=== PATIENT | male | born 1955 | race Caucasian/White ===

== ENCOUNTER 2017-02-18 02:14 | Inpatient (IN) | payer OTHER ==
[2017-02-18] VITALS (52 sets, daily range): BP systolic 61–209; BP diastolic 40–133; PULSE 94–127; RESP 18–26; TEMP 94.4–100.8; O2SAT 92–100
[~2017-02-18 02:14] MED LIST: CYCL-36 PO; LIDO2%S2 PO; PERC5TAB12 PO; TRIA0.1P3 MT
[2017-02-18] MEDS ORDERED: DEXTROSE 50% IN WATER 50 ML VIAL(D50) ONE (02:24)
[2017-02-18] MEDS ORDERED: SODIUM CHLOR 0.9% 1000 ML INJ 1,000 ML IV ONE ×4 (02:41→08:30)
[2017-02-18] MEDS ORDERED: HEPARIN SODIUM - IV 10,000 UNITS/10 ML VIAL IV STA (02:41)
[2017-02-18] MEDS ORDERED: HEPARIN-D5W INJ 250 ML ONE (02:41)
[2017-02-18] MEDS ORDERED: ASPIRIN 300 MG SUPP RECTAL ONE (02:45)
[2017-02-18] MEDS ORDERED: SODIUM CHLORIDE 0.9% FLUSH 10 ML FLUSH IVF PRN (02:45)
--- NOTE | 2017-02-18 02:57 | RADRPT ---
EXAM DATE/TIME: 02/18/2017 02:45 [facility] COMPARISON: No previous studies available for comparison. INDICATIONS : Code Stemi. Unresponsive. ET tube placement. MEDICAL HISTORY : None. SURGICAL HISTORY : None. ENCOUNTER: Initial ACUITY: 1 day PAIN SCORE: Non-responsive. LOCATION: Bilateral chest FINDINGS: A single view of the chest demonstrates the lungs to be symmetrically aerated without evidence of mas s, infiltrate or effusion. There is hyperaeration of the lungs. There is an ET tube in good position. No evidence of pneumothorax. There is an NG tube in place. The NG tube tip is in the distal esophagu s. The cardiomediastinal contours are unremarkable. Osseous structures are intact. CONCLUSION: 1. No focal or acute intrathoracic disease. 2. NG tube tip in distal esophagus. Recommend advancing another 10 cm. Toby Constantino MD on February 18, 2017 at 2:54 Board Certified Radiologist. This report was verified electronically.
[2017-02-18] MEDS ORDERED: INSULIN HUMAN REGULAR 1,000 UNITS/10 ML VIAL IV PUSH ONE (03:00)
[2017-02-18] MEDS ORDERED: CALCIUM CHLORIDE 10% SOLN 1 GRAM/10 ML SYR IV PUSH ONE (03:00)
[2017-02-18] MEDS ORDERED: DEXTROSE 50% IN WATER 50 ML VIAL(D50) IV PUSH ONE (03:00)
[2017-02-18 03:01] LABS: I-STAT POTASSIUM 6.9 MMOL/L (3.5-4.9)
[2017-02-18 03:02] LABS: BLOOD GAS BASE EXCESS -19.7 mmol/L (-2-2); BLOOD GAS CARBOXYHEMOGLOBIN 0.4 % (0-4); BLOOD GAS HCO3 11 mmol/L (22-26); BLOOD GAS METHEMOGLOBIN 0.7 % (0-2); BLOOD GAS O2 HGB SATURATION 78 % (90-100); BLOOD GAS OXYGEN CONTENT 13.5 Vol % (12.0-20.0); BLOOD GAS PCO2 59 mmHg (38-42); BLOOD GAS PO2 76 mmHG (61-120); BLOOD GAS TOTAL HGB 12.3 G/DL (12.0-16.0); CRITICAL VALUE YES; DRAW SITE LT RADIAL; FIO2 100 %; NUMBER OF ARTERIAL PUNCTURES 1; OXYGEN DEVICE VENTILATOR; STAT YES; TEMP CORR TO 98.6; ULNAR PULSE PRESENT; VENT SETTINGS AC18/550/+5
[2017-02-18 03:04] LABS: INTERNATIONAL NORMALIZED RATIO 1.4 RATIO; PROTHROMBIN TIME - PATIENT 15.2 SEC (9.8-11.6)
[2017-02-18] MEDS ORDERED: DEXTROSE 50% IN WATER 50 ML SYRINGE ONE (03:07)
[2017-02-18 03:10] LABS: AUTOMATED NEUTROPHIL # 8.9 TH/MM3 (1.8-7.7); BASOPHIL # 0.1 TH/MM3 (0-0.2); BASOPHIL % 0.6 % (0.0-2.0); EOSINOPHIL # 0.1 TH/MM3 (0-0.4); EOSINOPHIL % 0.4 % (0.0-4.0); HEMATOCRIT 38.5 % (39.0-51.0); LYMPH % 20.6 % (9.0-44.0); LYMPHOCYTE # 2.6 TH/MM3 (1.0-4.8); MEAN CELL VOLUME 119.3 FL (80.0-100.0); MEAN CORPUSCULAR HEMOGLOBIN 36.8 PG (27.0-34.0); MEAN CORPUSCULAR HGB CONC 30.8 % (32.0-36.0); MONO % 7.9 % (0.0-8.0); NEUT % 70.5 % (16.0-70.0); PLATELET COUNT 116 TH/MM3 (150-450); RED BLOOD COUNT 3.23 MIL/MM3 (4.50-5.90); RED CELL DISTRIBUTION WIDTH 15.1 % (11.6-17.2); WHITE BLOOD COUNT 12.6 TH/MM3 (4.0-11.0)
[2017-02-18 03:23] LABS: HEMO FLAGS AUTO DIFF
[2017-02-18] MEDS ORDERED: VANCOMYCIN INJ 1,250 MG in SODIUM CHLOR 0.9% 250 ML INJ 250 ML IV ONE (03:30)
[2017-02-18] MEDS ORDERED: CEFEPIME INJ 2,000 MG in SODIUM CHLORIDE 0.9% INJ 100 ML IV ONE (03:30)
[2017-02-18 03:56] LABS: MAGNESIUM 4.2 MG/DL (1.5-2.5)
[2017-02-18 03:57] LABS: ALKALINE PHOSPHATASE 126 U/L (45-117); ALT (GPT) 713 U/L (12-78); ANION GAP 25 MEQ/L (5-15); AST (GOT) 2740 U/L (15-37); BICARBONATE 9.7 MEQ/L (21.0-32.0); BLOOD UREA NITROGEN 27 MG/DL (7-18); CHLORIDE 106 MEQ/L (98-107); GLOMERULAR FILTRATION RATE 15 ML/MIN (>89); SODIUM (NA) 141 MEQ/L (136-145); TOTAL BILIRUBIN ADULT 1.7 MG/DL (0.2-1.0)
[2017-02-18 03:59] LABS: POTASSIUM 6.7 MEQ/L (3.5-5.1)
--- NOTE | 2017-02-18 04:11 | PD ---
HPI Chief Complaint: Code Blue Time Seen by Provider: 02:41 Travel History International Travel<30 days: No (unable to assess) Contact w/Intl Traveler<30days: No History of Present Illness HPI The patient's 61 years old records EMS. The majority of the history is obtained by EMS band manager. The patient has history of epilepsy. Evidently he is normally compliant with his antiepileptic agents. On scene EMS could not identify the antiepileptic agents the patient takes. Reportedly the patient had been conversing with roommates through a doorway about 3 hours prior to EMS arrival (people were speaking with him however no one saw him). He had become unresponsive and EMS was activated. They found the patient on the floor. His mental status is altered apparently postictal nonverbal. The patient was prepared for transport to the ER and on the way to the ambulance he became asystolic. ACLS protocol was initiated. The patient was intubated and chest compressions were started. About 12 minutes of chest compressions were performed. Evidently he received 1 dose of epinephrine. On arrival to the ER chest compressions were continued and shortly thereafter he was found to have a pulse. Levophed drip started. Bicarbonate drip started. Bedside glucose 50 and an amp of D50 was given. In the ER the patient received multiple rounds of epinephrine and bicarbonate as he lost pulses twice more initially, each episode lasting about 2-3 minutes. EKG obtained shortly after the patient's arrival revealed ST elevations in precordial leads V1 through V5 as well as II, III and aVF. STEMI alert was activated. Toy Assembly Supervisor Dr. Keane evaluated the patient at the bedside. A repeat EKG was performed revealing no ST elevation [place]. Bedside transthoracic/transabdominal ultrasound revealed normal cardiac activity. Ischemic injury pattern not consistent with a typical occlusive coronary process. No evidence of [place] cardiomyopathy on bedside us. Please refer to his note. Of note the patient was found to have some swelling and induration of the left lower extremity at the calf. A [place] needle was employed to check compartment pressures of the anterior compartment in the superficial posterior compartment with measurements of 47 and 45 respectively. Finally the patient was found to be somewhat hypothermic and blood cultures were drawn and antibiotics initiated, cefepime and vancomycin. The patient also has hyperkalemia at 6.9 and insulin dextrose, calcium and bicarbonate were given. The creatinine is also about 3.5. The patient will be admitted to the asic engineer service. The case was discussed with Dr. Auguste. Case was also discussed with Dr. Frederick of orthopedic surgery. [facility] Social History Tobacco Use: No Allergies-Medications (Allergen,Severity, Reaction): Coded Allergies: UNOBTAINABLE (Unverified , 02/18/17) Review of Systems ROS Limitations: Clinical Condition Physical Exam Narrative GENERAL: 61-year-old male GCS 3T well-nourished well-developed SKIN: Focused skin assessment warm/dry. HEAD: Atraumatic. Normocephalic. EYES: On arrival pupils fixed and dilated at about 3 mm. ENT: No nasal bleeding or discharge. Mucous membranes pink and moist. Intubated. NECK: Trachea midline. No JVD. CARDIOVASCULAR: Pulseless upon arrival. Monitor revealed a sinus tachycardia. RESPIRATORY: Intubated. Breath sounds present bilaterally. GASTROINTESTINAL: Abdomen soft, non-tender, nondistended. Hepatic and splenic margins not palpable. MUSCULOSKELETAL: The left lower extremity/calf is quite indurated and edematous. There is ecchymosis and a approximate 20 cm x 5 mm area of blisters in a linear pattern of distribution. There is a posterior tibialis pulse on the left side. NEUROLOGICAL: GCS 3T. PSYCHIATRIC: Unable to assess. Data Data Last Documented VS Vital Signs Date Time Temp Pulse Resp B/P Pulse Ox O2 Delivery O2 Flow Rate FiO2 02/18/17 03:05 92 100 Orders Dextrose 50% In Syeda (Vial) Inj (D50w (Vi (02/18/17 02:24) Heparin-D5w Inj (Heparin-D5w Inj) (02/18/17 02:41) Troponin I (02/18/17 02:41) Ckmb (Isoenzyme) Profile (02/18/17 02:41) Complete Blood Count With Diff (02/18/17 02:41) I-Stat Profile (02/18/17 02:41) I-Stat Creatinine (02/18/17 02:41) Calcium (02/18/17 02:41) Magnesium (Mg) (02/18/17 02:41) Prothrombin Time / Inr (Pt) (02/18/17 02:41) Act Partial Throm Time (Ptt) (02/18/17 02:41) B-Type Natriuretic Peptide (02/18/17 02:41) Chest, Single Ap (02/18/17 02:41) Electrocardiogram (02/18/17 02:41) Oxygen Administration (02/18/17 02:41) Iv Access Insert/Monitor (02/18/17 02:41) Oximetry (02/18/17 02:41) Sodium Chlor 0.9% 1000 Ml Inj (Ns 1000 M (02/18/17 02:41) Sodium Chloride 0.9% Flush (Ns Flush) (02/18/17 02:45) Heparin Inj (Heparin Inj) (02/18/17 02:41) Ct Brain W/O Iv Contrast(Rout) (02/18/17 02:41) Aspirin Supp (Aspirin Supp) (02/18/17 02:45) Comprehensive Metabolic Panel (02/18/17 02:56) Dextrose 50% In Syeda (Vial) Inj (D50w (Vi (02/18/17 03:00) Calcium Chloride Inj (Calcium Chloride I (02/18/17 03:00) Insulin Human Regular Inj (Novolin R Inj (02/18/17 03:00) Arterial Blood Gas (Abg) (02/18/17 02:48) Resp Ventilation- Volume (02/18/17 ) Urinary Catheter Management SHERRY.Q8H (02/18/17 03:03) Sodium Chlor 0.9% 1000 Ml Inj (Ns 1000 M (02/18/17 03:15) Sodium Chlor 0.9% 1000 Ml Inj (Ns 1000 M (02/18/17 03:15) Dextrose 50% In Yseda (Syr) Inj (D50w (Syr (02/18/17 03:07) Blood Culture (02/18/17 03:20) Cefepime Inj (Maxipime Inj) (02/18/17 03:30) Vancomycin Inj (Vancomycin Inj) (02/18/17 03:30) Admit Order (Ed Use Only) (02/18/17 03:27) Labs Laboratory Tests Test 02/18/17 02/18/17 02/18/17 02/18/17 02:40 02:48 03:00 03:01 Bedside Hemoglobin 16.0 G/DL Bedside Hematocrit 47.0 % Prothrombin Time 15.2 SEC Prothromb Time International 1.4 RATIO Ratio Activated Partial 42.0 SEC Thromboplast Time Bedside Sodium 137 MMOL/L Bedside Potassium 6.9 MMOL/L Bedside Chloride 108 MMOL/L Bedside Blood Urea Nitrogen 38 MG/DL Bedside Creatinine 3.7 MG/DL Bedside Glucose 45 MG/DL Calcium Level 8.5 MG/DL 7.5 MG/DL Magnesium Level 4.2 MG/DL Total Creatine Kinase U/L Troponin I 0.14 NG/ML B-Type Natriuretic Peptide 66 PG/ML Blood Gas Puncture Site LT RADIAL Blood Gas Patient Temperature 98.6 Blood Gas HCO3 11 mmol/L Blood Gas Base Excess -19.7 mmol/L Blood Gas Oxygen Saturation 78 % Arterial Blood pH 6.89 Arterial Blood Partial 59 mmHg Pressure CO2 Arterial Blood Partial 76 mmHG Pressure O2 Arterial Blood Oxygen Content 13.5 Vol % Arterial Blood 0.4 % Carboxyhemoglobin Arterial Blood Methemoglobin 0.7 % Blood Gas Hemoglobin 12.3 G/DL Oxygen Delivery Device VENTILATOR Blood Gas Ventilator Setting AC18/550/+5 Blood Gas Inspired Oxygen 100 % Sodium Level 141 MEQ/L Potassium Level 6.7 MEQ/L Chloride Level 106 MEQ/L Carbon Dioxide Level 9.7 MEQ/L Anion Gap 25 MEQ/L Blood Urea Nitrogen 27 MG/DL Creatinine 3.46 MG/DL Estimat Glomerular Filtration 15 ML/MIN Rate Random Glucose 158 MG/DL Total Bilirubin 1.7 MG/DL Aspartate Amino Transf 2740 U/L (AST/SGOT) Alanine Aminotransferase 713 U/L (ALT/SGPT) Alkaline Phosphatase 126 U/L Total Protein 5.1 GM/DL Albumin 1.9 GM/DL White Blood Count 12.6 TH/MM3 Red Blood Count 3.23 MIL/MM3 Hemoglobin 11.9 GM/DL Hematocrit 38.5 % Mean Corpuscular Volume 119.3 FL Mean Corpuscular Hemoglobin 36.8 PG Mean Corpuscular Hemoglobin 30.8 % Concent Red Cell Distribution Width 15.1 % Platelet Count 116 TH/MM3 Mean Platelet Volume 9.2 FL Neutrophils (%) (Auto) 70.5 % Lymphocytes (%) (Auto) 20.6 % Monocytes (%) (Auto) 7.9 % Eosinophils (%) (Auto) 0.4 % Basophils (%) (Auto) 0.6 % Neutrophils # (Auto) 8.9 TH/MM3 Lymphocytes # (Auto) 2.6 TH/MM3 Monocytes # (Auto) 1.0 TH/MM3 Eosinophils # (Auto) 0.1 TH/MM3 Basophils # (Auto) 0.1 TH/MM3 CBC Comment AUTO DIFF Differential Total Cells 100 Counted Neutrophils % (Manual) 76 % Band Neutrophils % 5 % Lymphocytes % 15 % Monocytes % 2 % Neutrophils # (Manual) 10.5 TH/MM3 Metamyelocytes 2 % Nucleated Red Blood Cells 2 /100 WBC Differential Comment FINAL DIFF MANUAL Platelet Estimate LOW Platelet Morphology Comment NORMAL MDM Medical Decision Making Medical Screen Exam Complete: Yes Emergency Medical Condition: Yes Differential Diagnosis Cardiopulmonary arrest, compartment syndrome, rhabdomyolysis, sepsis, anoxic brain injury Narrative Course CBC & BMP Diagram 02/18/17 03:00 02/18/17 03:01 AST 2740 ALT 713 Alkaline phosphatase 126 Troponin 0.14 BNP 66 Mg 4.2 6.89/59/10.8 pO2 76 on 100% FiO2 EKG reveals ST elevations in V1 through V5 and ST elevations in II, III, and F aVF Last 24 hours Impressions Chest X-Ray 02/18/17 0241 Signed Impressions: Service Date/Time: Saturday, February 18, 2017 02:45 - CONCLUSION: 1. No focal or acute intrathoracic disease. 2. NG tube tip in distal esophagus. Recommend advancing another 10 cm. Toby Constantino MD Please refer to the history of present illness. Patient will be admitted to the [facility]. Critical Care Narrative Aggregate critical care time was 90 minutes. Time to perform other separately billable procedures was not included in the critical care time. My time did not include minutes spent treating any other patients simultaneously or on activities that did not directly contribute to the patient's treatment. The services I provided to this patient were to treat and/or prevent clinically significant deterioration that could result in: Cardiopulmonary arrest, multiorgan failure I provided critical care services requiring my management, as noted below: Chart data review, documentation time, medication orders and management, vital sign assessments/reviewing monitor data, ordering and reviewing lab tests, ordering and interpreting/reviewing x-rays and diagnostic studies, care of the patient and discussion of the patient with the admitting physicians. Procedures Procedure Narrative After the risks and benefits were discussed the following procedure was performed: INTUBATION: The patient was put in optimal position for the procedure. No RSI med was required. The patient was intubated with a 7-5 cuffed endotracheal tube. Tube placement was confirmed by visualization of the tube and balloon passing through the cords, capnometry and subsequent chest x-ray. Breath sounds were equal and well aerated bilaterally postintubation. No breath sounds over stomach. Patient tolerated procedure well. Sepsis Criteria SIRS Criteria (2 or more): Temp > 100.9 or < 96.8, Heart rate over 90, WBC > 42732, < 4000 or > 10% bands Sepsis Criteria (SIRS+source): Infect source susp/known Severe Sepsis (+one): Hypotension, Hypoperfusion Septic Shock Criteria: Unresponsive to 30ml/kg fluid bolus Multiple Organ Dysfunction Syn: Evidence -2 organs failing Diagnosis Primary Impression: Cardiopulmonary arrest with successful resuscitation Additional Impressions: Renal failure Hyperkalemia Hypothermia Qualified Code: T68.XXXA - Hypothermia, initial encounter Compartment syndrome Qualified Code: T79.A22A - Traumatic compartment syndrome of left lower extremity, initial encounter Sepsis with multi-organ dysfunction Admitting Information Admitting Physician Requests: Chicho Chamorro MD Feb 18, 2017 04:11
[2017-02-18] MEDS: SODIUM CHLOR 0.9% 1000 ML INJ 1,000 ML IV SCH ×4 (04:20→21:34)
[2017-02-18 04:21] LABS: BANDS 5 % (0-6); CORRECTED NUCLEATED RBC 2 /100 WBC (0-0); METAMYELOCYTES 2 % (0-1); NEUTROPHIL # MANUAL DIFF 10.5 TH/MM3 (1.8-7.7); POLYS (SEG NEUTROPHILS) 76 % (16-70); WBC DIFF SAMPLE 100
[2017-02-18 04:22] LABS: PLATELET ESTIMATE SMEAR LOW (NORMAL); PLATELET MORPHOLOGY NORMAL (NORMAL); SCAN/DIFF FINAL DIFF MANUAL
[2017-02-18] MEDS ORDERED: RESP: ALBUTEROL 2.5 MG/IPRATROPIUM 0.5 MG NEB (PRN) INH (04:30)
[2017-02-18] MEDS ORDERED: SODIUM CHLORIDE 0.9% FLUSH 10 ML FLUSH PRN (04:30)
[2017-02-18] MEDS ORDERED: MISCELLANEOUS NURSING INFORMATION XX SCH ×2 (04:30→07:15)
[2017-02-18] MEDS ORDERED: LORazepam 2 MG/ML VIAL IV PUSH ONE (04:30)
[2017-02-18] MEDS ORDERED: MORPHINE SULFATE 4 MG/ML INJ IV PRN (04:30)
[2017-02-18] MEDS ORDERED: ONDANSETRON HCL 4 MG/2 ML VIAL IV PRN (04:30)
[2017-02-18] MEDS ORDERED: PROPOFOL 1000 MG/100 ML INJ 100 ML IV SCH (04:30)
[2017-02-18] MEDS ORDERED: ACETAMINOPHEN 325 MG TAB PO PRN (04:30)
[2017-02-18] MEDS ORDERED: CHLORHEXIDINE GLUCONATE 2 % 1 PACK (2 CLOTHS) TOP PRN ×2 (04:30→07:15)
[2017-02-18] MEDS ORDERED: METOCLOPRAMIDE HCL 10 MG/2 ML VIAL IV PRN (04:30)
--- NOTE | 2017-02-18 04:49 | RADRPT ---
EXAM DATE/TIME: 02/18/2017 04:27 [facility] COMPARISON: No previous studies available for comparison. INDICATIONS : Altered mental status. RADIATION DOSE: 56.35 CTDIvol (mGy) MEDICAL HISTORY : Non-responsive. SURGICAL HISTORY : Non-responsive. ENCOUNTER: Initial ACUITY: 1 day PAIN SCALE: Non-responsive LOCATION: cranial TECHNIQUE: Multiple contiguous axial images were obtained of the head. Using automated exposure control and adj ustment of the mA and/or kV according to patient size, radiation dose was kept as low as reasonably a chievable to obtain optimal diagnostic quality images. FINDINGS: CEREBRUM: The ventricles are normal for age. No evidence of midline shift, mass lesion, hemorrhage or acute in farction. No extra-axial fluid collections are seen. POSTERIOR FOSSA: The cerebellum and brainstem are intact. The 4th ventricle is midline. The cerebellopontine angle i s unremarkable. EXTRACRANIAL: The visualized portion of the orbits is intact. SKULL: The calvaria is intact. No evidence of skull fracture. CONCLUSION: Unremarkable CT scan of the brain.. Toby Constantino MD on February 18, 2017 at 4:46 Board Certified Radiologist. This report was verified electronically.
--- NOTE | 2017-02-18 04:50 | HHI.HP ---
HPI Service Critical Care Medicine Primary Care Physician Unknown Admission Diagnosis Cardiopulmonary Arrest; Renal Failure; Hyperkalemia Diagnosis: Travel History International Travel<30 Days: No Contact w/Intl Traveler <30 Da: No Traveled to Known Affected Are: No History of Present Illness 61 years old male brought as a status post cardiac arrest. The history is obtained from medical chart. The patient has history of epilepsy. He is normally compliant with his antiepileptic agents. The patient had been conversing with roommates through a doorway about 3 hours prior to EMS arrival. He had become unresponsive and EMS was activated. They found the patient on the floor. His mental status was altered apparently postictal nonverbal. The patient was prepared for transport to the ER and on the way to the ambulance he became asystolic. ACLS protocol was initiated. The patient was intubated and chest compressions were started. About 12 minutes of chest compressions were performed. He received 1 dose of epinephrine. On arrival to the ER chest compressions were continued and shortly thereafter he was found to have a pulse. Levophed drip started. In the ER the patient received multiple rounds of epinephrine and bicarbonate as he lost pulses twice more initially each episode lasting about 2-3 minutes. EKG obtained shortly after the patient' s arrival revealed ST elevations in precordial leads V1 through V5 as well as II , III and aVF. STEMI alert was activated. Television Installer Helper Dr. Keane evaluated the patient at the bedside. A repeat EKG was performed revealing no ST elevation [place]. The patient was found to have some swelling and induration of the left lower extremity at the calf. A [place] needle was employed to check compartment pressures of the anterior compartment in the superficial posterior compartment with measurements of 47 and 45 respectively. Finally the patient was found to be somewhat hypothermic and blood cultures were drawn and antibiotics initiated , cefepime and vancomycin. The patient also has hyperkalemia at 6.9 and insulin dextrose, calcium and bicarbonate were given. The creatinine is also about 3.5. Review of Systems ROS To obtain patient is sedated and intubated Past Family Social History Allergies: Coded Allergies: UNOBTAINABLE (Unverified , 02/18/17) Past Medical History Epilepsy Past Surgical History Unable to obtain Reported Medications Unable to obtain Active Ordered Medications Current Medications Medications (Trade) Dose Ordered Sig/Abdoulaye Route PRN Reason Start Time Stop Time Status Last Admin Dose Admin Sodium Chloride 2 ml 2 ml UNSCH PRN IVF FLUSH AFTER USING IV ACCESS 02/18/17 02:45 Vancomycin HCl/ Sodium Chloride (Vancomycin Inj/ NS 250 ml Inj) 262.5 ml @ 262.5 mls/ hr ONCE ONCE IV 02/18/17 03:30 02/18/17 04:29 02/18/17 03:53 Family History Unable to obtain Social History Unable to obtain Physical Exam Vital Signs Vital Signs Date Time Temp Pulse Resp B/P Pulse Ox O2 Delivery O2 Flow Rate FiO2 02/18/17 03:05 92 100 Physical Exam GENERAL: Well-nourished, well-developed patient. SKIN: Warm and dry. HEAD: Normocephalic. EYES: No scleral icterus. No injection or drainage. Pupils 3 mm bilaterally sluggish NECK: Supple, trachea midline. No JVD or lymphadenopathy. CARDIOVASCULAR: Regular rate and rhythm without murmurs, gallops, or rubs. RESPIRATORY: Breath sounds equal bilaterally. No accessory muscle use. GASTROINTESTINAL: Abdomen soft, non-tender, nondistended. MUSCULOSKELETAL: No cyanosis, or edema. BACK: Nontender without obvious deformity. No CVA tenderness. EXTREMITIES: No clubbing or cyanosis. Up to the knee edema of the right cuff Laboratory Laboratory Tests Test 02/18/17 02/18/17 02/18/17 02/18/17 02:40 02:48 03:00 03:01 Bedside Hemoglobin 16.0 Bedside Hematocrit 47.0 Prothrombin Time 15.2 Prothromb Time International 1.4 Ratio Activated Partial 42.0 Thromboplast Time Bedside Sodium 137 Bedside Potassium 6.9 Bedside Chloride 108 Bedside Blood Urea Nitrogen 38 Bedside Creatinine 3.7 Bedside Glucose 45 Calcium Level 8.5 7.5 Magnesium Level 4.2 Total Creatine Kinase Troponin I 0.14 B-Type Natriuretic Peptide 66 Blood Gas Puncture Site LT RADIAL Blood Gas Patient Temperature 98.6 Blood Gas HCO3 11 Blood Gas Base Excess -19.7 Blood Gas Oxygen Saturation 78 Arterial Blood pH 6.89 Arterial Blood Partial 59 Pressure CO2 Arterial Blood Partial 76 Pressure O2 Arterial Blood Oxygen Content 13.5 Arterial Blood 0.4 Carboxyhemoglobin Arterial Blood Methemoglobin 0.7 Blood Gas Hemoglobin 12.3 Oxygen Delivery Device VENTILATOR Blood Gas Ventilator Setting AC18/550/+5 Blood Gas Inspired Oxygen 100 Sodium Level 141 Potassium Level 6.7 Chloride Level 106 Carbon Dioxide Level 9.7 Anion Gap 25 Blood Urea Nitrogen 27 Creatinine 3.46 Estimat Glomerular Filtration 15 Rate Random Glucose 158 Total Bilirubin 1.7 Aspartate Amino Transf 2740 (AST/SGOT) Alanine Aminotransferase 713 (ALT/SGPT) Alkaline Phosphatase 126 Total Protein 5.1 Albumin 1.9 White Blood Count 12.6 Red Blood Count 3.23 Hemoglobin 11.9 Hematocrit 38.5 Mean Corpuscular Volume 119.3 Mean Corpuscular Hemoglobin 36.8 Mean Corpuscular Hemoglobin 30.8 Concent Red Cell Distribution Width 15.1 Platelet Count 116 Mean Platelet Volume 9.2 Neutrophils (%) (Auto) 70.5 Lymphocytes (%) (Auto) 20.6 Monocytes (%) (Auto) 7.9 Eosinophils (%) (Auto) 0.4 Basophils (%) (Auto) 0.6 Neutrophils # (Auto) 8.9 Lymphocytes # (Auto) 2.6 Monocytes # (Auto) 1.0 Eosinophils # (Auto) 0.1 Basophils # (Auto) 0.1 CBC Comment AUTO DIFF Differential Total Cells 100 Counted Neutrophils % (Manual) 76 Band Neutrophils % 5 Lymphocytes % 15 Monocytes % 2 Neutrophils # (Manual) 10.5 Metamyelocytes 2 Nucleated Red Blood Cells 2 Differential Comment FINAL DIFF MANUAL Platelet Estimate LOW Platelet Morphology Comment NORMAL Date/Time Procedure Status Source Growth 02/18/17 03:25 Aerobic Blood Culture Received Blood Peripheral Pending 02/18/17 03:25 Anaerobic Blood Culture Received Blood Peripheral Pending Result Diagram: 02/18/17 0301 02/18/17 0300 Imaging Last 24 hours Impressions Chest X-Ray 02/18/17 0241 Signed Impressions: Service Date/Time: Saturday, February 18, 2017 02:45 - CONCLUSION: 1. No focal or acute intrathoracic disease. 2. NG tube tip in distal esophagus. Recommend advancing another 10 cm. Toby Constantino MD Assessment and Plan Assessment and Plan Cardiac arrest - no indication for cardiac cathetrization per cardiology - supportive care - follow up ECGs and troponin trend - 2D Echo Respiratory failure - due to above - intubated also for an airway protection - no weaning until neuirologicaly improved CLAUDIA - severe metabolic acidosis - hyerkalemia - sodium bicarb gtt - nephrology consult Seizure disorder - Keppra/Dilantin Rhabdo - sodium bicarb gtt - ortho evaluation for possible compartment syndrom of lower extremity DVT/GI prophylaxis - Heparin/Pepcid Critical Care: The total critical care time was 35 minutes. Time to perform other separately billable procedures was not included in the critical care time. Valdez Auguste MD Feb 18, 2017 04:50
[2017-02-18] MEDS ORDERED: NOREPINEPHRINE-DEXTROSE DRIP 250 ML IV ONE (04:58)
[2017-02-18] MEDS ORDERED: SODIUM BICARBONATE 8.4% INJ 50 MEQ/50 ML SYR IV ONE (05:00)
[2017-02-18] MEDS ORDERED: SODIUM BICARBONATE 8.4% INJ 50 MEQ in DEXTROSE 5% IN WATE 1000ML INJ 1,000 ML IV SCH ×2 (05:00)
[2017-02-18] MEDS ORDERED: DEXTROSE 50% IN WATER 50 ML SYRINGE IV ONE (05:00)
[2017-02-18] MEDS ORDERED: EPINEPHrine HCL (1:10,000) 1 MG/10 ML SYRINGE IV ONE (05:00)
[2017-02-18] MEDS ORDERED: CALCIUM CHLORIDE 10% SOLN 1 GRAM/10 ML SYR IV ONE (05:00)
[2017-02-18] MEDS ORDERED: NOREPINEPHRINE 4 MG/4 ML AMP IV ONE (05:00)
[2017-02-18 05:28] LABS: CKMB 806.9 NG/ML (0.5-3.6)
--- NOTE | 2017-02-18 05:54 | MB ---
cc: VERN OSUNA DO DATE OF CONSULTATION February 18, 2017 REASON FOR CONSULTATION Possible STEMI. HISTORY OF PRESENT ILLNESS Hima Lopez89 is a [age]-old male who was brought by [facility] to [facility] on February 18, 2017, after being found down. He lives with two roommates and per the roommates he spoke to them 3-4 hours before the event through the door but no one saw that he was well at that time. Because he was mostly unresponsive, they ended up calling [facility]AC later in the night. On arrival [facility] found to him laying on the ground in his own feces appeared to have a seizure before this. The patient does have a history of seizures. He had pulse at that time that they were unable to register a blood pressure. After moving him, he was found not to have pulses and CPR and ensued for 12 minutes with return of spontaneous circulation. On arrival to the emergency room, he once again lost pulses and CPR ensued for 3 minutes. After return of spontaneous circulation, an EKG was done which shows extensive ST elevations inferior, anterior and laterally. He once again lost pulses and CPR was reinitiated for another 3-5 minutes. On my arrival, the patient's blood pressure was 60/30 and so Levophed was started and titrated up to a maximum dose. PAST MEDICAL HISTORY Unknown, other than a history of seizure disorder. PAST SURGICAL HISTORY Unknown. ALLERGIES Unknown. MEDICATIONS Unknown. FAMILY HISTORY Unknown. SOCIAL HISTORY Unknown, other than he lives with two roommates. REVIEW OF SYSTEMS Unable to obtain secondary to the patient's status. PHYSICAL EXAMINATION VITAL SIGNS: Temperature 95.8, heart rate 110, blood pressure is 90/50 on a max dose of Levophed, respirations of 20. Pulse ox 100% on FIO2 of 100%. GENERAL: The patient is currently intubated. HEENT: Pupils are equal and round. Mucous membranes moist. ET tube in place. NECK: Supple. No JVD at 45 degrees. No carotid bruits heard bilaterally. Carotid upstrokes brisk in nature. HEART: Tachycardiac. Regular rhythm. He murmurs noted. LUNGS: Decreased breath sounds bilaterally but no overt wheezes, rales or rhonchi. ABDOMEN: Soft, nontender, nondistended. No organomegaly noted. EXTREMITIES: The left lower extremity has an erythematous and edematous area with somewhat of a puncture wound. NEUROLOGIC: Unable to assess. SKIN: Warm, dry and intact other than the left lower extremity. LABORATORY WORK Hemoglobin 11.9, hematocrit 38.5, platelets 116. Potassium 6.9, creatinine 3.7. Blood gas - pH 6.89, pCO2 59, O2 78, HCO3 11. ELECTROCARDIOGRAM (February 18, 2017 at 02:22) Probable sinus tachycardia with extensive ST elevations in the inferior, anterior and lateral leads and no real reciprocal changes. ELECTROCARDIOGRAM (February 18, 2017 at 03:03) Sinus tachycardia, low voltage in extremity leads, no acute ST-T wave changes. IMPRESSION 1. Possible STEMI, although repeat EKG shows no ST elevations. 2. Cardiac arrest multiple times. 3. Unknown down time on the initial cardiac arrest. 4. Shock. 5. Vent-dependent respiratory failure. 6. Metabolic lactic acidosis. 7. Hyperkalemia. 8. Presentable acute kidney injury. 9. Left lower extremity concern for compartment syndrome. RECOMMENDATIONS 1. Hima Bingham initially arrived after a cardiac arrest and EKG showed ST elevations extensively throughout the inferior, anterior and lateral without reciprocal ST changes. 2. Bedside echo showed relatively normal function, which would be unusual with this extensive of an ST-elevation PA if true. Repeat EKG was done showing no ST elevations. 3. At this time there is no emergent reason for cardiac catheterization. 4. We will plan to admit to the critical care team. 5. Continue with supportive care. 6. We will obtain a full echocardiogram in the morning. 7. Further recommendations will be made based on the hospital course. Thank you for allowing me to see Hima Gomes. If there are any questions please do not hesitate to call. Vern Osuna DO VGP/SSB /3:20 AM /5:40 AM
[2017-02-18] MEDS ORDERED: HEPARIN SODIUM - SQ 10,000 UNITS/ML VIAL SQ SCH (06:00)
[2017-02-18] MEDS ORDERED: VASOPRESSIN INJ 20 UNITS/ML VIAL ONE (06:29)
--- NOTE | 2017-02-18 06:34 | PD.PROCEDR ---
Central Line Procedure REASON FOR PROCEDURE Central venous access PROCEDURE PERFORMED Central line placement: Right IJ CONSENT Informed consent for procedure was not obtained, deemed emergent . Vaspressors Levophed maximum dosage, Hemodynamic instability ANESTHESIA Local injection of 1% Lidocaine DESCRIPTION OF THE PROCEDURE The patient was placed in supine, mild Trendelenburg position. The area was exposed and cleansed with ChloraPrep, times two. Large sterile drape was used to cover the patient, with the site exposed, under sterile conditions including cap, face mask, sterile gown, and sterile gloves. On single attempt, the introducer needle was inserted with negative pressure in syringe and venous flash was obtained. The guide wire was then advanced without any restriction and the needle was removed. The dilator was used without any complications. Using Seldinger technique the [ ] catheter was advanced over the guide wire to a depth of [ ] centimeters. The guide wire was removed. All ports were aspirated with dark venous blood return and flushed easily with sterile saline. All ports were capped. Antibiotic disc was placed around central line at puncture site. The central line was secured to the skin with two interrupted 2.0 silk sutures. The area was bandaged with sterile see-through central line bandage. RADIOLOGICAL DATA Ultrasound guidance was used to locate RIJ. Doppler/color flow was used to confirm venous flow. COMPLICATIONS: No apparent complications ESTIMATED BLOOD LOSS: Less than 1 cc. Aileen Garcia MD Feb 18, 2017 06:34
[2017-02-18] MEDS ORDERED: PHENYTOIN INJ 1,000 MG in SODIUM CHLORIDE 0.9% INJ 100 ML IV ONE (06:45)
--- NOTE | 2017-02-18 06:58 | RADRPT ---
EXAM DATE/TIME: 02/18/2017 06:37 [place] COMPARISON: CHEST SINGLE AP, February 18, 2017, 2:45. INDICATIONS : Central line placement. MEDICAL HISTORY : Unobtainable. SURGICAL HISTORY : Unobtainable. ENCOUNTER: Subsequent ACUITY: 2 days PAIN SCORE: Non-responsive. LOCATION: Bilateral chest FINDINGS: A single view of the chest demonstrates the lungs to be symmetrically aerated without evidence of mas s, infiltrate or effusion. There is no evidence of pneumothorax. A right-sided central line has been placed. The right-sided central line appears to be in good position. The endotracheal tube and NG tub e are in place. The cardiomediastinal contours are unremarkable. Osseous structures are intact. CONCLUSION: 1. Right central line in good position. No evidence of pneumothorax. 2. The lungs are grossly clear. Toby Constantino MD on February 18, 2017 at 6:55 Board Certified Radiologist. This report was verified electronically.
[2017-02-18] MEDS: LORazepam 2 MG/ML VIAL IV PRN ×3 (07:03→14:14)
[2017-02-18] MEDS: VASOPRESSIN 40 U/100 ML D5W Titrate, Post Cardiac Surgery IV SCH ×4 (07:03→21:32)
--- NOTE | 2017-02-18 07:12 | MB ---
cc: RY SANDOVAL JAN MD DATE OF CONSULTATION: 02/18/2017 REASON FOR CONSULTATION Possible left leg compartment syndrome. CONSULTING PHYSICIAN Dr. Auguste HISTORY OF PRESENT ILLNESS This patient known as Hima Mendez is a male of unknown age who was found down on the ground. He apparently lives with two roommates. He had not been seen for several hours. He was found on the ground. [facility] was called. He was brought to the emergency room in an unresponsive state. He does have a history of seizures. He underwent CPR. He has reportedly coded several times. He is currently intubated and sedated in the intensive care unit. He has been unresponsive without any sedation. He has been actively undergoing seizures. In the emergency room he was found to have swelling of his left leg. Compartment pressures were measured and found to be above 40. No other history is available at this time. PAST MEDICAL HISTORY Unobtainable. SOCIAL HISTORY Unobtainable. REVIEW OF SYSTEMS Unobtainable. FAMILY HISTORY Unobtainable. PHYSICAL EXAMINATION GENERAL: The patient is an approximately 47[age]23[age]-old male who is intubated. He is unresponsive. He appears well-developed, well-nourished. VITAL SIGNS: Please see EMR for complete list of vital signs. This was reviewed. Currently he is satting 92% on FIO2 100%. HEAD: The patient is normocephalic. NECK: Soft, nontender. Trachea is midline. ABDOMEN: Soft, nontender, nondistended. EXTREMITIES: Examination of bilateral upper extremities reveals no obvious pain or deformity with shoulder, elbow or wrist motion. Skin is intact to both hands. He has good capillary refill in his fingers. I am unable to palpate the radial pulses. Examination of right leg reveals no obvious pain or deformity with hip, knee or ankle motion. Skin is intact. He has good capillary refill in his foot. His foot appears to be warm and well-perfused. Motor and sensory exams are not possible. Examination of left leg reveals no obvious pain or deformity with hip, knee or ankle motion. He has moderate to severe swelling of the left calf. The calf currently feels relatively soft. There is bruising. Skin is intact. IMPRESSION 1. Seizure disorder. 2. Rhabdomyolysis. 3. Possible left leg compartment syndrome. PLAN I discussed his case his with Dr. Garcia of intensive care. At this point the patient is extremely unstable and is not safe to go to surgery. At this point the patient has been found down for an unknown amount of time. He does likely have a compartment syndrome of his left leg. At this point he may likely already have necrotic muscle of the calf. A fasciotomy may likely not be of significant benefit given that most of the muscle may already be ischemic for an excessive amount of time to be viable. Opening his leg at this point may likely increase his risk of infection and amputation. Given the fact that the patient is too unstable for surgery I feel that nonoperative treatment is reasonable at this time. We will continue to follow the patient's progress. A mid-level provider in my office, nurse practitioner or PA, may see this patient on a follow-up basis and continue to implement the objective of this plan including: Starting or adjusting medications, injections of muscle, tendon, bursa or joints, cast application, orthotic or brace application, physical therapy, further radiographic studies including x-ray, MRI, CT, ultrasounds or bone scan, vascular studies, neurologic studies, or other specialist consultations, and proceeding with surgical management as appropriate. MD ANITHA Collins/ROSIO /6:54 AM /7:02 AM
[2017-02-18] MEDS ORDERED: Vancomycin Consult Pharmacy 1 EA OTHER SCH (07:15)
--- NOTE | 2017-02-18 07:48 | HHI.CCPN ---
Subjective Remarks/Hospital Course 61 years old male brought as a status post cardiac arrest. The history is obtained from medical chart. The patient has history of epilepsy. He is normally compliant with his antiepileptic agents. The patient had been conversing with roommates through a doorway about 3 hours prior to EMS arrival. He had become unresponsive and EMS was activated. They found the patient on the floor. His mental status was altered apparently postictal nonverbal. The patient was prepared for transport to the ER and on the way to the ambulance he became asystolic. ACLS protocol was initiated. The patient was intubated and chest compressions were started. About 12 minutes of chest compressions were performed. He received 1 dose of epinephrine. On arrival to the ER chest compressions were continued and shortly thereafter he was found to have a pulse. Levophed drip started. In the ER the patient received multiple rounds of epinephrine and bicarbonate as he lost pulses twice more initially each episode lasting about 2-3 minutes. EKG obtained shortly after the patient' s arrival revealed ST elevations in precordial leads V1 through V5 as well as II , III and aVF. STEMI alert was activated. Inventory Control Associate Dr. Keane evaluated the patient at the bedside. A repeat EKG was performed revealing no ST elevation [place]. The patient was found to have some swelling and induration of the left lower extremity at the calf. A [place] needle was employed to check compartment pressures of the anterior compartment in the superficial posterior compartment with measurements of 47 and 45 respectively. Finally the patient was found to be somewhat hypothermic and blood cultures were drawn and antibiotics initiated , cefepime and vancomycin. The patient also has hyperkalemia at 6.9 and insulin dextrose, calcium and bicarbonate were given. The creatinine is also about 3.5. Subjective 02/18/17 Upon entering patient's room at 0600 hrs., The patient was noted to have tonic-clonic jerking, completely unresponsive has not been on sedation since admission to the hospital. The patient has a known history of a seizure disorder. Keppra and Dilantin levels were obtained and pending. The patient was loaded with 1 g Dilantin IV, and placed on Dilantin 100 mg every 8 hours. The patient was noted to be on maximum doses of Levophed,20 mcgs, a central line was placed and the patient was placed on a second vasopressor, vasopressin@ 0.04. Neurology was consulted , a stat EEG was ordered. The patient's sodium bicarbonate infusion was increased to 150 cc/hr. the patient was noted to be oliguric in the setting of rhabdomyolysis the patient was bolused an additional liter of normal saline, and NS infusionat 150cc/hr.BMP pending Objective Vital Signs Date Time Temp Pulse Resp B/P Pulse Ox O2 Delivery O2 Flow Rate FiO2 02/18/17 05:26 100 02/18/17 04:50 100 Result Diagram: 02/18/17 0301 02/18/17 0300 Other Results Laboratory Tests Test 02/18/17 02:48 Blood Gas Puncture Site LT RADIAL Blood Gas Patient Temperature 98.6 Blood Gas HCO3 11 mmol/L (22-26) Blood Gas Base Excess -19.7 mmol/L (-2-2) Blood Gas Oxygen Saturation 78 % (90-100) Arterial Blood pH 6.89 (7.380-7.420) Arterial Blood Partial 59 mmHg (38-42) Pressure CO2 Arterial Blood Partial 76 mmHG Pressure O2 (61-120) Arterial Blood Oxygen Content 13.5 Vol % (12.0-20.0) Arterial Blood 0.4 % (0-4) Carboxyhemoglobin Arterial Blood Methemoglobin 0.7 % (0-2) Blood Gas Hemoglobin 12.3 G/DL (12.0-16.0) Oxygen Delivery Device VENTILATOR Blood Gas Ventilator Setting AC18/550/+5 Blood Gas Inspired Oxygen 100 % Imaging Last 24 hours Impressions Chest X-Ray 02/18/17 0241 Signed Impressions: Service Date/Time: Saturday, February 18, 2017 02:45 - CONCLUSION: 1. No focal or acute intrathoracic disease. 2. NG tube tip in distal esophagus. Recommend advancing another 10 cm. Toby Constantino MD Objective Remarks GENERAL: Well-nourished, well-developed patient with tonic-clonic seizure activity. SKIN: Warm and dry. HEAD: Normocephalic. EYES: No scleral icterus. No injection or drainage. Pupils 3 mm bilaterally sluggish reactive NECK: Supple, trachea midline. No JVD or lymphadenopathy. CARDIOVASCULAR: Regular rate and rhythm without murmurs, gallops, or rubs. RESPIRATORY: Breath sounds equal bilaterally. No accessory muscle use. GASTROINTESTINAL: Abdomen soft, non-tender, nondistended. OGT to low suction MUSCULOSKELETAL: No cyanosis, left lower extremity traumatic compartment syndrome noted with discoloration, sluggish capillary refill BACK: Nontender without obvious deformity. No CVA tenderness. EXTREMITIES: No clubbing or cyanosis. Procedures Central line placement right IJ Urinary Catheter: Yes Mccarthy insert reason: Measure Accurate Output Date of Insertion: Feb 18, 2017 Vascular Central Line Catheter: Yes Assessment to: Continue Line: Central Venous Catheter Side: Right Location: Internal, Jugular Reason for Continuation Vasoactive medication and CVP monitoring A/P Assessment and Plan Plan by systems: Neurologic: Seizure disorder Metabolic encephalopathy Possible hypoxic encephalopathy Neurochecks per ICU protocol Load Dilantin 1 g IV now, and tinea Dilantin 100 mg every 8 hours Neurology consulted appreciate recommendations Stat EEG 02/18CT brain unremarkable Respiratory: Respiratory arrest secondary to cardiac arrest Possible aspiration Maintain O2 sat greater than 92%, wean FiO2 as tolerated Mechanical vent settings before meals PC 18/550/+5/50 Ventilator bundle Maintain head of bed greater than 30 Bronchodilators every 6 hours schedule every 2 hours when necessary Empiric antibiotics initiated Cardiovascular: Asystolic cardiac arrest 2 Hypotension Initial 12-lead EKG 02/18 ST elevations V1V5 and II, III aVF, with resolution Status post CPR with ROSC x 3 rounds of CPR Follow-up troponin levels Cardiology on board, Dr. Bragg follow up recommendations Currently vasopressor support the Levophed and vasopressin, wean as tolerated maintain MAP greater than 60 mmHg Renal: Severe metabolic acidosis Acute kidney injury secondary to rhabdomyolysis Oliguria Sodium bicarbonate 9.7 Bolus normal saline 1 L Continue sodium bicarbonate infusion at 150 cc an hour Obtain serial BMP -- Strict I/Os FEN/GI: Melena Maintain NPO status Replete electrolytes and replete as indicated Initiate Protonix infusion Gastroenterology consulted Heme/ID: Sepsis Leukocytosis Thrombocytopenia Rule out DIC Initiate empiric antibiotics Zosyn and vancomycin Monitor serial CBC Obtain fibrinogen level Type and cross Serial lactate levels Follow-up blood cultures Endocrine: Hypoglycemia-resolved Glucose monitoring per ICU protocol, low-dose regimen -- SSI Prophylaxis: GI Prophylaxis Pepcid BID DVT Prophylaxis -- SCD right leg, no pharmacological DVT prophylaxis Lines: PIV's x 2 .RI J Central line 02/18 Dispo: This patient remains critically ill with one or more organ systems which are or may become a threat to life. I have spent in excess of 60 minutes discontinuously in the care and management of this patient. This time is exclusive of procedures, and includes, but is not limited to, evaluation of the patient, review of the medical record, discussions with family, consultants, nursing staff, or respiratory therapy, and documentation in the medical record. Physician Aileen Beasley MD Feb 18, 2017 07:48
[2017-02-18 08:31] LABS: BLOOD GAS BASE EXCESS -8.8 mmol/L (-2-2); BLOOD GAS CARBOXYHEMOGLOBIN 0.9 % (0-4); BLOOD GAS HCO3 16 mmol/L (22-26); BLOOD GAS METHEMOGLOBIN 0.6 % (0-2); BLOOD GAS O2 HGB SATURATION 99 % (90-100); BLOOD GAS OXYGEN CONTENT 19.8 Vol % (12.0-20.0); BLOOD GAS PCO2 32 mmHg (38-42); BLOOD GAS PO2 494 mmHG (61-120); BLOOD GAS TOTAL HGB 13.4 G/DL (12.0-16.0); TEMP CORR TO 98.6
[2017-02-18 08:33] LABS: CRITICAL VALUE YES; DRAW SITE RT RADIAL; FIO2 90 %; NUMBER OF ARTERIAL PUNCTURES 1; OXYGEN DEVICE VENTILATOR
[2017-02-18 08:34] LABS: STAT NO; ULNAR PULSE PRESENT
[2017-02-18] MEDS: DOCUSATE SODIUM 100 MG/10 ML UDC G-TUBE SCH ×2 (09:00→20:31)
[2017-02-18] MEDS: ARTIFICIAL TEARS OPTH SOLN 15 ML BTL EACH EYE SCH ×3 (09:00→16:21)
[2017-02-18] MEDS: SODIUM BICARBONATE 8.4% INJ 150 MEQ in SODIUM CHLOR 0.45% 1000 ML INJ 850 ML IV SCH ×3 (09:00→21:32)
[2017-02-18] MEDS: BENEPROTEIN POWDER 1 PACK G-TUBE SCH ×3 (09:00→15:22)
[2017-02-18 09:34] LABS: HEMATOCRIT 39.7 % (39.0-51.0); MEAN CELL VOLUME 112.8 FL (80.0-100.0); MEAN CORPUSCULAR HEMOGLOBIN 37.9 PG (27.0-34.0); MEAN CORPUSCULAR HGB CONC 33.6 % (32.0-36.0); PLATELET COUNT 81 TH/MM3 (150-450); RED BLOOD COUNT 3.52 MIL/MM3 (4.50-5.90); RED CELL DISTRIBUTION WIDTH 14.8 % (11.6-17.2); WHITE BLOOD COUNT 5.9 TH/MM3 (4.0-11.0)
[2017-02-18 09:40] LABS: REVIEW FLAG FINAL
[2017-02-18 09:44] LABS: APTT (PATIENT) 35.9 SEC (24.3-30.1); INTERNATIONAL NORMALIZED RATIO 1.7 RATIO; PROTHROMBIN TIME - PATIENT 19.5 SEC (9.8-11.6)
[2017-02-18] MEDS: SODIUM CHLORIDE 0.9% FLUSH 10 ML FLUSH SCH ×2 (10:10→21:00)
[2017-02-18] MEDS: FAMOTIDINE 20 MG/2 ML VIAL IV PUSH SCH ×2 (10:17→20:32)
[2017-02-18] MEDS ORDERED: PHYTONADIONE 10 MG/ML VIAL SQ ONE (10:30)
[2017-02-18 10:35] LABS: BICARBONATE 19.4 MEQ/L (21.0-32.0); POTASSIUM 5.8 MEQ/L (3.5-5.1)
[2017-02-18 10:39] LABS: LACTIC ACID GHOST NOT REPORTABLE
--- NOTE | 2017-02-18 10:54 | MB ---
cc: PERRYEamonDEANA DATE OF CONSULTATION 12/21/2016 REASON FOR CONSULTATION Seizures, status post cardiac arrest. HISTORY OF PRESENT ILLNESS A 61-year-old male was brought to the emergency room at [facility] as status post cardiac arrest and history is obtained from medical chart. The patient has history of epilepsy. During the encounter the patient is not responding, hence old information is obtained from the medical records. He is normally compliant with his antiepileptic medication. The patient has been conversing with roommates through a doorway about three hours prior to EMS arrival. He had become unresponsive. EMS was activated; they found the patient on the floor and the patient's mental status was altered and postictal and nonverbal. The patient was prepared for transport to the ER on and the way to the ambulance she became asystolic. ACLS protocol was initiated. The patient was intubated. Chest compressions were started, 12 minutes of chest compressions performed. He received one dose of epinephrine. On arrival to the ER, chest compressions were continued and shortly thereafter he was found to have a pulse. Levophed drip was started. In the ER the patient received multiple rounds of epinephrine and bicarbonate and he lost pulse twice more initially, each episode lasting 2-3 minutes. EKG obtained shortly after the patient's arrival revealed ST elevation in the precordial leads V1-V5 as well as to II, III and AVF. STEMI Alert was activated. Cardiology evaluated the patient at the bedside, a repeat EKG performed revealing non-ST elevation [place]. The patient was found to have some swelling and induration of the left lower extremity at the calf. [place] needle was employed to check compartment. Pressure of the anterior compartment tissue/ posterior compartment with measurement of 47 and 45 respectively. Finally, the patient was found to be hypothermic. Blood culture was withdrawn, antibiotics initiated, cefepime and vancomycin. It was noted that the patient has had hyperkalemia of 6.9, creatinine was 3.5. REVIEW OF SYSTEMS Unable to obtain because of the patient's condition. PAST MEDICAL HISTORY Epilepsy. PAST SURGICAL HISTORY Unable to obtain. ALLERGIES Unable to obtain. MEDICATIONS Unable to obtain. FAMILY HISTORY Unable to obtain. SOCIAL HISTORY Unable to obtain. PHYSICAL EXAMINATION GENERAL: The patient looks very pale intubated, not sedated with noticeable myoclonic movements. HEENT: Pale, earthy complexion. Atraumatic, normocephalic. NECK: Supple.Trachea in the midline. No JVD. CARDIOVASCULAR: Regular rate and rhythm. RESPIRATORY: Equal breath sounds. GASTROINTESTINAL: Soft abdomen, not distended. Positive for GI bleeding. MUSCULOSKELETAL: Left lower extremity compartment syndrome with discoloration and sluggish capillary refill. Swollen calf. NEUROLOGIC: Ventilated. Not responding to verbal stimuli or painful stimuli. Nonverbal. Pupils 2-mm, sluggishly reacting. No gaze deviation. Reflexes 1+ bilateral, symmetrical. Plantars mute bilateral. LABORATORY DATA - White blood cell count 5.9, hemoglobin is 13.3, platelets 81. PT 15.2, INR 1.48, APTT 42.Sodium 141, potassium 6.7, anion gap 25, BUN 27, creatinine 3.46, calcium 7.5,total bilirubin 1.7, AST 2740, ALT 713, alkaline phosphatase 126, protein 5.1.Troponin of 0.71. Ammonia 89. IMAGING STUDIES - Head CT scan without contrast unremarkable. DIAGNOSTIC IMPRESSION 1. Breakthrough seizures status post cardiac arrest/asystole. 2. Encephalopathy, likely anoxic encephalopathy. 3. Given the myoclonic movements and nonverbal comatose, s/p cardiac arrest. 4. Respiratory arrest secondary to cardiac arrest. 5. Acute kidney injury/rhabdomyolysis. 6. Severe metabolic acidosis. 7. Melena. 8. Thrombocytopenia. 9. Elevated liver enzymes. PLAN 1. Neuro checks hourly. 2. STAT EEG. 3. The patient was already started on Dilantin. I switched the dose from liquid to IV Dilantin 100 mg three times daily. 4. For the myoclonic jerks, I recommend Depakote but given his elevated liver enzymes, I will start him on Keppra 750 mg twice daily IV. 5. Obtain Dilantin level. 6. Seizure precautions. 7. Management of electrolyte derangements and complicated medical problems by the attending team. 8. DVT prophylaxis, SCDs. Thank you for the opportunity to participate in the care of your patient. Deana Suggs MD RGO/SSB /9:51 AM /10:36 AM [facility]
[2017-02-18] MEDS ORDERED: levETIRAcetam INJ 750 MG in SODIUM CHLORIDE 0.9% INJ 100 ML IV SCH (11:00)
[2017-02-18 11:14] LABS: CALCIUM-PROTEIN CORRECTED 7.3 MG/DL (8.5-10.1)
[2017-02-18] MEDS: PANTOPRAZOLE INJ 80 MG in SODIUM CHLORIDE 0.9% INJ 100 ML IV SCH ×2 (11:49→20:32)
[2017-02-18] MEDS: CEFEPIME INJ 2,000 MG in SODIUM CHLORIDE 0.9% INJ 100 ML IV SCH ×2 (11:49→20:32)
--- NOTE | 2017-02-18 12:02 | MG ---
cc: MAKSIM ALDRIDGE M.D. Lab No: [id number] Date: 02/18/2017 Age: Sex: M Race: TEST NUMBER [id number] TECHNIQUE This is a 17-channel EEG. DESCRIPTION The background rhythm shows a severely extenuated tracing with an amplitude of about 2-3 microvolts, very slow in the delta frequency at about 2 Hz. There is a burst suppression pattern with spontaneous bursts of high-amplitude sharp activity occurring in a generalized fashion bilaterally. Each burst occurs about every 20 seconds so it is very infrequent. Of note, there is some body shaking activity during these. There are no lateralizing features. INTERPRETATION Abnormal study on the basis of severely attenuated electrographic activity with a burst suppression pattern consistent with a severe encephalopathic state. MD JUDD Hastings/INGRID /11:33 AM /11:58 AM
[2017-02-18 12:51] LABS: CKMB 930.8 NG/ML (0.5-3.6)
[2017-02-18] MEDS: PHENYTOIN INJ 100 MG/2 ML VIAL IV SCH ×2 (13:07→21:15)
[2017-02-18 13:48] LABS: BLOOD GAS BASE EXCESS -6.2 mmol/L (-2-2); BLOOD GAS CARBOXYHEMOGLOBIN 1.1 % (0-4); BLOOD GAS HCO3 18 mmol/L (22-26); BLOOD GAS METHEMOGLOBIN 0.9 % (0-2); BLOOD GAS O2 HGB SATURATION 98 % (90-100); BLOOD GAS OXYGEN CONTENT 17.6 Vol % (12.0-20.0); BLOOD GAS PCO2 33 mmHg (38-42); BLOOD GAS PO2 259 mmHg (61-120); BLOOD GAS TOTAL HGB 12.4 G/DL (12.0-16.0); TEMP CORR TO 98.6
[2017-02-18 13:49] LABS: CRITICAL VALUE NO; DRAW SITE LT RADIAL; FIO2 50 %; OXYGEN DEVICE VENTILATOR
[2017-02-18 13:50] LABS: NUMBER OF ARTERIAL PUNCTURES 2; STAT NO; ULNAR PULSE PRESENT
[2017-02-18] MEDS ORDERED: PHENYTOIN SUSP 100 MG/4 ML CUP PO SCH (14:00)
[2017-02-18] MEDS: PROPOFOL 1000 MG/100 ML IV SCH ×2 (14:29→19:09)
[2017-02-18] MEDS: NOREPINEPHRINE 4 MG/D5W 250 ML IV SCH ×2 (15:20→21:15)
--- NOTE | 2017-02-18 15:28 | PD.CONS ---
HPI History of Present Illness This is a male patient who was brought to the ER after being found unconscious by his roommates. He is currently sedated on the ventilator and therefore the history has been obtained from the EMR and staff. According to the EMR, he has a hx of epilepsy and is compliant with his medications. He was found unresponsive by his roommates, who last spoke with him about [address] to the ER, he went into asystole and he was intubated adn ACLS protocol was initiated. He received CPR for 12 minutes and then found to have a pulse and was started on a Levophed drip. While in the ER, he lost his pulse two more times, each episode about 2-3 minutes per the EMR. He was found to have ST elevation and a STEMI alert was activated. He was also noted to have severe swelling of his left lower extremity and he was found to have compartment measurements of 47 and 45. This morning, he was found to have tonic-clonic jerking by the ICU physician this am. He was given Dilantin, Keppra, Ativan, but continues to have tonic-clonic jerking. The nurse reports that she is about to start Diprivan. GI has been consulted for massive amounts of melena. The nurse reports that he had a very large melanotic stool earlier. He has an NGT to [facility]- bringing up small amount of black gastric secretions. A rectal tube was placed and he has not since had but a scant amount of melanotic stool. His H/H was 11.9/38.5, he received one unit of PRBC and this went up to 13.3/ 39.7. He was started on a protonix gtt. He is being followed by neurology, CCM , ortho, and cardiology. (Elsy Velazquez) PFSH Past Medical History Unable to obtain Epilepsy Past Surgical History Unable to obtain (Elsy Velazquez) Coded Allergies: *MDRO Multi-Drug Resistant Organism (Verified Adverse Reaction, Unknown, MRSA, 02/18/17) MRSA PCR (nares) POSITIVE - 02/18/17 Medications Allergies Coded Allergies Type Severity Reaction Last Updated Verified *MDRO Multi-Drug Resistant Organism Adverse Reaction Unknown MRSA 02/18/17 Yes Active Scripts Medications Dose Route/Sig Days Date Category Active Prescriptions or Reported Medications Unobtainable Rx Family History Unable to obtain Social History Unable to obtain (Elsy Velazquez) Review of Systems ROS unable to obtain (Elsy Velazquez) GI Exam Vitals I&O Vital Signs Date Time Temp Pulse Resp B/P Pulse Ox O2 Delivery O2 Flow Rate FiO2 02/18/17 14:00 110 02/18/17 12:48 100 50 02/18/17 12:00 94 02/18/17 12:00 97.2 94 18 126/90 100 02/18/17 10:00 97 02/18/17 09:14 100 50 02/18/17 08:00 107 02/18/17 08:00 90 02/18/17 08:00 97.0 101 22 92/46 97 02/18/17 08:00 Mechanical Ventilator 90 02/18/17 06:30 90 02/18/17 06:00 97.2 112 26 95/54 100 02/18/17 06:00 112 02/18/17 05:30 100 02/18/17 05:26 100 02/18/17 05:00 104 02/18/17 05:00 96.6 104 21 75/45 100 02/18/17 04:50 100 100 02/18/17 04:50 98 100 02/18/17 04:42 96.3 112 18 83/48 02/18/17 04:24 96.1 118 18 86/51 02/18/17 04:23 96.3 116 18 81/52 02/18/17 04:21 96.1 117 18 86/48 02/18/17 04:18 96.1 117 18 89/54 02/18/17 04:15 96.1 115 18 77/50 02/18/17 04:12 96.1 115 18 78/44 02/18/17 04:09 95.9 116 18 83/48 02/18/17 04:06 95.9 116 18 78/47 02/18/17 04:03 95.9 117 18 83/52 02/18/17 04:00 95.9 117 18 86/47 02/18/17 03:57 95.9 117 18 87/49 02/18/17 03:51 95.9 117 18 82/49 02/18/17 03:48 95.9 117 18 90/50 02/18/17 03:45 95.9 117 18 87/51 02/18/17 03:42 95.9 118 18 90/52 02/18/17 03:39 96.1 118 18 92/53 02/18/17 03:33 96.3 118 18 95/53 92 02/18/17 03:30 96.4 118 18 98/55 100 02/18/17 03:27 95.6 119 18 103/50 100 02/18/17 03:24 96.4 119 18 93/52 100 02/18/17 03:20 94.4 119 18 103/51 100 02/18/17 03:18 120 18 104/52 100 02/18/17 03:15 120 18 105/54 100 02/18/17 03:12 108/57 02/18/17 03:11 113 85/49 02/18/17 03:07 114 90/54 02/18/17 03:05 92 100 02/18/17 03:02 115 73/44 02/18/17 02:58 113 72/46 02/18/17 02:56 115 68/44 02/18/17 02:48 118 66/41 02/18/17 02:47 117 18 61/40 02/18/17 02:38 209/133 02/18/17 02:30 98 18 168/86 98 02/18/17 02:22 109 18 I/O 02/17/17 02/17/17 02/17/17 02/18/17 02/18/17 02/18/17 07:00 15:00 23:00 07:00 15:00 23:00 Intake Total 708 ml 3614 ml Output Total 385 ml 400 ml Balance 323 ml 3214 ml Intake IV Total 708 ml 3395 ml Cryoprecipitate 219 ml Output Urine Total 385 ml 275 ml Stool Total 0 ml Gastric Drainage Total 0 ml 125 ml # Bowel Movements 1 Imaging Last Impressions Head CT 02/18/17240 Signed Impressions: Service Date/Time: Saturday, February 18, 2017 04:27 - CONCLUSION: Unremarkable CT scan of the brain.. Toby Constantino MD Chest X-Ray 02/18/17240 Signed Impressions: Service Date/Time: Saturday, February 18, 2017 02:45 - CONCLUSION: 1. No focal or acute intrathoracic disease. 2. NG tube tip in distal esophagus. Recommend advancing another 10 cm. Toby Constantino MD Laboratory Test 02/18/17 02/18/17 02/18/17 02/18/17 02:40 02:48 03:00 03:01 Bedside Hemoglobin 16.0 G/DL Bedside Hematocrit 47.0 % Prothrombin Time 15.2 SEC Prothromb Time International 1.4 RATIO Ratio Activated Partial 42.0 SEC Thromboplast Time Bedside Sodium 137 MMOL/L Bedside Potassium 6.9 MMOL/L Bedside Chloride 108 MMOL/L Bedside Blood Urea Nitrogen 38 MG/DL Bedside Creatinine 3.7 MG/DL Bedside Glucose 45 MG/DL Calcium Level 8.5 MG/DL 7.5 MG/DL Magnesium Level 4.2 MG/DL Total Creatine Kinase 61503 U/L Creatine Kinase MB 806.9 NG/ML Creatine Kinase MB % 1.1 % Troponin I 0.14 NG/ML B-Type Natriuretic Peptide 66 PG/ML Blood Gas Puncture Site LT RADIAL Blood Gas Patient Temperature 98.6 Blood Gas HCO3 11 mmol/L Blood Gas Base Excess -19.7 mmol/L Blood Gas Oxygen Saturation 78 % Arterial Blood pH 6.89 Arterial Blood Partial 59 mmHg Pressure CO2 Arterial Blood Partial 76 mmHG Pressure O2 Arterial Blood Oxygen Content 13.5 Vol % Arterial Blood 0.4 % Carboxyhemoglobin Arterial Blood Methemoglobin 0.7 % Blood Gas Hemoglobin 12.3 G/DL Oxygen Delivery Device VENTILATOR Blood Gas Ventilator Setting AC18/550/+5 Blood Gas Inspired Oxygen 100 % Sodium Level 141 MEQ/L Potassium Level 6.7 MEQ/L Chloride Level 106 MEQ/L Carbon Dioxide Level 9.7 MEQ/L Anion Gap 25 MEQ/L Blood Urea Nitrogen 27 MG/DL Creatinine 3.46 MG/DL Estimat Glomerular Filtration 15 ML/MIN Rate Random Glucose 158 MG/DL Total Bilirubin 1.7 MG/DL Aspartate Amino Transf 2740 U/L (AST/SGOT) Alanine Aminotransferase 713 U/L (ALT/SGPT) Alkaline Phosphatase 126 U/L Total Protein 5.1 GM/DL Albumin 1.9 GM/DL White Blood Count 12.6 TH/MM3 Red Blood Count 3.23 MIL/MM3 Hemoglobin 11.9 GM/DL Hematocrit 38.5 % Mean Corpuscular Volume 119.3 FL Mean Corpuscular Hemoglobin 36.8 PG Mean Corpuscular Hemoglobin 30.8 % Concent Red Cell Distribution Width 15.1 % Platelet Count 116 TH/MM3 Mean Platelet Volume 9.2 FL Neutrophils (%) (Auto) 70.5 % Lymphocytes (%) (Auto) 20.6 % Monocytes (%) (Auto) 7.9 % Eosinophils (%) (Auto) 0.4 % Basophils (%) (Auto) 0.6 % Neutrophils # (Auto) 8.9 TH/MM3 Lymphocytes # (Auto) 2.6 TH/MM3 Monocytes # (Auto) 1.0 TH/MM3 Eosinophils # (Auto) 0.1 TH/MM3 Basophils # (Auto) 0.1 TH/MM3 CBC Comment AUTO DIFF Differential Total Cells 100 Counted Neutrophils % (Manual) 76 % Band Neutrophils % 5 % Lymphocytes % 15 % Monocytes % 2 % Neutrophils # (Manual) 10.5 TH/MM3 Metamyelocytes 2 % Nucleated Red Blood Cells 2 /100 WBC Differential Comment FINAL DIFF MANUAL Platelet Estimate LOW Platelet Morphology Comment NORMAL Test 02/18/17 02/18/17 02/18/17 02/18/17 05:25 05:30 06:50 08:15 Ammonia 89 MCMOL/L Troponin I 0.71 NG/ML Nasal Screen MRSA (PCR) MRSA DETECTED Phenytoin (Dilantin) Level LESS THAN 0.4 MCG/ML Blood Gas Puncture Site RT RADIAL Blood Gas Patient Temperature 98.6 Blood Gas HCO3 16 mmol/L Blood Gas Base Excess -8.8 mmol/L Blood Gas Oxygen Saturation 99 % Arterial Blood pH 7.32 Arterial Blood Partial 32 mmHg Pressure CO2 Arterial Blood Partial 494 mmHG Pressure O2 Arterial Blood Oxygen Content 19.8 Vol % Arterial Blood 0.9 % Carboxyhemoglobin Arterial Blood Methemoglobin 0.6 % Blood Gas Hemoglobin 13.4 G/DL Oxygen Delivery Device VENTILATOR Blood Gas Ventilator Setting AC18/550/5Peep Blood Gas Inspired Oxygen 90 % Test 02/18/17 02/18/17 02/18/17 02/18/17 08:30 10:30 13:15 13:37 White Blood Count 5.9 TH/MM3 Red Blood Count 3.52 MIL/MM3 Hemoglobin 13.3 GM/DL Hematocrit 39.7 % Mean Corpuscular Volume 112.8 FL Mean Corpuscular Hemoglobin 37.9 PG Mean Corpuscular Hemoglobin 33.6 % Concent Red Cell Distribution Width 14.8 % Platelet Count 81 TH/MM3 Mean Platelet Volume 9.5 FL Prothrombin Time 19.5 SEC Prothromb Time International 1.7 RATIO Ratio Activated Partial 35.9 SEC Thromboplast Time Fibrinogen 156 mg/dL Sodium Level 138 MEQ/L Potassium Level 5.8 MEQ/L Chloride Level 104 MEQ/L Carbon Dioxide Level 19.4 MEQ/L Anion Gap 15 MEQ/L Blood Urea Nitrogen 37 MG/DL Creatinine 3.26 MG/DL Estimat Glomerular Filtration 16 ML/MIN Rate Random Glucose 318 MG/DL Lactic Acid Level 6.3 mmol/L 5.1 mmol/L Calcium Level 6.4 MG/DL Protein Corrected Calcium 7.3 MG/DL Total Creatine Kinase 50837 U/L Creatine Kinase MB 930.8 NG/ML Creatine Kinase MB % 1.2 % Troponin I 1.16 NG/ML Total Protein 5.3 GM/DL Blood Type A POSITIVE Antibody Screen NEGATIVE Blood Bank Comment Blood Gas Puncture Site LT RADIAL Blood Gas Patient Temperature 98.6 Blood Gas HCO3 18 mmol/L Blood Gas Base Excess -6.2 mmol/L Blood Gas Oxygen Saturation 98 % Arterial Blood pH 7.36 Arterial Blood Partial 33 mmHg Pressure CO2 Arterial Blood Partial 259 mmHg Pressure O2 Arterial Blood Oxygen Content 17.6 Vol % Arterial Blood 1.1 % Carboxyhemoglobin Arterial Blood Methemoglobin 0.9 % Blood Gas Hemoglobin 12.4 G/DL Oxygen Delivery Device VENTILATOR Blood Gas Ventilator Setting Blood Gas Inspired Oxygen 50 % Date/Time Procedure Status Source Growth 02/18/17 03:25 Aerobic Blood Culture Received Blood Peripheral Pending 02/18/17 03:25 Anaerobic Blood Culture Received Blood Peripheral Pending Physical Examination GEN: Nonresponsive, tonic clonic jerking movement with decorticate posturing. CHEST: CTA CARDIAC: ST ABDOMEN: Soft, nondistended, nontender; no hepatosplenomegaly; bowel sounds are present in all four quadrants. EXTREMITIES: Significant edema./redness to left lower leg, nurse reports post. tibial pulses present by doppler bilaterally SKIN: Redness posterior aspect left lower leg [employer]: Nonresponsive, tonic-clonic jerking movement, decorticate posturing. ( Elsy Velazquez) Assessment and Plan Plan ASSESSMENT: - GIB, Melanotic stool. Nurse reports one large melanotic stool today, only small amount in flexiseal since that time. NGT to [facility] with small amount black drainage. S/P 1 unit PRBC, 13.3/39.7. Protonix Gtt. - Anemia, secondary to blood loss. Stable. 13.3/39.7. - Seizure Activity. Pt with hx of Epilepsy and suspected anoxic injury/ encephalopathy, now with continuous clonic tonic jerking movements with posturing despite Ativan, Dilantin, Keppra- nurse states CCM aware and is starting propofol gt. - Acute respiratory failure. Vent per CCM. - Cardiac Arrest, NSTEMI, hypotension. Vasopressors. Cardiology following. - CLAUDIA with electrolyte abnormalities. Creat. 3.26. K+ 5.8 - Rhabdomyolysis. CPK 76,140. I VF. - Compartment syndrome LLE. Per ortho. - Coagulopathy, Thrombocytopenia, possible DIC. Plt 81, PT 19.5, INR 1.7, APTT 35.9, Fibrinogen 156. PLAN: - Plan for EGD in am if stable - Obtain consents - NPO - Protonix Gtt - NGT to [facility] for now - Monitor serial HH - Transfuse as necessary - Supportive care - Further recommendations to follow based on results of above - Pt seen and examined by Dr. Molina and myself and this note is written on his behalf (Elsy Velazquez) Physician Comments Patient seen and examined Agree with above Continue with current supportive care Monitor labs Plan for EGD tomorrow if patient is stable or if actively bleeding (Flako Molina MD) Elsy Velazquez Feb 18, 2017 15:28 Flako Molina MD Feb 18, 2017 22:47
[2017-02-18 18:20] LABS: AMPHETAMINE, URINE NEG (NEG); BARBITURATES, URINE NEG (NEG); COCAINE, URINE POS (NEG)
[2017-02-18 18:59] LABS: HEMATOCRIT 35.2 % (39.0-51.0); REVIEW FLAG FINAL
[2017-02-18] MEDS ORDERED: CALCIUM GLUCONATE INJ 1 GM in SODIUM CHLORIDE 0.9% INJ 100 ML IV SCH (19:00)
[2017-02-18 19:22] LABS: BICARBONATE 26.2 MEQ/L (21.0-32.0); POTASSIUM 4.5 MEQ/L (3.5-5.1)
[2017-02-18] MEDS ORDERED: CALCIUM GLUCONATE INJ 2 GM in SODIUM CHLORIDE 0.9% INJ 100 ML IV ONE (19:45)
[2017-02-18 20:07] LABS: CALCIUM-PROTEIN CORRECTED 6.8 MG/DL (8.5-10.1)
[2017-02-18] MEDS: MUPIROCIN 2% OINT 1 APPLIC/GM SYR EACH NARE SCH (20:32)
--- NOTE | 2017-02-18 21:00 | EC ---
Study Study Date:02/18/2017 STUDY CONCLUSIONS SUMMARY - Left ventricle: The cavity size was normal. Wall thickness was normal. Systolic function was mildly reduced. The estimated ejection fraction was 45%. Wall motion was normal; there were no regional wall motion abnormalities. - Mitral valve: Mild regurgitation. - Right ventricle: The cavity size was mildly dilated. Wall thickness was normal. - Tricuspid valve: Mild regurgitation. - Pulmonary arteries: Systolic pressure was mildly increased. PA peak pressure: 41mm Hg (S). If LV function is below 40, please consider prescribing an ACEI or ARB or document rationale for non-use. PROCEDURE DATA STUDY STATUS: Elective. Procedure: Transthoracic echocardiography. Image quality was good. Scanning was performed from the parasternal, apical, and subcostal acoustic windows. Study completion: The patient tolerated the procedure well. Transthoracic echocardiography. M-mode, complete 2D, complete spectral Doppler, and color Doppler. Patient status: Inpatient. CARDIAC ANATOMY LEFT VENTRICLE: The cavity size was normal. Wall thickness was normal. Systolic function was mildly reduced. The estimated ejection fraction was 45%. Wall motion was normal; there were no regional wall motion abnormalities. AORTIC VALVE: Trileaflet; normal thickness leaflets. Doppler: Transvalvular velocity was within the normal range. There was no stenosis. No regurgitation. Valve area: 3.37cm^2(VTI). Valve area: 3.28cm^2 (Vmax). Mean gradient: 2mm Hg (S). AORTA: Aortic root: The aortic root was mildly dilated. MITRAL VALVE: Structurally normal valve. Doppler: Transvalvular velocity was within the normal range. There was no evidence for stenosis. Mild regurgitation. LEFT ATRIUM: The atrium was normal in size. RIGHT VENTRICLE: The cavity size was mildly dilated. Wall thickness was normal. PULMONIC VALVE: Doppler: Transvalvular velocity was within the normal range. There was no evidence for stenosis. No regurgitation. TRICUSPID VALVE: Structurally normal valve. Doppler: Transvalvular velocity was within the normal range. Mild regurgitation. PULMONARY ARTERY: The main pulmonary artery was normal-sized. Systolic pressure was mildly increased. RIGHT ATRIUM: The atrium was normal in size. PERICARDIUM: There was no pericardial effusion. SYSTEMIC VEINS: Inferior vena cava: The vessel was normal in size. BASIC MEASUREMENTS ADULT NORMAL Left ventricle LV internal dimension, ED, chordal level, 43.2 mm 43-52 PLAX LV internal dimension, ES, chordal level, 31.9 mm 23-38 PLAX Fractional shortening, chordal level, PLAX *26 % >29 LV posterior wall thickness, ED 7.87 mm IVS/LVPW ratio, ED 1 <1.3 Ventricular septum Septal thickness, ED 7.88 mm Aortic valve Leaflet separation 25 mm 15-26 Aorta Root diameter, ED 40 mm Left atrium Anterior-posterior dimension 20 mm BASIC MEASUREMENTS ADULT NORMAL Aortic valve Leaflet separation 25 mm 15-26 DOPPLER MEASUREMENTS ADULT NORMAL Main pulmonary artery Pressure, S *41 mm Hg =30 Aortic valve Peak velocity, S 99.3 cm/s Mean velocity, S 67.5 cm/s VTI, S 13.8 cm Mean gradient, S 2 mm Hg Valve area, VTI 3.37 cm^2 Valve area, Vmax 3.28 cm^2 Mitral valve Peak E-wave velocity 60.7 cm/s Peak A-wave velocity 45.6 cm/s Deceleration time *232 ms 150-230 Peak E/A ratio 1.3 Tricuspid valve Regurgitant peak velocity 265 cm/s Peak RV-RA gradient, S 28 mm Hg Maximal regurgitant velocity 265 cm/s Systemic veins Estimated CVP 10 mm Hg Right ventricle RV pressure, S *43 mm Hg <30 Pulmonic valve Peak velocity, S 66.9 cm/s LEGEND: Mean values are shown as u=mean value. Asterisk (*) blake values outside specified normal range. Prepared and signed by Wilberto De Souza [id number]
[2017-02-18] MEDS: levETIRAcetam INJ 750 MG in SODIUM CHLORIDE 0.9% INJ 100 ML IV SCH (21:32)
[2017-02-19] VITALS (21 sets, daily range): BP systolic 83–132; BP diastolic 50–85; PULSE 104–171; RESP 18; TEMP 96.1–100; O2SAT 91–100
[2017-02-19] MEDS: PROPOFOL 1000 MG/100 ML IV SCH (00:22)
[2017-02-19] MEDS: NOREPINEPHRINE 4 MG/D5W 250 ML IV SCH ×7 (00:22→15:30)
[2017-02-19 02:56] LABS: HEMATOCRIT 34.3 % (39.0-51.0); REVIEW FLAG FINAL
[2017-02-19] MEDS: SODIUM CHLOR 0.9% 1000 ML INJ 1,000 ML IV SCH ×3 (03:13→21:20)
[2017-02-19 03:46] LABS: BICARBONATE 24.8 MEQ/L (21.0-32.0); POTASSIUM 5.9 MEQ/L (3.5-5.1)
[2017-02-19] MEDS: SODIUM BICARBONATE 8.4% INJ 150 MEQ in SODIUM CHLOR 0.45% 1000 ML INJ 850 ML IV SCH (03:55)
[2017-02-19] MEDS: CEFEPIME INJ 2,000 MG in SODIUM CHLORIDE 0.9% INJ 100 ML IV SCH ×3 (03:55→21:19)
[2017-02-19] MEDS ORDERED: CHLORHEXIDINE GLUCONATE 2 % 1 PACK (2 CLOTHS) TOP SCH (04:00)
[2017-02-19] MEDS ORDERED: SODIUM POLYSTYRENE SULFONATE SUSP 15 GM/60 ML CUP OG-TUBE ONE (04:15)
[2017-02-19] MEDS ORDERED: CALCIUM GLUCONATE INJ 1 GM in DEXTROSE 5% IN WATER 100ML INJ 100 ML IV ONE ×2 (04:15)
[2017-02-19] MEDS: HYDROCORTISONE SOD SUCCINATE 100 MG VIAL IV PUSH SCH ×3 (04:30→21:16)
[2017-02-19] MEDS: CHLORHEXIDINE GLUCONATE 2 % 1 PACK (2 CLOTHS) TOP SCH (04:57)
[2017-02-19] MEDS ORDERED: SODIUM BICARBONATE 8.4% INJ 50 MEQ/50 ML SYR IV ONE ×3 (05:00→12:00)
[2017-02-19] MEDS: PANTOPRAZOLE INJ 80 MG in SODIUM CHLORIDE 0.9% INJ 100 ML IV SCH ×3 (05:32→21:15)
[2017-02-19] MEDS: PHENYTOIN INJ 100 MG/2 ML VIAL IV SCH ×2 (05:32→14:00)
[2017-02-19 05:37] LABS: BLOOD GAS BASE EXCESS -2.1 mmol/L (-2-2); BLOOD GAS CARBOXYHEMOGLOBIN 1.2 % (0-4); BLOOD GAS HCO3 23 mmol/L (22-26); BLOOD GAS METHEMOGLOBIN 1.1 % (0-2); BLOOD GAS O2 HGB SATURATION 98 % (90-100); BLOOD GAS PCO2 42 mmHg (38-42); BLOOD GAS PO2 236 mmHg (61-120); BLOOD GAS TOTAL HGB 11.3 G/DL (12.0-16.0); CRITICAL VALUE NO; OXYGEN DEVICE VENTILATOR; TEMP CORR TO 98.6
[2017-02-19 05:38] LABS: DRAW SITE ART LINE; FIO2 50 %; STAT NO; VENT SETTINGS PRVC/AC
[2017-02-19] MEDS ORDERED: PHARMACY ORDERED LAB ONE (06:00)
--- NOTE | 2017-02-19 06:03 | RADRPT ---
EXAM DATE/TIME: 02/19/2017 04:33 [facility] COMPARISON: CHEST SINGLE AP, February 18, 2017, 6:37. INDICATIONS : Respiratory distress. MEDICAL HISTORY : None. SURGICAL HISTORY : None. ENCOUNTER: Subsequent ACUITY: 3 days PAIN SCORE: Non-responsive. LOCATION: Bilateral chest FINDINGS: A single view of the chest demonstrates the lungs to be symmetrically aerated without evidence of mas s, infiltrate or effusion. The support devices remain in place. There is no pneumothorax. The cardiom ediastinal contours are unremarkable. Osseous structures are intact. CONCLUSION: No acute pulmonary infiltrates. Stable examination compared to the prior study. Toby Constantino MD on February 19, 2017 at 6:01 Board Certified Radiologist. This report was verified electronically.
[2017-02-19 06:16] LABS: AUTOMATED NEUTROPHIL # 10.8 TH/MM3 (1.8-7.7); BASOPHIL % 0.4 % (0.0-2.0); EOSINOPHIL # 0.1 TH/MM3 (0-0.4); EOSINOPHIL % 0.5 % (0.0-4.0); HEMATOCRIT 33.6 % (39.0-51.0); LYMPH % 9.1 % (9.0-44.0); LYMPHOCYTE # 1.2 TH/MM3 (1.0-4.8); MEAN CELL VOLUME 110.9 FL (80.0-100.0); MEAN CORPUSCULAR HEMOGLOBIN 38.5 PG (27.0-34.0); MEAN CORPUSCULAR HGB CONC 34.7 % (32.0-36.0); MONO % 5.1 % (0.0-8.0); NEUT % 84.9 % (16.0-70.0); PLATELET COUNT 105 TH/MM3 (150-450); RED BLOOD COUNT 3.03 MIL/MM3 (4.50-5.90); RED CELL DISTRIBUTION WIDTH 15.4 % (11.6-17.2); WHITE BLOOD COUNT 12.7 TH/MM3 (4.0-11.0)
[2017-02-19 06:25] LABS: BICARBONATE 24.8 MEQ/L (21.0-32.0); HEMO FLAGS AUTO DIFF; MAGNESIUM 2.2 MG/DL (1.5-2.5); POTASSIUM 6.2 MEQ/L (3.5-5.1); TOTAL BILIRUBIN ADULT 3.7 MG/DL (0.2-1.0)
[2017-02-19 06:35] LABS: INTERNATIONAL NORMALIZED RATIO 1.7 RATIO; PROTHROMBIN TIME - PATIENT 18.7 SEC (9.8-11.6)
[2017-02-19] MEDS ORDERED: CALCIUM CHLORIDE INJ 1 GM in SODIUM CHLORIDE 0.9% INJ 100 ML IV ONE (07:15)
[2017-02-19] MEDS ORDERED: CALCIUM CHLORIDE 10% SOLN 1 GRAM/10 ML SYR IV ONE (07:15)
[2017-02-19 07:17] LABS: BANDS 37 % (0-6); METAMYELOCYTES 3 % (0-1); NEUTROPHIL # MANUAL DIFF 10.9 TH/MM3 (1.8-7.7); PLATELET ESTIMATE SMEAR LOW (NORMAL); PLATELET MORPHOLOGY NORMAL (NORMAL); POLYS (SEG NEUTROPHILS) 46 % (16-70); SCAN/DIFF FINAL DIFF MANUAL; WBC DIFF SAMPLE 100
--- NOTE | 2017-02-19 07:47 | PD.ORT.PN ---
Subjective Subjective Remarks s/p left leg compartment syndrome patient has been declining and potassium and Cr rising due to necrotic tissue in left leg Objective Vitals Vital Signs Date Time Temp Pulse Resp B/P Pulse Ox O2 Delivery O2 Flow Rate FiO2 02/19/17 06:00 117 02/19/17 06:00 103/61 02/19/17 04:03 91 50 02/19/17 04:00 50 02/19/17 04:00 99.9 119 18 108/58 95 91/58 02/19/17 04:00 119 02/19/17 02:00 117 02/19/17 01:10 91 50 02/19/17 00:00 100.0 117 18 110/78 92 103/62 02/19/17 00:00 117 02/19/17 00:00 50 02/18/17 22:00 122 02/18/17 20:20 92 50 02/18/17 20:00 100.8 123 18 92/70 92/58 02/18/17 20:00 50 02/18/17 20:00 123 02/18/17 20:00 92/58 92/70 02/18/17 19:00 Mechanical Ventilator 50 02/18/17 18:39 92 50 02/18/17 18:00 127 02/18/17 17:44 Automatic Cuff 02/18/17 16:00 100.0 125 23 126/97 100 02/18/17 16:00 125 02/18/17 14:00 110 02/18/17 12:48 100 50 02/18/17 12:00 94 02/18/17 12:00 97.2 94 18 126/90 100 02/18/17 10:00 97 02/18/17 09:14 100 50 02/18/17 08:00 107 02/18/17 08:00 90 02/18/17 08:00 97.0 101 22 92/46 97 02/18/17 08:00 Mechanical Ventilator 90 I/O 02/18/17 02/18/17 02/18/17 02/19/17 02/19/17 02/19/17 07:00 15:00 23:00 07:00 15:00 23:00 Intake Total 708 ml 3614 ml 3474 ml 2974 ml Output Total 385 ml 400 ml 430 ml 315 ml Balance 323 ml 3214 ml 3044 ml 2659 ml Intake IV Total 708 ml 3395 ml 3474 ml 2974 ml Cryoprecipitate 219 ml Output Urine Total 385 ml 275 ml 130 ml 165 ml Stool Total 0 ml 200 ml 100 ml Gastric Drainage Total 0 ml 125 ml 100 ml 50 ml # Bowel Movements 1 Result Diagram: 02/19/17 0545 02/19/17 0545 Other Results Laboratory Tests Test 02/18/17 02/19/17 08:30 05:45 Prothrombin Time 19.5 SEC 18.7 SEC (9.8-11.6) (9.8-11.6) Prothromb Time International 1.7 RATIO 1.7 RATIO Ratio Imaging Last 24 hours Impressions Chest X-Ray 02/19/17 0600 Signed Impressions: Service Date/Time: Sunday, February 19, 2017 04:33 - CONCLUSION: No acute pulmonary infiltrates. Stable examination compared to the prior study. Toby Constantino MD Objective Remarks LLE: compartments tight. +blistering of lower leg. good passive dorsiflexion. bruising/streaking of posterior leg. Assessment & Plan Assessment and Plan 1) Left Leg Compartment syndrome -spoke with Dr Garcia. She is concerned about rising potassium levels and impending kidney failure due to rhabdo from necrotic muscle in left leg. -will plan for OR today for fasciotomy vs Eleazar Foy Feb 19, 2017 07:46
--- NOTE | 2017-02-19 08:17 | HHI.GIFU ---
Subjective Remarks Pt resting in bed- sedated on ventilator. Going for emergency fasciotomy/ possible amputation today for compartment syndrome of LLE. No significant active GI bleeding at this time. (Elsy Velazquez) Objective Vitals I&O Vital Signs Date Time Temp Pulse Resp B/P Pulse Ox O2 Delivery O2 Flow Rate FiO2 02/19/17 06:00 117 02/19/17 06:00 103/61 02/19/17 04:03 91 50 02/19/17 04:00 50 02/19/17 04:00 99.9 119 18 108/58 95 91/58 02/19/17 04:00 119 02/19/17 02:00 117 02/19/17 01:10 91 50 02/19/17 00:00 100.0 117 18 110/78 92 103/62 02/19/17 00:00 117 02/19/17 00:00 50 02/18/17 22:00 122 02/18/17 20:20 92 50 02/18/17 20:00 100.8 123 18 92/70 92/58 02/18/17 20:00 50 02/18/17 20:00 123 02/18/17 20:00 92/58 92/70 02/18/17 19:00 Mechanical Ventilator 50 02/18/17 18:39 92 50 02/18/17 18:00 127 02/18/17 17:44 Automatic Cuff 02/18/17 16:00 100.0 125 23 126/97 100 02/18/17 16:00 125 02/18/17 14:00 110 02/18/17 12:48 100 50 02/18/17 12:00 94 02/18/17 12:00 97.2 94 18 126/90 100 02/18/17 10:00 97 02/18/17 09:14 100 50 I/O 02/18/17 02/18/17 02/18/17 02/19/17 02/19/17 02/19/17 07:00 15:00 23:00 07:00 15:00 23:00 Intake Total 708 ml 3614 ml 3474 ml 2974 ml Output Total 385 ml 400 ml 430 ml 315 ml Balance 323 ml 3214 ml 3044 ml 2659 ml Intake IV Total 708 ml 3395 ml 3474 ml 2974 ml Cryoprecipitate 219 ml Output Urine Total 385 ml 275 ml 130 ml 165 ml Stool Total 0 ml 200 ml 100 ml Gastric Drainage Total 0 ml 125 ml 100 ml 50 ml # Bowel Movements 1 Laboratory Laboratory Tests Test 02/18/17 02/18/17 02/18/17 02/18/17 08:15 08:30 10:30 13:15 Blood Gas Puncture Site RT RADIAL Blood Gas Patient Temperature 98.6 Blood Gas HCO3 16 Blood Gas Base Excess -8.8 Blood Gas Oxygen Saturation 99 Arterial Blood pH 7.32 Arterial Blood Partial 32 Pressure CO2 Arterial Blood Partial 494 Pressure O2 Arterial Blood Oxygen Content 19.8 Arterial Blood 0.9 Carboxyhemoglobin Arterial Blood Methemoglobin 0.6 Blood Gas Hemoglobin 13.4 Oxygen Delivery Device VENTILATOR Blood Gas Ventilator Setting AC18/550/[id number] Blood Gas Inspired Oxygen 90 White Blood Count 5.9 Red Blood Count 3.52 Hemoglobin 13.3 Hematocrit 39.7 Mean Corpuscular Volume 112.8 Mean Corpuscular Hemoglobin 37.9 Mean Corpuscular Hemoglobin 33.6 Concent Red Cell Distribution Width 14.8 Platelet Count 81 Mean Platelet Volume 9.5 Prothrombin Time 19.5 Prothromb Time International 1.7 Ratio Activated Partial 35.9 Thromboplast Time Fibrinogen 156 Sodium Level 138 Potassium Level 5.8 Chloride Level 104 Carbon Dioxide Level 19.4 Anion Gap 15 Blood Urea Nitrogen 37 Creatinine 3.26 Estimat Glomerular Filtration 16 Rate Random Glucose 318 Lactic Acid Level 6.3 5.1 Calcium Level 6.4 Protein Corrected Calcium 7.3 Total Creatine Kinase 63376 Creatine Kinase MB 930.8 Creatine Kinase MB % 1.2 Troponin I 1.16 Total Protein 5.3 Blood Type A POSITIVE Antibody Screen NEGATIVE Blood Bank Comment Test 02/18/17 02/18/17 02/18/17 02/19/17 13:37 16:10 18:30 02:30 Blood Gas Puncture Site LT RADIAL Blood Gas Patient Temperature 98.6 Blood Gas HCO3 18 Blood Gas Base Excess -6.2 Blood Gas Oxygen Saturation 98 Arterial Blood pH 7.36 Arterial Blood Partial 33 Pressure CO2 Arterial Blood Partial 259 Pressure O2 Arterial Blood Oxygen Content 17.6 Arterial Blood 1.1 Carboxyhemoglobin Arterial Blood Methemoglobin 0.9 Blood Gas Hemoglobin 12.4 Oxygen Delivery Device VENTILATOR Blood Gas Ventilator Setting Blood Gas Inspired Oxygen 50 Urine Opiates Screen NEG Urine Barbiturates Screen NEG Urine Amphetamines Screen NEG Urine Benzodiazepines Screen NEG Urine Cocaine Screen POS Urine Cannabinoids Screen NEG Hemoglobin 11.6 11.9 Hematocrit 35.2 34.3 Sodium Level 143 141 Potassium Level 4.5 5.9 Chloride Level 107 105 Carbon Dioxide Level 26.2 24.8 Anion Gap 10 11 Blood Urea Nitrogen 46 48 Creatinine 3.13 3.45 Estimat Glomerular Filtration 17 15 Rate Random Glucose 144 176 Calcium Level 5.7 5.8 Protein Corrected Calcium 6.8 7.0 Total Protein 4.7 4.5 Test 02/19/17 02/19/17 05:26 05:45 Blood Gas Puncture Site ART LINE Blood Gas Patient Temperature 98.6 Blood Gas HCO3 23 Blood Gas Base Excess -2.1 Blood Gas Oxygen Saturation 98 Arterial Blood pH 7.36 Arterial Blood Partial 42 Pressure CO2 Arterial Blood Partial 236 Pressure O2 Arterial Blood Oxygen Content 16.0 Arterial Blood 1.2 Carboxyhemoglobin Arterial Blood Methemoglobin 1.1 Blood Gas Hemoglobin 11.3 Oxygen Delivery Device VENTILATOR Blood Gas Ventilator Setting PRVC/AC Blood Gas Inspired Oxygen 50 White Blood Count 12.7 Red Blood Count 3.03 Hemoglobin 11.7 Hematocrit 33.6 Mean Corpuscular Volume 110.9 Mean Corpuscular Hemoglobin 38.5 Mean Corpuscular Hemoglobin 34.7 Concent Red Cell Distribution Width 15.4 Platelet Count 105 Mean Platelet Volume 9.0 Neutrophils (%) (Auto) 84.9 Lymphocytes (%) (Auto) 9.1 Monocytes (%) (Auto) 5.1 Eosinophils (%) (Auto) 0.5 Basophils (%) (Auto) 0.4 Neutrophils # (Auto) 10.8 Lymphocytes # (Auto) 1.2 Monocytes # (Auto) 0.6 Eosinophils # (Auto) 0.1 Basophils # (Auto) 0.0 CBC Comment AUTO DIFF Differential Total Cells 100 Counted Neutrophils % (Manual) 46 Band Neutrophils % 37 Lymphocytes % 11 Monocytes % 3 Neutrophils # (Manual) 10.9 Metamyelocytes 3 Differential Comment FINAL DIFF MANUAL Platelet Estimate LOW Platelet Morphology Comment NORMAL Prothrombin Time 18.7 Prothromb Time International 1.7 Ratio Fibrinogen 237 Sodium Level 140 Potassium Level 6.2 Chloride Level 103 Carbon Dioxide Level 24.8 Anion Gap 12 Blood Urea Nitrogen 51 Creatinine 3.67 Estimat Glomerular Filtration 14 Rate Random Glucose 196 Lactic Acid Level 5.4 Calcium Level 5.8 Protein Corrected Calcium 7.0 Phosphorus Level 7.0 Magnesium Level 2.2 Total Bilirubin 3.7 Aspartate Amino Transf 3749 (AST/SGOT) Alanine Aminotransferase 1320 (ALT/SGPT) Alkaline Phosphatase 85 Total Protein 4.4 Albumin 1.7 Random Vancomycin Level 9.6 Date/Time Procedure Status Source Growth 02/18/17 03:25 Aerobic Blood Culture Received Blood Peripheral Pending 02/18/17 03:25 Anaerobic Blood Culture Received Blood Peripheral Pending Imaging Last Impressions Chest X-Ray 02/19/17 0600 Signed Impressions: Service Date/Time: Sunday, February 19, 2017 04:33 - CONCLUSION: No acute pulmonary infiltrates. Stable examination compared to the prior study. Toby Constantino MD Head CT 02/18/17 0241 Signed Impressions: Service Date/Time: Saturday, February 18, 2017 04:27 - CONCLUSION: Unremarkable CT scan of the brain.. Toby Constantino MD Physical Exam HEENT: Normocephalic; atraumatic; no jaundice. CHEST: Resp. even/unlabored, OETT vent, CTA. CARDIAC: ST ABDOMEN: Soft, nondistended, nontender; no hepatosplenomegaly; bowel sounds are present in all four quadrants. EXTREMITIES: Significant LLE edema and redness to posterior aspect of lower leg - nurse reports post. tibial pulses with doppler only. [employer]: Sedated on vent. (Elsy Velazquez) Assessment and Plan Plan ASSESSMENT: - GIB, Melanotic stool. Had one large melanotic stool (02/18). Has NGT to LIWS , small amount dark gastric secretions. Flexiseal with dark brown stool, slight maroon tint. S/P , only small amount in flexiseal since that time. HH has remained stable 11.7/33.6. Plt 105. S/P i unit of platelets, i unit of cryoprecipitate. Protonix Gtt. Plan was for EGD today, but now going to OR for fasciotomy/ possible amputation for LLE compartment syndrome. He seems to be oozing more from his DIC- as there is a small amount of blood in urine too. Will hold on EGD for today. - Elevated LFTs. T. BIli 3.7, AST 3749, ALT 1320, ALk Phosph 85. Will get hepatitis panel, but this is most likely combination of shocked liver and rhabdomyolysis. - Anemia, secondary to blood loss. Stable. 11.7/33.6. - Coagulopathy, Thrombocytopenia, possible DIC. Plt 105, PT 18.7, INR 1.7, APTT 35.9, Fibrinogen 237- IMPROVED. S/P 1 unit Plt, 1 unit Cryoprecipitate. - Seizure Activity/Anoxic encephalopathy. Neurology following. Sedated. Keprra - Acute respiratory failure. Vent per CCM. - Cardiac Arrest, NSTEMI, hypotension. Vasopressors. Cardiology following. - CLAUDIA with electrolyte abnormalities. Creat. 3.67. K+ 6.2 - Rhabdomyolysis. CPK 76,140. IVF per CCM. - Compartment syndrome LLE. Per ortho. Going to OR for emergent fasciotomy/ possible amputation - Drug abuse, (+) Cocaine on tox screen. PLAN: - Hold on EGD for now- going to OR for fasciotomy, possible amputation - Cont. Protonix Gtt - Monitor HH - Monitor Coag's - Monitor LFTs - Hepatitis profile - Avoid hepatotoxic meds- of note he is on keppra- but was having significant seizure activity yesterday and required sedation - Supportive care - Further recommendations to follow based on results of above - Pt seen and examined by Dr. Molina and myself and this note is written on his behalf (Elsy Velazquez) Physician Comments Patient seen and examined Agree with above Continue with current supportive care Monitor labs (Flako Molina MD) Elsy Velazquez Feb 19, 2017 08:16 Flako Molina MD Feb 19, 2017 22:23
[2017-02-19] MEDS ORDERED: fentaNYL CITRATE 250 MCG/5 ML AMP ONE ×2 (08:35→15:00)
[2017-02-19] MEDS ORDERED: FAMOTIDINE 20 MG/2 ML VIAL ONE (08:35)
[2017-02-19] MEDS ORDERED: MIDAZOLAM HCL 5 MG/5 ML VIAL ONE (08:35)
[2017-02-19] MEDS ORDERED: DEXAMETHASONE SOD PHOS 4 MG/ML VIAL ONE (08:36)
[2017-02-19] MEDS: DOCUSATE SODIUM 100 MG/10 ML UDC G-TUBE SCH ×2 (08:49→21:16)
[2017-02-19] MEDS: FAMOTIDINE 20 MG/2 ML VIAL IV PUSH SCH ×2 (08:50→21:16)
[2017-02-19] MEDS: MUPIROCIN 2% OINT 1 APPLIC/GM SYR EACH NARE SCH ×2 (08:50→21:18)
[2017-02-19] MEDS: ARTIFICIAL TEARS OPTH SOLN 15 ML BTL EACH EYE SCH ×3 (08:50→18:00)
[2017-02-19] MEDS: SODIUM CHLORIDE 0.9% FLUSH 10 ML FLUSH SCH (08:50)
--- NOTE | 2017-02-19 08:51 | HHI.CCPN ---
Subjective Remarks/Hospital Course 61 years old male brought as a status post cardiac arrest. The history is obtained from medical chart. The patient has history of epilepsy. He is normally compliant with his antiepileptic agents. The patient had been conversing with roommates through a doorway about 3 hours prior to EMS arrival. He had become unresponsive and EMS was activated. They found the patient on the floor. His mental status was altered apparently postictal nonverbal. The patient was prepared for transport to the ER and on the way to the ambulance he became asystolic. ACLS protocol was initiated. The patient was intubated and chest compressions were started. About 12 minutes of chest compressions were performed. He received 1 dose of epinephrine. On arrival to the ER chest compressions were continued and shortly thereafter he was found to have a pulse. Levophed drip started. In the ER the patient received multiple rounds of epinephrine and bicarbonate as he lost pulses twice more initially each episode lasting about 2-3 minutes. EKG obtained shortly after the patient' s arrival revealed ST elevations in precordial leads V1 through V5 as well as II , III and aVF. STEMI alert was activated. Distiller Dr. Keane evaluated the patient at the bedside. A repeat EKG was performed revealing no ST elevation RI. The patient was found to have some swelling and induration of the left lower extremity at the calf. A [place] needle was employed to check compartment pressures of the anterior compartment in the superficial posterior compartment with measurements of 47 and 45 respectively. Finally the patient was found to be somewhat hypothermic and blood cultures were drawn and antibiotics initiated , cefepime and vancomycin. The patient also has hyperkalemia at 6.9 and insulin dextrose, calcium and bicarbonate were given. The creatinine is also about 3.5. Subjective 02/18/17 Upon entering patient's room at 0600 hrs., The patient was noted to have tonic-clonic jerking, completely unresponsive has not been on sedation since admission to the hospital. The patient has a known history of a seizure disorder. Keppra and Dilantin levels were obtained and pending. The patient was loaded with 1 g Dilantin IV, and placed on Dilantin 100 mg every 8 hours. The patient was noted to be on maximum doses of Levophed,20 mcgs, a central line was placed and the patient was placed on a second vasopressor, vasopressin@ 0.04. Neurology was consulted , a stat EEG was ordered. The patient's sodium bicarbonate infusion was increased to 150 cc/hr. the patient was noted to be oliguric in the setting of rhabdomyolysis the patient was bolused an additional liter of normal saline, and NS infusion at 150cc/hr. BMP pending. 02/19/17 Tmax 100.8. Over the last 24 hours the patient continues to be hemodynamically unstable, requiring 2 vasopressors for maintenance of a map ranging from 69-77. The patient was placed on a low dose propofol infusion secondary to continue tonic-clonic movements status post administration of Keppra and Dilantin. An EEG was performed showing a severe encephalopathic state. No intervention was performed yesterday to the left leg with compartment syndrome secondary to time sensitivity of intervention had passed, most likely prior to admission to the hospital. Demarcation of the left lower extremity has begun with mottling, edema, and blistering. Also cause necrosis continues with severe electrolyte abnormalities throughout the night to include hyperkalemia requiring continuous doses of calcium gluconate, Kayexalate now additionally adding D50 and insulin. The patient is noted to have continued elevations in hepatic enzymes most likely secondary to rhabdomyolysis. The patient continues to have hyperkalemia hyperphosphatemia due to muscle necrosis and hypocalcemia with challenging management. Steroids have been added to medication related regimen, electrolytes continued to be closely monitored. Nephrology has been consulted, appreciate recommendations. Discussion with Dr. Purdy, last evening the severe metabolic derangements, secondary to continued rhabdomyolysis with significant muscle necrosis of left lower extremity and continued SIRS response. Aggressive measures have been initiated since admission with case management to it and attempts to identify patient, and locate family thus far has been unsuccessful. The patient continues to be hemodynamically unstable with with continued elevation in vasopressor requirements. After this extensive discussion plans for emergent surgical intervention for left lower extremity today. Objective Vital Signs Date Time Temp Pulse Resp B/P Pulse Ox O2 Delivery O2 Flow Rate FiO2 02/19/17 06:00 117 02/19/17 06:00 103/61 02/19/17 04:03 91 50 02/19/17 04:00 99.9 18 02/18/17 19:00 Mechanical Ventilator Intake and Output 02/18/17 02/18/17 02/19/17 08:00 16:00 00:00 Intake Total 708 ml 3614 ml 3474 ml Output Total 385 ml 400 ml 430 ml Balance 323 ml 3214 ml 3044 ml Result Diagram: 02/19/17 0545 02/19/17 0545 Other Results Laboratory Tests Test 02/18/17 02/19/17 13:37 05:26 Blood Gas Puncture Site LT RADIAL ART LINE Blood Gas Patient Temperature 98.6 98.6 Blood Gas HCO3 18 mmol/L 23 mmol/L (22-26) (22-26) Blood Gas Base Excess -6.2 mmol/L -2.1 mmol/L (-2-2) (-2-2) Blood Gas Oxygen Saturation 98 % (90-100) 98 % (90-100) Arterial Blood pH 7.36 7.36 (7.380-7.420) (7.380-7.420) Arterial Blood Partial 33 mmHg (38-42) 42 mmHg (38-42) Pressure CO2 Arterial Blood Partial 259 mmHg 236 mmHg Pressure O2 (61-120) (61-120) Arterial Blood Oxygen Content 17.6 Vol % 16.0 Vol % (12.0-20.0) (12.0-20.0) Arterial Blood 1.1 % (0-4) 1.2 % (0-4) Carboxyhemoglobin Arterial Blood Methemoglobin 0.9 % (0-2) 1.1 % (0-2) Blood Gas Hemoglobin 12.4 G/DL 11.3 G/DL (12.0-16.0) (12.0-16.0) Oxygen Delivery Device VENTILATOR VENTILATOR Blood Gas Ventilator Setting PRVC/AC Blood Gas Inspired Oxygen 50 % 50 % Imaging Last 24 hours Impressions Chest X-Ray 02/18/17 0241 Signed Impressions: Service Date/Time: Saturday, February 18, 2017 02:45 - CONCLUSION: 1. No focal or acute intrathoracic disease. 2. NG tube tip in distal esophagus. Recommend advancing another 10 cm. Toby Constantino MD Objective Remarks GENERAL: Well-nourished, well-developed critically ill male intubated on low dose propofol 15 mcgs, no seizure activity noted SKIN: Warm and dry. HEAD: Normocephalic. EYES: No scleral icterus. No injection or drainage. Pupils 3 mm bilaterally sluggish reactivity NECK: Supple, trachea midline. No JVD or lymphadenopathy. Orotracheally intubated CARDIOVASCULAR: Regular rate and rhythm without murmurs, gallops, or rubs. RESPIRATORY: Mechanical ventilation Breath sounds equal bilaterally. No accessory muscle use. GASTROINTESTINAL: Abdomen soft, non-tender, nondistended. OGT to low suction, coffee-ground GI contents, melanotic stools with fecal containment device MUSCULOSKELETAL: No cyanosis, left lower extremity traumatic compartment syndrome noted with discoloration, no capillary refill, blistering noted EXTREMITIES: No clubbing or cyanosis. Urinary Catheter: Yes Mccarthy insert reason: Measure Accurate Output Date of Insertion: Feb 18, 2017 Vascular Central Line Catheter: Yes Assessment to: Continue Date of Insertion: Feb 18, 2017 Line: Central Venous Catheter Side: Right Location: Internal, Jugular A/P Assessment and Plan Plan by systems: Neurologic: Seizure disorder Metabolic encephalopathy Possible hypoxic encephalopathy Neurochecks per ICU protocol Continue Dilantin 100 mg every 8 hours, and Keppra, monitor levels, upon hospital admission noted Dilantin level subtherapeutic, Keppra level pending Neurology following-Dr. Suggs 02/18 EEG-severely attenuated electrographic activity with a burst suppression pattern consistent with severe encephalopathic state 02/18CT brain unremarkable Respiratory: Respiratory arrest secondary to cardiac arrest Possible aspiration Maintain O2 sat greater than 92%, wean FiO2 as tolerated Mechanical vent settings before meals PC 18/550/+5/50 Ventilator bundle Maintain head of bed greater than 30 Bronchodilators every 6 hours schedule every 2 hours when necessary Empiric antibiotics initiated 02/19 [id number]/42/236/23/-2, will continue sodium bicarbonate infusion secondary to rhabdomyolysis until pH is equivalent to 7.5, or bicarbonate level XXX Cardiovascular: Asystolic cardiac arrest 2 Hypotension secondary to multisystem organ failure Initial 12-lead EKG 02/18 ST elevations V1V5 and II, III aVF, with resolution Status post CPR with ROSC x 3 rounds of CPR Cardiology on board, Dr. Brgag no interventions at this time Currently vasopressor support the Levophed and vasopressin, Wean as tolerated maintain MAP greater than 60 mmHg Renal: Severe metabolic acidosis secondary to rhabdomyolysis Acute kidney injury secondary to rhabdomyolysis Oliguria 02/18 upon admission Sodium bicarbonate 9.7 02/18 Bolused normal saline 1 L, normal saline infusion at 125/hour Continue sodium bicarbonate infusion at 150 cc an hour UOP 570 for 24 hours Nephrology consulted Obtain serial CMP -- Strict I/Os FEN/GI: Hyperkalemia Hyperphosphatemia Hypocalcemia Melena Transaminitis Maintain NPO status Replete electrolytes and replete as indicated Electrolyte abnormalities continue in the setting of rhabdomyolysis, continue frequent monitoring of labs-BMP every 6 hours Scheduled doses Kayexalate Potassium level 6.2 D50 and insulin this a.m. Continue Protonix infusion Gastroenterology following-Dr. Molina Consider CT of the abdomen Heme/ID: Sepsis Leukocytosis Thrombocytopenia DIC-hypofibrinogenemia (resolved) Coagulopathy secondary to hepatic injury Bandemia Continue Zosyn and vancomycin Monitor serial CBC. WBC 12.7 INR 1.7-> 1.7 today Fibrinogen level 156-> 236 today-the patient received a 6 pack of platelets, and 6 units of cryoprecipitate yesterday for correction of coagulopathic state Serial lactate levels 02/18 blood cultures-negative growth to date 02/19 Hydrocortisone 50 mg every 6 hours added to medication regimen Endocrine: Hypoglycemia-resolved Glucose monitoring per ICU protocol, low-dose regimen -- SSI Msk: Rhabdomyolysis Continue sodium bicarbonate 150 cc/an hour Continue normal saline infusion 125/cc an hour Orthopedics following-Dr. Purdy- plan for surgical intervention this a.m. Continue monitor serial electrolytes, and hepatic panels Monitor LDH F/U CK levels Prophylaxis: GI Prophylaxis Pepcid BID Protonix infusion DVT Prophylaxis -- SCD right leg, no pharmacological DVT prophylaxis in the setting of acute bleeding and coagulopathic state Lines: PIV's x 2 .RI J Central line 02/18, right radial a line 02/18 Dispo: Case management continues to make attempts to obtain information regarding identity of patient and contacting family members. The patient's prognosis is extremely guarded at this time and requires surgical intervention secondary to continued rhabdomyolysis due to compartment syndrome severe electrolyte abnormalities due to muscle necrosis, and multisystem organ failure. This patient remains critically ill with one or more organ systems which are or may become a threat to life. I have spent in excess of 55 minutes discontinuously in the care and management of this patient. This time is exclusive of procedures, and includes, but is not limited to, evaluation of the patient, review of the medical record, discussions with family, consultants, nursing staff, or respiratory therapy, and documentation in the medical record. Physician Aileen Beasley MD Feb 19, 2017 08:51
[2017-02-19] MEDS ORDERED: INSULIN HUMAN REGULAR 1,000 UNITS/10 ML VIAL IV PUSH ONE (09:30)
[2017-02-19] MEDS ORDERED: SODIUM POLYSTYRENE SULFONATE SUSP 15 GM/60 ML CUP PO ONE (09:30)
[2017-02-19] MEDS ORDERED: DEXTROSE 50% IN WATER 50 ML VIAL(D50) IV PUSH ONE (09:30)
[2017-02-19] MEDS ORDERED: GLUCAGON 1 MG/ML VIAL OTHER PRN (09:30)
[2017-02-19] MEDS ORDERED: DEXTROSE 50% IN WATER 50 ML VIAL(D50) IV PUSH PRN (09:30)
[2017-02-19] MEDS: levETIRAcetam INJ 750 MG in SODIUM CHLORIDE 0.9% INJ 100 ML IV SCH (09:32)
[2017-02-19] MEDS ORDERED: VANCOMYCIN HCL 1000 MG VIAL OTHER ONE (10:45)
[2017-02-19] MEDS ORDERED: GENTAMICIN SULFATE 80 MG/2 ML VIAL IRRIGATION ONE (10:54)
[2017-02-19] MEDS ORDERED: SODIUM CHLOR 0.9% 1000 ML INJ 1,000 ML IV PRN ×3 (10:59)
[2017-02-19] MEDS ORDERED: BUPIVACAINE/EPINEPHRINE 0.25% PF 30 ML VIAL INFIL ONE (11:00)
[2017-02-19] MEDS ORDERED: NITROGLYCERIN 0.4 MG SL 25 TABS/BTL SL PRN (11:00)
[2017-02-19] MEDS ORDERED: cloNIDine HCL 0.1 MG TAB PO PRN (11:00)
[2017-02-19] MEDS ORDERED: ACETAMINOPHEN 325 MG TAB PO PRN (11:00)
[2017-02-19] MEDS ORDERED: ONDANSETRON HCL 4 MG/2 ML VIAL IV PRN (11:00)
[2017-02-19] MEDS ORDERED: HEPARIN SODIUM - IV 10,000 UNITS/10 ML VIAL IVF PRN (11:00)
[2017-02-19] MEDS: INSULIN ASPART SUPPLEMENTAL SCALE SQ SCH ×3 (11:00→22:28)
[2017-02-19] MEDS ORDERED: diphenhydrAMINE HCL 25 MG CAP PO PRN (11:00)
[2017-02-19] MEDS ORDERED: GELATIN 12 MM/7 MM FOAM TOP PRN (11:00)
--- NOTE | 2017-02-19 11:25 | PD.OP ---
cc: Peña Purdy MD Operative Report Date of Surgery: Feb 19, 2017 Preoperative Diagnosis: Compartment syndrome left leg Postoperative Diagnosis: Procedure: 4 compartment fasciotomy left leg Debridement of nonviable muscle left calf Application of wound VAC dressing Anesthesia: Gen. Surgeon: Peña Purdy Chief Medical Physicist(s): DEE DEE Garcia PA-C The surgical procedure was assisted by my physician head start assistant teacher. My P.A. presence was necessary throughout this case for the manipulation and positioning of the surgical extremity. My P.A. was assisting me throughout the duration of this procedure. The skill set of a physician head start assistant teacher was medically necessary to complete this procedure. During the surgical case the electronic calibration technician was working at the back table and the physician head start assistant teacher was directly assisting me. Operation and Findings: This patient presented yesterday to the emergency room. He was found on the ground for unknown amount of time. Patient had cardiac arrest that required CPR multiple times. He also had multiple seizures. He was found to have a compartment syndrome yesterday. Patient was not medically cleared or stable for surgery. Because of the unknown amount of time that the compartment syndrome has been present and patient severely unstable medical condition, initial plan was possible nonoperative treatment. This morning patient was having increasing tightness of his calf. He was also having increasing renal failure likely from rhabdomyolysis secondary to left calf muscle. I discussed this case with Dr. Garcia of intensive care. Decision was made to proceed with possible fasciotomy versus possible primary [id number] amputation. No family was available. Dr. Adams as well as myself agreed to this was a medically necessary and urgent procedure. Consent was signed by 2 physicians. Patient was brought to operating room and placed on operating table. Left leg was prepped with alcohol followed by Hibiclens and draped usual sterile fashion. Timeout procedure was performed. Procedure began with a 8 inch incision over the lateral aspect of the calf. Subcutaneous tissues dissected with Bovie. The fascia was incised between the anterior compartment and lateral compartment. The anterior compartment muscles appear to be nonviable. They were nonreactive and appeared to be ischemic. The lateral compartment muscles did appear to be viable. There was some reaction the Bovie. At this point, attention was turned to removal of the nonviable muscle. The anterior compartment was debrided. Some of the muscle appeared to be borderline and was left in place. Next attention was turned towards the medial side. An 8 inch incision was made over the medial calf. Subcutaneous was dissected with Bovie. The fascia was released off of the posterior aspect of the tibia. The lateral head of the gastroc was nonreactive and appeared In regards to viability. A portion of the lateral gastroc muscle was removed. The deep posterior compartment appeared to be healthy and viable. The muscle was reactive and had relatively normal muscle color. All nonviable muscle was excised. Wound was now thoroughly irrigated. Hemostasis was obtained. An extra-large Vac dressing was cut to fit the wound. VAC dressing was sealed appropriately. Patient was transferred back to intensive care in critical condition.. Peña Purdy MD Feb 19, 2017 11:25
--- NOTE | 2017-02-19 11:47 | PD.CARD.PN ---
Subjective Subjective Remarks Patient seen this morning Continual need for increased pressor therapy Objective Medications Current Medications Medications (Trade) Dose Ordered Sig/Abdoulaye Route Start Time Stop Time Status Last Admin (NS 1000 ml Inj) 1,000 ml @ 125 mls/hr Q8H IV 02/18/17 04:20 02/18/17 12:20 (NS Flush) 2 ml UNSCH PRN .XX 02/18/17 04:30 (NS Flush) 2 ml BID .XX 02/18/17 09:00 02/19/17 08:50 (Tylenol) 650 mg Q6H PRN PO 02/18/17 04:30 (Morphine Inj) 2 mg Q2H PRN IV 02/18/17 04:30 (Pepcid Inj) 10 mg Q12HR IV PUSH 02/18/17 09:00 02/19/17 08:50 (Ativan Inj) 1 mg Q1H PRN IV 02/18/17 04:30 02/18/17 14:14 (Tears Naturale Opth Soln) 1 drop TID EACH EYE 02/18/17 09:00 02/19/17 08:50 (Zofran Inj) 4 mg Q6H PRN IV 02/18/17 04:30 (Reglan Inj) 5 mg Q6H PRN IV 02/18/17 04:30 Docusate Sodium 100 mg 100 mg Q12H G-TUBE 02/18/17 09:00 02/19/17 08:49 Vasopressin 40 units/Dextrose 100 ml @ 0 mls/hr TITRATE IV 02/18/17 07:00 02/18/17 21:32 Sodium Bicarbonate 150 meq/Sodium Chloride 1,000 ml @ 150 mls/hr Q6H40M IV 02/18/17 08:00 02/19/17 03:55 Pharmacy Profile Note 0 ml @ 0 mls/hr UNSCH OTHER 02/18/17 07:15 (Maxipime Inj/NS Inj) 100 ml @ 200 mls/hr Q8H IV 02/18/17 12:00 02/19/17 11:07 Miscellaneous Information 1 Q361D XX 02/18/17 07:15 02/18/17 07:15 (Chlorhexidine 2% Cloth) 3 pack Taper DAILY@04 TOP 02/19/17 04:00 02/15/18 03:59 02/19/17 04:57 (Chlorhexidine 2% Cloth) 3 pack UNSCH PRN TOP 02/18/17 07:15 Phenytoin Sodium 100 mg 100 mg Q8HR IV 02/18/17 14:00 02/19/17 05:32 Pantoprazole Sodium 80 mg/ Sodium Chloride 100 ml @ 10 mls/hr Q10H IV 02/18/17 11:00 02/19/17 05:32 Norepinephrine Bitartrate 250 ml @ 0 mls/hr TITRATE IV 02/18/17 12:00 02/19/17 05:39 (Diprivan 1000 Mg/100ml Inj) 100 ml @ 0 mls/hr TITRATE IV 02/18/17 15:00 02/19/17 00:22 Mupirocin 1 applic 1 applic BID EACH NARE 02/18/17 21:00 02/19/17 08:50 (Keppra Inj/NS Inj) 107.5 ml @ 430 mls/hr Q12HR IV 02/18/17 22:00 02/19/17 09:32 (SoluCORTEF INJ) 100 mg Q8H IV PUSH 02/19/17 04:00 02/19/17 11:07 (D50w (Vial) Inj) 25 ml UNSCH PRN IV PUSH 02/19/17 09:30 Glucagon 1 mg 1 mg UNSCH PRN OTHER 02/19/17 09:30 (Vancomycin Inj/ NS 500 ml Inj) 515 ml @ 257.5 mls/ hr ONCE ONCE IV 02/19/17 12:00 02/19/17 13:59 Miscellaneous Information SPECIFIC LAB TO BE DRAWN:[facility] TATUM DATE TO BE DRWillow. ONCE ONCE .XX 02/20/17 11:45 02/20/17 11:46 (NS 1000 ml Inj) 1,000 ml @ 0 mls/hr Q0M PRN IV 02/19/17 10:59 Heparin Sodium (Porcine) 8000 units 8,000 units UNSCH PRN IVF 02/19/17 11:00 Sodium Chloride 1,000 ml @ 200 mls/hr Q5H PRN IV 02/19/17 10:59 (NS 1000 ml Inj) 1,000 ml @ 0 mls/hr Q0M PRN IV 02/19/17 10:59 (Mannitol Inj) 12.5 gm UNSCH PRN IV 02/19/17 11:00 (Albumin 25% Inj) 25 gm UNSCH PRN IV 02/19/17 11:00 (NS Flush) 5 ml UNSCH PRN IV FLUSH 02/19/17 11:00 (Heparin Inj) UNSCH PRN .XX 02/19/17 11:00 (Gentamicin (Dialysis) Inj) 20 mg UNSCH PRN IV 02/19/17 11:00 (Zofran Inj) 4 mg UNSCH PRN IV 02/19/17 11:00 (Tylenol) 650 mg UNSCH PRN PO 02/19/17 11:00 (Benadryl) 25 mg UNSCH PRN PO 02/19/17 11:00 (Nitrostat Sl) 0.4 mg UNSCH PRN SL 02/19/17 11:00 (Catapres) 0.1 mg UNSCH PRN PO 02/19/17 11:00 Gelatin 1 foam 1 foam UNSCH PRN TOP 02/19/17 11:00 (Ancef 2 Gm Premix) 50 ml @ 100 mls/hr Q8H IV 02/19/17 11:30 02/22/17 03:59 UNV Vital Signs / I&O Vital Signs Date Time Temp Pulse Resp B/P Pulse Ox O2 Delivery O2 Flow Rate FiO2 02/19/17 10:38 100 100 02/19/17 10:00 113 02/19/17 09:28 96 50 02/19/17 08:00 115 02/19/17 08:00 99.5 115 18 121/80 96 96/60 02/19/17 08:00 50 02/19/17 07:00 Mechanical Ventilator 50 02/19/17 06:00 117 02/19/17 06:00 103/61 02/19/17 04:03 91 50 02/19/17 04:00 50 02/19/17 04:00 99.9 119 18 108/58 95 91/58 02/19/17 04:00 119 02/19/17 02:00 117 02/19/17 01:10 91 50 02/19/17 00:00 100.0 117 18 110/78 92 103/62 02/19/17 00:00 117 02/19/17 00:00 50 02/18/17 22:00 122 02/18/17 20:20 92 50 02/18/17 20:00 100.8 123 18 92/70 92/58 02/18/17 20:00 50 02/18/17 20:00 123 02/18/17 20:00 92/58 92/70 02/18/17 19:00 Mechanical Ventilator 50 02/18/17 18:39 92 50 02/18/17 18:00 127 02/18/17 17:44 Automatic Cuff 02/18/17 16:00 100.0 125 23 126/97 100 02/18/17 16:00 125 02/18/17 14:00 110 02/18/17 12:48 100 50 02/18/17 12:00 94 02/18/17 12:00 97.2 94 18 126/90 100 I/O 02/18/17 02/18/17 02/18/17 02/19/17 02/19/17 02/19/17 07:00 15:00 23:00 07:00 15:00 23:00 Intake Total 708 ml 3614 ml 3474 ml 2974 ml Output Total 385 ml 400 ml 430 ml 315 ml Balance 323 ml 3214 ml 3044 ml 2659 ml Intake IV Total 708 ml 3395 ml 3474 ml 2974 ml Cryoprecipitate 219 ml Output Urine Total 385 ml 275 ml 130 ml 165 ml Stool Total 0 ml 200 ml 100 ml Gastric Drainage Total 0 ml 125 ml 100 ml 50 ml # Bowel Movements 1 Physical Exam GENERAL: Intubated SKIN: Warm and dry. Left lower extremity with edema/induration HEAD: Atraumatic. Normocephalic. EYES: Pupils equal and round. No scleral icterus. No injection or drainage. ENT: No nasal bleeding or discharge. Mucous membranes pink and moist. NECK: Trachea midline. No JVD. CARDIOVASCULAR: Regular rate and rhythm. RESPIRATORY: No accessory muscle use. Decreased breath sounds bilaterally GASTROINTESTINAL: Abdomen soft, non-tender, nondistended. Hepatic and splenic margins not palpable. MUSCULOSKELETAL: Left lower extremity with edema/induration NEUROLOGICAL: Unable to determine Laboratory Laboratory Tests Test 02/18/17 02/18/17 02/18/17 02/18/17 13:15 13:37 16:10 18:30 Lactic Acid Level 5.1 mmol/L Blood Gas Puncture Site LT RADIAL Blood Gas Patient Temperature 98.6 Blood Gas HCO3 18 mmol/L Blood Gas Base Excess -6.2 mmol/L Blood Gas Oxygen Saturation 98 % Arterial Blood pH 7.36 Arterial Blood Partial 33 mmHg Pressure CO2 Arterial Blood Partial 259 mmHg Pressure O2 Arterial Blood Oxygen Content 17.6 Vol % Arterial Blood 1.1 % Carboxyhemoglobin Arterial Blood Methemoglobin 0.9 % Blood Gas Hemoglobin 12.4 G/DL Oxygen Delivery Device VENTILATOR Blood Gas Ventilator Setting Blood Gas Inspired Oxygen 50 % Urine Opiates Screen NEG Urine Barbiturates Screen NEG Urine Amphetamines Screen NEG Urine Benzodiazepines Screen NEG Urine Cocaine Screen POS Urine Cannabinoids Screen NEG Hemoglobin 11.6 GM/DL Hematocrit 35.2 % Sodium Level 143 MEQ/L Potassium Level 4.5 MEQ/L Chloride Level 107 MEQ/L Carbon Dioxide Level 26.2 MEQ/L Anion Gap 10 MEQ/L Blood Urea Nitrogen 46 MG/DL Creatinine 3.13 MG/DL Estimat Glomerular Filtration 17 ML/MIN Rate Random Glucose 144 MG/DL Calcium Level 5.7 MG/DL Protein Corrected Calcium 6.8 MG/DL Total Protein 4.7 GM/DL Test 02/19/17 02/19/17 02/19/17 02:30 05:26 05:45 Hemoglobin 11.9 GM/DL 11.7 GM/DL Hematocrit 34.3 % 33.6 % Sodium Level 141 MEQ/L 140 MEQ/L Potassium Level 5.9 MEQ/L 6.2 MEQ/L Chloride Level 105 MEQ/L 103 MEQ/L Carbon Dioxide Level 24.8 MEQ/L 24.8 MEQ/L Anion Gap 11 MEQ/L 12 MEQ/L Blood Urea Nitrogen 48 MG/DL 51 MG/DL Creatinine 3.45 MG/DL 3.67 MG/DL Estimat Glomerular Filtration 15 ML/MIN 14 ML/MIN Rate Random Glucose 176 MG/DL 196 MG/DL Calcium Level 5.8 MG/DL 5.8 MG/DL Protein Corrected Calcium 7.0 MG/DL 7.0 MG/DL Total Protein 4.5 GM/DL 4.4 GM/DL Blood Gas Puncture Site ART LINE Blood Gas Patient Temperature 98.6 Blood Gas HCO3 23 mmol/L Blood Gas Base Excess -2.1 mmol/L Blood Gas Oxygen Saturation 98 % Arterial Blood pH 7.36 Arterial Blood Partial 42 mmHg Pressure CO2 Arterial Blood Partial 236 mmHg Pressure O2 Arterial Blood Oxygen Content 16.0 Vol % Arterial Blood 1.2 % Carboxyhemoglobin Arterial Blood Methemoglobin 1.1 % Blood Gas Hemoglobin 11.3 G/DL Oxygen Delivery Device VENTILATOR Blood Gas Ventilator Setting PRVC/AC Blood Gas Inspired Oxygen 50 % White Blood Count 12.7 TH/MM3 Red Blood Count 3.03 MIL/MM3 Mean Corpuscular Volume 110.9 FL Mean Corpuscular Hemoglobin 38.5 PG Mean Corpuscular Hemoglobin 34.7 % Concent Red Cell Distribution Width 15.4 % Platelet Count 105 TH/MM3 Mean Platelet Volume 9.0 FL Neutrophils (%) (Auto) 84.9 % Lymphocytes (%) (Auto) 9.1 % Monocytes (%) (Auto) 5.1 % Eosinophils (%) (Auto) 0.5 % Basophils (%) (Auto) 0.4 % Neutrophils # (Auto) 10.8 TH/MM3 Lymphocytes # (Auto) 1.2 TH/MM3 Monocytes # (Auto) 0.6 TH/MM3 Eosinophils # (Auto) 0.1 TH/MM3 Basophils # (Auto) 0.0 TH/MM3 CBC Comment AUTO DIFF Differential Total Cells 100 Counted Neutrophils % (Manual) 46 % Band Neutrophils % 37 % Lymphocytes % 11 % Monocytes % 3 % Neutrophils # (Manual) 10.9 TH/MM3 Metamyelocytes 3 % Differential Comment FINAL DIFF MANUAL Platelet Estimate LOW Platelet Morphology Comment NORMAL Prothrombin Time 18.7 SEC Prothromb Time International 1.7 RATIO Ratio Fibrinogen 237 mg/dL Lactic Acid Level 5.4 mmol/L Phosphorus Level 7.0 MG/DL Magnesium Level 2.2 MG/DL Total Bilirubin 3.7 MG/DL Aspartate Amino Transf 3749 U/L (AST/SGOT) Alanine Aminotransferase 1320 U/L (ALT/SGPT) Alkaline Phosphatase 85 U/L Albumin 1.7 GM/DL Random Vancomycin Level 9.6 COMMENT Assessment and Plan Problem List: (1) Cardiopulmonary arrest with successful resuscitation (2) Sepsis with multi-organ dysfunction (3) Renal failure (4) Hyperkalemia (5) Hypothermia (6) Compartment syndrome (7) NSTEMI (non-ST elevated myocardial infarction) (8) Rhabdomyolysis Assessment and Plan 1) Continual SIRS response/Hyperkalemia with compartment syndrome of the left lower extremity, plan for fasciotomy vs amputation today 2) Continue support care 3) NSTEMI Type 2 due to cardiac arrest, CPR, hypotension, sepsis 4) EF 45% Problem Qualifiers (1) Hypothermia: Qualified Code: T68.XXXA - Hypothermia, initial encounter (2) Compartment syndrome: Qualified Code: T79.A22A - Traumatic compartment syndrome of left lower extremity, initial encounter Vern Keane DO Feb 19, 2017 11:47
[2017-02-19] MEDS ORDERED: SODIUM CHLORID 0.9% 500 ML INJ 500 ML IV ONE (12:00)
[2017-02-19] MEDS ORDERED: VANCOMYCIN 1,500 MG/NS 500 ML IV ONE ×2 (12:00)
[2017-02-19] MEDS ORDERED: LACTATED RINGER'S 1000 ML INJ 1,000 ML IV ONE (12:00)
--- NOTE | 2017-02-19 12:14 | PD.CONS ---
HPI Service Nephrology Consult Requested By Dr. Garcia Reason for Consult CLAUDIA, hyperkalemia Primary Care Physician Unknown History of Present Illness This patient's name is not known, apparently found down, likely for more than 3 hours, suffered left leg injury, compartment syndrome. Underwent fasciotomy today. Patient was brought to the ER in the ambulance and he developed asystole during the transport. Given epinephrine, pulse was detected in the ER. He was found to be in CLAUDIA and hyperkalemic. Obviously, no previous labs are available for comparison. He has been placed on bicarbonate drip. He has had positive fluid balance, weight has increased to 88 kg from about 72 kg. He continues to be hyperkalemic. 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 Past Surgical History not known at this time. Reported Medications not known at this time. Active Ordered Medications Current Medications Medications (Trade) Dose Ordered Sig/Abdoulaye Route Start Time Stop Time Status Last Admin (NS 1000 ml Inj) 1,000 ml @ 125 mls/hr Q8H IV 02/18/17 04:20 02/18/17 12:20 (NS Flush) 2 ml UNSCH PRN .XX 02/18/17 04:30 (NS Flush) 2 ml BID .XX 02/18/17 09:00 02/19/17 08:50 (Tylenol) 650 mg Q6H PRN PO 02/18/17 04:30 (Morphine Inj) 2 mg Q2H PRN IV 02/18/17 04:30 (Pepcid Inj) 10 mg Q12HR IV PUSH 02/18/17 09:00 02/19/17 08:50 (Ativan Inj) 1 mg Q1H PRN IV 02/18/17 04:30 02/18/17 14:14 (Tears Naturale Opth Soln) 1 drop TID EACH EYE 02/18/17 09:00 02/19/17 08:50 (Zofran Inj) 4 mg Q6H PRN IV 02/18/17 04:30 (Reglan Inj) 5 mg Q6H PRN IV 02/18/17 04:30 Docusate Sodium 100 mg 100 mg Q12H G-TUBE 02/18/17 09:00 02/19/17 08:49 Vasopressin 40 units/Dextrose 100 ml @ 0 mls/hr TITRATE IV 02/18/17 07:00 02/18/17 21:32 Sodium Bicarbonate 150 meq/Sodium Chloride 1,000 ml @ 150 mls/hr Q6H40M IV 02/18/17 08:00 02/19/17 03:55 Pharmacy Profile Note 0 ml @ 0 mls/hr UNSCH OTHER 02/18/17 07:15 (Maxipime Inj/NS Inj) 100 ml @ 200 mls/hr Q8H IV 02/18/17 12:00 02/19/17 11:07 Miscellaneous Information 1 Q361D XX 02/18/17 07:15 02/18/17 07:15 (Chlorhexidine 2% Cloth) 3 pack Taper DAILY@04 TOP 02/19/17 04:00 02/15/18 03:59 02/19/17 04:57 (Chlorhexidine 2% Cloth) 3 pack UNSCH PRN TOP 02/18/17 07:15 Phenytoin Sodium 100 mg 100 mg Q8HR IV 02/18/17 14:00 02/19/17 05:32 Pantoprazole Sodium 80 mg/ Sodium Chloride 100 ml @ 10 mls/hr Q10H IV 02/18/17 11:00 02/19/17 05:32 Norepinephrine Bitartrate 250 ml @ 0 mls/hr TITRATE IV 02/18/17 12:00 02/19/17 05:39 (Diprivan 1000 Mg/100ml Inj) 100 ml @ 0 mls/hr TITRATE IV 02/18/17 15:00 02/19/17 00:22 Mupirocin 1 applic 1 applic BID EACH NARE 02/18/17 21:00 02/19/17 08:50 (Keppra Inj/NS Inj) 107.5 ml @ 430 mls/hr Q12HR IV 02/18/17 22:00 02/19/17 09:32 (SoluCORTEF INJ) 100 mg Q8H IV PUSH 02/19/17 04:00 02/19/17 11:07 (D50w (Vial) Inj) 25 ml UNSCH PRN IV PUSH 02/19/17 09:30 Glucagon 1 mg 1 mg UNSCH PRN OTHER 02/19/17 09:30 (Vancomycin Inj/ NS 500 ml Inj) 515 ml @ 257.5 mls/ hr ONCE ONCE IV 02/19/17 12:00 02/19/17 13:59 Miscellaneous Information SPECIFIC LAB TO BE DRAWN:CYNTHIA RANDOM DATE TO BE DRElias.. ONCE ONCE .XX 02/20/17 11:45 02/20/17 11:46 (NS 1000 ml Inj) 1,000 ml @ 0 mls/hr Q0M PRN IV 02/19/17 10:59 Heparin Sodium (Porcine) 8000 units 8,000 units UNSCH PRN IVF 02/19/17 11:00 Sodium Chloride 1,000 ml @ 200 mls/hr Q5H PRN IV 02/19/17 10:59 (NS 1000 ml Inj) 1,000 ml @ 0 mls/hr Q0M PRN IV 02/19/17 10:59 (Mannitol Inj) 12.5 gm UNSCH PRN IV 02/19/17 11:00 (Albumin 25% Inj) 25 gm UNSCH PRN IV 02/19/17 11:00 (NS Flush) 5 ml UNSCH PRN IV FLUSH 02/19/17 11:00 (Heparin Inj) UNSCH PRN .XX 02/19/17 11:00 (Gentamicin (Dialysis) Inj) 20 mg UNSCH PRN IV 02/19/17 11:00 (Zofran Inj) 4 mg UNSCH PRN IV 02/19/17 11:00 (Tylenol) 650 mg UNSCH PRN PO 02/19/17 11:00 (Benadryl) 25 mg UNSCH PRN PO 02/19/17 11:00 (Nitrostat Sl) 0.4 mg UNSCH PRN SL 02/19/17 11:00 (Catapres) 0.1 mg UNSCH PRN PO 02/19/17 11:00 Gelatin 1 foam 1 foam UNSCH PRN TOP 02/19/17 11:00 (Ancef 2 Gm Premix) 50 ml @ 100 mls/hr Q8H IV 02/19/17 14:00 02/22/17 06:29 Family History not known at this time. Social History not known at this time. He did test positive for cocaine. Physical Exam Vital Signs Vital Signs Date Time Temp Pulse Resp B/P Pulse Ox O2 Delivery O2 Flow Rate FiO2 02/19/17 10:38 100 100 02/19/17 10:00 113 02/19/17 09:28 96 50 02/19/17 08:00 115 02/19/17 08:00 99.5 115 18 121/80 96 96/60 02/19/17 08:00 50 02/19/17 07:00 Mechanical Ventilator 50 02/19/17 06:00 117 02/19/17 06:00 103/61 02/19/17 04:03 91 50 02/19/17 04:00 50 02/19/17 04:00 99.9 119 18 108/58 95 91/58 02/19/17 04:00 119 02/19/17 02:00 117 02/19/17 01:10 91 50 02/19/17 00:00 100.0 117 18 110/78 92 103/62 02/19/17 00:00 117 02/19/17 00:00 50 02/18/17 22:00 122 02/18/17 20:20 92 50 02/18/17 20:00 100.8 123 18 92/70 92/58 02/18/17 20:00 50 02/18/17 20:00 123 02/18/17 20:00 92/58 92/70 02/18/17 19:00 Mechanical Ventilator 50 02/18/17 18:39 92 50 02/18/17 18:00 127 02/18/17 17:44 Automatic Cuff 02/18/17 16:00 100.0 125 23 126/97 100 02/18/17 16:00 125 02/18/17 14:00 110 02/18/17 12:48 100 50 Physical Exam GENERAL: intubated, unresponsive. He looks pale. On 50 % FiO2. SKIN: Warm and dry. HEAD: Normocephalic. EYES: No scleral icterus. No injection or drainage. NECK: Supple, trachea midline. No JVD or lymphadenopathy. CARDIOVASCULAR: Regular rate and rhythm without murmurs, gallops, or rubs. RESPIRATORY: Vented breath sounds heard bilaterally. GASTROINTESTINAL: Abdomen soft, , nondistended. MUSCULOSKELETAL: No edema. Left lower extremity is wrapped. Laboratory Laboratory Tests Test 02/18/17 02/18/17 02/18/17 02/18/17 13:15 13:37 16:10 18:30 Lactic Acid Level 5.1 Blood Gas Puncture Site LT RADIAL Blood Gas Patient Temperature 98.6 Blood Gas HCO3 18 Blood Gas Base Excess -6.2 Blood Gas Oxygen Saturation 98 Arterial Blood pH 7.36 Arterial Blood Partial 33 Pressure CO2 Arterial Blood Partial 259 Pressure O2 Arterial Blood Oxygen Content 17.6 Arterial Blood 1.1 Carboxyhemoglobin Arterial Blood Methemoglobin 0.9 Blood Gas Hemoglobin 12.4 Oxygen Delivery Device VENTILATOR Blood Gas Ventilator Setting Blood Gas Inspired Oxygen 50 Urine Opiates Screen NEG Urine Barbiturates Screen NEG Urine Amphetamines Screen NEG Urine Benzodiazepines Screen NEG Urine Cocaine Screen POS Urine Cannabinoids Screen NEG Hemoglobin 11.6 Hematocrit 35.2 Sodium Level 143 Potassium Level 4.5 Chloride Level 107 Carbon Dioxide Level 26.2 Anion Gap 10 Blood Urea Nitrogen 46 Creatinine 3.13 Estimat Glomerular Filtration 17 Rate Random Glucose 144 Calcium Level 5.7 Protein Corrected Calcium 6.8 Total Protein 4.7 Test 02/19/17 02/19/17 02/19/17 02:30 05:26 05:45 Hemoglobin 11.9 11.7 Hematocrit 34.3 33.6 Sodium Level 141 140 Potassium Level 5.9 6.2 Chloride Level 105 103 Carbon Dioxide Level 24.8 24.8 Anion Gap 11 12 Blood Urea Nitrogen 48 51 Creatinine 3.45 3.67 Estimat Glomerular Filtration 15 14 Rate Random Glucose 176 196 Calcium Level 5.8 5.8 Protein Corrected Calcium 7.0 7.0 Total Protein 4.5 4.4 Blood Gas Puncture Site ART LINE Blood Gas Patient Temperature 98.6 Blood Gas HCO3 23 Blood Gas Base Excess -2.1 Blood Gas Oxygen Saturation 98 Arterial Blood pH 7.36 Arterial Blood Partial 42 Pressure CO2 Arterial Blood Partial 236 Pressure O2 Arterial Blood Oxygen Content 16.0 Arterial Blood 1.2 Carboxyhemoglobin Arterial Blood Methemoglobin 1.1 Blood Gas Hemoglobin 11.3 Oxygen Delivery Device VENTILATOR Blood Gas Ventilator Setting PRVC/AC Blood Gas Inspired Oxygen 50 White Blood Count 12.7 Red Blood Count 3.03 Mean Corpuscular Volume 110.9 Mean Corpuscular Hemoglobin 38.5 Mean Corpuscular Hemoglobin 34.7 Concent Red Cell Distribution Width 15.4 Platelet Count 105 Mean Platelet Volume 9.0 Neutrophils (%) (Auto) 84.9 Lymphocytes (%) (Auto) 9.1 Monocytes (%) (Auto) 5.1 Eosinophils (%) (Auto) 0.5 Basophils (%) (Auto) 0.4 Neutrophils # (Auto) 10.8 Lymphocytes # (Auto) 1.2 Monocytes # (Auto) 0.6 Eosinophils # (Auto) 0.1 Basophils # (Auto) 0.0 CBC Comment AUTO DIFF Differential Total Cells 100 Counted Neutrophils % (Manual) 46 Band Neutrophils % 37 Lymphocytes % 11 Monocytes % 3 Neutrophils # (Manual) 10.9 Metamyelocytes 3 Differential Comment FINAL DIFF MANUAL Platelet Estimate LOW Platelet Morphology Comment NORMAL Prothrombin Time 18.7 Prothromb Time International 1.7 Ratio Fibrinogen 237 Lactic Acid Level 5.4 Phosphorus Level 7.0 Magnesium Level 2.2 Total Bilirubin 3.7 Aspartate Amino Transf 3749 (AST/SGOT) Alanine Aminotransferase 1320 (ALT/SGPT) Alkaline Phosphatase 85 Albumin 1.7 Random Vancomycin Level 9.6 Date/Time Procedure Status Source Growth 02/18/17 03:25 Aerobic Blood Culture - Preliminary Resulted Blood Peripheral NO GROWTH IN 1 DAY 02/18/17 03:25 Anaerobic Blood Culture - Preliminary Resulted Blood Peripheral NO GROWTH IN 1 DAY Result Diagram: 02/19/17 0545 02/19/1745 Assessment and Plan Problem List: (1) Acute kidney injury Plan: marginal urine output. He likely has developed CLAUDIA due to pigment induced ATN resulting from rhabdomyolysis. Renal function is worsening. He has electrolyte disturbances that could be life threatening. He will require renal replacement therapy. I will stop IVF as he has received more than 10 liters of fluids so far. Avoid nephrotoxic agents. Obtain UA. Maintain MAP above 65. Will attempt regular dialysis. If he does not tolerate it , will have to consider CRRT. (2) Hyperkalemia Plan: due to renal failure, acidosis, and release of intracellular potassium due to rhabdomyolysis. It has improved only marginally with medical management so far. Dialysis to be initiated today. (3) Rhabdomyolysis Plan: Underlying reason is not known. He did test positive for cocaine. (4) Compartment syndrome Plan: s/p fasciotomy and debridement. (5) Transaminitis Plan: GI following. (6) Encephalopathy Plan: Prognosis is poor. Neurology following. (7) Seizure disorder Plan: History of seizure disorder. Unclear if he was compliant with medications. Neurology following. Assessment and Plan Thanks for the consult. Discussed with Dr. Garcia. His prognosis is guarded to poor. Problem Qualifiers (1) Compartment syndrome: Qualified Code: T79.A22A - Traumatic compartment syndrome of left lower extremity, initial encounter Jose Hernandez MD Feb 19, 2017 12:14
[2017-02-19 13:07] LABS: AUTOMATED NEUTROPHIL # 9.7 TH/MM3 (1.8-7.7); BASOPHIL % 0.3 % (0.0-2.0); EOSINOPHIL % 0.1 % (0.0-4.0); HEMATOCRIT 21.6 % (39.0-51.0); LYMPH % 8.2 % (9.0-44.0); LYMPHOCYTE # 0.9 TH/MM3 (1.0-4.8); MEAN CORPUSCULAR HEMOGLOBIN 37.8 PG (27.0-34.0); MEAN CORPUSCULAR HGB CONC 33.5 % (32.0-36.0); MONO % 7.1 % (0.0-8.0); NEUT % 84.3 % (16.0-70.0); PLATELET COUNT 103 TH/MM3 (150-450); RED BLOOD COUNT 1.91 MIL/MM3 (4.50-5.90); RED CELL DISTRIBUTION WIDTH 15.2 % (11.6-17.2); WHITE BLOOD COUNT 11.5 TH/MM3 (4.0-11.0)
[2017-02-19 13:08] LABS: HEMO FLAGS AUTO DIFF
--- NOTE | 2017-02-19 13:13 | EKG ---
Date Performed: 02/18/2017 Time Performed: 03:03:54 PTAGE: 89 years EKG: SINUS TACHYCARDIA LOW QRS VOLTAGE IN EXTREMITY LEADS ABNORMAL RHYTHM ECG NO PREVIOUS TRACING DOCTOR: Jori Griffith Interpretating Date/Time 04/24/2017 14:27:26
--- NOTE | 2017-02-19 13:15 | EKG ---
Date Performed: 02/18/2017 Time Performed: 02:22:46 PTAGE: 89 years EKG: SINUS TACHYCARDIA ANTERIOR, SEPTAL ST ELEVATION, CONSIDER ACUTE INJURY PATTERN INFERIOR INF ARCT, PROBABLY ACUTE NO PREVIOUS TRACING DOCTOR: Jori Griffith Interpretating Date/Time 04/24/2017 14:27:15
[2017-02-19 13:21] LABS: APTT (PATIENT) 53.6 SEC (24.3-30.1); PROTHROMBIN TIME - PATIENT 22.6 SEC (9.8-11.6)
[2017-02-19 13:28] LABS: BLOOD GAS BASE EXCESS -4.6 mmol/L (-2-2); BLOOD GAS CARBOXYHEMOGLOBIN 1.3 % (0-4); BLOOD GAS HCO3 20 mmol/L (22-26); BLOOD GAS METHEMOGLOBIN 1.2 % (0-2); BLOOD GAS O2 HGB SATURATION 98 % (90-100); BLOOD GAS OXYGEN CONTENT 9.1 Vol % (12.0-20.0); BLOOD GAS PCO2 38 mmHg (38-42); BLOOD GAS PO2 504 mmHg (61-120); BLOOD GAS TOTAL HGB 5.6 G/DL (12.0-16.0); TEMP CORR TO 98.6
[2017-02-19 13:35] LABS: DRAW SITE ARTLINE; FIO2 100 %; OXYGEN DEVICE VENT; STAT YES; ULNAR PULSE PRESENT
--- NOTE | 2017-02-19 13:36 | RADRPT ---
EXAM DATE/TIME: 02/19/2017 13:15 [facility] COMPARISON: CHEST SINGLE AP, February 19, 2017, 4:33. INDICATIONS : Central line placement. MEDICAL HISTORY : Unobtainable. SURGICAL HISTORY : Unobtainable. ENCOUNTER: Subsequent ACUITY: 2 days PAIN SCORE: 0 LOCATION: Chest FINDINGS: Portable AP view of the chest demonstrates a normal-sized cardiac silhouette. ETT is present with dis kinza tip measuring 5.1 cm from the nicola and nasogastric tube courses beyond the GE junction. Right I J line tip remains in the SVC and left IJ central line has been placed and the distal tip is also in the SVC. No pneumothorax is visualized. Also, no effusion or consolidation is appreciated. CONCLUSION: Left IJ line tip in the SVC. No pneumothorax is visualized. Otherwise, stable exam. Hima Richards MD on February 19, 2017 at 13:33 Board Certified Radiologist. This report was verified electronically.
[2017-02-19 13:37] LABS: BANDS 19 % (0-6); METAMYELOCYTES 50 % (0-1); MYELOCYTES 10 % (0-0); NEUTROPHIL # MANUAL DIFF 10.6 TH/MM3 (1.8-7.7); POLYS (SEG NEUTROPHILS) 13 % (16-70); WBC DIFF SAMPLE 100
[2017-02-19 13:43] LABS: PLATELET ESTIMATE SMEAR LOW (NORMAL)
[2017-02-19 13:45] LABS: PLATELET MORPHOLOGY NORMAL (NORMAL)
[2017-02-19 13:46] LABS: SCAN/DIFF FINAL DIFF MANUAL; TOXIC GRANULATION 1+ (NORMAL)
[2017-02-19 13:52] LABS: BICARBONATE 20.2 MEQ/L (21.0-32.0); CALCIUM-PROTEIN CORRECTED 7.5 MG/DL (8.5-10.1); TOTAL BILIRUBIN ADULT 2.4 MG/DL (0.2-1.0)
[2017-02-19] MEDS: ceFAZolin 2 GM PREMIX 50 ML IV SCH (14:00)
[2017-02-19 14:14] LABS: POTASSIUM 6.4 MEQ/L (3.5-5.1)
[2017-02-19] MEDS ORDERED: VASOPRESSIN INJ 20 UNITS/ML VIAL ONE (15:11)
[2017-02-19] MEDS ORDERED: GENTAMICIN SULFATE 80 MG/2 ML VIAL ONE (15:13)
--- NOTE | 2017-02-19 15:24 | PD.CAR.PN ---
CVT Progress Note Subjective/Hospital Course: Patient with massive rhabdomyolysis cardiorespiratory arrest, renal failure and compartment syndrome the left leg Underwent successful fasciotomy by Dr. Randhawa this morning but patient now has increased bleeding and large amount of muscle in the lower leg In the face of multiple problems I agree with Dr. Randhawa and patient will need above-knee amputation at this time to try to save patient's life Thanks J Objective: Vital Signs Date Time Temp Pulse Resp B/P Pulse Ox O2 Delivery O2 Flow Rate FiO2 02/19/17 14:00 104 02/19/17 12:15 100 40 02/19/17 12:00 50 02/19/17 12:00 98.2 118 18 83/50 02/19/17 12:00 118 02/19/17 10:38 100 100 02/19/17 10:00 113 02/19/17 09:28 96 50 02/19/17 08:00 115 02/19/17 08:00 99.5 115 18 121/80 96 96/60 02/19/17 08:00 50 02/19/17 07:00 Mechanical Ventilator 50 02/19/17 06:00 117 02/19/17 06:00 103/61 02/19/17 04:03 91 50 02/19/17 04:00 50 02/19/17 04:00 99.9 119 18 108/58 95 91/58 02/19/17 04:00 119 02/19/17 02:00 117 02/19/17 01:10 91 50 02/19/17 00:00 100.0 117 18 110/78 92 103/62 02/19/17 00:00 117 02/19/17 00:00 50 02/18/17 22:00 122 02/18/17 20:20 92 50 02/18/17 20:00 100.8 123 18 92/70 92/58 02/18/17 20:00 50 02/18/17 20:00 123 02/18/17 20:00 92/58 92/70 02/18/17 19:00 Mechanical Ventilator 50 02/18/17 18:39 92 50 02/18/17 18:00 127 02/18/17 17:44 Automatic Cuff 02/18/17 16:00 100.0 125 23 126/97 100 02/18/17 16:00 125 Labs: Laboratory Tests Test 02/19/17 02/19/17 02/19/17 02/19/17 05:26 05:45 12:45 12:54 Blood Gas Puncture Site ART LINE Blood Gas Patient Temperature 98.6 Blood Gas HCO3 23 mmol/L (22-26) Blood Gas Base Excess -2.1 mmol/L (-2-2) Blood Gas Oxygen Saturation 98 % (90-100) Arterial Blood pH 7.36 (7.380-7.420) Arterial Blood Partial 42 mmHg (38-42) Pressure CO2 Arterial Blood Partial 236 mmHg Pressure O2 (61-120) Arterial Blood Oxygen Content 16.0 Vol % (12.0-20.0) Arterial Blood 1.2 % (0-4) Carboxyhemoglobin Arterial Blood Methemoglobin 1.1 % (0-2) Blood Gas Hemoglobin 11.3 G/DL (12.0-16.0) Oxygen Delivery Device VENTILATOR Blood Gas Ventilator Setting PRVC/AC Blood Gas Inspired Oxygen 50 % White Blood Count 12.7 TH/MM3 11.5 TH/MM3 (4.0-11.0) (4.0-11.0) Red Blood Count 3.03 MIL/MM3 1.91 MIL/MM3 (4.50-5.90) (4.50-5.90) Hemoglobin 11.7 GM/DL 7.2 GM/DL (13.0-17.0) (13.0-17.0) Hematocrit 33.6 % 21.6 % (39.0-51.0) (39.0-51.0) Mean Corpuscular Volume 110.9 FL 113.0 FL (80.0-100.0) (80.0-100.0) Mean Corpuscular Hemoglobin 38.5 PG 37.8 PG (27.0-34.0) (27.0-34.0) Mean Corpuscular Hemoglobin 34.7 % 33.5 % Concent (32.0-36.0) (32.0-36.0) Red Cell Distribution Width 15.4 % 15.2 % (11.6-17.2) (11.6-17.2) Platelet Count 105 TH/MM3 103 TH/MM3 (150-450) (150-450) Mean Platelet Volume 9.0 FL 9.5 FL (7.0-11.0) (7.0-11.0) Neutrophils (%) (Auto) 84.9 % 84.3 % (16.0-70.0) (16.0-70.0) Lymphocytes (%) (Auto) 9.1 % 8.2 % (9.0-44.0) (9.0-44.0) Monocytes (%) (Auto) 5.1 % (0.0-8.0) 7.1 % (0.0-8.0) Eosinophils (%) (Auto) 0.5 % (0.0-4.0) 0.1 % (0.0-4.0) Basophils (%) (Auto) 0.4 % (0.0-2.0) 0.3 % (0.0-2.0) Neutrophils # (Auto) 10.8 TH/MM3 9.7 TH/MM3 (1.8-7.7) (1.8-7.7) Lymphocytes # (Auto) 1.2 TH/MM3 0.9 TH/MM3 (1.0-4.8) (1.0-4.8) Monocytes # (Auto) 0.6 TH/MM3 0.8 TH/MM3 (0-0.9) (0-0.9) Eosinophils # (Auto) 0.1 TH/MM3 0.0 TH/MM3 (0-0.4) (0-0.4) Basophils # (Auto) 0.0 TH/MM3 0.0 TH/MM3 (0-0.2) (0-0.2) CBC Comment AUTO DIFF AUTO DIFF Differential Total Cells 100 100 Counted Neutrophils % (Manual) 46 % (16-70) 13 % (16-70) Band Neutrophils % 37 % (0-6) 19 % (0-6) Lymphocytes % 11 % (9-44) 5 % (9-44) Monocytes % 3 % (0-8) 3 % (0-8) Neutrophils # (Manual) 10.9 TH/MM3 10.6 TH/MM3 (1.8-7.7) (1.8-7.7) Metamyelocytes 3 % (0-1) 50 % (0-1) Differential Comment FINAL DIFF FINAL DIFF MANUAL MANUAL Platelet Estimate LOW (NORMAL) LOW (NORMAL) Platelet Morphology Comment NORMAL NORMAL (NORMAL) (NORMAL) Prothrombin Time 18.7 SEC 22.6 SEC (9.8-11.6) (9.8-11.6) Prothromb Time International 1.7 RATIO 2.0 RATIO Ratio Fibrinogen 237 mg/dL 167 mg/dL (181-393) (181-393) Sodium Level 140 MEQ/L 142 MEQ/L (136-145) (136-145) Potassium Level 6.2 MEQ/L 6.4 MEQ/L (3.5-5.1) (3.5-5.1) Chloride Level 103 MEQ/L 105 MEQ/L (98-107) (98-107) Carbon Dioxide Level 24.8 MEQ/L 20.2 MEQ/L (21.0-32.0) (21.0-32.0) Anion Gap 12 MEQ/L (5-15) 17 MEQ/L (5-15) Blood Urea Nitrogen 51 MG/DL (7-18) 54 MG/DL (7-18) Creatinine 3.67 MG/DL 3.87 MG/DL (0.60-1.30) (0.60-1.30) Estimat Glomerular Filtration 14 ML/MIN (>89) 14 ML/MIN (>89) Rate Random Glucose 196 MG/DL 174 MG/DL (74-106) (74-106) Lactic Acid Level 5.4 mmol/L 9.6 mmol/L (0.4-2.0) (0.4-2.0) Calcium Level 5.8 MG/DL 5.6 MG/DL (8.5-10.1) (8.5-10.1) Protein Corrected Calcium 7.0 MG/DL 7.5 MG/DL (8.5-10.1) (8.5-10.1) Phosphorus Level 7.0 MG/DL (2.5-4.9) Magnesium Level 2.2 MG/DL (1.5-2.5) Total Bilirubin 3.7 MG/DL 2.4 MG/DL (0.2-1.0) (0.2-1.0) Aspartate Amino Transf 3749 U/L 2698 U/L (AST/SGOT) (15-37) (15-37) Alanine Aminotransferase 1320 U/L 987 U/L (12-78) (ALT/SGPT) (12-78) Alkaline Phosphatase 85 U/L (45-117) 56 U/L (45-117) Total Protein 4.4 GM/DL 3.1 GM/DL (6.4-8.2) (6.4-8.2) Albumin 1.7 GM/DL 1.1 GM/DL (3.4-5.0) (3.4-5.0) Random Vancomycin Level 9.6 COMMENT Myelocytes 10 % (0-0) Toxic Granulation 1+ (NORMAL) Activated Partial 53.6 SEC Thromboplast Time (24.3-30.1) Lactate Dehydrogenase 2011 U/L (87-241) Total Creatine Kinase 08498 U/L (39-308) Blood Type A POSITIVE Crossmatch Leukocyte-Reduced Red Blood Cells Blood Bank Comment Test 02/19/17 02/19/17 13:20 13:52 Blood Gas Puncture Site ARTLINE Blood Gas Patient Temperature 98.6 Blood Gas HCO3 20 mmol/L (22-26) Blood Gas Base Excess -4.6 mmol/L (-2-2) Blood Gas Oxygen Saturation 98 % (90-100) Arterial Blood pH 7.34 (7.380-7.420) Arterial Blood Partial 38 mmHg (38-42) Pressure CO2 Arterial Blood Partial 504 mmHg Pressure O2 (61-120) Arterial Blood Oxygen Content 9.1 Vol % (12.0-20.0) Arterial Blood 1.3 % (0-4) Carboxyhemoglobin Arterial Blood Methemoglobin 1.2 % (0-2) Blood Gas Hemoglobin 5.6 G/DL (12.0-16.0) Oxygen Delivery Device VENT Blood Gas Inspired Oxygen 100 % Crossmatch Leukocyte-Reduced Red Blood Cells Blood Bank Comment Result Diagram: 02/19/17 1245 02/19/17 1245 (1) Cardiopulmonary arrest with successful resuscitation (2) Sepsis with multi-organ dysfunction (3) Renal failure (4) Hyperkalemia (5) Hypothermia (6) Compartment syndrome (7) NSTEMI (non-ST elevated myocardial infarction) (8) Rhabdomyolysis Problem Qualifiers (1) Hypothermia: Qualified Code: T68.XXXA - Hypothermia, initial encounter (2) Compartment syndrome: Qualified Code: T79.A22A - Traumatic compartment syndrome of left lower extremity, initial encounter Carey Ferreira MD Feb 19, 2017 15:24
--- NOTE | 2017-02-19 15:51 | PD.PROCEDR ---
Central Line Procedure REASON FOR PROCEDURE Central venous access PROCEDURE PERFORMED Central line placement: Left vas catheter placement CONSENT Informed consent for procedure was not obtained, deemed emergent. Unable to notify family available ANESTHESIA Local injection of 1% Lidocaine DESCRIPTION OF THE PROCEDURE The patient was placed in supine, mild Trendelenburg position. The area was exposed and cleansed with ChloraPrep, times two. Large sterile drape was used to cover the patient, with the site exposed, under sterile conditions including cap, face mask, sterile gown, and sterile gloves. On single attempt, the introducer needle was inserted with negative pressure in syringe and venous flash was obtained. The guide wire was then advanced without any restriction and the needle was removed. The dilator was used without any complications. Using Seldinger technique the 24 Divehi vascular catheter was advanced over the guide wire to a depth of 18 centimeters. The guide wire was removed. All ports were aspirated with dark venous blood return and flushed easily with sterile saline. All ports were capped. Antibiotic disc was placed around central line at puncture site. The central line was secured to the skin with two interrupted 2.0 silk sutures. The area was bandaged with sterile see- through central line bandage. RADIOLOGICAL DATA Ultrasound guidance was used to locate left IJ. Doppler/color flow was used to confirm venous flow. COMPLICATIONS: No apparent complications ESTIMATED BLOOD LOSS: Less than 1 cc. Aileen Garcia MD Feb 19, 2017 15:51
[2017-02-19 16:18] LABS: BLOOD GAS BASE EXCESS -11.6 mmol/L (-2-2); BLOOD GAS CARBOXYHEMOGLOBIN 1.4 % (0-4); BLOOD GAS HCO3 15 mmol/L (22-26); BLOOD GAS METHEMOGLOBIN 1.3 % (0-2); BLOOD GAS O2 HGB SATURATION 97 % (90-100); BLOOD GAS OXYGEN CONTENT 8.8 Vol % (12.0-20.0); BLOOD GAS PCO2 42 mmHg (38-42); BLOOD GAS PO2 387 mmHg (61-120); BLOOD GAS TOTAL HGB 5.7 G/DL (12.0-16.0); TEMP CORR TO 98.6
[2017-02-19 16:20] LABS: CRITICAL VALUE YES; OXYGEN DEVICE VENT
[2017-02-19 16:22] LABS: BASOPHIL % 0.3 % (0.0-2.0); EOSINOPHIL % 0.3 % (0.0-4.0); LYMPH % 12.6 % (9.0-44.0); MEAN CELL VOLUME 95.5 FL (80.0-100.0); MEAN CORPUSCULAR HEMOGLOBIN 31.3 PG (27.0-34.0); MEAN CORPUSCULAR HGB CONC 32.8 % (32.0-36.0); MONO % 9.1 % (0.0-8.0); NEUT % 77.7 % (16.0-70.0); PLATELET COUNT 99 TH/MM3 (150-450); RED BLOOD COUNT 1.64 MIL/MM3 (4.50-5.90); RED CELL DISTRIBUTION WIDTH 26.5 % (11.6-17.2); WHITE BLOOD COUNT 7.8 TH/MM3 (4.0-11.0)
[2017-02-19 16:23] LABS: DRAW SITE ALINE; STAT YES
[2017-02-19 16:24] LABS: HEMO FLAGS AUTO DIFF; REVIEW FLAG AUTO DIFF
[2017-02-19 16:26] LABS: HEMATOCRIT 15.7 % (39.0-51.0)
[2017-02-19 16:33] LABS: APTT (PATIENT) 69.9 SEC (24.3-30.1); PROTHROMBIN TIME - PATIENT 23.2 SEC (9.8-11.6)
[2017-02-19] MEDS ORDERED: NOREPINEPHRINE 4 MG/4 ML AMP ONE ×2 (16:56→18:29)
[2017-02-19 16:59] LABS: BANDS 38 % (0-6); METAMYELOCYTES 9 % (0-1); MYELOCYTES 4 % (0-0); NEUTROPHIL # MANUAL DIFF 6.9 TH/MM3 (1.8-7.7); POLYS (SEG NEUTROPHILS) 37 % (16-70); WBC DIFF SAMPLE 100
--- NOTE | 2017-02-19 16:59 | PD.OP ---
cc: Peña Randhawa MD Operative Report Date of Surgery: Feb 19, 2017 Preoperative Diagnosis: Ischemic left leg with necrotic muscle and excessive hemorrhage Postoperative Diagnosis: Procedure: Left above-knee dictation Anesthesia: Gen. Surgeon: Peña Randhawa Tube Winder Hand(s): Eleazar Burt PA-C The surgical procedure was assisted by my physician assistant brand manager. My P.A. presence was necessary throughout this case for the manipulation and positioning of the surgical extremity. My P.A. was assisting me throughout the duration of this procedure. The skill set of a physician assistant brand manager was medically necessary to complete this procedure. During the surgical case the rn neurosurgical was working at the back table and the physician assistant brand manager was directly assisting me. Operation and Findings: This patient was previously brought to the piriformis morning for 4 compartment fasciotomies of left leg. He was found have significant necrotic muscle at that time. Debridement was performed. Patient was then transferred back to the intensive care unit. Patient began developing significant bleeding from the left leg. Attempts were made at compressive dressings. A tourniquet was applied. Patient continued to have bleeding. Patient appeared to be going into DIC. I discussed this case with newspaper copy editor as well as Dr. Osuna. Given the amount of ischemic muscle in the calf as well as his unstable medical condition including renal failure from rhabdomyolysis, decision was made to proceed with above-knee amputation. Dr. Osuna agreed with this plan. Patient was brought to the OR and placed on the OR table. IV sedation and GETA were administered by anesthesia and IV antibiotics were given. A tourniquet was placed high on the thigh and inflated to 250 mmHg. The Operative leg was prepped with alcohol, followed by Hibiclens and draped in the usual sterile fashion. Time out procedure was performed. The procedure began with a standard incision for above amputation. The subcutaneous tissue was dissected with Bovie. The quadriceps muscle and fascia were incised with Bovie. The hamstring muscles were also incised. Soft tissue was retracted from the femur. Oscillating saw was used to cut through the femur. The posterior soft tissue was now incised with Bovie. The lower extremity was now removed from the field. At this point, attention was turned to hemostasis. The femoral vessels were identified and were now ligated with silk suture ties. The sciatic nerve was identified. The nerve sheath was injected with a 0.25% Marcaine with epinephrine for pain relief. The nerve was transected proximal to the femoral cut. The edges of the bone were smoothed with a rasp. The tourniquet was released and hemostasis was confirmed. A drain was placed deep. Attention was now turned to closure. The quadriceps fascia was now closed to the posterior hamstring fascia with #1 Vicryl. The subcutaneous tissues were closed with 3-0 Vicryl and skin was closed with jhon. Sterile dressings were applied and CKS was applied. The patient was awakened and transferred to recovery in stable condition. Needle and sponge counts were correct. Patient was transferred back to intensive care in critical condition. Peña Randhawa MD Feb 19, 2017 16:59
[2017-02-19 17:00] LABS: OVALOCYTES 1+ (NORMAL); PLATELET ESTIMATE SMEAR LOW (NORMAL); PLATELET MORPHOLOGY NORMAL (NORMAL); SCAN/DIFF FINAL DIFF MANUAL; TOXIC GRANULATION 1+ (NORMAL)
[2017-02-19] MEDS ORDERED: SODIUM CHLORIDE 0.9% FLUSH 5 ML FLUSH IVF PRN (17:00)
[2017-02-19 17:23] LABS: BLOOD GAS BASE EXCESS -14.4 mmol/L (-2-2); BLOOD GAS CARBOXYHEMOGLOBIN 1.7 % (0-4); BLOOD GAS HCO3 14 mmol/L (22-26); BLOOD GAS METHEMOGLOBIN 1.3 % (0-2); BLOOD GAS O2 HGB SATURATION 96 % (90-100); BLOOD GAS OXYGEN CONTENT 10.7 Vol % (12.0-20.0); BLOOD GAS PCO2 52 mmHg (38-42); BLOOD GAS PO2 209 mmHg (61-120); BLOOD GAS TOTAL HGB 7.6 G/DL (12.0-16.0); TEMP CORR TO 98.6
[2017-02-19 17:24] LABS: CRITICAL VALUE YES; DRAW SITE ALINE; FIO2 50 %; OXYGEN DEVICE VENT; STAT YES; VENT SETTINGS PEEP 5
[2017-02-19] MEDS ORDERED: PHENYTOIN INJ 1,000 MG in SODIUM CHLORIDE 0.9% INJ 100 ML IV ONE (18:00)
[2017-02-19] MEDS ORDERED: CALCIUM CHLORIDE 10% SOLN 1 GRAM/10 ML SYR IV PUSH STA (18:08)
[2017-02-19] MEDS ORDERED: SODIUM BICARBONATE 8.4% INJ 50 MEQ/50 ML SYR IV PUSH STA (18:09)
[2017-02-19] MEDS: VASOPRESSIN 40 U/100 ML D5W Titrate, Post Cardiac Surgery IV SCH ×4 (18:51→21:16)
[2017-02-19] MEDS: GENTAMICIN SULFATE (DIALYSIS USE ONLY) 20 MG/2 ML VIAL IV PRN (19:40)
[2017-02-19] MEDS: levETIRAcetam 1000 MG INJ 100 ML IV SCH (21:18)
[2017-02-19] MEDS: NOREPINEPHRINE-DEXTROSE DRIP 250 ML IV SCH (21:18)
[2017-02-19] MEDS: SODIUM CHLORIDE 0.9% FLUSH 5 ML FLUSH IVF SCH (21:22)
[2017-02-19 22:30] LABS: HEMATOCRIT 35.9 % (39.0-51.0); MEAN CELL VOLUME 86.5 FL (80.0-100.0); MEAN CORPUSCULAR HEMOGLOBIN 28.9 PG (27.0-34.0); MEAN CORPUSCULAR HGB CONC 33.4 % (32.0-36.0); PLATELET COUNT 91 TH/MM3 (150-450); RED BLOOD COUNT 4.15 MIL/MM3 (4.50-5.90); RED CELL DISTRIBUTION WIDTH 16.6 % (11.6-17.2); WHITE BLOOD COUNT 7.5 TH/MM3 (4.0-11.0)
--- NOTE | 2017-02-19 22:34 | HHI.PR ---
Review/Management Diagnosis 1. Breakthrough seizures status post cardiac arrest/asystole. 2. Encephalopathy, likely anoxic/metabolic encephalopathy.Given the myoclonus, nonverbal comatose, s/p cardiac arrest. 3. Respiratory arrest secondary to cardiac arrest. 4. Acute kidney injury/rhabdomyolysis. 5. Severe metabolic acidosis. 6. Melena. 7. Thrombocytopenia. 8. Elevated liver enzymes. 9.Compartment syndrome left LE, s/p amputation on Plan 1. Neuro checks hourly. 2. Dilantin IV Dilantin 100 mg three times daily. 3. Keppra 1gm twice daily IV, obtain a follow up level. 4. Obtain Dilantin level. 5. Seizure precautions. 6. Management of electrolyte derangements and complicated medical problems by the attending team. 7. DVT prophylaxis, SCDs. Diagnosis/Plan: Subjective Subjective Comments Patient is unresponsive s/p left LE amputation A follow up EEG revealed a burst suppression pattern A follow up Keppra level is pending Continues to be on pressors Active Medications Current Medications Medications (Trade) Dose Ordered Sig/Abdoulaye Route Start Time Stop Time Status Last Admin (NS 1000 ml Inj) 1,000 ml @ 125 mls/hr Q8H IV 02/18/17 04:20 02/19/17 21:20 (Tylenol) 650 mg Q6H PRN PO 02/18/17 04:30 (Morphine Inj) 2 mg Q2H PRN IV 02/18/17 04:30 (Pepcid Inj) 10 mg Q12HR IV PUSH 02/18/17 09:00 02/19/17 21:16 (Ativan Inj) 1 mg Q1H PRN IV 02/18/17 04:30 02/18/17 14:14 (Tears Naturale Opth Soln) 1 drop TID EACH EYE 02/18/17 09:00 02/19/17 18:00 (Zofran Inj) 4 mg Q6H PRN IV 02/18/17 04:30 (Reglan Inj) 5 mg Q6H PRN IV 02/18/17 04:30 Docusate Sodium 100 mg 100 mg Q12H G-TUBE 02/18/17 09:00 02/19/17 21:16 Vasopressin 40 units/Dextrose 100 ml @ 0 mls/hr TITRATE IV 02/18/17 07:00 02/19/17 21:16 Pharmacy Profile Note 0 ml @ 0 mls/hr UNSCH OTHER 02/18/17 07:15 (Maxipime Inj/NS Inj) 100 ml @ 200 mls/hr Q8H IV 02/18/17 12:00 02/19/17 21:19 Miscellaneous Information 1 Q361D XX 02/18/17 07:15 02/18/17 07:15 (Chlorhexidine 2% Cloth) 3 pack Taper DAILY@04 TOP 02/19/17 04:00 02/15/18 03:59 02/19/17 04:57 (Chlorhexidine 2% Cloth) 3 pack UNSCH PRN TOP 02/18/17 07:15 Phenytoin Sodium 100 mg 100 mg Q8HR IV 02/18/17 14:00 02/19/17 14:00 Pantoprazole Sodium 80 mg/ Sodium Chloride 100 ml @ 10 mls/hr Q10H IV 02/18/17 11:00 02/19/17 21:15 (Diprivan 1000 Mg/100ml Inj) 100 ml @ 0 mls/hr TITRATE IV 02/18/17 15:00 02/19/17 00:22 (Bactroban Nasal 2% Oint) 1 applic BID EACH NARE 02/18/17 21:00 02/19/17 21:18 (SoluCORTEF INJ) 100 mg Q8H IV PUSH 02/19/17 04:00 02/19/17 21:16 (D50w (Vial) Inj) 25 ml UNSCH PRN IV PUSH 02/19/17 09:30 (Glucagon Inj) 1 mg UNSCH PRN OTHER 02/19/17 09:30 Miscellaneous Information SPECIFIC LAB TO BE DRAWN:[facility] DATE TO BE . ONCE ONCE .XX 02/20/17 11:45 02/20/17 11:46 (NS 1000 ml Inj) 1,000 ml @ 0 mls/hr Q0M PRN IV 02/19/17 10:59 Heparin Sodium (Porcine) 8000 units 8,000 units UNSCH PRN IVF 02/19/17 11:00 Sodium Chloride 1,000 ml @ 200 mls/hr Q5H PRN IV 02/19/17 10:59 (NS 1000 ml Inj) 1,000 ml @ 0 mls/hr Q0M PRN IV 02/19/17 10:59 (Mannitol Inj) 12.5 gm UNSCH PRN IV 02/19/17 11:00 (Albumin 25% Inj) 25 gm UNSCH PRN IV 02/19/17 11:00 (NS Flush) 5 ml UNSCH PRN IV FLUSH 02/19/17 11:00 (Heparin Inj) UNSCH PRN .XX 02/19/17 11:00 (Gentamicin (Dialysis) Inj) 20 mg UNSCH PRN IV 02/19/17 11:00 02/19/17 19:40 (Zofran Inj) 4 mg UNSCH PRN IV 02/19/17 11:00 (Tylenol) 650 mg UNSCH PRN PO 02/19/17 11:00 (Benadryl) 25 mg UNSCH PRN PO 02/19/17 11:00 (Nitrostat Sl) 0.4 mg UNSCH PRN SL 02/19/17 11:00 (Catapres) 0.1 mg UNSCH PRN PO 02/19/17 11:00 Gelatin 1 foam 1 foam UNSCH PRN TOP 02/19/17 11:00 (Ancef 2 Gm Premix) 50 ml @ 100 mls/hr Q8H IV 02/19/17 14:00 02/22/17 06:29 02/19/17 14:00 (NS Flush) 2 ml UNSCH PRN IVF 02/19/17 17:00 IV Flush 2 ml 2 ml BID IVF 02/19/17 21:00 02/19/17 21:22 Levetriacetam 100 ml @ 400 mls/hr Q12HR IV 02/19/17 21:00 02/19/17 21:18 (Levophed-Dextrose Drip) 250 ml @ 0 mls/hr TITRATE IV 02/19/17 22:00 02/19/17 21:18 Allergies Allergies Coded Allergies *MDRO Multi-Drug Resistant Organism (Verified Adverse Reaction, Unknown, MRSA , 02/18/17) Exam I&O / VS 02/18/17 02/18/17 02/19/17 15:00 23:00 07:00 Intake Total 3614 ml 3474 ml 2974 ml Output Total 400 ml 430 ml 315 ml Balance 3214 ml 3044 ml 2659 ml Intake IV Total 3395 ml 3474 ml 2974 ml Cryoprecipitate 219 ml Output Urine Total 275 ml 130 ml 165 ml Stool Total 200 ml 100 ml Gastric Drainage Total 125 ml 100 ml 50 ml # Bowel Movements 1 Vital Signs Date Time Temp Pulse Resp B/P Pulse Ox O2 Delivery O2 Flow Rate FiO2 02/19/17 20:55 92 100 02/19/17 20:31 92 100 02/19/17 18:04 100 100 02/19/17 18:00 128/79 02/19/17 18:00 171 02/19/17 17:55 96.1 107 18 132/70 02/19/17 17:30 107 02/19/17 17:30 100 02/19/17 14:00 104 02/19/17 12:15 100 40 02/19/17 12:00 50 02/19/17 12:00 98.2 118 18 83/50 02/19/17 12:00 118 02/19/17 10:38 100 100 02/19/17 10:00 113 02/19/17 09:28 96 50 02/19/17 08:00 115 02/19/17 08:00 99.5 115 18 121/80 96 96/60 02/19/17 08:00 50 02/19/17 07:00 Mechanical Ventilator 50 02/19/17 06:00 117 02/19/17 06:00 103/61 02/19/17 04:03 91 50 02/19/17 04:00 50 02/19/17 04:00 99.9 119 18 108/58 95 91/58 02/19/17 04:00 119 02/19/17 02:00 117 02/19/17 01:10 91 50 02/19/17 00:00 100.0 117 18 110/78 92 103/62 02/19/17 00:00 117 02/19/17 00:00 50 Exam Comments GENERAL: Intubated, not sedated with less frequent myoclonic movements. HEENT: Pale, earthy complexion. Atraumatic, normocephalic. NECK: Supple.Trachea in the midline. No JVD. CARDIOVASCULAR: Regular rate and rhythm. RESPIRATORY: Equal breath sounds. GASTROINTESTINAL: Soft abdomen, not distended. Positive for GI bleeding. MUSCULOSKELETAL: Left lower extremity s/p amputation. NEUROLOGIC: Ventilated. Not responding to verbal stimuli or painful stimuli. Nonverbal. Pupils 2-mm, sluggishly reacting. No gaze deviation. Reflexes 1+ bilateral, symmetrical. Objective Radiology Results Last 72 hours Impressions Chest X-Ray 02/19/17 1308 Signed Impressions: Service Date/Time: Sunday, February 19, 2017 13:15 - CONCLUSION: Left IJ line tip in the SVC. No pneumothorax is visualized. Otherwise, stable exam. Hima Richards MD Chest X-Ray 02/19/17 0600 Signed Impressions: Service Date/Time: Sunday, February 19, 2017 04:33 - CONCLUSION: No acute pulmonary infiltrates. Stable examination compared to the prior study. Toby Constantino MD Head CT 02/18/17 0241 Signed Impressions: Service Date/Time: Saturday, February 18, 2017 04:27 - CONCLUSION: Unremarkable CT scan of the brain.. Toby Constantino MD Chest X-Ray 02/18/17 0241 Signed Impressions: Service Date/Time: Saturday, February 18, 2017 02:45 - CONCLUSION: 1. No focal or acute intrathoracic disease. 2. NG tube tip in distal esophagus. Recommend advancing another 10 cm. Toby Constantino MD Chest X-Ray 02/18/17 0000 Signed Impressions: Service Date/Time: Saturday, February 18, 2017 06:37 - CONCLUSION: 1. Right central line in good position. No evidence of pneumothorax. 2. The lungs are grossly clear. Toby Constantino MD Micro and Labs Laboratory Tests Test 02/19/17 02/19/17 02/19/17 02/19/17 02:30 05:26 05:45 12:45 Hemoglobin 11.9 11.7 7.2 Hematocrit 34.3 33.6 21.6 Sodium Level 141 140 142 Potassium Level 5.9 6.2 6.4 Chloride Level 105 103 105 Carbon Dioxide Level 24.8 24.8 20.2 Anion Gap 11 12 17 Blood Urea Nitrogen 48 51 54 Creatinine 3.45 3.67 3.87 Estimat Glomerular Filtration 15 14 14 Rate Random Glucose 176 196 174 Calcium Level 5.8 5.8 5.6 Protein Corrected Calcium 7.0 7.0 7.5 Total Protein 4.5 4.4 3.1 Blood Gas Puncture Site ART LINE Blood Gas Patient Temperature 98.6 Blood Gas HCO3 23 Blood Gas Base Excess -2.1 Blood Gas Oxygen Saturation 98 Arterial Blood pH 7.36 Arterial Blood Partial 42 Pressure CO2 Arterial Blood Partial 236 Pressure O2 Arterial Blood Oxygen Content 16.0 Arterial Blood 1.2 Carboxyhemoglobin Arterial Blood Methemoglobin 1.1 Blood Gas Hemoglobin 11.3 Oxygen Delivery Device VENTILATOR Blood Gas Ventilator Setting PRVC/AC Blood Gas Inspired Oxygen 50 White Blood Count 12.7 11.5 Red Blood Count 3.03 1.91 Mean Corpuscular Volume 110.9 113.0 Mean Corpuscular Hemoglobin 38.5 37.8 Mean Corpuscular Hemoglobin 34.7 33.5 Concent Red Cell Distribution Width 15.4 15.2 Platelet Count 105 103 Mean Platelet Volume 9.0 9.5 Neutrophils (%) (Auto) 84.9 84.3 Lymphocytes (%) (Auto) 9.1 8.2 Monocytes (%) (Auto) 5.1 7.1 Eosinophils (%) (Auto) 0.5 0.1 Basophils (%) (Auto) 0.4 0.3 Neutrophils # (Auto) 10.8 9.7 Lymphocytes # (Auto) 1.2 0.9 Monocytes # (Auto) 0.6 0.8 Eosinophils # (Auto) 0.1 0.0 Basophils # (Auto) 0.0 0.0 CBC Comment AUTO DIFF AUTO DIFF Differential Total Cells 100 100 Counted Neutrophils % (Manual) 46 13 Band Neutrophils % 37 19 Lymphocytes % 11 5 Monocytes % 3 3 Neutrophils # (Manual) 10.9 10.6 Metamyelocytes 3 50 Differential Comment FINAL DIFF FINAL DIFF MANUAL MANUAL Platelet Estimate LOW LOW Platelet Morphology Comment NORMAL NORMAL Prothrombin Time 18.7 22.6 Prothromb Time International 1.7 2.0 Ratio Fibrinogen 237 167 Lactic Acid Level 5.4 9.6 Phosphorus Level 7.0 Magnesium Level 2.2 Total Bilirubin 3.7 2.4 Aspartate Amino Transf 3749 2698 (AST/SGOT) Alanine Aminotransferase 1320 987 (ALT/SGPT) Alkaline Phosphatase 85 56 Albumin 1.7 1.1 Random Vancomycin Level 9.6 Myelocytes 10 Toxic Granulation 1+ Activated Partial 53.6 Thromboplast Time Lactate Dehydrogenase 2010 Total Creatine Kinase 32265 Creatine Kinase MB 346.0 Creatine Kinase MB % 1.0 Test 02/19/17 02/19/17 02/19/17 02/19/17 12:54 13:20 13:52 15:04 Blood Type A POSITIVE A POSITIVE Crossmatch Leukocyte-Reduced Leukocyte-Reduced Leukocyte-Reduced Red Blood Red Blood Red Blood Cells Cells Cells Blood Bank Comment Blood Gas Puncture Site [facility] Blood Gas Patient Temperature 98.6 Blood Gas HCO3 20 Blood Gas Base Excess -4.6 Blood Gas Oxygen Saturation 98 Arterial Blood pH 7.34 Arterial Blood Partial 38 Pressure CO2 Arterial Blood Partial 504 Pressure O2 Arterial Blood Oxygen Content 9.1 Arterial Blood 1.3 Carboxyhemoglobin Arterial Blood Methemoglobin 1.2 Blood Gas Hemoglobin 5.6 Oxygen Delivery Device VENT Blood Gas Inspired Oxygen 100 Test 02/19/17 02/19/17 02/19/17 02/19/17 16:00 16:21 17:05 17:07 White Blood Count 7.8 Red Blood Count 1.64 Hemoglobin 5.1 Hematocrit 15.7 Mean Corpuscular Volume 95.5 Mean Corpuscular Hemoglobin 31.3 Mean Corpuscular Hemoglobin 32.8 Concent Red Cell Distribution Width 26.5 Platelet Count 99 Mean Platelet Volume 9.0 Neutrophils (%) (Auto) 77.7 Lymphocytes (%) (Auto) 12.6 Monocytes (%) (Auto) 9.1 Eosinophils (%) (Auto) 0.3 Basophils (%) (Auto) 0.3 Neutrophils # (Auto) 6.0 Lymphocytes # (Auto) 1.0 Monocytes # (Auto) 0.7 Eosinophils # (Auto) 0.0 Basophils # (Auto) 0.0 CBC Comment AUTO DIFF Differential Total Cells 100 Counted Neutrophils % (Manual) 37 Band Neutrophils % 38 Lymphocytes % 10 Monocytes % 2 Neutrophils # (Manual) 6.9 Metamyelocytes 9 Myelocytes 4 Differential Comment FINAL DIFF MANUAL Toxic Granulation 1+ Platelet Estimate LOW Platelet Morphology Comment NORMAL Ovalocytes 1+ Prothrombin Time 23.2 Prothromb Time International 2.0 Ratio Activated Partial 69.9 Thromboplast Time Blood Gas Puncture Site [facility] Blood Gas Patient Temperature 98.6 98.6 Blood Gas HCO3 15 14 Blood Gas Base Excess -11.6 -14.4 Blood Gas Oxygen Saturation 97 96 Arterial Blood pH 7.18 7.06 Arterial Blood Partial 42 52 Pressure CO2 Arterial Blood Partial 387 209 Pressure O2 Arterial Blood Oxygen Content 8.8 10.7 Arterial Blood 1.4 1.7 Carboxyhemoglobin Arterial Blood Methemoglobin 1.3 1.3 Blood Gas Hemoglobin 5.7 7.6 Oxygen Delivery Device VENT VENT Blood Gas Ventilator Setting PEEP 5, PEEP 5 Crossmatch Leukocyte-Reduced Leukocyte-Reduced Red Blood Red Blood Cells Cells Blood Bank Comment Blood Gas Inspired Oxygen 50 Test 02/19/17 17:12 Crossmatch Leukocyte-Reduced Red Blood Cells Blood Bank Comment Date/Time Procedure Status Source Growth 02/18/17 03:25 Aerobic Blood Culture - Preliminary Resulted Blood Peripheral NO GROWTH IN 1 DAY 02/18/17 03:25 Anaerobic Blood Culture - Preliminary Resulted Blood Peripheral NO GROWTH IN 1 DAY Shellie Suggs MD Feb 19, 2017 22:34
[2017-02-19 22:35] LABS: REVIEW FLAG FINAL
[2017-02-19 22:55] LABS: APTT (PATIENT) 42.2 SEC (24.3-30.1); INTERNATIONAL NORMALIZED RATIO 1.5 RATIO; PROTHROMBIN TIME - PATIENT 16.8 SEC (9.8-11.6)
[2017-02-19 23:08] LABS: BICARBONATE 24.9 MEQ/L (21.0-32.0); POTASSIUM 4.7 MEQ/L (3.5-5.1)
[2017-02-19 23:33] LABS: CALCIUM-PROTEIN CORRECTED 6.9 MG/DL (8.5-10.1)
[2017-02-20] VITALS (18 sets, daily range): BP systolic 90–127; BP diastolic 53–76; PULSE 105–144; RESP 18–20; TEMP 97.9–99.3; O2SAT 95–100
[2017-02-20] MEDS: PHENYTOIN INJ 100 MG/2 ML VIAL IV SCH ×4 (00:50→21:56)
[2017-02-20] MEDS: ceFAZolin 2 GM PREMIX 50 ML IV SCH ×4 (00:50→21:58)
[2017-02-20] MEDS ORDERED: DIGOXIN 0.5 MG/2 ML VIAL IV PUSH ONE (03:00)
[2017-02-20] MEDS: HYDROCORTISONE SOD SUCCINATE 100 MG VIAL IV PUSH SCH ×3 (03:30→21:55)
[2017-02-20] MEDS: CEFEPIME INJ 2,000 MG in SODIUM CHLORIDE 0.9% INJ 100 ML IV SCH ×3 (03:32→21:54)
[2017-02-20] MEDS: SODIUM BICARBONATE 8.4% INJ 150 MEQ in DEXTROSE 5% IN WATE 1000ML INJ 850 ML IV SCH ×4 (03:33→11:50)
[2017-02-20] MEDS ORDERED: SODIUM CHLOR 0.9% 1000 ML INJ 1,000 ML IV ONE (04:00)
[2017-02-20 04:09] LABS: AUTOMATED NEUTROPHIL # 6.5 TH/MM3 (1.8-7.7); BASOPHIL % 0.3 % (0.0-2.0); EOSINOPHIL % 0.4 % (0.0-4.0); HEMATOCRIT 34.1 % (39.0-51.0); LYMPH % 12.1 % (9.0-44.0); MEAN CELL VOLUME 85.8 FL (80.0-100.0); MEAN CORPUSCULAR HGB CONC 33.8 % (32.0-36.0); NEUT % 81.2 % (16.0-70.0); PLATELET COUNT 76 TH/MM3 (150-450); RED BLOOD COUNT 3.97 MIL/MM3 (4.50-5.90); RED CELL DISTRIBUTION WIDTH 17.5 % (11.6-17.2)
[2017-02-20 04:10] LABS: HEMO FLAGS AUTO DIFF
--- NOTE | 2017-02-20 04:17 | RADRPT ---
EXAM DATE/TIME: 02/20/2017 03:50 [place] COMPARISON: CHEST SINGLE AP, February 19, 2017, 13:15. INDICATIONS : Short of breath. MEDICAL HISTORY : None. SURGICAL HISTORY : None. ENCOUNTER: Subsequent ACUITY: 4 - 6 days PAIN SCORE: Non-responsive. LOCATION: Bilateral chest FINDINGS: The support devices remain in place. There is no pneumothorax. There's been a mild increase in the in terstitial markings bilaterally. The heart size is stable. No definite pleural effusions. No other si gnificant changes. CONCLUSION: Mild increase in interstitial markings bilaterally suggestive of some pulmonary edema. Otherwise, no other significant changes. Toby Constantino MD on February 20, 2017 at 4:15 Board Certified Radiologist. This report was verified electronically.
[2017-02-20 04:22] LABS: APTT (PATIENT) 45.2 SEC (24.3-30.1); INTERNATIONAL NORMALIZED RATIO 1.7 RATIO; PROTHROMBIN TIME - PATIENT 19.4 SEC (9.8-11.6)
[2017-02-20] MEDS: CHLORHEXIDINE GLUCONATE 2 % 1 PACK (2 CLOTHS) TOP SCH (04:43)
[2017-02-20 05:00] LABS: BICARBONATE 26.4 MEQ/L (21.0-32.0); POTASSIUM 4.9 MEQ/L (3.5-5.1); TOTAL BILIRUBIN ADULT 6.7 MG/DL (0.2-1.0)
[2017-02-20] MEDS ORDERED: SODIUM BICARBONATE 8.4% INJ 50 MEQ/50 ML SYR IV ONE (05:00)
[2017-02-20] MEDS ORDERED: CALCIUM CHLORIDE 10% SOLN 1 GRAM/10 ML SYR IV ONE (05:00)
[2017-02-20 05:02] LABS: CALCIUM-PROTEIN CORRECTED 6.8 MG/DL (8.5-10.1)
[2017-02-20 05:24] LABS: BLOOD GAS BASE EXCESS 0.8 mmol/L (-2-2); BLOOD GAS HCO3 25 mmol/L (22-26); BLOOD GAS METHEMOGLOBIN 1.2 % (0-2); BLOOD GAS O2 HGB SATURATION 97 % (90-100); BLOOD GAS OXYGEN CONTENT 16.2 Vol % (12.0-20.0); BLOOD GAS PCO2 41 mmHg (38-42); BLOOD GAS PO2 132 mmHg (61-120); BLOOD GAS TOTAL HGB 11.8 G/DL (12.0-16.0); TEMP CORR TO 98.6
[2017-02-20 05:24] LABS: BANDS 47 % (0-6); METAMYELOCYTES 5 % (0-1); NEUTROPHIL # MANUAL DIFF 7.3 TH/MM3 (1.8-7.7); POLYS (SEG NEUTROPHILS) 39 % (16-70); WBC DIFF SAMPLE 100
[2017-02-20 05:25] LABS: PLATELET ESTIMATE SMEAR LOW (NORMAL); PLATELET MORPHOLOGY NORMAL (NORMAL); SCAN/DIFF FINAL DIFF MANUAL
[2017-02-20 05:25] LABS: CRITICAL VALUE NO; FIO2 60 %; OXYGEN DEVICE VENTILATOR; VENT SETTINGS PRVC/AC
[2017-02-20 05:26] LABS: DRAW SITE ART LINE; STAT NO
[2017-02-20] MEDS: INSULIN ASPART SUPPLEMENTAL SCALE SQ SCH ×4 (05:50→21:00)
[2017-02-20 06:39] LABS: CKMB 136.4 NG/ML (0.5-3.6)
--- NOTE | 2017-02-20 07:20 | PD.ORT.PN ---
Subjective Subjective Remarks Patient is intubated and sedated. 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 Objective Vitals Vital Signs Date Time Temp Pulse Resp B/P Pulse Ox O2 Delivery O2 Flow Rate FiO2 02/20/17 06:00 109 105/58 107/72 02/20/17 06:00 109 02/20/17 04:10 95 60 02/20/17 04:00 70 02/20/17 04:00 99.0 134 18 90/56 97 102/67 02/20/17 04:00 144 02/20/17 02:00 144 02/20/17 01:10 98 80 02/20/17 00:00 100 02/20/17 00:00 144 02/20/17 00:00 97.9 144 18 90/56 97 102/67 02/19/17 22:00 146 02/19/17 20:55 92 100 02/19/17 20:31 92 100 02/19/17 20:00 100 02/19/17 20:00 97.7 150 18 117/85 118/68 02/19/17 20:00 150 02/19/17 19:00 Mechanical Ventilator 100 02/19/17 18:04 100 100 02/19/17 18:00 128/79 02/19/17 18:00 171 02/19/17 17:55 96.1 107 18 132/70 02/19/17 17:30 107 02/19/17 17:30 100 02/19/17 14:00 104 02/19/17 12:15 100 40 02/19/17 12:00 50 02/19/17 12:00 98.2 118 18 83/50 02/19/17 12:00 118 02/19/17 10:38 100 100 02/19/17 10:00 113 02/19/17 09:28 96 50 02/19/17 08:00 115 02/19/17 08:00 99.5 115 18 121/80 96 96/60 02/19/17 08:00 50 I/O 02/19/17 02/19/17 02/19/17 02/20/17 02/20/17 02/20/17 07:00 15:00 23:00 07:00 15:00 23:00 Intake Total 2974 ml 4163 ml 4241 ml 2212 ml Output Total 315 ml 925 ml 3176 ml 82 ml Balance 2659 ml 3238 ml 1065 ml 2130 ml Intake IV Total 2974 ml 4163 ml 3997 ml 2212 ml Cryoprecipitate 244 ml Output Urine Total 165 ml 100 ml 116 ml 77 ml Stool Total 100 ml 0 ml 0 ml Gastric Drainage Total 50 ml 50 ml 0 ml Drainage Total 825 ml 10 ml 5 ml Hemodialysis 3000 ml Result Diagram: 02/20/17 0340 02/20/17 0340 Other Results Laboratory Tests Test 02/19/17 02/19/17 02/19/17 02/20/17 12:45 16:00 22:00 03:40 Prothrombin Time 22.6 SEC 23.2 SEC 16.8 SEC 19.4 SEC (9.8-11.6) (9.8-11.6) (9.8-11.6) (9.8-11.6) Prothromb Time International 2.0 RATIO 2.0 RATIO 1.5 RATIO 1.7 RATIO Ratio Imaging Last 24 hours Impressions Chest X-Ray 02/19/17 0600 Signed Impressions: Service Date/Time: Sunday, February 19, 2017 04:33 - CONCLUSION: No acute pulmonary infiltrates. Stable examination compared to the prior study. Toby Constantino MD Objective Remarks LLE: Clean dry dressing left thigh. Minimal drainage. Assessment & Plan Assessment and Plan 1) left above-knee amputation on 02/19/17. Patient has stabilized medically. He is requiring less pressors. Continue critical care. We'll plan on dressing change on Saturday Peña Purdy MD Feb 20, 2017 07:20
[2017-02-20 08:34] LABS: CRITICAL VALUE YES; VENT SETTINGS OR
[2017-02-20] MEDS: levETIRAcetam 1000 MG INJ 100 ML IV SCH ×2 (09:28→21:57)
[2017-02-20] MEDS: MUPIROCIN 2% OINT 1 APPLIC/GM SYR EACH NARE SCH ×2 (09:28→21:57)
[2017-02-20] MEDS: FAMOTIDINE 20 MG/2 ML VIAL IV PUSH SCH ×2 (09:28→21:55)
[2017-02-20] MEDS: DOCUSATE SODIUM 100 MG/10 ML UDC G-TUBE SCH ×2 (09:28→21:54)
[2017-02-20] MEDS: SODIUM CHLORIDE 0.9% FLUSH 10 ML FLUSH IV FLUSH PRN (09:29)
[2017-02-20] MEDS: ARTIFICIAL TEARS OPTH SOLN 15 ML BTL EACH EYE SCH ×3 (09:29→18:00)
[2017-02-20] MEDS: SODIUM CHLORIDE 0.9% FLUSH 5 ML FLUSH IVF SCH ×2 (09:29→22:23)
[2017-02-20] MEDS ORDERED: CALCIUM GLUCONATE INJ 2 GM in SODIUM CHLORIDE 0.9% INJ 100 ML IV ONE (10:00)
--- NOTE | 2017-02-20 10:02 | HHI.CCPN ---
Subjective Remarks/Hospital Course 61 years old male brought as a status post cardiac arrest. The history is obtained from medical chart. The patient has history of epilepsy. He is normally compliant with his antiepileptic agents. The patient had been conversing with roommates through a doorway about 3 hours prior to EMS arrival. He had become unresponsive and EMS was activated. They found the patient on the floor. His mental status was altered apparently postictal nonverbal. The patient was prepared for transport to the ER and on the way to the ambulance he became asystolic. ACLS protocol was initiated. The patient was intubated and chest compressions were started. About 12 minutes of chest compressions were performed. He received 1 dose of epinephrine. On arrival to the ER chest compressions were continued and shortly thereafter he was found to have a pulse. Levophed drip started. In the ER the patient received multiple rounds of epinephrine and bicarbonate as he lost pulses twice more initially each episode lasting about 2-3 minutes. EKG obtained shortly after the patient' s arrival revealed ST elevations in precordial leads V1 through V5 as well as II , III and aVF. STEMI alert was activated. Pulmonary Fellow Dr. Keane evaluated the patient at the bedside. A repeat EKG was performed revealing no ST elevation AR. The patient was found to have some swelling and induration of the left lower extremity at the calf. A [place] needle was employed to check compartment pressures of the anterior compartment in the superficial posterior compartment with measurements of 47 and 45 respectively. Finally the patient was found to be somewhat hypothermic and blood cultures were drawn and antibiotics initiated , cefepime and vancomycin. The patient also has hyperkalemia at 6.9 and insulin dextrose, calcium and bicarbonate were given. The creatinine is also about 3.5. Subjective 02/18/17 Upon entering patient's room at 0600 hrs., The patient was noted to have tonic-clonic jerking, completely unresponsive has not been on sedation since admission to the hospital. The patient has a known history of a seizure disorder. Keppra and Dilantin levels were obtained and pending. The patient was loaded with 1 g Dilantin IV, and placed on Dilantin 100 mg every 8 hours. The patient was noted to be on maximum doses of Levophed,20 mcgs, a central line was placed and the patient was placed on a second vasopressor, vasopressin@ 0.04. Neurology was consulted , a stat EEG was ordered. The patient's sodium bicarbonate infusion was increased to 150 cc/hr. the patient was noted to be oliguric in the setting of rhabdomyolysis the patient was bolused an additional liter of normal saline, and NS infusion at 150cc/hr. BMP pending. 02/19/17 Tmax 100.8. Over the last 24 hours the patient continues to be hemodynamically unstable, requiring 2 vasopressors for maintenance of a map ranging from 69-77. The patient was placed on a low dose propofol infusion secondary to continue tonic-clonic movements status post administration of Keppra and Dilantin. An EEG was performed showing a severe encephalopathic state. No intervention was performed yesterday to the left leg with compartment syndrome secondary to time sensitivity of intervention had passed, most likely prior to admission to the hospital. Demarcation of the left lower extremity has begun with mottling, edema, and blistering. Also cause necrosis continues with severe electrolyte abnormalities throughout the night to include hyperkalemia requiring continuous doses of calcium gluconate, Kayexalate now additionally adding D50 and insulin. The patient is noted to have continued elevations in hepatic enzymes most likely secondary to rhabdomyolysis. The patient continues to have hyperkalemia hyperphosphatemia due to muscle necrosis and hypocalcemia with challenging management. Steroids have been added to medication related regimen, electrolytes continued to be closely monitored. Nephrology has been consulted, appreciate recommendations. Discussion with Dr. Purdy, last evening the severe metabolic derangements, secondary to continued rhabdomyolysis with significant muscle necrosis of left lower extremity and continued SIRS response. Aggressive measures have been initiated since admission with case management to it and attempts to identify patient, and locate family thus far has been unsuccessful. The patient continues to be hemodynamically unstable with with continued elevation in vasopressor requirements. After this extensive discussion plans for emergent surgical intervention for left lower extremity today. 02/21/16 TMax 99.0. Yesterday the patient underwent a wide excision fasciotomy of the left lower extremity, and upon return from the OR, the patient's wound VAC was noted to be continuously flowing with blood, blood loss approximated to 2 L in the ICU, and worsening hemodynamic instability requiring vasopressor Levophed 20 mcgs in addition to vasopressin 0.04 mcgs. The patient emergently returned to the OR, and underwent left above knee amputation. The patient received multiple blood products to include 10 units of packed red blood cells, 5 units of platelets 2 units of FFP, 2 units of cryoprecipitate over the last 24 hours, now stabilized. Immediately on return from the OR the patient underwent dialysis, with 1.5 L removed, and potassium level normalized. The patient was noted to be an atrial fibrillation with RVR, heart rate in the 150s upon return from the OR. The patient received digoxin 0.5 mg, and subsequently 2 L over 12 hours and converted to sinus tachycardia at 0500. The patient now is currently on low-dose Levophed currently at 2 mcgs. The patient remains off sedation since 5 PM yesterday, currently nonresponsive. Creatinine kinase levels trending down. Objective Vital Signs Date Time Temp Pulse Resp B/P Pulse Ox O2 Delivery O2 Flow Rate FiO2 02/20/17 08:52 95 50 02/20/17 08:00 109 02/20/17 08:00 98.8 18 112/74 113/61 02/20/17 07:00 Mechanical Ventilator Intake and Output 02/19/17 02/19/17 02/20/17 08:00 16:00 00:00 Intake Total 2974 ml 4163 ml 4241 ml Output Total 315 ml 925 ml 3176 ml Balance 2659 ml 3238 ml 1065 ml Result Diagram: 02/20/17 0340 02/20/17 0340 Other Results Laboratory Tests Test 02/19/17 02/19/17 02/19/17 02/20/17 13:20 16:00 17:05 05:14 Blood Gas Puncture Site ARTLINE [facility] ART LINE Blood Gas Patient Temperature 98.6 98.6 98.6 98.6 Blood Gas HCO3 20 mmol/L 15 mmol/L 14 mmol/L 25 mmol/L (22-26) (22-26) (22-26) (22-26) Blood Gas Base Excess -4.6 mmol/L -11.6 mmol/L -14.4 mmol/L 0.8 mmol/L (-2-2) (-2-2) (-2-2) (-2-2) Blood Gas Oxygen Saturation 98 % (90-100) 97 % (90-100) 96 % (90-100) 97 % (90- 100) Arterial Blood pH 7.34 7.18 7.06 7.40 (7.380-7.420) (7.380-7.420) (7.380-7.420) (7.380-7.420) Arterial Blood Partial 38 mmHg (38-42) 42 mmHg (38-42) 52 mmHg (38-42) 41 mmHg ( 38-42) Pressure CO2 Arterial Blood Partial 504 mmHg 387 mmHg 209 mmHg 132 mmHg Pressure O2 (61-120) (61-120) (61-120) (61-120) Arterial Blood Oxygen Content 9.1 Vol % 8.8 Vol % 10.7 Vol % 16.2 Vol % (12.0-20.0) (12.0-20.0) (12.0-20.0) (12.0-20.0) Arterial Blood 1.3 % (0-4) 1.4 % (0-4) 1.7 % (0-4) 1.0 % (0-4) Carboxyhemoglobin Arterial Blood Methemoglobin 1.2 % (0-2) 1.3 % (0-2) 1.3 % (0-2) 1.2 % (0-2) Blood Gas Hemoglobin 5.6 G/DL 5.7 G/DL 7.6 G/DL 11.8 G/DL (12.0-16.0) (12.0-16.0) (12.0-16.0) (12.0-16.0) Oxygen Delivery Device VENT VENT VENT VENTILATOR Blood Gas Ventilator Setting OR PEEP 5, PEEP 5 PRVC/AC Blood Gas Inspired Oxygen 100 % 50 % 60 % Imaging Last Impressions Chest X-Ray 02/20/17 0600 Signed Impressions: Service Date/Time: Monday, February 20, 2017 03:50 - CONCLUSION: Mild increase in interstitial markings bilaterally suggestive of some pulmonary edema. Otherwise, no other significant changes. Toby Constantino MD Head CT 02/18/17240 Signed Impressions: Service Date/Time: Saturday, February 18, 2017 04:27 - CONCLUSION: Unremarkable CT scan of the brain.. Toby Constantino MD Last 24 hours Impressions Chest X-Ray 02/18/17240 Signed Impressions: Service Date/Time: Saturday, February 18, 2017 02:45 - CONCLUSION: 1. No focal or acute intrathoracic disease. 2. NG tube tip in distal esophagus. Recommend advancing another 10 cm. Toby Constantino MD Objective Remarks GENERAL: Well-nourished, well-developed critically ill male intubated off sedation, nonresponsive. SKIN: Warm and dry. HEAD: Normocephalic. EYES: No scleral icterus. No injection or drainage. Scleral edema moderate. Pupils equal, minimal reactivity NECK: Supple, trachea midline. No JVD or lymphadenopathy. Orotracheally intubated CARDIOVASCULAR: Regular rate and rhythm without murmurs, gallops, or rubs. RESPIRATORY: Mechanical ventilation Breath sounds equal bilaterally. No accessory muscle use. GASTROINTESTINAL: Abdomen soft, non-tender, nondistended. OGT to low suction, coffee-ground GI contents, melanotic stools with fecal containment device MUSCULOSKELETAL: No cyanosis, left AKA, dressing C/D/I EXTREMITIES: No clubbing or cyanosis. 1+ peripheral edema noted bilateral upper extremities Urinary Catheter: Yes Mccarthy insert reason: Measure Accurate Output Date of Insertion: Feb 18, 2017 Assessment to: Continue Date of Insertion: Feb 18, 2017 Line: Central Venous Catheter Side: Right Location: Internal, Jugular Reason for Continuation CVP monitoring, and vasoactive medication administration A/P Assessment and Plan Plan by systems: Neurologic: Seizure disorder Metabolic encephalopathy Possible anoxic encephalopathy Neurochecks per ICU protocol Continue Dilantin 100 mg every 8 hours, and Keppra, monitor levels, upon hospital admission noted Dilantin level subtherapeutic, Keppra level 6.5, subtherapeutic Neurology following-Dr. Suggs 02/18 EEG-severely attenuated electrographic activity with a burst suppression pattern consistent with severe encephalopathic state 02/18CT brain unremarkable 02/19-avoid sedating medications Respiratory: Respiratory arrest secondary to cardiac arrest Possible aspiration Pulmonary edema Maintain O2 sat greater than 92%, wean FiO2 as tolerated Mechanical vent settings AC/PC 18/500/+5/50 ABG-7.40/132/25/0.8 Ventilator bundle Maintain head of bed greater than 30 Bronchodilators every 6 hours schedule every 2 hours when necessary Empiric antibiotics initiated Cardiovascular: Asystolic cardiac arrest 2 Hypotension secondary to multisystem organ failure New onset A. fib with RVR-resolved Initial 12-lead EKG 02/18 ST elevations V1V5 and II, III aVF, with resolution Status post CPR with ROSC x 3 rounds of CPR Cardiology on board, Dr. Bragg no interventions at this time 02/19-echo-EF 45%, no RWMA Currently vasopressor support the Levophed currently at 2 mcgs and vasopressin 0.04 mcgs-continue to wean Wean as tolerated maintain MAP greater than 60 mmHg 02/19 A. fib RVR converted with digoxin 0.51 dose Renal: Severe metabolic acidosis secondary to rhabdomyolysis Acute kidney injury secondary to rhabdomyolysis Oliguria Acute renal failure 02/19 D5W NaHCO3 infusion at 75 cc /hr 02/19 Vas-Cath placement-left IJ UOP 77 for last 12 hours Nephrology following-Dr. Hernandez 02/19 IHD- 1.5L off 02/20 Creatinine 3.0 -- Strict I/Os FEN/GI: Hyperkalemia-resolved Hyperphosphatemia Hypocalcemia Melena Transaminitis Maintain NPO status-OGT to LIWS Replete electrolytes per ICU protocol Electrolyte abnormalities continue in the setting of rhabdomyolysis, continue frequent monitoring of labs-[place] [address]-> [id number] today LDH 2011-> 1816 today Calcium gluconate 2 g IV now, protein corrected calcium 7.6 Continue Protonix infusion Gastroenterology following-Dr. Molina Heme/ID: Sepsis Leukocytosis-resolved Thrombocytopenia DIC-hypofibrinogenemia (resolved) Coagulopathy secondary to hepatic injury Bandemia Continue Zosyn and vancomycin, day 3, Monitor serial CBC. WBC 12.7 INR 1.7-> 1.7 today Fibrinogen level 219, continue to monitor Serial lactate levels-8.2 Bands38->47 today 02/18 blood cultures-negative growth to date 02/19 Hydrocortisone 50 mg every 6 hours added to medication regimen 02/19 transfusion PRBCs 10 units, cryoprecipitate 2 units, FFP 2 units, platelets 5 units Endocrine: Hypoglycemia-resolved Glucose monitoring per ICU protocol, low-dose regimen -- SSI Msk: Rhabdomyolysis S/P wide excision fasciotomy 02/19 Left above-knee amputation-POD#1 Orthopedics following-Dr. Purdy- plan for dressing change on Saturday Continue monitor serial electrolytes, and hepatic panels Monitor LDH F/U CK levels Prophylaxis: GI Prophylaxis Pepcid BID Protonix infusion DVT Prophylaxis -- SCD right leg, no pharmacological DVT prophylaxis in the setting of acute bleeding and coagulopathic state Lines: PIV's x 2 .RI J Central line 02/18, right radial a line 02/18, left vascular catheter 02/19 Dispo: Case management continues to make attempts to obtain information regarding identity of patient and contacting family members. The patient's prognosis is extremely guarded at this time and requires surgical intervention secondary to continued rhabdomyolysis due to compartment syndrome severe electrolyte abnormalities due to muscle necrosis, and multisystem organ failure. This patient remains critically ill with one or more organ systems which are or may become a threat to life. I have spent in excess of 49 minutes discontinuously in the care and management of this patient. This time is exclusive of procedures, and includes, but is not limited to, evaluation of the patient, review of the medical record, discussions with family, consultants, nursing staff, or respiratory therapy, and documentation in the medical record. Physician Aileen Beasley MD Feb 20, 2017 10:02
[2017-02-20] MEDS ORDERED: PHARMACY ORDERED LAB ONE (11:45)
--- NOTE | 2017-02-20 12:24 | PD.CARD.PN ---
Subjective Subjective Remarks Events overnight noted, did have Afib with RVR which has since resolved Currently off sedation On 2mcg of Levophed and 0.04 units/min Objective Medications Current Medications Medications (Trade) Dose Ordered Sig/Abdoulaye Route Start Time Stop Time Status Last Admin (Tylenol) 650 mg Q6H PRN PO 02/18/17 04:30 (Morphine Inj) 2 mg Q2H PRN IV 02/18/17 04:30 (Pepcid Inj) 10 mg Q12HR IV PUSH 02/18/17 09:00 02/20/17 09:28 (Ativan Inj) 1 mg Q1H PRN IV 02/18/17 04:30 02/18/17 14:14 (Tears Naturale Opth Soln) 1 drop TID EACH EYE 02/18/17 09:00 02/20/17 11:51 (Zofran Inj) 4 mg Q6H PRN IV 02/18/17 04:30 (Reglan Inj) 5 mg Q6H PRN IV 02/18/17 04:30 Docusate Sodium 100 mg 100 mg Q12H G-TUBE 02/18/17 09:00 02/20/17 09:28 Vasopressin 40 units/Dextrose 100 ml @ 0 mls/hr TITRATE IV 02/18/17 07:00 02/19/17 21:16 Pharmacy Profile Note 0 ml @ 0 mls/hr UNSCH OTHER 02/18/17 07:15 (Maxipime Inj/NS Inj) 100 ml @ 200 mls/hr Q8H IV 02/18/17 12:00 02/20/17 11:49 Miscellaneous Information 1 Q361D XX 02/18/17 07:15 02/18/17 07:15 (Chlorhexidine 2% Cloth) 3 pack Taper DAILY@04 TOP 02/19/17 04:00 02/15/18 03:59 02/20/17 04:43 (Chlorhexidine 2% Cloth) 3 pack UNSCH PRN TOP 02/18/17 07:15 Phenytoin Sodium 100 mg 100 mg Q8HR IV 02/18/17 14:00 02/20/17 05:35 Pantoprazole Sodium 80 mg/ Sodium Chloride 100 ml @ 10 mls/hr Q10H IV 02/18/17 11:00 02/19/17 21:15 (Diprivan 1000 Mg/100ml Inj) 100 ml @ 0 mls/hr TITRATE IV 02/18/17 15:00 02/19/17 00:22 (Bactroban Nasal 2% Oint) 1 applic BID EACH NARE 02/18/17 21:00 02/20/17 09:28 (SoluCORTEF INJ) 100 mg Q8H IV PUSH 02/19/17 04:00 02/20/17 11:49 (D50w (Vial) Inj) 25 ml UNSCH PRN IV PUSH 02/19/17 09:30 Glucagon 1 mg 1 mg UNSCH PRN OTHER 02/19/17 09:30 (NS 1000 ml Inj) 1,000 ml @ 0 mls/hr Q0M PRN IV 02/19/17 10:59 Heparin Sodium (Porcine) 8000 units 8,000 units UNSCH PRN IVF 02/19/17 11:00 Sodium Chloride 1,000 ml @ 200 mls/hr Q5H PRN IV 02/19/17 10:59 Hold (NS 1000 ml Inj) 1,000 ml @ 0 mls/hr Q0M PRN IV 02/19/17 10:59 (Mannitol Inj) 12.5 gm UNSCH PRN IV 02/19/17 11:00 (Albumin 25% Inj) 25 gm UNSCH PRN IV 02/19/17 11:00 (NS Flush) 5 ml UNSCH PRN IV FLUSH 02/19/17 11:00 02/20/17 09:29 (Heparin Inj) UNSCH PRN .XX 02/19/17 11:00 (Gentamicin (Dialysis) Inj) 20 mg UNSCH PRN IV 02/19/17 11:00 02/19/17 19:40 (Zofran Inj) 4 mg UNSCH PRN IV 02/19/17 11:00 (Tylenol) 650 mg UNSCH PRN PO 02/19/17 11:00 (Benadryl) 25 mg UNSCH PRN PO 02/19/17 11:00 (Nitrostat Sl) 0.4 mg UNSCH PRN SL 02/19/17 11:00 (Catapres) 0.1 mg UNSCH PRN PO 02/19/17 11:00 Gelatin 1 foam 1 foam UNSCH PRN TOP 02/19/17 11:00 (Ancef 2 Gm Premix) 50 ml @ 100 mls/hr Q8H IV 02/19/17 14:00 02/22/17 06:29 02/20/17 05:35 (NS Flush) 2 ml UNSCH PRN IVF 02/19/17 17:00 IV Flush 2 ml 2 ml BID IVF 02/19/17 21:00 02/20/17 09:29 Levetriacetam 100 ml @ 400 mls/hr Q12HR IV 02/19/17 21:00 02/20/17 09:28 Norepinephrine Bitartrate 250 ml @ 0 mls/hr TITRATE IV 02/19/17 22:00 02/19/17 21:18 (Sodium Bicarbonate 8.4% Inj/D5W 1000 ml Inj) 1,000 ml @ 75 mls/hr [id number] IV 02/20/17 01:20 02/20/17 03:33 Vital Signs / I&O Vital Signs Date Time Temp Pulse Resp B/P Pulse Ox O2 Delivery O2 Flow Rate FiO2 02/20/17 11:44 100 50 02/20/17 10:00 110 02/20/17 08:52 95 50 02/20/17 08:00 109 02/20/17 08:00 98.8 108 18 112/74 99 113/61 02/20/17 08:00 70 02/20/17 07:00 Mechanical Ventilator 50 02/20/17 06:00 109 105/58 107/72 02/20/17 06:00 109 02/20/17 04:10 95 60 02/20/17 04:00 70 02/20/17 04:00 99.0 134 18 90/56 97 102/67 02/20/17 04:00 144 02/20/17 02:00 144 02/20/17 01:10 98 80 02/20/17 00:00 100 02/20/17 00:00 144 02/20/17 00:00 97.9 144 18 90/56 97 102/67 02/19/17 22:00 146 02/19/17 20:55 92 100 02/19/17 20:31 92 100 02/19/17 20:00 100 02/19/17 20:00 97.7 150 18 117/85 118/68 02/19/17 20:00 150 02/19/17 19:00 Mechanical Ventilator 100 02/19/17 18:04 100 100 02/19/17 18:00 128/79 02/19/17 18:00 171 02/19/17 17:55 96.1 107 18 132/70 02/19/17 17:30 107 02/19/17 17:30 100 02/19/17 14:00 104 I/O 02/19/17 02/19/17 02/19/17 02/20/17 02/20/17 02/20/17 07:00 15:00 23:00 07:00 15:00 23:00 Intake Total 2974 ml 4163 ml 4241 ml 2212 ml Output Total 315 ml 925 ml 3176 ml 82 ml Balance 2659 ml 3238 ml 1065 ml 2130 ml Intake IV Total 2974 ml 4163 ml 3997 ml 2212 ml Cryoprecipitate 244 ml Output Urine Total 165 ml 100 ml 116 ml 77 ml Stool Total 100 ml 0 ml 0 ml Gastric Drainage Total 50 ml 50 ml 0 ml Drainage Total 825 ml 10 ml 5 ml Hemodialysis 3000 ml Physical Exam GENERAL: Intubated SKIN: Warm and dry. Left lower extremity with edema/induration HEAD: Atraumatic. Normocephalic. EYES: Pupils equal and round. No scleral icterus. No injection or drainage. ENT: No nasal bleeding or discharge. Mucous membranes pink and moist. NECK: Trachea midline. No JVD. CARDIOVASCULAR: Regular rate and rhythm. Tachy RESPIRATORY: No accessory muscle use. Decreased breath sounds bilaterally GASTROINTESTINAL: Abdomen soft, non-tender, nondistended. Hepatic and splenic margins not palpable. MUSCULOSKELETAL: Left lower extremity AKA NEUROLOGICAL: Unable to determine Laboratory Laboratory Tests Test 02/19/17 02/19/17 02/19/17 02/19/17 12:45 12:54 13:20 13:52 White Blood Count 11.5 TH/MM3 Red Blood Count 1.91 MIL/MM3 Hemoglobin 7.2 GM/DL Hematocrit 21.6 % Mean Corpuscular Volume 113.0 FL Mean Corpuscular Hemoglobin 37.8 PG Mean Corpuscular Hemoglobin 33.5 % Concent Red Cell Distribution Width 15.2 % Platelet Count 103 TH/MM3 Mean Platelet Volume 9.5 FL Neutrophils (%) (Auto) 84.3 % Lymphocytes (%) (Auto) 8.2 % Monocytes (%) (Auto) 7.1 % Eosinophils (%) (Auto) 0.1 % Basophils (%) (Auto) 0.3 % Neutrophils # (Auto) 9.7 TH/MM3 Lymphocytes # (Auto) 0.9 TH/MM3 Monocytes # (Auto) 0.8 TH/MM3 Eosinophils # (Auto) 0.0 TH/MM3 Basophils # (Auto) 0.0 TH/MM3 CBC Comment AUTO DIFF Differential Total Cells 100 Counted Neutrophils % (Manual) 13 % Band Neutrophils % 19 % Lymphocytes % 5 % Monocytes % 3 % Neutrophils # (Manual) 10.6 TH/MM3 Metamyelocytes 50 % Myelocytes 10 % Differential Comment FINAL DIFF MANUAL Toxic Granulation 1+ Platelet Estimate LOW Platelet Morphology Comment NORMAL Prothrombin Time 22.6 SEC Prothromb Time International 2.0 RATIO Ratio Activated Partial 53.6 SEC Thromboplast Time Fibrinogen 167 mg/dL Sodium Level 142 MEQ/L Potassium Level 6.4 MEQ/L Chloride Level 105 MEQ/L Carbon Dioxide Level 20.2 MEQ/L Anion Gap 17 MEQ/L Blood Urea Nitrogen 54 MG/DL Creatinine 3.87 MG/DL Estimat Glomerular Filtration 14 ML/MIN Rate Random Glucose 174 MG/DL Lactic Acid Level 9.6 mmol/L Calcium Level 5.6 MG/DL Protein Corrected Calcium 7.5 MG/DL Total Bilirubin 2.4 MG/DL Aspartate Amino Transf 2698 U/L (AST/SGOT) Alanine Aminotransferase 987 U/L (ALT/SGPT) Alkaline Phosphatase 56 U/L Lactate Dehydrogenase 2011 U/L Total Creatine Kinase 39132 U/L Creatine Kinase MB 346.0 NG/ML Creatine Kinase MB % 1.0 % Total Protein 3.1 GM/DL Albumin 1.1 GM/DL Blood Type A POSITIVE Crossmatch Leukocyte-Reduced Leukocyte-Reduced Red Blood Red Blood Cells Cells Blood Bank Comment Blood Gas Puncture Site ARTLINE Blood Gas Patient Temperature 98.6 Blood Gas HCO3 20 mmol/L Blood Gas Base Excess -4.6 mmol/L Blood Gas Oxygen Saturation 98 % Arterial Blood pH 7.34 Arterial Blood Partial 38 mmHg Pressure CO2 Arterial Blood Partial 504 mmHg Pressure O2 Arterial Blood Oxygen Content 9.1 Vol % Arterial Blood 1.3 % Carboxyhemoglobin Arterial Blood Methemoglobin 1.2 % Blood Gas Hemoglobin 5.6 G/DL Oxygen Delivery Device VENT Blood Gas Ventilator Setting OR Blood Gas Inspired Oxygen 100 % Test 02/19/17 02/19/17 02/19/1702/19/17 15:04 16:00 16:21 17:05 Blood Type A POSITIVE Crossmatch Leukocyte-Reduced Leukocyte-Reduced Red Blood Red Blood Cells Cells Blood Bank Comment White Blood Count 7.8 TH/MM3 Red Blood Count 1.64 MIL/MM3 Hemoglobin 5.1 GM/DL Hematocrit 15.7 % Mean Corpuscular Volume 95.5 FL Mean Corpuscular Hemoglobin 31.3 PG Mean Corpuscular Hemoglobin 32.8 % Concent Red Cell Distribution Width 26.5 % Platelet Count 99 TH/MM3 Mean Platelet Volume 9.0 FL Neutrophils (%) (Auto) 77.7 % Lymphocytes (%) (Auto) 12.6 % Monocytes (%) (Auto) 9.1 % Eosinophils (%) (Auto) 0.3 % Basophils (%) (Auto) 0.3 % Neutrophils # (Auto) 6.0 TH/MM3 Lymphocytes # (Auto) 1.0 TH/MM3 Monocytes # (Auto) 0.7 TH/MM3 Eosinophils # (Auto) 0.0 TH/MM3 Basophils # (Auto) 0.0 TH/MM3 CBC Comment AUTO DIFF Differential Total Cells 100 Counted Neutrophils % (Manual) 37 % Band Neutrophils % 38 % Lymphocytes % 10 % Monocytes % 2 % Neutrophils # (Manual) 6.9 TH/MM3 Metamyelocytes 9 % Myelocytes 4 % Differential Comment FINAL DIFF MANUAL Toxic Granulation 1+ Platelet Estimate LOW Platelet Morphology Comment NORMAL Ovalocytes 1+ Prothrombin Time 23.2 SEC Prothromb Time International 2.0 RATIO Ratio Activated Partial 69.9 SEC Thromboplast Time Blood Gas Puncture Site [facility] Blood Gas Patient Temperature 98.6 98.6 Blood Gas HCO3 15 mmol/L 14 mmol/L Blood Gas Base Excess -11.6 mmol/L -14.4 mmol/L Blood Gas Oxygen Saturation 97 % 96 % Arterial Blood pH 7.18 7.06 Arterial Blood Partial 42 mmHg 52 mmHg Pressure CO2 Arterial Blood Partial 387 mmHg 209 mmHg Pressure O2 Arterial Blood Oxygen Content 8.8 Vol % 10.7 Vol % Arterial Blood 1.4 % 1.7 % Carboxyhemoglobin Arterial Blood Methemoglobin 1.3 % 1.3 % Blood Gas Hemoglobin 5.7 G/DL 7.6 G/DL Oxygen Delivery Device VENT VENT Blood Gas Ventilator Setting PEEP 5, PEEP 5 Blood Gas Inspired Oxygen 50 % Test 02/19/17 02/19/17 02/19/1702/20/17 17:07 17:12 22:00 03:40 Crossmatch Leukocyte-Reduced Leukocyte-Reduced Red Blood Red Blood Cells Cells Blood Bank Comment White Blood Count 7.5 TH/MM3 8.0 TH/MM3 Red Blood Count 4.15 MIL/MM3 3.97 MIL/MM3 Hemoglobin 12.0 GM/DL 11.5 GM/DL Hematocrit 35.9 % 34.1 % Mean Corpuscular Volume 86.5 FL 85.8 FL Mean Corpuscular Hemoglobin 28.9 PG 29.0 PG Mean Corpuscular Hemoglobin 33.4 % 33.8 % Concent Red Cell Distribution Width 16.6 % 17.5 % Platelet Count 91 TH/MM3 76 TH/MM3 Mean Platelet Volume 8.4 FL 8.6 FL Prothrombin Time 16.8 SEC 19.4 SEC Prothromb Time International 1.5 RATIO 1.7 RATIO Ratio Activated Partial 42.2 SEC 45.2 SEC Thromboplast Time Fibrinogen 222 mg/dL 219 mg/dL Sodium Level 146 MEQ/L 145 MEQ/L Potassium Level 4.7 MEQ/L 4.9 MEQ/L Chloride Level 106 MEQ/L 105 MEQ/L Carbon Dioxide Level 24.9 MEQ/L 26.4 MEQ/L Anion Gap 15 MEQ/L 14 MEQ/L Blood Urea Nitrogen 34 MG/DL 39 MG/DL Creatinine 2.72 MG/DL 3.05 MG/DL Estimat Glomerular Filtration 20 ML/MIN 18 ML/MIN Rate Random Glucose 153 MG/DL 220 MG/DL Calcium Level 5.4 MG/DL 5.2 MG/DL Protein Corrected Calcium 6.9 MG/DL 6.8 MG/DL Total Protein 3.7 GM/DL 3.5 GM/DL Neutrophils (%) (Auto) 81.2 % Lymphocytes (%) (Auto) 12.1 % Monocytes (%) (Auto) 6.0 % Eosinophils (%) (Auto) 0.4 % Basophils (%) (Auto) 0.3 % Neutrophils # (Auto) 6.5 TH/MM3 Lymphocytes # (Auto) 1.0 TH/MM3 Monocytes # (Auto) 0.5 TH/MM3 Eosinophils # (Auto) 0.0 TH/MM3 Basophils # (Auto) 0.0 TH/MM3 CBC Comment AUTO DIFF Differential Total Cells 100 Counted Neutrophils % (Manual) 39 % Band Neutrophils % 47 % Lymphocytes % 9 % Neutrophils # (Manual) 7.3 TH/MM3 Metamyelocytes 5 % Differential Comment FINAL DIFF MANUAL Platelet Estimate LOW Platelet Morphology Comment NORMAL Lactic Acid Level 8.2 mmol/L Total Bilirubin 6.7 MG/DL Aspartate Amino Transf 2104 U/L (AST/SGOT) Alanine Aminotransferase 781 U/L (ALT/SGPT) Alkaline Phosphatase 52 U/L Lactate Dehydrogenase 1816 U/L Total Creatine Kinase 37633 U/L Creatine Kinase MB 136.4 NG/ML Creatine Kinase MB % 0.7 % Albumin 1.6 GM/DL Phenytoin (Dilantin) Level 10.0 MCG/ML Test 02/20/17 05:14 Blood Gas Puncture Site ART LINE Blood Gas Patient Temperature 98.6 Blood Gas HCO3 25 mmol/L Blood Gas Base Excess 0.8 mmol/L Blood Gas Oxygen Saturation 97 % Arterial Blood pH 7.40 Arterial Blood Partial 41 mmHg Pressure CO2 Arterial Blood Partial 132 mmHg Pressure O2 Arterial Blood Oxygen Content 16.2 Vol % Arterial Blood 1.0 % Carboxyhemoglobin Arterial Blood Methemoglobin 1.2 % Blood Gas Hemoglobin 11.8 G/DL Oxygen Delivery Device VENTILATOR Blood Gas Ventilator Setting PRVC/AC Blood Gas Inspired Oxygen 60 % Assessment and Plan Problem List: (1) Cardiopulmonary arrest with successful resuscitation (2) Sepsis with multi-organ dysfunction (3) Renal failure (4) Hyperkalemia (5) Hypothermia (6) Compartment syndrome (7) NSTEMI (non-ST elevated myocardial infarction) (8) Rhabdomyolysis Assessment and Plan 1) S/p fasciotomy... but with excessive bleeding so went for left AKA, since has been relatively stable 2) Continue support care 3) NSTEMI Type 2 due to cardiac arrest, CPR, hypotension, sepsis 4) EF 45% 5) Afib with RVR most likely due to excessive sympathetic state as well as overall acute illness Currently sinus rhythm Not an anticoagulation candidate at this time If more episodes, consider Lopressor IV or if still on pressors, can be loaded with Digoxin Problem Qualifiers (1) Hypothermia: Qualified Code: T68.XXXA - Hypothermia, initial encounter (2) Compartment syndrome: Qualified Code: T79.A22A - Traumatic compartment syndrome of left lower extremity, initial encounter Vern Keane DO Feb 20, 2017 12:24
[2017-02-20 12:53] LABS: APTT (PATIENT) 41.1 SEC (24.3-30.1); INTERNATIONAL NORMALIZED RATIO 1.6 RATIO; PROTHROMBIN TIME - PATIENT 18.6 SEC (9.8-11.6)
[2017-02-20 12:54] LABS: HEMATOCRIT 33.1 % (39.0-51.0); MEAN CORPUSCULAR HEMOGLOBIN 29.2 PG (27.0-34.0); MEAN CORPUSCULAR HGB CONC 34.8 % (32.0-36.0); PLATELET COUNT 67 TH/MM3 (150-450); RED BLOOD COUNT 3.95 MIL/MM3 (4.50-5.90); RED CELL DISTRIBUTION WIDTH 16.8 % (11.6-17.2); WHITE BLOOD COUNT 9.8 TH/MM3 (4.0-11.0)
[2017-02-20 12:58] LABS: REVIEW FLAG FINAL
[2017-02-20] MEDS: PANTOPRAZOLE INJ 80 MG in SODIUM CHLORIDE 0.9% INJ 100 ML IV SCH (13:00)
--- NOTE | 2017-02-20 13:35 | HHI.NPPN ---
Subjective Renal Failure: Acute Interval History He was dialyzed yesterday. Taken to OR for Left AKA after significant bleeding from fasciotomy site. Severely anemic requiring multiple transfusions of blood products. Pressor requirement has decreased. He is unresponsive off sedation. The pt is still a "[employer]". Staff actively trying to identify him with police assistance. (Elma Rudolph) Review of Systems General General Remarks unable to evaluate (Elma Rudolph) Objective Data Data 02/19/17 02/20/17 19:00 07:00 Intake Total 4163 ml 6453 ml Output Total 925 ml 3258 ml Balance 3238 ml 3195 ml Intake IV Total 4163 ml 6209 ml Cryoprecipitate 244 ml Output Urine Total 100 ml 193 ml Stool Total 0 ml Gastric Drainage Total 50 ml Drainage Total 825 ml 15 ml Hemodialysis 3000 ml Vital Signs Date Time Temp Pulse Resp B/P Pulse Ox O2 Delivery O2 Flow Rate FiO2 02/20/17 12:00 70 02/20/17 12:00 99.3 111 19 118/72 100 103/53 02/20/17 12:00 111 02/20/17 11:44 100 50 02/20/17 10:00 110 02/20/17 08:52 95 50 02/20/17 08:00 109 02/20/17 08:00 98.8 108 18 112/74 99 113/61 02/20/17 08:00 70 02/20/17 07:00 Mechanical Ventilator 50 02/20/17 06:00 109 105/58 107/72 02/20/17 06:00 109 02/20/17 04:10 95 60 02/20/17 04:00 70 02/20/17 04:00 99.0 134 18 90/56 97 102/67 02/20/17 04:00 144 02/20/17 02:00 144 02/20/17 01:10 98 80 02/20/17 00:00 100 02/20/17 00:00 144 02/20/17 00:00 97.9 144 18 90/56 97 102/67 02/19/17 22:00 146 02/19/17 20:55 92 100 02/19/17 20:31 92 100 02/19/17 20:00 100 02/19/17 20:00 97.7 150 18 117/85 118/68 02/19/17 20:00 150 02/19/17 19:00 Mechanical Ventilator 100 02/19/17 18:04 100 100 02/19/17 18:00 128/79 02/19/17 18:00 171 02/19/17 17:55 96.1 107 18 132/70 02/19/17 17:30 107 02/19/17 17:30 100 02/19/17 14:00 104 (Elma Rudolph) -: 02/20/17 1215 02/20/17 0340 Microbiology 02/20/17 Urine Culture, Worksheet Pending Imaging Last Impressions Chest X-Ray 02/20/17 0600 Signed Impressions: Service Date/Time: Monday, February 20, 2017 03:50 - CONCLUSION: Mild increase in interstitial markings bilaterally suggestive of some pulmonary edema. Otherwise, no other significant changes. Toby Constantino MD Head CT 02/18/17 0241 Signed Impressions: Service Date/Time: Saturday, February 18, 2017 04:27 - CONCLUSION: Unremarkable CT scan of the brain.. Toby Constantino MD Tubes & Lines: Vas-Cath, Mccarthy Tubes & Lines Comment a line, rectal tube, TLC Drip Comment bicarbonate, Levophed, vasopressin (Elma Rudolph) Physical Exam General Appearance: Pale, Malnourished Appearance Remarks ashen in color (Elma Rudolph) Throat Throat Exam: Oral Mucosa [place] & Moist (Elma Rudolph) Pulmonary Resp Exam: Breath Sounds Equal, No Distress, Crackles (Elma Rudolph) Cardiology CV Exam: Regular, Normal Sinus Rhythm, Good Perfusion (Elma Rudolph) Gastrointestinal/Abdomen GI Exam: Soft, Non-Tender (Elma Rudolph) Musculoskeletal MS Exam: Unable to Ambulate (Elma Rudolph) Integumentary Skin Exam: Warm, Dry Skin Remarks s/p left AKA, stump is dressed, clean and dry (Elma Rudolph) Extremeties Extremities Exam: Pedal Pulses Palpable Extremeties Remarks on right (Elma Rudolph) Neurologic Neuro Exam: Unresponsive, Comatose (Elma Rudolph) Assessment/Plan Assessment Summary: CLAUDIA/Acute Renal Failure, Acute Tubular Necrosis, Fluid/ Volume Overload, Hypotension Problem List: (1) Acute kidney injury Plan: ATN from cardiac arrest and rhabdomyolysis he is oliguric vascath placed and HD initiated 02/19 due to severe hyperkalemia, 3L UF K is 4.9, improved from yesterday HD again today, then evaluate need for additional treatment daily Stop bicarb drip Avoid nephrotoxic agents. Pressors to maintain MAP > 65mmHg daily metabolic profile (2) Hyperkalemia Plan: due to renal failure, acidosis, and release of intracellular potassium due to rhabdomyolysis. corrected with dialysis, monitor for recurrence (3) Rhabdomyolysis Plan: due to fall with unknown down time also cocaine positive follow CPK, levels are improving (4) Compartment syndrome Plan: s/p AKA Dr. Purdy (ortho) following, appreciate recommendations (5) Transaminitis Plan: GI following. may need EGD (6) Encephalopathy Plan: Prognosis is poor. EEG reviewed Neurology following. he is not requiring sedation and is unresponsive to stimuli (7) Seizure disorder Plan: History of seizure disorder. Unclear if he was compliant with medications. Neurology following. he is on Keppra, Dilantin, and propofol here, no witnessed seizure activity reported (Elma Rudolph) Plan patient was seen and examined. Emergently dialyzed last night. Hyperkalemia has improved. Dialysis again today. Hemodynamics have improved somewhat. (Jose Hernandez MD) Problem Qualifiers (1) Compartment syndrome: Qualified Code: T79.A22A - Traumatic compartment syndrome of left lower extremity, initial encounter Elma Rudolph Feb 20, 2017 13:35 Jose Hernandez MD Feb 20, 2017 17:29
--- NOTE | 2017-02-20 15:31 | HHI.GIFU ---
Subjective Remarks Resting in bed. Sedated on ventilator. Had BKA on left yesterday. Getting HD now. No active gi bleeding at this time. (Elsy Velazquez) Objective Vitals I&O Vital Signs Date Time Temp Pulse Resp B/P Pulse Ox O2 Delivery O2 Flow Rate FiO2 02/20/17 14:00 109 02/20/17 12:00 70 02/20/17 12:00 99.3 111 19 118/72 100 103/53 02/20/17 12:00 111 02/20/17 11:44 100 50 02/20/17 10:00 110 02/20/17 08:52 95 50 02/20/17 08:00 109 02/20/17 08:00 98.8 108 18 112/74 99 113/61 02/20/17 08:00 70 02/20/17 07:00 Mechanical Ventilator 50 02/20/17 06:00 109 105/58 107/72 02/20/17 06:00 109 02/20/17 04:10 95 60 02/20/17 04:00 70 02/20/17 04:00 99.0 134 18 90/56 97 102/67 02/20/17 04:00 144 02/20/17 02:00 144 02/20/17 01:10 98 80 02/20/17 00:00 100 02/20/17 00:00 144 02/20/17 00:00 97.9 144 18 90/56 97 102/67 02/19/17 22:00 146 02/19/17 20:55 92 100 02/19/17 20:31 92 100 02/19/17 20:00 100 02/19/17 20:00 97.7 150 18 117/85 118/68 02/19/17 20:00 150 02/19/17 19:00 Mechanical Ventilator 100 02/19/17 18:04 100 100 02/19/17 18:00 128/79 02/19/17 18:00 171 02/19/17 17:55 96.1 107 18 132/70 02/19/17 17:30 107 02/19/17 17:30 100 I/O 02/19/17 02/19/17 02/19/17 02/20/17 02/20/17 02/20/17 07:00 15:00 23:00 07:00 15:00 23:00 Intake Total 2974 ml 4163 ml 4241 ml 2212 ml Output Total 315 ml 925 ml 3176 ml 82 ml Balance 2659 ml 3238 ml 1065 ml 2130 ml Intake IV Total 2974 ml 4163 ml 3997 ml 2212 ml Cryoprecipitate 244 ml Output Urine Total 165 ml 100 ml 116 ml 77 ml Stool Total 100 ml 0 ml 0 ml Gastric Drainage Total 50 ml 50 ml 0 ml Drainage Total 825 ml 10 ml 5 ml Hemodialysis 3000 ml Laboratory Laboratory Tests Test 02/19/17 02/19/17 02/19/17 02/19/17 16:00 16:21 17:05 17:07 White Blood Count 7.8 Red Blood Count 1.64 Hemoglobin 5.1 Hematocrit 15.7 Mean Corpuscular Volume 95.5 Mean Corpuscular Hemoglobin 31.3 Mean Corpuscular Hemoglobin 32.8 Concent Red Cell Distribution Width 26.5 Platelet Count 99 Mean Platelet Volume 9.0 Neutrophils (%) (Auto) 77.7 Lymphocytes (%) (Auto) 12.6 Monocytes (%) (Auto) 9.1 Eosinophils (%) (Auto) 0.3 Basophils (%) (Auto) 0.3 Neutrophils # (Auto) 6.0 Lymphocytes # (Auto) 1.0 Monocytes # (Auto) 0.7 Eosinophils # (Auto) 0.0 Basophils # (Auto) 0.0 CBC Comment AUTO DIFF Differential Total Cells 100 Counted Neutrophils % (Manual) 37 Band Neutrophils % 38 Lymphocytes % 10 Monocytes % 2 Neutrophils # (Manual) 6.9 Metamyelocytes 9 Myelocytes 4 Differential Comment FINAL DIFF MANUAL Toxic Granulation 1+ Platelet Estimate LOW Platelet Morphology Comment NORMAL Ovalocytes 1+ Prothrombin Time 23.2 Prothromb Time International 2.0 Ratio Activated Partial 69.9 Thromboplast Time Blood Gas Puncture Site RASHAD SOLORZANO Blood Gas Patient Temperature 98.6 98.6 Blood Gas HCO3 15 14 Blood Gas Base Excess -11.6 -14.4 Blood Gas Oxygen Saturation 97 96 Arterial Blood pH 7.18 7.06 Arterial Blood Partial 42 52 Pressure CO2 Arterial Blood Partial 387 209 Pressure O2 Arterial Blood Oxygen Content 8.8 10.7 Arterial Blood 1.4 1.7 Carboxyhemoglobin Arterial Blood Methemoglobin 1.3 1.3 Blood Gas Hemoglobin 5.7 7.6 Oxygen Delivery Device VENT VENT Blood Gas Ventilator Setting PEEP 5, PEEP 5 Crossmatch Leukocyte-Reduced Leukocyte-Reduced Red Blood Red Blood Cells Cells Blood Bank Comment Blood Gas Inspired Oxygen 50 Test 02/19/17 02/19/17 02/20/17 02/20/17 17:12 22:00 03:40 05:14 Crossmatch Leukocyte-Reduced Red Blood Cells Blood Bank Comment White Blood Count 7.5 8.0 Red Blood Count 4.15 3.97 Hemoglobin 12.0 11.5 Hematocrit 35.9 34.1 Mean Corpuscular Volume 86.5 85.8 Mean Corpuscular Hemoglobin 28.9 29.0 Mean Corpuscular Hemoglobin 33.4 33.8 Concent Red Cell Distribution Width 16.6 17.5 Platelet Count 91 76 Mean Platelet Volume 8.4 8.6 Prothrombin Time 16.8 19.4 Prothromb Time International 1.5 1.7 Ratio Activated Partial 42.2 45.2 Thromboplast Time Fibrinogen 222 219 Sodium Level 146 145 Potassium Level 4.7 4.9 Chloride Level 106 105 Carbon Dioxide Level 24.9 26.4 Anion Gap 15 14 Blood Urea Nitrogen 34 39 Creatinine 2.72 3.05 Estimat Glomerular Filtration 20 18 Rate Random Glucose 153 220 Calcium Level 5.4 5.2 Protein Corrected Calcium 6.9 6.8 Total Protein 3.7 3.5 Neutrophils (%) (Auto) 81.2 Lymphocytes (%) (Auto) 12.1 Monocytes (%) (Auto) 6.0 Eosinophils (%) (Auto) 0.4 Basophils (%) (Auto) 0.3 Neutrophils # (Auto) 6.5 Lymphocytes # (Auto) 1.0 Monocytes # (Auto) 0.5 Eosinophils # (Auto) 0.0 Basophils # (Auto) 0.0 CBC Comment AUTO DIFF Differential Total Cells 100 Counted Neutrophils % (Manual) 39 Band Neutrophils % 47 Lymphocytes % 9 Neutrophils # (Manual) 7.3 Metamyelocytes 5 Differential Comment FINAL DIFF MANUAL Platelet Estimate LOW Platelet Morphology Comment NORMAL Lactic Acid Level 8.2 Total Bilirubin 6.7 Aspartate Amino Transf 2104 (AST/SGOT) Alanine Aminotransferase 781 (ALT/SGPT) Alkaline Phosphatase 52 Lactate Dehydrogenase 1816 Total Creatine Kinase 27860 Creatine Kinase MB 136.4 Creatine Kinase MB % 0.7 Albumin 1.6 Phenytoin (Dilantin) Level 10.0 Blood Gas Puncture Site ART LINE Blood Gas Patient Temperature 98.6 Blood Gas HCO3 25 Blood Gas Base Excess 0.8 Blood Gas Oxygen Saturation 97 Arterial Blood pH 7.40 Arterial Blood Partial 41 Pressure CO2 Arterial Blood Partial 132 Pressure O2 Arterial Blood Oxygen Content 16.2 Arterial Blood 1.0 Carboxyhemoglobin Arterial Blood Methemoglobin 1.2 Blood Gas Hemoglobin 11.8 Oxygen Delivery Device VENTILATOR Blood Gas Ventilator Setting PRVC/AC Blood Gas Inspired Oxygen 60 Test 02/20/17 12:15 White Blood Count 9.8 Red Blood Count 3.95 Hemoglobin 11.5 Hematocrit 33.1 Mean Corpuscular Volume 84.0 Mean Corpuscular Hemoglobin 29.2 Mean Corpuscular Hemoglobin 34.8 Concent Red Cell Distribution Width 16.8 Platelet Count 67 Mean Platelet Volume 8.7 Prothrombin Time 18.6 Prothromb Time International 1.6 Ratio Activated Partial 41.1 Thromboplast Time Fibrinogen 237 Random Vancomycin Level 17.4 Date/Time Procedure Status Source Growth 02/20/17 12:15 Urine Culture Worksheet Urine Catheterized Urine Pending 02/18/17 03:25 Aerobic Blood Culture - Preliminary Resulted Blood Peripheral NO GROWTH IN 2 DAYS 02/18/17 03:25 Anaerobic Blood Culture - Preliminary Resulted Blood Peripheral NO GROWTH IN 2 DAYS Imaging Last Impressions Chest X-Ray 02/20/17 0600 Signed Impressions: Service Date/Time: Monday, February 20, 2017 03:50 - CONCLUSION: Mild increase in interstitial markings bilaterally suggestive of some pulmonary edema. Otherwise, no other significant changes. Toby Constantino MD Head CT 02/18/17 0241 Signed Impressions: Service Date/Time: Saturday, February 18, 2017 04:27 - CONCLUSION: Unremarkable CT scan of the brain.. Toby Constantino MD Physical Exam HEENT: Normocephalic; atraumatic; no jaundice. CHEST: Resp. even/unlabored, OETT vent, CTA. CARDIAC: ST ABDOMEN: Soft, nondistended, nontender; no hepatosplenomegaly; bowel sounds are present in all four quadrants. 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 (Elsy Velazquez) Assessment and Plan Plan ASSESSMENT: - GIB, Melanotic stool. Had one large melanotic stool (02/18). Has NGT to LIWS , small amount clear yellow secretions. Flexiseal with dark brown stool, HH dropped after surgery to 5.1/15.7, but he has remained stable since transfusions. HH now stable 11.5/33.1. Plt 67. S/P 10 units RBC, 2 units FFP , 4 units Plt, 3 units cryoprecipitate. Protonix Gtt. No obvious GI bleeding at this time. - Elevated LFTs. T. BIli 6.7, AST 2104, ALT 781, ALk Phosph 52. Hepatitis panel pending, but this is most likely combination of shocked liver and rhabdomyolysis. Will continue to monitor - Anemia, secondary to blood loss. Stable. 11.7/33.6. - Coagulopathy, Thrombocytopenia, DIC. Plt 67, PT 18.6, INR 1.6, APTT 35.9, Fibrinogen 237. S/P 2 units FFP, 4 units Plt, 3 units cryoprecipitate. - Seizure Activity/Anoxic encephalopathy. Neurology following. Sedated. Keppra - Acute respiratory failure. Vent per CCM. - Cardiac Arrest, NSTEMI, hypotension. Vasopressors. Cardiology following. - CLAUDIA with electrolyte abnormalities. Getting HD - Rhabdomyolysis. CPK 2104. IVF per CCM. - Compartment syndrome LLE. Per ortho. S/P left BKA - Drug abuse, (+) Cocaine on tox screen. PLAN: - Clamp NGT. Okay from GI standpoint to start trickle fees - Cont. Protonix Gtt - Monitor HH - Monitor Coag's - Monitor LFTs - Await Hepatitis profile - Avoid hepatotoxic meds- of note he is on keppra- but was having significant seizure activity yesterday and required sedation - Supportive care - Further recommendations to follow based on results of above - He is not currently having any active GI bleeding, will continue to monitor and plan for endoscopic evaluation if active bleeding. - Pt seen and examined by Dr. Molina and myself and this note is written on his behalf (Elsy Velazquez) Physician Comments Patient seen and examined Agree with above Continue with current supportive care Monitor labs (Flako Molina MD) Elsy Velazquez Feb 20, 2017 15:31 Flako Molina MD Feb 20, 2017 23:04
[2017-02-20] MEDS ORDERED: VANCOMYCIN INJ 1,500 MG in SODIUM CHLORID 0.9% 500 ML INJ 500 ML IV ONE (16:00)
[2017-02-20] MEDS: HEPARIN SODIUM - IV 10,000 UNITS/10 ML VIAL PRN (16:05)
[2017-02-20] MEDS: GENTAMICIN SULFATE (DIALYSIS USE ONLY) 20 MG/2 ML VIAL IV PRN (16:05)
[2017-02-20 20:12] LABS: HEMATOCRIT 33.7 % (39.0-51.0); MEAN CELL VOLUME 83.7 FL (80.0-100.0); MEAN CORPUSCULAR HEMOGLOBIN 29.3 PG (27.0-34.0); MEAN CORPUSCULAR HGB CONC 35.1 % (32.0-36.0); RED BLOOD COUNT 4.03 MIL/MM3 (4.50-5.90); RED CELL DISTRIBUTION WIDTH 17.5 % (11.6-17.2); WHITE BLOOD COUNT 10.1 TH/MM3 (4.0-11.0)
[2017-02-20 20:21] LABS: PLATELET COUNT 62 TH/MM3 (150-450); REVIEW FLAG FINAL
[2017-02-20 20:29] LABS: APTT (PATIENT) 40.7 SEC (24.3-30.1); INTERNATIONAL NORMALIZED RATIO 1.5 RATIO
[2017-02-20 20:41] LABS: BICARBONATE 31.8 MEQ/L (21.0-32.0); POTASSIUM 4.3 MEQ/L (3.5-5.1)
[2017-02-20 21:00] LABS: CALCIUM-PROTEIN CORRECTED 7.3 MG/DL (8.5-10.1)
[2017-02-21] VITALS (19 sets, daily range): BP systolic 120–134; BP diastolic 62–95; PULSE 94–107; RESP 16–20; TEMP 98.6–99.7; O2SAT 98–100
[2017-02-21] MEDS: PANTOPRAZOLE INJ 80 MG in SODIUM CHLORIDE 0.9% INJ 100 ML IV SCH ×3 (00:24→21:01)
[2017-02-21] MEDS: NOREPINEPHRINE-DEXTROSE DRIP 250 ML IV SCH (00:31)
[2017-02-21] MEDS: VASOPRESSIN 40 U/100 ML D5W Titrate, Post Cardiac Surgery IV SCH ×4 (00:43→12:49)
[2017-02-21 01:14] LABS: HEMATOCRIT 33.4 % (39.0-51.0); MEAN CELL VOLUME 84.5 FL (80.0-100.0); MEAN CORPUSCULAR HEMOGLOBIN 29.7 PG (27.0-34.0); MEAN CORPUSCULAR HGB CONC 35.2 % (32.0-36.0); PLATELET COUNT 56 TH/MM3 (150-450); RED BLOOD COUNT 3.96 MIL/MM3 (4.50-5.90); RED CELL DISTRIBUTION WIDTH 17.5 % (11.6-17.2); WHITE BLOOD COUNT 9.4 TH/MM3 (4.0-11.0)
[2017-02-21 01:16] LABS: REVIEW FLAG FINAL
[2017-02-21 01:31] LABS: APTT (PATIENT) 40.8 SEC (24.3-30.1); INTERNATIONAL NORMALIZED RATIO 1.5 RATIO; PROTHROMBIN TIME - PATIENT 16.6 SEC (9.8-11.6)
[2017-02-21 03:30] LABS: BACTERIA, URINE RARE /hpf; BLOOD, URINE LARGE (NEG); GLUCOSE,URINE 150 mg/dL (NEG); HYALINE CAST, URINE 1 /lpf (RARE); KETONE, URINE NEG (NEG); NITRITE,URINE NEG (NEG); PH, URINE 7.5 (5.0-8.5); RENAL EPITHELIAL CELLS 4 /hpf; SQUAMOUS EPITHELIAL CELL URINE <1 /hpf (0-5)
[2017-02-21 03:31] LABS: URINE COLOR DARK-BROWN (YELLW/STRAW)
[2017-02-21 03:32] LABS: COMMENT (UR) CULTURE INDICATED; CULTURE IF INDICATED CULTURE INDICATED
[2017-02-21] MEDS: CHLORHEXIDINE GLUCONATE 2 % 1 PACK (2 CLOTHS) TOP SCH (04:00)
[2017-02-21] MEDS: HYDROCORTISONE SOD SUCCINATE 100 MG VIAL IV PUSH SCH ×3 (05:04→21:00)
[2017-02-21] MEDS: CEFEPIME INJ 2,000 MG in SODIUM CHLORIDE 0.9% INJ 100 ML IV SCH ×3 (05:04→20:59)
[2017-02-21] MEDS: PHENYTOIN INJ 100 MG/2 ML VIAL IV SCH ×3 (05:58→21:00)
[2017-02-21] MEDS: ceFAZolin 2 GM PREMIX 50 ML IV SCH ×3 (05:59→21:01)
[2017-02-21 06:47] LABS: HEMATOCRIT 33.4 % (39.0-51.0); MEAN CELL VOLUME 85.3 FL (80.0-100.0); MEAN CORPUSCULAR HEMOGLOBIN 28.8 PG (27.0-34.0); MEAN CORPUSCULAR HGB CONC 33.8 % (32.0-36.0); PLATELET COUNT 47 TH/MM3 (150-450); RED BLOOD COUNT 3.92 MIL/MM3 (4.50-5.90); RED CELL DISTRIBUTION WIDTH 17.6 % (11.6-17.2); WHITE BLOOD COUNT 8.4 TH/MM3 (4.0-11.0)
[2017-02-21] MEDS: INSULIN ASPART SUPPLEMENTAL SCALE SQ SCH ×4 (06:56→21:00)
[2017-02-21 07:00] LABS: REVIEW FLAG FINAL
[2017-02-21 07:07] LABS: BICARBONATE 28.7 MEQ/L (21.0-32.0); POTASSIUM 4.4 MEQ/L (3.5-5.1)
--- NOTE | 2017-02-21 07:16 | PD.ORT.PN ---
Subjective Subjective Remarks POD 2 s/p left AKA intubated/sedate. no changes Objective Vitals Vital Signs Date Time Temp Pulse Resp B/P Pulse Ox O2 Delivery O2 Flow Rate FiO2 02/21/17 06:00 105 02/21/17 06:00 103 131/72 124/75 02/21/17 04:08 100 50 02/21/17 04:00 99.2 105 19 123/78 100 125/71 02/21/17 04:00 50 02/21/17 04:00 105 02/21/17 02:00 107 02/21/17 00:53 100 50 02/21/17 00:00 106 02/21/17 00:00 50 02/21/17 00:00 99.5 105 18 120/68 98 120/63 02/20/17 22:00 105 02/20/17 20:32 100 50 02/20/17 20:00 105 02/20/17 20:00 99.0 105 18 116/73 97 127/66 02/20/17 20:00 50 02/20/17 19:00 Mechanical Ventilator 50 02/20/17 18:00 107 114/58 119/76 02/20/17 18:00 107 02/20/17 16:11 100 50 02/20/17 16:00 70 02/20/17 16:00 99.1 110 20 116/60 97 105/57 02/20/17 16:00 110 02/20/17 14:00 109 02/20/17 12:00 70 02/20/17 12:00 99.3 111 19 118/72 100 103/53 02/20/17 12:00 111 02/20/17 11:44 100 50 02/20/17 10:00 110 02/20/17 08:52 95 50 02/20/17 08:00 109 02/20/17 08:00 98.8 108 18 112/74 99 113/61 02/20/17 08:00 70 I/O 02/20/17 02/20/17 02/20/17 02/21/17 02/21/17 02/21/17 07:00 15:00 23:00 07:00 15:00 23:00 Intake Total 2212 ml 957 ml 535 ml Output Total 82 ml 2045 ml 90 ml Balance 2130 ml -1088 ml 445 ml Intake IV Total 2212 ml 927 ml 435 ml Tube Feeding 40 ml Tube Irrigant 30 ml 60 ml Output Urine Total 77 ml 40 ml 60 ml Stool Total 0 ml Gastric Drainage Total 0 ml 25 ml Drainage Total 5 ml 5 ml 5 ml Hemodialysis 2000 ml Result Diagram: 02/21/17 0602/20/17 1940 Other Results Laboratory Tests Test 02/20/17 02/20/17 02/21/17 12:15 19:40 00:30 Prothrombin Time 18.6 SEC 17.0 SEC 16.6 SEC (9.8-11.6) (9.8-11.6) (9.8-11.6) Prothromb Time International 1.6 RATIO 1.5 RATIO 1.5 RATIO Ratio Imaging Last 24 hours Impressions Chest X-Ray 02/19/17 0600 Signed Impressions: Service Date/Time: Sunday, February 19, 2017 04:33 - CONCLUSION: No acute pulmonary infiltrates. Stable examination compared to the prior study. Toby Constantino MD Objective Remarks LLE: Clean dry dressing left thigh. Minimal drainage. Assessment & Plan Assessment and Plan 1) left above-knee amputation - POD 2 (02/19/17). Patient has stabilized medically. He is requiring less pressors. Continue critical care. We'll plan on dressing change on Saturday Eleazar Burt Feb 21, 2017 07:16
[2017-02-21] MEDS: DOCUSATE SODIUM 100 MG/10 ML UDC G-TUBE SCH ×2 (09:00→21:02)
[2017-02-21] MEDS: ARTIFICIAL TEARS OPTH SOLN 15 ML BTL EACH EYE SCH ×3 (09:00→17:53)
[2017-02-21] MEDS: MUPIROCIN 2% OINT 1 APPLIC/GM SYR EACH NARE SCH (09:58)
[2017-02-21] MEDS: FAMOTIDINE 20 MG/2 ML VIAL IV PUSH SCH (09:59)
[2017-02-21] MEDS: levETIRAcetam 1000 MG INJ 100 ML IV SCH ×2 (10:00→21:01)
[2017-02-21] MEDS: SODIUM CHLORIDE 0.9% FLUSH 5 ML FLUSH IVF SCH ×2 (10:01→21:00)
--- NOTE | 2017-02-21 10:50 | PD.CARD.PN ---
Subjective Subjective Remarks No events over night Currently stable in NSR, hemodynamically stable on low dose pressors Objective Medications Current Medications Medications (Trade) Dose Ordered Sig/Abdoulaye Route Start Time Stop Time Status Last Admin (Tylenol) 650 mg Q6H PRN PO 02/18/17 04:30 (Morphine Inj) 2 mg Q2H PRN IV 02/18/17 04:30 (Pepcid Inj) 10 mg Q12HR IV PUSH 02/18/17 09:00 02/21/17 09:59 (Ativan Inj) 1 mg Q1H PRN IV 02/18/17 04:30 02/18/17 14:14 (Tears Naturale Opth Soln) 1 drop TID EACH EYE 02/18/17 09:00 02/21/17 09:00 (Zofran Inj) 4 mg Q6H PRN IV 02/18/17 04:30 (Reglan Inj) 5 mg Q6H PRN IV 02/18/17 04:30 Docusate Sodium 100 mg 100 mg Q12H G-TUBE 02/18/17 09:00 02/20/17 21:54 Vasopressin 40 units/Dextrose 100 ml @ 0 mls/hr TITRATE IV 02/18/17 07:00 02/21/17 00:43 Pharmacy Profile Note 0 ml @ 0 mls/hr UNSCH OTHER 02/18/17 07:15 (Maxipime Inj/NS Inj) 100 ml @ 200 mls/hr Q8H IV 02/18/17 12:00 02/21/17 05:04 Miscellaneous Information 1 Q361D XX 02/18/17 07:15 02/18/17 07:15 (Chlorhexidine 2% Cloth) 3 pack Taper DAILY@04 TOP 02/19/17 04:00 02/15/18 03:59 02/21/17 04:00 (Chlorhexidine 2% Cloth) 3 pack UNSCH PRN TOP 02/18/17 07:15 Phenytoin Sodium 100 mg 100 mg Q8HR IV 02/18/17 14:00 02/21/17 05:58 Pantoprazole Sodium 80 mg/ Sodium Chloride 100 ml @ 10 mls/hr Q10H IV 02/18/17 11:00 02/21/17 09:00 (Diprivan 1000 Mg/100ml Inj) 100 ml @ 0 mls/hr TITRATE IV 02/18/17 15:00 02/19/17 00:22 (Bactroban Nasal 2% Oint) 1 applic BID EACH NARE 02/18/17 21:00 02/21/17 09:58 (SoluCORTEF INJ) 100 mg Q8H IV PUSH 02/19/17 04:00 02/21/17 05:04 (D50w (Vial) Inj) 25 ml UNSCH PRN IV PUSH 02/19/17 09:30 Glucagon 1 mg 1 mg UNSCH PRN OTHER 02/19/17 09:30 (NS 1000 ml Inj) 1,000 ml @ 0 mls/hr Q0M PRN IV 02/19/17 10:59 Heparin Sodium (Porcine) 8000 units 8,000 units UNSCH PRN IVF 02/19/17 11:00 Sodium Chloride 1,000 ml @ 200 mls/hr Q5H PRN IV 02/19/17 10:59 Hold (NS 1000 ml Inj) 1,000 ml @ 0 mls/hr Q0M PRN IV 02/19/17 10:59 (Mannitol Inj) 12.5 gm UNSCH PRN IV 02/19/17 11:00 (Albumin 25% Inj) 25 gm UNSCH PRN IV 02/19/17 11:00 (NS Flush) 5 ml UNSCH PRN IV FLUSH 02/19/17 11:00 02/20/17 09:29 (Heparin Inj) UNSCH PRN .XX 02/19/17 11:00 02/20/17 16:05 (Gentamicin (Dialysis) Inj) 20 mg UNSCH PRN IV 02/19/17 11:00 02/20/17 16:05 (Zofran Inj) 4 mg UNSCH PRN IV 02/19/17 11:00 (Tylenol) 650 mg UNSCH PRN PO 02/19/17 11:00 (Benadryl) 25 mg UNSCH PRN PO 02/19/17 11:00 (Nitrostat Sl) 0.4 mg UNSCH PRN SL 02/19/17 11:00 (Catapres) 0.1 mg UNSCH PRN PO 02/19/17 11:00 Gelatin 1 foam 1 foam UNSCH PRN TOP 02/19/17 11:00 (Ancef 2 Gm Premix) 50 ml @ 100 mls/hr Q8H IV 02/19/17 14:00 02/22/17 06:29 02/21/17 05:59 (NS Flush) 2 ml UNSCH PRN IVF 02/19/17 17:00 IV Flush 2 ml 2 ml BID IVF 02/19/17 21:00 02/21/17 10:01 Levetriacetam 100 ml @ 400 mls/hr Q12HR IV 02/19/17 21:00 02/21/17 10:00 (Levophed-Dextrose Drip) 250 ml @ 0 mls/hr TITRATE IV 02/19/17 22:00 02/21/17 00:31 (Phoslo) 667 mg TID PO 02/21/17 13:00 Vital Signs / I&O Vital Signs Date Time Temp Pulse Resp B/P Pulse Ox O2 Delivery O2 Flow Rate FiO2 02/21/17 08:35 98 50 02/21/17 07:00 100 Mechanical Ventilator 50 02/21/17 06:00 105 02/21/17 06:00 103 131/72 124/75 02/21/17 04:08 100 50 02/21/17 04:00 99.2 105 19 123/78 100 125/71 02/21/17 04:00 50 02/21/17 04:00 105 02/21/17 02:00 107 02/21/17 00:53 100 50 02/21/17 00:00 106 02/21/17 00:00 50 02/21/17 00:00 99.5 105 18 120/68 98 120/63 02/20/17 22:00 105 02/20/17 20:32 100 50 02/20/17 20:00 105 02/20/17 20:00 99.0 105 18 116/73 97 127/66 02/20/17 20:00 50 02/20/17 19:00 Mechanical Ventilator 50 02/20/17 18:00 107 114/58 119/76 02/20/17 18:00 107 02/20/17 16:11 100 50 02/20/17 16:00 70 02/20/17 16:00 99.1 110 20 116/60 97 105/57 02/20/17 16:00 110 02/20/17 14:00 109 02/20/17 12:00 70 02/20/17 12:00 99.3 111 19 118/72 100 103/53 02/20/17 12:00 111 02/20/17 11:44 100 50 I/O 02/20/17 02/20/17 02/20/17 02/21/17 02/21/17 02/21/17 07:00 15:00 23:00 07:00 15:00 23:00 Intake Total 2212 ml 957 ml 535 ml Output Total 82 ml 2045 ml 90 ml 50.0 ml Balance 2130 ml -1088 ml 445 ml -50.0 ml Intake IV Total 2212 ml 927 ml 435 ml Tube Feeding 40 ml Tube Irrigant 30 ml 60 ml Output Urine Total 77 ml 40 ml 60 ml Stool Total 0 ml Gastric Drainage Total 0 ml 25 ml Tube Feeding Residual Discard 50.0 ml Drainage Total 5 ml 5 ml 5 ml Hemodialysis 2000 ml Physical Exam GENERAL: Intubated SKIN: Warm and dry. Left lower extremity with edema/induration HEAD: Atraumatic. Normocephalic. EYES: Pupils equal and round. No scleral icterus. No injection or drainage. ENT: No nasal bleeding or discharge. Mucous membranes pink and moist. NECK: Trachea midline. No JVD. CARDIOVASCULAR: Regular rate and rhythm. Tachy RESPIRATORY: No accessory muscle use. Decreased breath sounds bilaterally GASTROINTESTINAL: Abdomen soft, non-tender, nondistended. Hepatic and splenic margins not palpable. MUSCULOSKELETAL: Left lower extremity AKA NEUROLOGICAL: Unable to determine Laboratory Laboratory Tests Test 02/20/17 02/20/17 02/21/17 02/21/17 12:15 19:40 00:30 02:50 White Blood Count 9.8 TH/MM3 10.1 TH/MM3 9.4 TH/MM3 Red Blood Count 3.95 MIL/MM3 4.03 MIL/MM3 3.96 MIL/MM3 Hemoglobin 11.5 GM/DL 11.8 GM/DL 11.8 GM/DL Hematocrit 33.1 % 33.7 % 33.4 % Mean Corpuscular Volume 84.0 FL 83.7 FL 84.5 FL Mean Corpuscular Hemoglobin 29.2 PG 29.3 PG 29.7 PG Mean Corpuscular Hemoglobin 34.8 % 35.1 % 35.2 % Concent Red Cell Distribution Width 16.8 % 17.5 % 17.5 % Platelet Count 67 TH/MM3 62 TH/MM3 56 TH/MM3 Mean Platelet Volume 8.7 FL 8.8 FL 8.6 FL Prothrombin Time 18.6 SEC 17.0 SEC 16.6 SEC Prothromb Time International 1.6 RATIO 1.5 RATIO 1.5 RATIO Ratio Activated Partial 41.1 SEC 40.7 SEC 40.8 SEC Thromboplast Time Fibrinogen 237 mg/dL 250 mg/dL 255 mg/dL Random Vancomycin Level 17.4 COMMENT Sodium Level 144 MEQ/L Potassium Level 4.3 MEQ/L Chloride Level 103 MEQ/L Carbon Dioxide Level 31.8 MEQ/L Anion Gap 9 MEQ/L Blood Urea Nitrogen 43 MG/DL Creatinine 3.23 MG/DL Estimat Glomerular Filtration 20 ML/MIN Rate Random Glucose 148 MG/DL Calcium Level 5.9 MG/DL Protein Corrected Calcium 7.3 MG/DL Total Protein 4.1 GM/DL Urine Color DARK-BROWN Urine Turbidity HAZY Urine pH 7.5 Urine Specific [place] 1.016 Urine Protein 30 mg/dL Urine Glucose (UA) 150 mg/dL Urine Ketones NEG mg/dL Urine Occult Blood LARGE Urine Nitrite NEG Urine Bilirubin NEG Urine Urobilinogen LESS THAN 2.0 MG/DL Urine Leukocyte Esterase NEG Urine RBC 12 /hpf Urine WBC 22 /hpf Urine WBC Clumps FEW Urine Squamous Epithelial <1 /hpf Cells Urine Renal Epithelial Cells 4 /hpf Urine Amorphous Sediment RARE Urine Bacteria RARE /hpf Urine Hyaline Casts 1 /lpf Microscopic Urinalysis Comment CULTURE INDICATED Test 02/21/17 06:05 White Blood Count 8.4 TH/MM3 Red Blood Count 3.92 MIL/MM3 Hemoglobin 11.3 GM/DL Hematocrit 33.4 % Mean Corpuscular Volume 85.3 FL Mean Corpuscular Hemoglobin 28.8 PG Mean Corpuscular Hemoglobin 33.8 % Concent Red Cell Distribution Width 17.6 % Platelet Count 47 TH/MM3 Mean Platelet Volume 9.0 FL Sodium Level 142 MEQ/L Potassium Level 4.4 MEQ/L Chloride Level 103 MEQ/L Carbon Dioxide Level 28.7 MEQ/L Anion Gap 10 MEQ/L Blood Urea Nitrogen 58 MG/DL Creatinine 4.08 MG/DL Estimat Glomerular Filtration 15 ML/MIN Rate Random Glucose 191 MG/DL Calcium Level 5.9 MG/DL Phosphorus Level 5.7 MG/DL Lactate Dehydrogenase 1686 U/L Albumin 1.5 GM/DL Assessment and Plan Problem List: (1) Cardiopulmonary arrest with successful resuscitation (2) Sepsis with multi-organ dysfunction (3) Renal failure (4) Hyperkalemia (5) Hypothermia (6) Compartment syndrome (7) NSTEMI (non-ST elevated myocardial infarction) (8) Rhabdomyolysis Assessment and Plan 1) S/p fasciotomy... but with excessive bleeding so went for left AKA, since has been relatively stable 2) Continue support care 3) NSTEMI Type 2 due to cardiac arrest, CPR, hypotension, sepsis 4) EF 45% 5) Afib with RVR most likely due to excessive sympathetic state as well as overall acute illness Currently sinus rhythm Not an anticoagulation candidate at this time If more episodes, consider Lopressor IV or if still on pressors, can be loaded with Digoxin Problem Qualifiers (1) Hypothermia: Qualified Code: T68.XXXA - Hypothermia, initial encounter (2) Compartment syndrome: Qualified Code: T79.A22A - Traumatic compartment syndrome of left lower extremity, initial encounter Vern Keane DO Feb 21, 2017 10:49
--- NOTE | 2017-02-21 11:36 | RADRPT ---
EXAM DATE/TIME: 02/21/2017 09:42 [facility] COMPARISON: No previous studies available for comparison. INDICATIONS : Evaluate nasogastric tube placement MEDICAL HISTORY : None. SURGICAL HISTORY : None. ENCOUNTER: Subsequent ACUITY: 1 week PAIN SCORE: Non-responsive. LOCATION: Abdomen FINDINGS: A single AP portable view of the upper abdomen was obtained and demonstrates a nasogastric tube in pl [address] with the tip projected over the distal stomach. Gas and stool is noted segmentally in the bowel. There is no evidence of free air. The heart size appears mildly prominent. There is hazy opacity at t he left lung base. Overlying electrocardiogram leads are present. CONCLUSION: Limited single view exam demonstrating nasogastric tube in place with the tip projected over the dist al stomach.. Dayo Christopher MD on February 21, 2017 at 11:33 Board Certified Radiologist. This report was verified electronically.
[2017-02-21 11:38] LABS: BLOOD GAS BASE EXCESS 3.8 mmol/L (-2-2); BLOOD GAS CARBOXYHEMOGLOBIN 1.1 % (0-4); BLOOD GAS HCO3 27 mmol/L (22-26); BLOOD GAS O2 HGB SATURATION 97 % (90-100); BLOOD GAS PCO2 34 mmHg (38-42); BLOOD GAS PO2 159 mmHg (61-120); BLOOD GAS TOTAL HGB 11.5 G/DL (12.0-16.0); CRITICAL VALUE YES; OXYGEN DEVICE VENTILATOR; TEMP CORR TO 98.6
[2017-02-21 11:39] LABS: DRAW SITE ART LINE; FIO2 50 %; NUMBER OF ARTERIAL PUNCTURES 0; STAT NO; ULNAR PULSE PRESENT; VENT SETTINGS AC16/500/PEEP5
--- NOTE | 2017-02-21 12:05 | RADRPT ---
EXAM DATE/TIME: 02/21/2017 11:39 [facility] COMPARISON: CHEST SINGLE AP, February 20, 2017, 3:50. INDICATIONS : Short of breath, respiratory failure MEDICAL HISTORY : None. SURGICAL HISTORY : None. ENCOUNTER: Subsequent ACUITY: 1 week PAIN SCORE: Non-responsive. LOCATION: Bilateral chest FINDINGS: Portable AP view of the chest demonstrates a normal-sized cardiac silhouette. ETT, NG tube, right IJ line, and left IJ line remain present. Lungs are underinflated and there is hazy opacity in the left mid and lower lung zone with retrocardiac opacity area and there is likely atelectasis at the right b ase. No pneumothorax is visualized. Bones demonstrate no acute finding. CONCLUSION: Abnormal left basilar opacity could represent atelectasis, consolidation, and/or effusion. Hima Richards MD on February 21, 2017 at 12:01 Board Certified Radiologist. This report was verified electronically.
[2017-02-21 12:18] LABS: HEMATOCRIT 33.8 % (39.0-51.0); MEAN CELL VOLUME 85.2 FL (80.0-100.0); MEAN CORPUSCULAR HEMOGLOBIN 29.6 PG (27.0-34.0); MEAN CORPUSCULAR HGB CONC 34.7 % (32.0-36.0); PLATELET COUNT 54 TH/MM3 (150-450); RED BLOOD COUNT 3.96 MIL/MM3 (4.50-5.90); RED CELL DISTRIBUTION WIDTH 17.5 % (11.6-17.2); WHITE BLOOD COUNT 8.5 TH/MM3 (4.0-11.0)
[2017-02-21 12:22] LABS: REVIEW FLAG FINAL
[2017-02-21 12:24] LABS: CKMB 50.4 NG/ML (0.5-3.6)
[2017-02-21] MEDS: CALCIUM ACETATE 667 MG CAP PO SCH ×2 (12:25→17:53)
[2017-02-21] MEDS ORDERED: CALCIUM GLUCONATE INJ 2 GM in DEXTROSE 5% IN WATER 100ML INJ 100 ML IV ONE ×2 (13:00)
--- NOTE | 2017-02-21 13:56 | HHI.NPPN ---
Subjective General Problems: Edema Renal Failure: Acute Interval History His name is now known, family has been to see him. He is now posturing. Has fluid overload. Still on pressors. Severely hypocalcemic. (Elma Rudolph) Review of Systems General General Remarks unable to evaluate (Elma Rudolph) Objective Data Data 02/20/17 02/21/17 19:00 07:00 Intake Total 1492 ml Output Total 2000 ml 135 ml Balance -2000 ml 1357 ml Intake IV Total 1362 ml Tube Feeding 40 ml Tube Irrigant 90 ml Output Urine Total 100 ml Gastric Drainage Total 25 ml Drainage Total 10 ml Hemodialysis 2000 ml Vital Signs Date Time Temp Pulse Resp B/P Pulse Ox O2 Delivery O2 Flow Rate FiO2 02/21/17 12:15 100 50 02/21/17 08:35 98 50 02/21/17 08:00 104 02/21/17 08:00 99.3 104 20 132/72 100 02/21/17 08:00 50 02/21/17 07:00 100 Mechanical Ventilator 50 02/21/17 06:00 105 02/21/17 06:00 103 131/72 124/75 02/21/17 04:08 100 50 02/21/17 04:00 99.2 105 19 123/78 100 125/71 02/21/17 04:00 50 02/21/17 04:00 105 02/21/17 02:00 107 02/21/17 00:53 100 50 02/21/17 00:00 106 02/21/17 00:00 50 02/21/17 00:00 99.5 105 18 120/68 98 120/63 02/20/17 22:00 105 02/20/17 20:32 100 50 02/20/17 20:00 105 02/20/17 20:00 99.0 105 18 116/73 97 127/66 02/20/17 20:00 50 02/20/17 19:00 Mechanical Ventilator 50 02/20/17 18:00 107 114/58 119/76 02/20/17 18:00 107 02/20/17 16:11 100 50 02/20/17 16:00 70 02/20/17 16:00 99.1 110 20 116/60 97 105/57 02/20/17 16:00 110 02/20/17 14:00 109 (Elma Rudolph) -: 02/21/17 1150 02/21/17 0605 Microbiology 02/21/17 Urine Culture, Received Pending Imaging Last Impressions Chest X-Ray 02/21/17 0000 Signed Impressions: Service Date/Time: January 11:39 - CONCLUSION: Abnormal left basilar opacity could represent atelectasis, consolidation, and/or effusion. Hima Richards MD Abdomen X-Ray 02/21/17 0000 Signed Impressions: Service Date/Time: January 09:42 - CONCLUSION: Limited single view exam demonstrating nasogastric tube in place with the tip projected over the distal stomach.. Dayo Christopher MD Head CT 02/18/17 0241 Signed Impressions: Service Date/Time: Saturday, February 18, 2017 04:27 - CONCLUSION: Unremarkable CT scan of the brain.. Toby Constantino MD Tubes & Lines: Vas-Cath, Mccarthy Tubes & Lines Comment a line, rectal tube, TLC Drip Comment vasopressin (Elma Rudolph) Physical Exam General Appearance: Pale, Malnourished Appearance Remarks ashen in color (Elma Rudolph) Throat Throat Exam: Oral Mucosa [place] & Moist (Elma Rudolph) Pulmonary Resp Exam: Breath Sounds Equal, No Distress, Crackles (Elma Rudolph) Cardiology CV Exam: Regular, Normal Sinus Rhythm, Good Perfusion (Elma Rudolph) Gastrointestinal/Abdomen GI Exam: Soft, Non-Tender (Elma Rudolph) Genitourinary Remarks significant scrotal edema (Elma Rudolph) Musculoskeletal MS Exam: Joints Intact, Unable to Ambulate (Elma Rudolph) Integumentary Skin Exam: Warm, Dry Skin Remarks s/p left AKA, stump is dressed, clean and dry (Elma Rudolph) Extremeties Extremities Exam: Pedal Pulses Palpable Extremeties Remarks on right (Elma Rudolph) Neurologic Neuro Exam: Unresponsive, Sedated, Comatose Neuro Remarks decerebrate posturing (Elma Rudolph) Assessment/Plan Assessment Summary: CLAUDIA/Acute Renal Failure, Acute Tubular Necrosis, Fluid/ Volume Overload, Hypotension Electrolyte Assessment: Hypocalcemia Problem List: (1) Plan: ATN from cardiac arrest and rhabdomyolysis he is oliguric vascath placed and HD initiated 02/19 he had dialysis Saturday (2LUF) and Saturday (3L UF) has extensive fluid overload, dialyze again today, UF as tolerated avoid IVF Avoid nephrotoxic agents. Pressors to maintain MAP > 65mmHg daily metabolic profile (2) Plan: due to fall with unknown down time also cocaine positive follow CPK, levels are improving (3) Plan: with severe vitamin D deficiency start calcitriol, vitamin D calcium replacement ordered (4) Plan: s/p AKA Dr. Purdy (ortho) following, appreciate recommendations (5) Plan: GI following. he was given a trial of trickle feeding but nurse reports bile in mouth, therefore tube feeding was stopped (6) Plan: Prognosis is poor. EEG reviewed Neurology following. he is not requiring sedation and is unresponsive to stimuli now posturing (7) Plan: History of seizure disorder. Unclear if he was compliant with medications. Neurology following. he is on Keppra, Dilantin, and propofol here, no witnessed seizure activity reported (8) Plan: corrected with dialysis, monitor for recurrence (9) Plan: platelet transfusion ordered (Elma Rudolph) Plan patient was seen and examined. Underwent EEG examination. Dialysis again today. Thrombocytopenia and high LDH are noted. due to DIC? Consider Hematology evaluation. No schistocytes seen (no comment of presence of schistocytes) (Jose Hernandez MD) Elma Rudolph Feb 21, 2017 13:56 Jose Hernandez MD Feb 22, 2017 13:33
--- NOTE | 2017-02-21 14:13 | HHI.CCPN ---
Subjective Remarks/Hospital Course 61 years old male brought as a status post cardiac arrest. The history is obtained from medical chart. The patient has history of epilepsy. He is normally compliant with his antiepileptic agents. The patient had been conversing with roommates through a doorway about 3 hours prior to EMS arrival. He had become unresponsive and EMS was activated. They found the patient on the floor. His mental status was altered apparently postictal nonverbal. The patient was prepared for transport to the ER and on the way to the ambulance he became asystolic. ACLS protocol was initiated. The patient was intubated and chest compressions were started. About 12 minutes of chest compressions were performed. He received 1 dose of epinephrine. On arrival to the ER chest compressions were continued and shortly thereafter he was found to have a pulse. Levophed drip started. In the ER the patient received multiple rounds of epinephrine and bicarbonate as he lost pulses twice more initially each episode lasting about 2-3 minutes. EKG obtained shortly after the patient' s arrival revealed ST elevations in precordial leads V1 through V5 as well as II , III and aVF. STEMI alert was activated. Hospice Executive Director Dr. Keane evaluated the patient at the bedside. A repeat EKG was performed revealing no ST elevation SD. The patient was found to have some swelling and induration of the left lower extremity at the calf. A [facility] needle was employed to check compartment pressures of the anterior compartment in the superficial posterior compartment with measurements of 47 and 45 respectively. Finally the patient was found to be somewhat hypothermic and blood cultures were drawn and antibiotics initiated , cefepime and vancomycin. The patient also has hyperkalemia at 6.9 and insulin dextrose, calcium and bicarbonate were given. The creatinine is also about 3.5. Subjective 02/18/17 Upon entering patient's room at 0600 hrs., The patient was noted to have tonic-clonic jerking, completely unresponsive has not been on sedation since admission to the hospital. The patient has a known history of a seizure disorder. Keppra and Dilantin levels were obtained and pending. The patient was loaded with 1 g Dilantin IV, and placed on Dilantin 100 mg every 8 hours. The patient was noted to be on maximum doses of Levophed,20 mcgs, a central line was placed and the patient was placed on a second vasopressor, vasopressin@ 0.04. Neurology was consulted , a stat EEG was ordered. The patient's sodium bicarbonate infusion was increased to 150 cc/hr. the patient was noted to be oliguric in the setting of rhabdomyolysis the patient was bolused an additional liter of normal saline, and NS infusion at 150cc/hr. BMP pending. 02/19/17 Tmax 100.8. Over the last 24 hours the patient continues to be hemodynamically unstable, requiring 2 vasopressors for maintenance of a map ranging from 69-77. The patient was placed on a low dose propofol infusion secondary to continue tonic-clonic movements status post administration of Keppra and Dilantin. An EEG was performed showing a severe encephalopathic state. No intervention was performed yesterday to the left leg with compartment syndrome secondary to time sensitivity of intervention had passed, most likely prior to admission to the hospital. Demarcation of the left lower extremity has begun with mottling, edema, and blistering. Also cause necrosis continues with severe electrolyte abnormalities throughout the night to include hyperkalemia requiring continuous doses of calcium gluconate, Kayexalate now additionally adding D50 and insulin. The patient is noted to have continued elevations in hepatic enzymes most likely secondary to rhabdomyolysis. The patient continues to have hyperkalemia hyperphosphatemia due to muscle necrosis and hypocalcemia with challenging management. Steroids have been added to medication related regimen, electrolytes continued to be closely monitored. Nephrology has been consulted, appreciate recommendations. Discussion with Dr. Purdy, last evening the severe metabolic derangements, secondary to continued rhabdomyolysis with significant muscle necrosis of left lower extremity and continued SIRS response. Aggressive measures have been initiated since admission with case management to it and attempts to identify patient, and locate family thus far has been unsuccessful. The patient continues to be hemodynamically unstable with with continued elevation in vasopressor requirements. After this extensive discussion plans for emergent surgical intervention for left lower extremity today. 02/21/16 TMax 99.0. Yesterday the patient underwent a wide excision fasciotomy of the left lower extremity, and upon return from the OR, the patient's wound VAC was noted to be continuously flowing with blood, blood loss approximated to 2 L in the ICU, and worsening hemodynamic instability requiring vasopressor Levophed 20 mcgs in addition to vasopressin 0.04 mcgs. The patient emergently returned to the OR, and underwent left above knee amputation. The patient received multiple blood products to include 10 units of packed red blood cells, 5 units of platelets 2 units of FFP, 2 units of cryoprecipitate over the last 24 hours, now stabilized. Immediately on return from the OR the patient underwent dialysis, with 1.5 L removed, and potassium level normalized. The patient was noted to be an atrial fibrillation with RVR, heart rate in the 150s upon return from the OR. The patient received digoxin 0.5 mg, and subsequently 2 L over 12 hours and converted to sinus tachycardia at 0500. The patient now is currently on low-dose Levophed currently at 2 mcgs. The patient remains off sedation since 5 PM yesterday, currently nonresponsive. Creatinine kinase levels trending down. 02/21: The patient underwent hemodialysis yesterday with removal of 2 L. All sedating agents have been discontinued since 02/19/17 at 1700, the patient remains unresponsive, now extension posturing noted on neurological exam . Plan for repeat EEG, for assessment of subclinical seizures versus anoxic encephalopathy. Patient not tolerating trickle tube feeds, 10 cc an hour. Discontinued this a.m.. KUB obtained no obstruction. Family contacted discussed and updated mother who lives in [place] on patient's medical status. Plans for palliative care consult. Objective Vital Signs Date Time Temp Pulse Resp B/P Pulse Ox O2 Delivery O2 Flow Rate FiO2 02/21/17 12:15 100 50 02/21/17 08:00 104 02/21/17 08:00 99.3 20 132/72 02/21/17 07:00 Mechanical Ventilator Intake and Output 02/20/17 02/20/17 02/21/17 08:00 16:00 00:00 Intake Total 2212 ml 957 ml Output Total 82 ml 2045 ml Balance 2130 ml -1088 ml Result Diagram: 02/21/17 1150 02/21/17 0605 Other Results Laboratory Tests Test 02/21/17 11:30 Blood Gas Puncture Site ART LINE Blood Gas Patient Temperature 98.6 Blood Gas HCO3 27 mmol/L (22-26) Blood Gas Base Excess 3.8 mmol/L (-2-2) Blood Gas Oxygen Saturation 97 % (90-100) Arterial Blood pH 7.51 (7.380-7.420) Arterial Blood Partial 34 mmHg (38-42) Pressure CO2 Arterial Blood Partial 159 mmHg Pressure O2 (61-120) Arterial Blood Oxygen Content 16.0 Vol % (12.0-20.0) Arterial Blood 1.1 % (0-4) Carboxyhemoglobin Arterial Blood Methemoglobin 1.0 % (0-2) Blood Gas Hemoglobin 11.5 G/DL (12.0-16.0) Oxygen Delivery Device VENTILATOR Blood Gas Ventilator Setting AC16/500/PEEP5 Blood Gas Inspired Oxygen 50 % Imaging Last Impressions Chest X-Ray 02/21/17 0000 Signed Impressions: Service Date/Time: January 11:39 - CONCLUSION: Abnormal left basilar opacity could represent atelectasis, consolidation, and/or effusion. Hima Richards MD Abdomen X-Ray 02/21/17 0000 Signed Impressions: Service Date/Time: January 09:42 - CONCLUSION: Limited single view exam demonstrating nasogastric tube in place with the tip projected over the distal stomach.. Dayo Christopher MD Head CT 02/18/17 024 Signed Impressions: Service Date/Time: Saturday, February 18, 2017 04:27 - CONCLUSION: Unremarkable CT scan of the brain.. Toby Constantino MD Last Impressions Chest X-Ray 02/20/17 0600 Signed Impressions: Service Date/Time: Monday, February 20, 2017 03:50 - CONCLUSION: Mild increase in interstitial markings bilaterally suggestive of some pulmonary edema. Otherwise, no other significant changes. Toby Constantino MD Head CT 02/18/17 024 Signed Impressions: Service Date/Time: Saturday, February 18, 2017 04:27 - CONCLUSION: Unremarkable CT scan of the brain.. Toby Constantino MD Last 24 hours Impressions Chest X-Ray 02/18/17 024 Signed Impressions: Service Date/Time: Saturday, February 18, 2017 02:45 - CONCLUSION: 1. No focal or acute intrathoracic disease. 2. NG tube tip in distal esophagus. Recommend advancing another 10 cm. Toby Constantino MD Objective Remarks GENERAL: Well-nourished, well-developed critically ill male intubated no sedation, stents or posturing SKIN: Warm and dry. HEAD: Normocephalic. EYES: No scleral icterus. No injection or drainage. Scleral edema mild. Pupils equal and round NECK: Supple, trachea midline. No JVD or lymphadenopathy. Orotracheally intubated CARDIOVASCULAR: Regular rate and rhythm without murmurs, gallops, or rubs. RESPIRATORY: Mechanical ventilation, overbreathing the ventilator. Breath sounds equal bilaterally. No accessory muscle use. GASTROINTESTINAL: Abdomen soft, non-tender, nondistended. OGT to low suction, MUSCULOSKELETAL: No cyanosis, left AKA, dressing C/D/I EXTREMITIES: No clubbing or cyanosis. 1+ peripheral edema noted bilateral upper extremities Urinary Catheter: Yes Mccarthy insert reason: Measure Accurate Output Date of Insertion: Feb 18, 2017 Vascular Central Line Catheter: Yes Date of Insertion: Feb 18, 2017 Line: Central Venous Catheter Side: Right Location: Internal, Jugular Reason for Continuation Vasoactive medication administration, and CVP monitoring A/P Assessment and Plan Plan by systems: Neurologic: Seizure disorder Metabolic encephalopathy Possible anoxic encephalopathy Neurochecks per ICU protocol Off sedation since 02/19 at 1700, extensor posturing noted Repeat [id number] results Continue Dilantin 100 mg every 8 hours, and Keppra, monitor levels, upon hospital admission noted Dilantin level subtherapeutic, Keppra level 6.5, subtherapeutic Neurology following-Dr. Suggs 02/18 EEG-severely attenuated electrographic activity with a burst suppression pattern consistent with severe encephalopathic state 02/18CT brain unremarkable 02/19-avoid sedating medications Respiratory: Respiratory arrest secondary to cardiac arrest Possible aspiration Pulmonary edema Possible TRALI Maintain O2 sat greater than 92%, wean FiO2 as tolerated Mechanical vent settings AC/PC 18/500/+5/50 ABG-7.51/33/159/26/3.8 Ventilator bundle Maintain head of bed greater than 30 Bronchodilators every 6 hours schedule every 2 hours when necessary Empiric antibiotics continued 02/21 chest x-rayleft mid left lower lung opacity, atelectatic right lung base Continue ARDS protocol, minimal FiO2, with permissive hypercapnea Cardiovascular: Asystolic cardiac arrest 2 Hypotension secondary to multisystem organ failure New onset A. fib with RVR-resolved Initial 12-lead EKG 02/18 ST elevations V1V5 and II, III aVF, with resolution Status post CPR with ROSC x 3 rounds of CPR Cardiology on board, Dr. Bragg no interventions at this time 02/19-ECHO -EF 45%, no RWMA Currently vasopressor support the Levophed off (02/21), Vasopressin 0.04 mcgs- continue to wean Wean as tolerated maintain MAP greater than 60 mmHg 02/19 A. fib RVR converted with digoxin 0.51 dose Renal: Severe metabolic acidosis secondary to rhabdomyolysis Acute kidney injury secondary to rhabdomyolysis Oliguria Acute renal failure 02/19 D5W NaHCO3 infusion at 75 cc /hr 02/19 Vas-Cath placement-left IJ UOP 293 for last 24 hours CK level decreasing Nephrology following-Dr. Hernandez 02/20 IHD- 2L off 02/20 Creatinine 3.0->4.0 today, potassium 4.4 -- Strict I/Os FEN/GI: Hyperkalemia-resolved Hyperphosphatemia Hypocalcemia Melena Transaminitis Hepatitis C Maintain NPO status-OGT to LIWS Replete electrolytes per ICU protocol Electrolyte abnormalities continue in the setting of rhabdomyolysis, continue frequent monitoring [place] labs-[place] 6 [place] [address]-> [address]->11,176 today LDH 2011-> 1816 -> 1686 Calcium gluconate 2 g IV now, protein corrected calcium 7.6 Continue Protonix infusion Gastroenterology following-Dr. Molina-Initiation of tubefeeds at trickle 10 cc an hour yesterday, not tolerated by patient extensive residual. Tube feeds discontinued Heme/ID: Sepsis Leukocytosis-resolved Thrombocytopenia DIC-hypofibrinogenemia (resolved) Coagulopathy secondary to hepatic injury Bandemia Continue Zosyn and vancomycin, day 3, Monitor serial CBC. WBC 12.7 INR 1.7-> 1.5 today Fibrinogen level 255, stable Serial lactate levels-8.2 Bands38->47 today 02/18 blood cultures-negative growth to date 02/19 Hydrocortisone 50 mg every 6 hours added to medication regimen 02/19 transfusion PRBCs 10 units, cryoprecipitate 2 units, FFP 2 units, platelets 5 units 02/21 platelet count 47, transfused 2 units of platelets. Will continue to transfuse for platelet count less than 50,000 Endocrine: Diabetes mellitus 2 Hypoglycemia-resolved Glucose monitoring per ICU protocol, low-dose regimen -- SSI Msk: Rhabdomyolysis S/P wide excision fasciotomy 02/19 Left above-knee amputation-POD#2 Orthopedics following-Dr. Purdy- plan for dressing change on Saturday, and normal drainage Continue monitor serial electrolytes, and hepatic panels Monitor LDH F/U CK levels Prophylaxis: GI Prophylaxis Protonix infusion DVT Prophylaxis -- SCD right leg, no pharmacological DVT prophylaxis in the setting of acute bleeding and coagulopathic state Lines: PIV's x 2 .RI J Central line 02/18, right radial a line 02/18, left vascular catheter 02/19 Dispo: Discussed with DIRECTOR OF RESERVATIONS at bedside. Patient identified, family members located. Mother, Naa lives in [place] [phone] . I provided the patient's mother complete history and updated on the patient's medical status. The patient's prognosis is extremely guarded at this time. Patient's neurological status has not improved, repeat EEG to be obtained to rule out subclinical epileptiform activity versus anoxic encephalopathy. Palliative care consult initiated. Family requests aggressive treatment at this time. This patient remains critically ill with one or more organ systems which are or may become a threat to life. I have spent in excess of 47 minutes discontinuously in the care and management of this patient. This time is exclusive of procedures, and includes, but is not limited to, evaluation of the patient, review of the medical record, discussions with family, consultants, nursing staff, or respiratory therapy, and documentation in the medical record. Physician Aileen Beasley MD Feb 21, 2017 14:13
[2017-02-21] MEDS: MANNITOL 12.5 GM/50 ML VIAL IV PRN (15:05)
[2017-02-21] MEDS: CHOLECALCIFEROL (VIT D3) 5000 UNIT CAP PO SCH (15:15)
[2017-02-21] MEDS: GENTAMICIN SULFATE (DIALYSIS USE ONLY) 20 MG/2 ML VIAL IV PRN (17:47)
[2017-02-21] MEDS: HEPARIN SODIUM - IV 10,000 UNITS/10 ML VIAL PRN (17:48)
[2017-02-21] MEDS: CALCITRIOL 0.25 MCG CAP PO SCH (17:53)
[2017-02-21 19:49] LABS: HEMATOCRIT 36.2 % (39.0-51.0); MEAN CELL VOLUME 86.3 FL (80.0-100.0); MEAN CORPUSCULAR HEMOGLOBIN 28.5 PG (27.0-34.0); PLATELET COUNT 91 TH/MM3 (150-450); WHITE BLOOD COUNT 10.5 TH/MM3 (4.0-11.0)
[2017-02-21 19:56] LABS: REVIEW FLAG FINAL
[2017-02-21] MEDS: SODIUM CHLORIDE 0.9% FLUSH 10 ML FLUSH IV FLUSH PRN (21:01)
[2017-02-22] VITALS (18 sets, daily range): BP systolic 120–144; BP diastolic 64–83; PULSE 90–104; RESP 16–21; TEMP 98.2–98.8; O2SAT 100
[2017-02-22 00:34] LABS: HEMATOCRIT 33.3 % (39.0-51.0); MEAN CORPUSCULAR HEMOGLOBIN 29.1 PG (27.0-34.0); MEAN CORPUSCULAR HGB CONC 33.5 % (32.0-36.0); PLATELET COUNT 84 TH/MM3 (150-450); RED BLOOD COUNT 3.83 MIL/MM3 (4.50-5.90)
[2017-02-22 00:35] LABS: REVIEW FLAG FINAL
[2017-02-22] MEDS: CHLORHEXIDINE GLUCONATE 2 % 1 PACK (2 CLOTHS) TOP SCH (04:00)
--- NOTE | 2017-02-22 04:33 | RADRPT ---
EXAM DATE/TIME: 02/22/2017 03:42 [facility] COMPARISON: No previous studies available for comparison. INDICATIONS : Shortness of breath. MEDICAL HISTORY : None. SURGICAL HISTORY : None. ENCOUNTER: Subsequent ACUITY: 4 - 6 days PAIN SCORE: Non-responsive. LOCATION: Bilateral chest FINDINGS: Small bilateral pleural effusions are again noted. No infiltrate seen. No pneumothorax. Heart size stable, normal. Endotracheal tube tip is about 2 cm above the nicola. Nasogastric tube courses into the stomach. Bilateral internal jugular central venous catheters are present, right tip in the superior vena cava, left hip at the atriocaval junction. CONCLUSION: No significant change. Hima Bright MD on February 22, 2017 at 4:30 Board Certified Radiologist. This report was verified electronically.
[2017-02-22] MEDS: PANTOPRAZOLE INJ 80 MG in SODIUM CHLORIDE 0.9% INJ 100 ML IV SCH ×2 (05:00→15:52)
[2017-02-22] MEDS: ceFAZolin 2 GM PREMIX 50 ML IV SCH (05:15)
[2017-02-22] MEDS: PHENYTOIN INJ 100 MG/2 ML VIAL IV SCH ×2 (05:16→13:25)
[2017-02-22] MEDS: HYDROCORTISONE SOD SUCCINATE 100 MG VIAL IV PUSH SCH ×3 (05:16→20:28)
[2017-02-22] MEDS: CEFEPIME INJ 2,000 MG in SODIUM CHLORIDE 0.9% INJ 100 ML IV SCH ×2 (05:17→11:44)
[2017-02-22 06:48] LABS: BLOOD GAS BASE EXCESS 3.2 mmol/L (-2-2); BLOOD GAS CARBOXYHEMOGLOBIN 1.2 % (0-4); BLOOD GAS HCO3 27 mmol/L (22-26); BLOOD GAS METHEMOGLOBIN 1.1 % (0-2); BLOOD GAS O2 HGB SATURATION 97 % (90-100); BLOOD GAS OXYGEN CONTENT 16.5 Vol % (12.0-20.0); BLOOD GAS PCO2 35 mmHg (38-42); BLOOD GAS PO2 191 mmHg (61-120); BLOOD GAS TOTAL HGB 11.8 G/DL (12.0-16.0); TEMP CORR TO 98.6
[2017-02-22 06:49] LABS: CRITICAL VALUE NO; OXYGEN DEVICE VENTILATOR
[2017-02-22 06:50] LABS: FIO2 50 %; VENT SETTINGS PRVC/AC
[2017-02-22 06:51] LABS: DRAW SITE ART LINE; STAT NO
[2017-02-22] MEDS: INSULIN ASPART SUPPLEMENTAL SCALE SQ SCH ×4 (07:00→21:00)
[2017-02-22 07:04] LABS: HEMATOCRIT 31.7 % (39.0-51.0); MEAN CELL VOLUME 86.4 FL (80.0-100.0); MEAN CORPUSCULAR HEMOGLOBIN 30.1 PG (27.0-34.0); MEAN CORPUSCULAR HGB CONC 34.9 % (32.0-36.0); PLATELET COUNT 69 TH/MM3 (150-450); RED BLOOD COUNT 3.67 MIL/MM3 (4.50-5.90); WHITE BLOOD COUNT 8.5 TH/MM3 (4.0-11.0)
[2017-02-22 07:09] LABS: INTERNATIONAL NORMALIZED RATIO 1.5 RATIO; PROTHROMBIN TIME - PATIENT 16.7 SEC (9.8-11.6)
[2017-02-22 07:13] LABS: REVIEW FLAG FINAL
[2017-02-22 07:50] LABS: BICARBONATE 28.4 MEQ/L (21.0-32.0); CALCIUM-PROTEIN CORRECTED 8.1 MG/DL (8.5-10.1); MAGNESIUM 2.3 MG/DL (1.5-2.5); POTASSIUM 4.8 MEQ/L (3.5-5.1); TOTAL BILIRUBIN ADULT 5.1 MG/DL (0.2-1.0)
[2017-02-22] MEDS: VASOPRESSIN 40 U/100 ML D5W Titrate, Post Cardiac Surgery IV SCH ×2 (08:12)
[2017-02-22 08:21] LABS: CKMB 27.9 NG/ML (0.5-3.6)
[2017-02-22] MEDS: ARTIFICIAL TEARS OPTH SOLN 15 ML BTL EACH EYE SCH ×3 (09:00→17:30)
[2017-02-22] MEDS: MUPIROCIN 2% OINT 1 APPLIC/GM SYR EACH NARE SCH ×2 (09:04→20:29)
[2017-02-22] MEDS: CALCITRIOL 0.25 MCG CAP PO SCH (09:05)
[2017-02-22] MEDS: SODIUM CHLORIDE 0.9% FLUSH 5 ML FLUSH IVF SCH ×2 (09:05→20:30)
[2017-02-22] MEDS: DOCUSATE SODIUM 100 MG/10 ML UDC G-TUBE SCH ×2 (09:05→20:28)
[2017-02-22] MEDS: CHOLECALCIFEROL (VIT D3) 5000 UNIT CAP PO SCH (09:05)
[2017-02-22] MEDS: levETIRAcetam 1000 MG INJ 100 ML IV SCH ×2 (09:05→20:29)
[2017-02-22] MEDS: CALCIUM ACETATE 667 MG CAP PO SCH ×3 (09:05→17:30)
--- NOTE | 2017-02-22 11:41 | PD.ORT.PN ---
Subjective Subjective Remarks Intubated, stable Objective Vitals Vital Signs Date Time Temp Pulse Resp B/P Pulse Ox O2 Delivery O2 Flow Rate FiO2 02/22/17 10:00 96 02/22/17 09:36 100 50 02/22/17 08:00 92 02/22/17 08:00 50 02/22/17 08:00 98.6 92 18 132/82 100 02/22/17 07:00 100 Mechanical Ventilator 50 02/22/17 06:00 120/79 134/79 02/22/17 06:00 99 02/22/17 04:00 93 02/22/17 04:00 98.6 104 16 136/70 100 02/22/17 04:00 50 02/22/17 03:17 100 50 02/22/17 02:00 93 02/22/17 01:04 100 50 02/22/17 00:00 50 02/22/17 00:00 98.2 92 16 131/64 100 02/22/17 00:00 99 02/21/17 22:00 99 02/21/17 20:57 100 50 02/21/17 20:00 94 02/21/17 20:00 50 02/21/17 20:00 Mechanical Ventilator 50 02/21/17 20:00 98.6 98 16 128/62 100 02/21/17 18:00 106 124/70 128/95 02/21/17 18:00 106 02/21/17 17:07 100 50 02/21/17 16:00 101 02/21/17 16:00 99.0 98 19 122/62 100 02/21/17 16:00 50 02/21/17 14:00 103 02/21/17 12:40 99.7 106 19 134/72 100 02/21/17 12:15 100 50 02/21/17 12:00 50 02/21/17 12:00 99.7 106 19 132/72 100 02/21/17 12:00 104 I/O 02/21/17 02/21/17 02/21/17 02/22/17 02/22/17 02/22/17 07:00 15:00 23:00 07:00 15:00 23:00 Intake Total 535 ml 1051 ml 653 ml 352 ml Output Total 90 ml 175.0 ml 4790 ml 345 ml Balance 445 ml 876.0 ml -4137 ml 7 ml Intake IV Total 435 ml 540 ml 372 ml 352 ml Tube Feeding 40 ml 70 ml Platelets 381 ml 281 ml Tube Irrigant 60 ml 60 ml Output Urine Total 60 ml 75 ml 20 ml 75 ml Stool Total 0 ml 20 ml Gastric Drainage Total 25 ml 50 ml 250 ml 250 ml Tube Feeding Residual Discard 50.0 ml Drainage Total 5 ml 0 ml 20 ml Hemodialysis 4500 ml Result Diagram: 02/22/17 0605 02/22/17 0605 Other Results Laboratory Tests Test 02/22/17 06:05 Prothrombin Time 16.7 SEC (9.8-11.6) Prothromb Time International 1.5 RATIO Ratio Imaging Last 24 hours Impressions Chest X-Ray 02/19/17 0600 Signed Impressions: Service Date/Time: Sunday, February 19, 2017 04:33 - CONCLUSION: No acute pulmonary infiltrates. Stable examination compared to the prior study. Toby Constantino MD Objective Remarks LLE: Clean dry dressing left thigh. Minimal drainage. Dressings taken down and drain removed. Incision is clean dry and intact with no erythema or necrosis. He does have slight skin discoloration posterior and superior to the incision. New dressing applied Assessment & Plan Assessment and Plan 1) left above-knee amputation - POD 3 (02/19/17). Patient has stabilized medically. He is requiring less pressors. Continue critical care. Daily dressing changes with Xeroform, 4 x 4's, ABD and Michelet wrap. No Dayo Reyes Jr. Feb 22, 2017 11:41
--- NOTE | 2017-02-22 11:52 | HHI.NPPN ---
Subjective General Problems: Edema Renal Failure: Acute Interval History Remains intubated. Eyes now open but tracking left and right, not following commands. Had dialysis yesterday. (Elma Rudolph) Review of Systems General General Remarks unable to evaluate (Elma Rudolph) Objective Data Data 02/21/17 02/22/17 19:00 07:00 Intake Total 1051 ml 1005 ml Output Total 4675.0 ml 635 ml Balance -3624.0 ml 370 ml Intake IV Total 540 ml 724 ml Tube Feeding 70 ml Platelets 381 ml 281 ml Tube Irrigant 60 ml Output Urine Total 75 ml 95 ml Stool Total 0 ml 20 ml Gastric Drainage Total 50 ml 500 ml Tube Feeding Residual Discard 50.0 ml Drainage Total 0 ml 20 ml Hemodialysis 4500 ml Vital Signs Date Time Temp Pulse Resp B/P Pulse Ox O2 Delivery O2 Flow Rate FiO2 02/22/17 10:00 96 02/22/17 09:36 100 50 02/22/17 08:00 92 02/22/17 08:00 50 02/22/17 08:00 98.6 92 18 132/82 100 02/22/17 07:00 100 Mechanical Ventilator 50 02/22/17 06:00 120/79 134/79 02/22/17 06:00 99 02/22/17 04:00 93 02/22/17 04:00 98.6 104 16 136/70 100 02/22/17 04:00 50 02/22/17 03:17 100 50 02/22/17 02:00 93 02/22/17 01:04 100 50 02/22/17 00:00 50 02/22/17 00:00 98.2 92 16 131/64 100 02/22/17 00:00 99 02/21/17 22:00 99 02/21/17 20:57 100 50 02/21/17 20:00 94 02/21/17 20:00 50 02/21/17 20:00 Mechanical Ventilator 50 02/21/17 20:00 98.6 98 16 128/62 100 02/21/17 18:00 106 124/70 128/95 02/21/17 18:00 106 02/21/17 17:07 100 50 02/21/17 16:00 101 02/21/17 16:00 99.0 98 19 122/62 100 02/21/17 16:00 50 02/21/17 14:00 103 02/21/17 12:40 99.7 106 19 134/72 100 02/21/17 12:15 100 50 02/21/17 12:00 50 02/21/17 12:00 99.7 106 19 132/72 100 02/21/17 12:00 104 (Elma Rudolph) -: 02/22/17 0605 02/22/17 0605 Imaging Last 72 hours Impressions Chest X-Ray 02/22/17 0600 Signed Impressions: Service Date/Time: Wednesday, February 22, 2017 03:42 - CONCLUSION: No significant change. Hima Bright MD Chest X-Ray 02/21/17 0000 Signed Impressions: Service Date/Time: January 11:39 - CONCLUSION: Abnormal left basilar opacity could represent atelectasis, consolidation, and/or effusion. Hima Richards MD Abdomen X-Ray 02/21/17 0000 Signed Impressions: Service Date/Time: January 09:42 - CONCLUSION: Limited single view exam demonstrating nasogastric tube in place with the tip projected over the distal stomach.. Dayo Christopher MD Chest X-Ray 02/20/17 0600 Signed Impressions: Service Date/Time: Monday, February 20, 2017 03:50 - CONCLUSION: Mild increase in interstitial markings bilaterally suggestive of some pulmonary edema. Otherwise, no other significant changes. Toby Constantino MD Chest X-Ray 02/19/17 1308 Signed Impressions: Service Date/Time: Sunday, February 19, 2017 13:15 - CONCLUSION: Left IJ line tip in the SVC. No pneumothorax is visualized. Otherwise, stable exam. Hima Richards MD Tubes & Lines: Vas-Cath, Mccarthy Tubes & Lines Comment a line, rectal tube, TLC Drip Comment vasopressin (Elma Rudolph) Physical Exam General Appearance: No Acute Distress, Comfortable, Malnourished Appearance Remarks intubated, eyes open (Elma Rudolph) Throat Throat Exam: Oral Mucosa [place] & Moist Throat Remarks ETT (Elma Rudolph) Pulmonary Resp Exam: Breath Sounds Equal, No Distress, Crackles (Elma Rudolph) Cardiology CV Exam: Regular, Normal Sinus Rhythm, Good Perfusion (Elma Rudolph) Gastrointestinal/Abdomen GI Exam: Soft, Non-Tender, Bowel Sounds Present (Elma Rudolph) Genitourinary Remarks significant scrotal edema (Elma Rudolph) Musculoskeletal MS Exam: Joints Intact, Unable to Ambulate (Elma Rudolph) Integumentary Skin Exam: Warm, Dry Skin Remarks s/p left AKA, stump is dressed, clean and dry (Elma Rudolph) Extremeties Extremities Exam: Pedal Pulses Palpable Extremeties Remarks on right (Elma Rudolph) Neurologic Neuro Exam: Unresponsive, Sedated, Comatose Neuro Remarks decerebrate posturing (Elma Rudolph) Assessment/Plan Assessment Summary: CLAUDIA/Acute Renal Failure, Acute Tubular Necrosis, Fluid/ Volume Overload, Hypotension Electrolyte Assessment: Hypocalcemia Problem List: (1) Acute kidney injury Plan: oliguric renal failure, ATN from cardiac arrest and rhabdomyolysis HD initiated 02/19 , had dialysis , Sat, beginning negative fluid balance hold HD today, likely HD tomorrow has extensive fluid overload, avoid IVF Avoid nephrotoxic agents. Pressors to maintain MAP > 65mmHg daily metabolic profile (2) Rhabdomyolysis Plan: due to fall with unknown down time also cocaine positive on admission follow CPK, levels are improving (3) Secondary hyperparathyroidism Plan: with severe vitamin D deficiency continue calcitriol and vitamin D calcium replacement ordered (4) Compartment syndrome Plan: s/p AKA Dr. Purdy (ortho) following, appreciate recommendations (5) Transaminitis Plan: GI following. tube feeding resumed (6) Encephalopathy Plan: Prognosis is poor. EEG reviewed Neurology following. he is not requiring sedation and is not following commands recent posturing awaiting family decision about goals of care (7) Seizure disorder Plan: History of seizure disorder. Unclear if he was compliant with medications. Neurology following. he is on Keppra, Dilantin, and propofol here, no witnessed seizure activity reported (8) Hyperkalemia Plan: corrected with dialysis, monitor for recurrence (9) Thrombocytopenia Plan: persistent thrombocytopenia despite transfusion (Elma Rudolph) Plan patient was seen and examined. Agree with above assessment and plan. May have suffered severe hypoxic encephalopathy. Prognosis is poor. Thrombocytopenia persists. (Jose Hernandez MD) Problem Qualifiers (1) Compartment syndrome: Qualified Code: T79.A22A - Traumatic compartment syndrome of left lower extremity, initial encounter Elma Rudolph Feb 22, 2017 11:52 Jose Hernandez MD Feb 22, 2017 14:09
--- NOTE | 2017-02-22 12:01 | PD.CARD.PN ---
Subjective Subjective Remarks No events overnight noted Objective Medications Current Medications Medications (Trade) Dose Ordered Sig/Abdoulaye Route Start Time Stop Time Status Last Admin (Tylenol) 650 mg Q6H PRN PO 02/18/17 04:30 (Morphine Inj) 2 mg Q2H PRN IV 02/18/17 04:30 (Ativan Inj) 1 mg Q1H PRN IV 02/18/17 04:30 02/18/17 14:14 (Tears Naturale Opth Soln) 1 drop TID EACH EYE 02/18/17 09:00 02/22/17 09:00 (Zofran Inj) 4 mg Q6H PRN IV 02/18/17 04:30 (Reglan Inj) 5 mg Q6H PRN IV 02/18/17 04:30 Docusate Sodium 100 mg 100 mg Q12H G-TUBE 02/18/17 09:00 02/22/17 09:05 Vasopressin 40 units/Dextrose 100 ml @ 0 mls/hr TITRATE IV 02/18/17 07:00 02/22/17 08:12 Pharmacy Profile Note 0 ml @ 0 mls/hr UNSCH OTHER 02/18/17 07:15 (Maxipime Inj/NS Inj) 100 ml @ 200 mls/hr Q8H IV 02/18/17 12:00 02/22/17 11:44 Miscellaneous Information 1 Q361D XX 02/18/17 07:15 02/18/17 07:15 (Chlorhexidine 2% Cloth) 3 pack Taper DAILY@04 TOP 02/19/17 04:00 02/15/18 03:59 02/21/17 04:00 (Chlorhexidine 2% Cloth) 3 pack UNSCH PRN TOP 02/18/17 07:15 Phenytoin Sodium 100 mg 100 mg Q8HR IV 02/18/17 14:00 02/22/17 05:16 Pantoprazole Sodium 80 mg/ Sodium Chloride 100 ml @ 10 mls/hr Q10H IV 02/18/17 11:00 02/21/17 21:01 (Diprivan 1000 Mg/100ml Inj) 100 ml @ 0 mls/hr TITRATE IV 02/18/17 15:00 02/19/17 00:22 (Bactroban Nasal 2% Oint) 1 applic BID EACH NARE 02/18/17 21:00 02/22/17 09:04 (SoluCORTEF INJ) 100 mg Q8H IV PUSH 02/19/17 04:00 02/22/17 11:45 (D50w (Vial) Inj) 25 ml UNSCH PRN IV PUSH 02/19/17 09:30 Glucagon 1 mg 1 mg UNSCH PRN OTHER 02/19/17 09:30 (NS 1000 ml Inj) 1,000 ml @ 0 mls/hr Q0M PRN IV 02/19/17 10:59 Heparin Sodium (Porcine) 8000 units 8,000 units UNSCH PRN IVF 02/19/17 11:00 Sodium Chloride 1,000 ml @ 200 mls/hr Q5H PRN IV 02/19/17 10:59 Hold (NS 1000 ml Inj) 1,000 ml @ 0 mls/hr Q0M PRN IV 02/19/17 10:59 (Mannitol Inj) 12.5 gm UNSCH PRN IV 02/19/17 11:00 02/21/17 15:05 (Albumin 25% Inj) 25 gm UNSCH PRN IV 02/19/17 11:00 (NS Flush) 5 ml UNSCH PRN IV FLUSH 02/19/17 11:00 02/21/17 21:01 (Heparin Inj) UNSCH PRN .XX 02/19/17 11:00 02/21/17 17:48 (Gentamicin (Dialysis) Inj) 20 mg UNSCH PRN IV 02/19/17 11:00 02/21/17 17:47 (Zofran Inj) 4 mg UNSCH PRN IV 02/19/17 11:00 (Tylenol) 650 mg UNSCH PRN PO 02/19/17 11:00 (Benadryl) 25 mg UNSCH PRN PO 02/19/17 11:00 (Nitrostat Sl) 0.4 mg UNSCH PRN SL 02/19/17 11:00 (Catapres) 0.1 mg UNSCH PRN PO 02/19/17 11:00 (Gelfoam 12 Mm/7 Mm Top) 1 foam UNSCH PRN TOP 02/19/17 11:00 (NS Flush) 2 ml UNSCH PRN IVF 02/19/17 17:00 IV Flush 2 ml 2 ml BID IVF 02/19/17 21:00 02/22/17 09:05 Levetriacetam 100 ml @ 400 mls/hr Q12HR IV 02/19/17 21:00 02/22/17 09:05 (Levophed-Dextrose Drip) 250 ml @ 0 mls/hr TITRATE IV 02/19/17 22:00 02/21/17 00:31 (Phoslo) 667 mg TID PO 02/21/17 13:00 02/22/17 09:05 (Rocaltrol) 0.5 mcg DAILY PO 02/21/17 15:15 02/22/17 09:05 (Vitamin D3) 5,000 units DAILY PO 02/21/17 15:15 02/22/17 09:05 Vital Signs / I&O Vital Signs Date Time Temp Pulse Resp B/P Pulse Ox O2 Delivery O2 Flow Rate FiO2 02/22/17 10:00 96 02/22/17 09:36 100 50 02/22/17 08:00 92 02/22/17 08:00 50 02/22/17 08:00 98.6 92 18 132/82 100 02/22/17 07:00 100 Mechanical Ventilator 50 02/22/17 06:00 120/79 134/79 02/22/17 06:00 99 02/22/17 04:00 93 02/22/17 04:00 98.6 104 16 136/70 100 02/22/17 04:00 50 02/22/17 03:17 100 50 02/22/17 02:00 93 02/22/17 01:04 100 50 02/22/17 00:00 50 02/22/17 00:00 98.2 92 16 131/64 100 02/22/17 00:00 99 02/21/17 22:00 99 02/21/17 20:57 100 50 02/21/17 20:00 94 02/21/17 20:00 50 02/21/17 20:00 Mechanical Ventilator 50 02/21/17 20:00 98.6 98 16 128/62 100 02/21/17 18:00 106 124/70 128/95 02/21/17 18:00 106 02/21/17 17:07 100 50 02/21/17 16:00 101 02/21/17 16:00 99.0 98 19 122/62 100 02/21/17 16:00 50 02/21/17 14:00 103 02/21/17 12:40 99.7 106 19 134/72 100 02/21/17 12:15 100 50 I/O 02/21/17 02/21/17 02/21/17 02/22/17 02/22/17 02/22/17 07:00 15:00 23:00 07:00 15:00 23:00 Intake Total 535 ml 1051 ml 653 ml 352 ml Output Total 90 ml 175.0 ml 4790 ml 345 ml Balance 445 ml 876.0 ml -4137 ml 7 ml Intake IV Total 435 ml 540 ml 372 ml 352 ml Tube Feeding 40 ml 70 ml Platelets 381 ml 281 ml Tube Irrigant 60 ml 60 ml Output Urine Total 60 ml 75 ml 20 ml 75 ml Stool Total 0 ml 20 ml Gastric Drainage Total 25 ml 50 ml 250 ml 250 ml Tube Feeding Residual Discard 50.0 ml Drainage Total 5 ml 0 ml 20 ml Hemodialysis 4500 ml Physical Exam GENERAL: Intubated SKIN: Warm and dry. Left lower extremity with edema/induration HEAD: Atraumatic. Normocephalic. EYES: Pupils equal and round. No scleral icterus. No injection or drainage. ENT: No nasal bleeding or discharge. Mucous membranes pink and moist. NECK: Trachea midline. No JVD. CARDIOVASCULAR: Regular rate and rhythm. Tachy RESPIRATORY: No accessory muscle use. Decreased breath sounds bilaterally GASTROINTESTINAL: Abdomen soft, non-tender, nondistended. Hepatic and splenic margins not palpable. MUSCULOSKELETAL: Left lower extremity AKA NEUROLOGICAL: Unable to determine Laboratory Laboratory Tests Test 02/21/17 02/22/17 02/22/17 02/22/17 19:10 00:15 06:05 06:39 White Blood Count 10.5 TH/MM3 9.0 TH/MM3 8.5 TH/MM3 Red Blood Count 4.20 MIL/MM3 3.83 MIL/MM3 3.67 MIL/MM3 Hemoglobin 12.0 GM/DL 11.1 GM/DL 11.1 GM/DL Hematocrit 36.2 % 33.3 % 31.7 % Mean Corpuscular Volume 86.3 FL 87.0 FL 86.4 FL Mean Corpuscular Hemoglobin 28.5 PG 29.1 PG 30.1 PG Mean Corpuscular Hemoglobin 33.0 % 33.5 % 34.9 % Concent Red Cell Distribution Width 18.0 % 18.0 % 18.0 % Platelet Count 91 TH/MM3 84 TH/MM3 69 TH/MM3 Mean Platelet Volume 8.5 FL 8.9 FL 8.8 FL Prothrombin Time 16.7 SEC Prothromb Time International 1.5 RATIO Ratio Sodium Level 143 MEQ/L Potassium Level 4.8 MEQ/L Chloride Level 104 MEQ/L Carbon Dioxide Level 28.4 MEQ/L Anion Gap 11 MEQ/L Blood Urea Nitrogen 79 MG/DL Creatinine 4.55 MG/DL Estimat Glomerular Filtration 13 ML/MIN Rate Random Glucose 205 MG/DL Calcium Level 6.8 MG/DL Protein Corrected Calcium 8.1 MG/DL Phosphorus Level 5.6 MG/DL Magnesium Level 2.3 MG/DL Total Bilirubin 5.1 MG/DL Aspartate Amino Transf 1288 U/L (AST/SGOT) Alanine Aminotransferase 127 U/L (ALT/SGPT) Alkaline Phosphatase 88 U/L Lactate Dehydrogenase 1147 U/L Total Creatine Kinase 4370 U/L Creatine Kinase MB 27.9 NG/ML Creatine Kinase MB % 0.6 % Total Protein 4.7 GM/DL Albumin 1.6 GM/DL Random Vancomycin Level 23.4 COMMENT Blood Gas Puncture Site ART LINE Blood Gas Patient Temperature 98.6 Blood Gas HCO3 27 mmol/L Blood Gas Base Excess 3.2 mmol/L Blood Gas Oxygen Saturation 97 % Arterial Blood pH 7.49 Arterial Blood Partial 35 mmHg Pressure CO2 Arterial Blood Partial 191 mmHg Pressure O2 Arterial Blood Oxygen Content 16.5 Vol % Arterial Blood 1.2 % Carboxyhemoglobin Arterial Blood Methemoglobin 1.1 % Blood Gas Hemoglobin 11.8 G/DL Oxygen Delivery Device VENTILATOR Blood Gas Ventilator Setting PRVC/AC Blood Gas Inspired Oxygen 50 % Assessment and Plan Problem List: (1) Cardiopulmonary arrest with successful resuscitation (2) Sepsis with multi-organ dysfunction (3) Renal failure (4) Hyperkalemia (5) Hypothermia (6) Compartment syndrome (7) NSTEMI (non-ST elevated myocardial infarction) (8) Rhabdomyolysis Assessment and Plan 1) S/p fasciotomy... but with excessive bleeding so went for left AKA, since has been relatively stable, only on Vasopressin 0.04 2) Continue support care 3) NSTEMI Type 2 due to cardiac arrest, CPR, hypotension, sepsis 4) EF 45% 5) Afib with RVR most likely due to excessive sympathetic state as well as overall acute illness Currently sinus rhythm Not an anticoagulation candidate at this time If more episodes, consider Lopressor IV or if still on pressors, can be loaded with Digoxin 6) Will see PRN, call with questions Problem Qualifiers (1) Hypothermia: Qualified Code: T68.XXXA - Hypothermia, initial encounter (2) Compartment syndrome: Qualified Code: T79.A22A - Traumatic compartment syndrome of left lower extremity, initial encounter Vren Keane DO Feb 22, 2017 12:01
[2017-02-22 12:23] LABS: HEMATOCRIT 33.4 % (39.0-51.0); MEAN CELL VOLUME 87.9 FL (80.0-100.0); MEAN CORPUSCULAR HEMOGLOBIN 28.9 PG (27.0-34.0); MEAN CORPUSCULAR HGB CONC 32.9 % (32.0-36.0); PLATELET COUNT 62 TH/MM3 (150-450); RED CELL DISTRIBUTION WIDTH 17.9 % (11.6-17.2); WHITE BLOOD COUNT 8.1 TH/MM3 (4.0-11.0)
[2017-02-22 12:25] LABS: REVIEW FLAG FINAL
--- NOTE | 2017-02-22 12:34 | HHI.GIFU ---
Subjective Remarks Resting in bed. No active GI bleeding. He vomited bilious material this am and GT was placed to suction- 300cc since this am. Liquid brown stool. (Elsy Velazquez) Objective Vitals I&O Vital Signs Date Time Temp Pulse Resp B/P Pulse Ox O2 Delivery O2 Flow Rate FiO2 02/22/17 10:00 96 02/22/17 09:36 100 50 02/22/17 08:00 92 02/22/17 08:00 50 02/22/17 08:00 98.6 92 18 132/82 100 02/22/17 07:00 100 Mechanical Ventilator 50 02/22/17 06:00 120/79 134/79 02/22/17 06:00 99 02/22/17 04:00 93 02/22/17 04:00 98.6 104 16 136/70 100 02/22/17 04:00 50 02/22/17 03:17 100 50 02/22/17 02:00 93 02/22/17 01:04 100 50 02/22/17 00:00 50 02/22/17 00:00 98.2 92 16 131/64 100 02/22/17 00:00 99 02/21/17 22:00 99 02/21/17 20:57 100 50 02/21/17 20:00 94 02/21/17 20:00 50 02/21/17 20:00 Mechanical Ventilator 50 02/21/17 20:00 98.6 98 16 128/62 100 02/21/17 18:00 106 124/70 128/95 02/21/17 18:00 106 02/21/17 17:07 100 50 02/21/17 16:00 101 02/21/17 16:00 99.0 98 19 122/62 100 02/21/17 16:00 50 02/21/17 14:00 103 02/21/17 12:40 99.7 106 19 134/72 100 I/O 02/21/17 02/21/17 02/21/17 02/22/17 02/22/17 02/22/17 07:00 15:00 23:00 07:00 15:00 23:00 Intake Total 535 ml 1051 ml 653 ml 352 ml Output Total 90 ml 175.0 ml 4790 ml 345 ml Balance 445 ml 876.0 ml -4137 ml 7 ml Intake IV Total 435 ml 540 ml 372 ml 352 ml Tube Feeding 40 ml 70 ml Platelets 381 ml 281 ml Tube Irrigant 60 ml 60 ml Output Urine Total 60 ml 75 ml 20 ml 75 ml Stool Total 0 ml 20 ml Gastric Drainage Total 25 ml 50 ml 250 ml 250 ml Tube Feeding Residual Discard 50.0 ml Drainage Total 5 ml 0 ml 20 ml Hemodialysis 4500 ml Laboratory Laboratory Tests Test 02/21/17 02/22/17 02/22/17 02/22/17 19:10 00:15 06:05 06:39 White Blood Count 10.5 9.0 8.5 Red Blood Count 4.20 3.83 3.67 Hemoglobin 12.0 11.1 11.1 Hematocrit 36.2 33.3 31.7 Mean Corpuscular Volume 86.3 87.0 86.4 Mean Corpuscular Hemoglobin 28.5 29.1 30.1 Mean Corpuscular Hemoglobin 33.0 33.5 34.9 Concent Red Cell Distribution Width 18.0 18.0 18.0 Platelet Count 91 84 69 Mean Platelet Volume 8.5 8.9 8.8 Prothrombin Time 16.7 Prothromb Time International 1.5 Ratio Sodium Level 143 Potassium Level 4.8 Chloride Level 104 Carbon Dioxide Level 28.4 Anion Gap 11 Blood Urea Nitrogen 79 Creatinine 4.55 Estimat Glomerular Filtration 13 Rate Random Glucose 205 Calcium Level 6.8 Protein Corrected Calcium 8.1 Phosphorus Level 5.6 Magnesium Level 2.3 Total Bilirubin 5.1 Aspartate Amino Transf 1288 (AST/SGOT) Alanine Aminotransferase 127 (ALT/SGPT) Alkaline Phosphatase 88 Lactate Dehydrogenase 1147 Total Creatine Kinase 4370 Creatine Kinase MB 27.9 Creatine Kinase MB % 0.6 Total Protein 4.7 Albumin 1.6 Random Vancomycin Level 23.4 Blood Gas Puncture Site ART LINE Blood Gas Patient Temperature 98.6 Blood Gas HCO3 27 Blood Gas Base Excess 3.2 Blood Gas Oxygen Saturation 97 Arterial Blood pH 7.49 Arterial Blood Partial 35 Pressure CO2 Arterial Blood Partial 191 Pressure O2 Arterial Blood Oxygen Content 16.5 Arterial Blood 1.2 Carboxyhemoglobin Arterial Blood Methemoglobin 1.1 Blood Gas Hemoglobin 11.8 Oxygen Delivery Device VENTILATOR Blood Gas Ventilator Setting PRVC/AC Blood Gas Inspired Oxygen 50 Date/Time Procedure Status Source Growth 02/21/17 02:50 Urine Culture - Preliminary Resulted Urine Clean Catch NO GROWTH IN 24 HOURS. 02/20/17 12:15 Urine Culture - Final Complete Urine Catheterized Urine NO GROWTH IN 48 HOURS. 02/18/17 03:25 Aerobic Blood Culture - Preliminary Resulted Blood Peripheral NO GROWTH IN 4 DAYS 02/18/17 03:25 Anaerobic Blood Culture - Preliminary Resulted Blood Peripheral NO GROWTH IN 4 DAYS Imaging Last Impressions Chest X-Ray 02/22/17 0600 Signed Impressions: Service Date/Time: Wednesday, February 22, 2017 03:42 - CONCLUSION: No significant change. Hima Bright MD Abdomen X-Ray 02/21/17 0000 Signed Impressions: Service Date/Time: January 09:42 - CONCLUSION: Limited single view exam demonstrating nasogastric tube in place with the tip projected over the distal stomach.. Dayo Christopher MD Head CT 02/18/17 0241 Signed Impressions: Service Date/Time: Saturday, February 18, 2017 04:27 - CONCLUSION: Unremarkable CT scan of the brain.. Toby Constantino MD Physical Exam HEENT: Normocephalic; atraumatic; no jaundice. CHEST: Resp. even/unlabored, OETT vent, CTA. CARDIAC: RR ABDOMEN: Soft, mildly distended, nontender; no hepatosplenomegaly; bowel sounds are present in all four quadrants. Flexiseal with brown liquid stool EXTREMITIES: Left BKA amputation [employer]: Sedated on vent. (Elsy Velazquez) Assessment and Plan Plan ASSESSMENT: - GIB, Melanotic stool. Had one large melanotic stool (02/18), but has not had any further episodes. NGT to LIWS greenish yellow secretions, Flexiseal with brown stool. HH dropped after surgery to 5.1/15.7, but he has remained stable since transfusions. HH now stable 11.1/31.7. Plt 69. S/P 10 units RBC , 2 units FFP, 4 units Plt, 3 units cryoprecipitate. Protonix Gtt. No obvious GI bleeding at this time. - N/V, Suspected mild ileus. KUB as above, limited. Change reglan to scheduled and see how he does with this. - Elevated LFTs. T. BIli 5.1, AST 1288, ALT 127, ALk Phosph 88. Hepatitis C Ab (+), but this is most likely combination of shocked liver and rhabdomyolysis. LFTs are improving. - Anemia, secondary to blood loss. Stable. .11/27.7 - Coagulopathy, Thrombocytopenia, DIC. Improving. S/P 2 units FFP, 4 units Plt, 3 units cryoprecipitate. - Seizure Activity/Anoxic encephalopathy. Neurology following. Sedated. Keppra - Acute respiratory failure. Vent per CCM. - Cardiac Arrest, NSTEMI, hypotension. Vasopressors. Cardiology following. - CLAUDIA with electrolyte abnormalities. HD per renal - Rhabdomyolysis. Improving. IVF per CCM. - Compartment syndrome LLE. Per ortho. S/P left BKA - Drug abuse, (+) Cocaine on tox screen. - HCV Antibodies, consider further workup at later date as this will affect his care at this time. PLAN: - NGT to LIWS - Change Reglan to 5mg IV q8h - Cont. Protonix - Add lactulose - Monitor labs - Supportive care - Further recommendations to follow based on results of above - He is not currently having any active GI bleeding, will continue to monitor and plan for endoscopic evaluation if active bleeding. - Pt seen and examined by Dr. Molina and myself and this note is written on his behalf (Elsy Velazquez) Physician Comments Patient seen and examined Agree with above Continue with current supportive care Monitor labs LFTs improving Not much to add from a GI perspective we will sign off (Flako Molina MD) Elsy Velazquez Feb 22, 2017 12:34 Flako Molina MD Feb 22, 2017 23:50
--- NOTE | 2017-02-22 13:03 | HHI.CCPN ---
Subjective Remarks/Hospital Course 61 years old male brought as a status post cardiac arrest. The history is obtained from medical chart. The patient has history of epilepsy. He is normally compliant with his antiepileptic agents. The patient had been conversing with roommates through a doorway about 3 hours prior to EMS arrival. He had become unresponsive and EMS was activated. They found the patient on the floor. His mental status was altered apparently postictal nonverbal. The patient was prepared for transport to the ER and on the way to the ambulance he became asystolic. ACLS protocol was initiated. The patient was intubated and chest compressions were started. About 12 minutes of chest compressions were performed. He received 1 dose of epinephrine. On arrival to the ER chest compressions were continued and shortly thereafter he was found to have a pulse. Levophed drip started. In the ER the patient received multiple rounds of epinephrine and bicarbonate as he lost pulses twice more initially each episode lasting about 2-3 minutes. EKG obtained shortly after the patient' s arrival revealed ST elevations in precordial leads V1 through V5 as well as II , III and aVF. STEMI alert was activated. Digital Strategist Dr. Keane evaluated the patient at the bedside. A repeat EKG was performed revealing no ST elevation CO. The patient was found to have some swelling and induration of the left lower extremity at the calf. A [place] needle was employed to check compartment pressures of the anterior compartment in the superficial posterior compartment with measurements of 47 and 45 respectively. Finally the patient was found to be somewhat hypothermic and blood cultures were drawn and antibiotics initiated , cefepime and vancomycin. The patient also has hyperkalemia at 6.9 and insulin dextrose, calcium and bicarbonate were given. The creatinine is also about 3.5. Subjective 02/18/17 Upon entering patient's room at 0600 hrs., The patient was noted to have tonic-clonic jerking, completely unresponsive has not been on sedation since admission to the hospital. The patient has a known history of a seizure disorder. Keppra and Dilantin levels were obtained and pending. The patient was loaded with 1 g Dilantin IV, and placed on Dilantin 100 mg every 8 hours. The patient was noted to be on maximum doses of Levophed,20 mcgs, a central line was placed and the patient was placed on a second vasopressor, vasopressin@ 0.04. Neurology was consulted , a stat EEG was ordered. The patient's sodium bicarbonate infusion was increased to 150 cc/hr. the patient was noted to be oliguric in the setting of rhabdomyolysis the patient was bolused an additional liter of normal saline, and NS infusion at 150cc/hr. BMP pending. 02/19/17 Tmax 100.8. Over the last 24 hours the patient continues to be hemodynamically unstable, requiring 2 vasopressors for maintenance of a map ranging from 69-77. The patient was placed on a low dose propofol infusion secondary to continue tonic-clonic movements status post administration of Keppra and Dilantin. An EEG was performed showing a severe encephalopathic state. No intervention was performed yesterday to the left leg with compartment syndrome secondary to time sensitivity of intervention had passed, most likely prior to admission to the hospital. Demarcation of the left lower extremity has begun with mottling, edema, and blistering. Also cause necrosis continues with severe electrolyte abnormalities throughout the night to include hyperkalemia requiring continuous doses of calcium gluconate, Kayexalate now additionally adding D50 and insulin. The patient is noted to have continued elevations in hepatic enzymes most likely secondary to rhabdomyolysis. The patient continues to have hyperkalemia hyperphosphatemia due to muscle necrosis and hypocalcemia with challenging management. Steroids have been added to medication related regimen, electrolytes continued to be closely monitored. Nephrology has been consulted, appreciate recommendations. Discussion with Dr. Purdy, last evening the severe metabolic derangements, secondary to continued rhabdomyolysis with significant muscle necrosis of left lower extremity and continued SIRS response. Aggressive measures have been initiated since admission with case management to it and attempts to identify patient, and locate family thus far has been unsuccessful. The patient continues to be hemodynamically unstable with with continued elevation in vasopressor requirements. After this extensive discussion plans for emergent surgical intervention for left lower extremity today. 02/21/16 TMax 99.0. Yesterday the patient underwent a wide excision fasciotomy of the left lower extremity, and upon return from the OR, the patient's wound VAC was noted to be continuously flowing with blood, blood loss approximated to 2 L in the ICU, and worsening hemodynamic instability requiring vasopressor Levophed 20 mcgs in addition to vasopressin 0.04 mcgs. The patient emergently returned to the OR, and underwent left above knee amputation. The patient received multiple blood products to include 10 units of packed red blood cells, 5 units of platelets 2 units of FFP, 2 units of cryoprecipitate over the last 24 hours, now stabilized. Immediately on return from the OR the patient underwent dialysis, with 1.5 L removed, and potassium level normalized. The patient was noted to be an atrial fibrillation with RVR, heart rate in the 150s upon return from the OR. The patient received digoxin 0.5 mg, and subsequently 2 L over 12 hours and converted to sinus tachycardia at 0500. The patient now is currently on low-dose Levophed currently at 2 mcgs. The patient remains off sedation since 5 PM yesterday, currently nonresponsive. Creatinine kinase levels trending down. 02/21: The patient underwent hemodialysis yesterday with removal of 2 L. All sedating agents have been discontinued since 02/19/17 at 1700, the patient remains unresponsive, now extension posturing noted on neurological exam . Plan for repeat EEG, for assessment of subclinical seizures versus anoxic encephalopathy. Patient not tolerating trickle tube feeds, 10 cc an hour. Discontinued this a.m.. KUB obtained no obstruction. Family contacted discussed and updated mother who lives in [place] on patient's medical status. Plans for palliative care consult. 02/22 Tmax 98.6. No change in patient's neurological status also off all sedative medications since 02/19/17. Repeat EEG performed yesterday awaiting formal report. The patient was noted not to tolerate trickle feeds yesterday, KUB was ordered OGT in place. Patient was previously on metoclopramide when necessary, will initiate scheduled dosing. The patient appears to be normotensive vasopressor currently being weaned off. Objective Vital Signs Date Time Temp Pulse Resp B/P Pulse Ox O2 Delivery O2 Flow Rate FiO2 02/22/17 10:00 96 02/22/17 09:36 100 50 02/22/17 08:00 98.6 18 132/82 02/22/17 07:00 Mechanical Ventilator Intake and Output 02/21/17 02/21/17 02/22/17 08:00 16:00 00:00 Intake Total 535 ml 1051 ml 653 ml Output Total 140.0 ml 125 ml 4790 ml Balance 395.0 ml 926 ml -4137 ml Result Diagram: 02/22/17 1155 02/22/17 0605 Other Results Microbiology Date/Time Procedure Status Source Growth 02/20/17 12:15 Urine Culture - Final Complete Urine Catheterized Urine NO GROWTH IN 48 HOURS. Laboratory Tests Test 02/22/17 06:39 Blood Gas Puncture Site ART LINE Blood Gas Patient Temperature 98.6 Blood Gas HCO3 27 mmol/L (22-26) Blood Gas Base Excess 3.2 mmol/L (-2-2) Blood Gas Oxygen Saturation 97 % (90-100) Arterial Blood pH 7.49 (7.380-7.420) Arterial Blood Partial 35 mmHg (38-42) Pressure CO2 Arterial Blood Partial 191 mmHg Pressure O2 (61-120) Arterial Blood Oxygen Content 16.5 Vol % (12.0-20.0) Arterial Blood 1.2 % (0-4) Carboxyhemoglobin Arterial Blood Methemoglobin 1.1 % (0-2) Blood Gas Hemoglobin 11.8 G/DL (12.0-16.0) Oxygen Delivery Device VENTILATOR Blood Gas Ventilator Setting PRVC/AC Blood Gas Inspired Oxygen 50 % Imaging Last Impressions Chest X-Ray 02/22/17 0600 Signed Impressions: Service Date/Time: Wednesday, February 22, 2017 03:42 - CONCLUSION: No significant change. Hima Bright MD Abdomen X-Ray 02/21/17 0000 Signed Impressions: Service Date/Time: January 09:42 - CONCLUSION: Limited single view exam demonstrating nasogastric tube in place with the tip projected over the distal stomach.. Dayo Christopher MD Head CT 02/18/17 024 Signed Impressions: Service Date/Time: Saturday, February 18, 2017 04:27 - CONCLUSION: Unremarkable CT scan of the brain.. Toby Constantino MD Last Impressions Chest X-Ray 02/21/17 0000 Signed Impressions: Service Date/Time: January 11:39 - CONCLUSION: Abnormal left basilar opacity could represent atelectasis, consolidation, and/or effusion. Hima Richards MD Abdomen X-Ray 02/21/17 0000 Signed Impressions: Service Date/Time: January 09:42 - CONCLUSION: Limited single view exam demonstrating nasogastric tube in place with the tip projected over the distal stomach.. Dayo Christopher MD Head CT 4/24/17 0241 Signed Impressions: Service Date/Time: Saturday, February 18, 2017 04:27 - CONCLUSION: Unremarkable CT scan of the brain.. Toby Constantino MD Last Impressions Chest X-Ray 02/20/17 0600 Signed Impressions: Service Date/Time: Monday, February 20, 2017 03:50 - CONCLUSION: Mild increase in interstitial markings bilaterally suggestive of some pulmonary edema. Otherwise, no other significant changes. Toby Constantino MD Head CT 02/18/17240 Signed Impressions: Service Date/Time: Saturday, February 18, 2017 04:27 - CONCLUSION: Unremarkable CT scan of the brain.. Toby Constantino MD Last 24 hours Impressions Chest X-Ray 02/18/17240 Signed Impressions: Service Date/Time: Saturday, February 18, 2017 02:45 - CONCLUSION: 1. No focal or acute intrathoracic disease. 2. NG tube tip in distal esophagus. Recommend advancing another 10 cm. Toby Constantino MD Objective Remarks BP 136/83 (MAP 103) pulse 91 O2 sat duration 100% GENERAL: Well-nourished, well-developed critically ill male intubated no sedation, extensor posturing noted SKIN: Warm and dry. HEAD: Normocephalic. EYES: No scleral icterus. No injection or drainage. Scleral edema mild. Pupils equal and round NECK: Supple, trachea midline. No JVD or lymphadenopathy. Orotracheally intubated CARDIOVASCULAR: Regular rate and rhythm without murmurs, gallops, or rubs. RESPIRATORY: Mechanical ventilation, overbreathing the ventilator. Breath sounds equal bilaterally. No accessory muscle use. GASTROINTESTINAL: Abdomen soft, non-tender, nondistended. OGT to low suction, MUSCULOSKELETAL: No cyanosis, left AKA, dressing C/D/I, MARC drain removed EXTREMITIES: No clubbing, cyanosis or edema Urinary Catheter: Yes Mccarthy insert reason: Measure Accurate Output Date of Insertion: Feb 18, 2017 Date of Insertion: Feb 18, 2017 Line: Central Venous Catheter Side: Right Location: Internal, Jugular A/P Assessment and Plan Plan by systems: Neurologic: Seizure disorder Metabolic encephalopathy Possible anoxic encephalopathy Neurochecks per ICU protocol Off sedation since 02/19 at 1700, extensor posturing noted 02/21 Repeat [id number] results Continue Dilantin 100 mg every 8 hours, and Keppra, monitor levels, upon hospital admission noted Dilantin level subtherapeutic, Keppra level 6.5, subtherapeutic Neurology following-Dr. Suggs 02/18 EEG-severely attenuated electrographic activity with a burst suppression pattern consistent with severe encephalopathic state 02/18CT brain unremarkable 02/19-avoid sedating medications Respiratory: Respiratory arrest secondary to cardiac arrest Possible aspiration Pulmonary edema Possible TRALI Maintain O2 sat greater than 92%, wean FiO2 as tolerated Mechanical vent settings AC/PC 18/500/+5/50 ABG-7.51/33/159/26/3.8 Ventilator bundle Maintain head of bed greater than 30 Bronchodilators every 6 hours schedule every 2 hours when necessary Empiric antibiotics continued 02/21 chest x-rayleft mid left lower lung opacity, atelectatic right lung base Continue ARDS protocol, minimal FiO2, with permissive hypercapnea Cardiovascular: Asystolic cardiac arrest 2 Hypotension secondary to multisystem organ failure New onset A. fib with RVR-resolved Initial 12-lead EKG 02/18 ST elevations V1V5 and II, III aVF, with resolution Status post CPR with ROSC x 3 rounds of CPR Cardiology on board, Dr. Bragg no interventions at this time 02/19-ECHO -EF 45%, no RWMA Currently vasopressor support the Levophed off (02/21), Vasopressin 0.04 mcgs- off (02/22) Wean as tolerated maintain MAP greater than 60 mmHg 02/19 A. fib RVR converted with digoxin 0.51 dose Renal: Severe metabolic acidosis secondary to rhabdomyolysis Acute kidney injury secondary to rhabdomyolysis Oliguria Acute renal failure 02/19 D5W NaHCO3 infusion at 75 cc /hr 02/19 Vas-Cath placement-left IJ UOP 293 for last 24 hours CK level decreasing Nephrology following-Dr. Hernandez 02/19 IHD 3L off 02/20 IHD- 2L off, 02/21 IHD 4L off potassium 4.8 -- Strict I/Os FEN/GI: Hyperkalemia-resolved Hyperphosphatemia Hypocalcemia Melena Transaminitis Hepatitis C Ileus Maintain NPO status-OGT to LIWS Replete electrolytes per ICU protocol Electrolyte abnormalities continue in the setting of rhabdomyolysis, continue frequent monitoring of labs-[place] 6 [place] [address]-> [address]->11,176-> 4370 today LDH 2010-> 1816 -> 1686->1147 Calcium gluconate 2 g IV now, protein corrected calcium 7.6 Continue Protonix infusion Gastroenterology following-Dr. Molina-Initiation of tubefeeds at trickle 10 cc an hour yesterday, not tolerated by patient extensive residual. Tube feeds discontinued Metoclopramide 5 mg 3 times a day Heme/ID: Sepsis Leukocytosis-resolved Thrombocytopenia DIC-hypofibrinogenemia (resolved) Coagulopathy secondary to hepatic injury Bandemia Continue Cefepime, Gentamycin and vancomycin, day 3, Monitor serial CBC. WBC 12.7 INR 1.7-> 1.5 today Fibrinogen level 255, stable Serial lactate levels-8.2 02/18 blood cultures-negative growth to date 02/19 Hydrocortisone 50 mg every 6 hours added to medication regimen 02/19 transfusion PRBCs 10 units, cryoprecipitate 2 units, FFP 2 units, platelets 5 units 02/21 platelet count 47, transfused 2 units of platelets. PLT CT 69 Will continue to transfuse for platelet count less than 50,000 Endocrine: Diabetes mellitus 2 Hypoglycemia-resolved Glucose monitoring per ICU protocol, low-dose regimen -- SSI Msk: Rhabdomyolysis S/P wide excision fasciotomy 02/19 Left above-knee amputation-POD#3 Orthopedics following-Dr. Purdy- plan for dressing change on Saturday, and normal drainage Continue monitor serial electrolytes, and hepatic panels Monitor LDH F/U CK levels, now less than 5000 Prophylaxis: GI Prophylaxis Protonix infusion DVT Prophylaxis -- SCD right leg, no pharmacological DVT prophylaxis in the setting of acute bleeding and coagulopathic state Lines: PIV's x 2 .RI J Central line 02/18, right radial a line 02/18, left vascular catheter 02/19 Dispo: Discussed with [employer]OM[employer] BUFFER at bedside. Patient identified, family members located. Mother, Naa lives in [place] [phone], unable to contact . I provided the patient's sister Tamika Lemon complete history and updated on the patient's medical status. The patient 's prognosis is extremely guarded at this time. Patient's neurological status has not improved, repeat EEG to be obtained to rule out subclinical epileptiform activity versus anoxic encephalopathy. Palliative care consult initiated. Family requests aggressive treatment at this time. This patient remains critically ill with one or more organ systems which are or may become a threat to life. I have spent in excess of 45 minutes discontinuously in the care and management of this patient. This time is exclusive of procedures, and includes, but is not limited to, evaluation of the patient, review of the medical record, discussions with family, consultants, nursing staff, or respiratory therapy, and documentation in the medical record. Physician Aileen Beasley MD Feb 22, 2017 13:03
[2017-02-22] MEDS ORDERED: CALCIUM GLUCONATE INJ 2 GM in SODIUM CHLORIDE 0.9% INJ 100 ML IV ONE (13:15)
[2017-02-22] MEDS: METOCLOPRAMIDE HCL 10 MG/2 ML VIAL IV PUSH SCH ×3 (13:25→20:29)
--- NOTE | 2017-02-22 13:48 | PD.CONS ---
Consult Service Palliative Care Consult Requested By Dr Garcia . Primary Care Physician Reason for Consultation a. To assist with evaluation and management of symptoms including: encephalopathy, dyspnea, pain, malnutrition b. To assist medical decision maker(s) with: better understanding of current medical conditions; weighing benefits/burdens of medical treatment options; making medical treatment decisions. HPI History of Present Illness This 61-year-old male presented to the ED 02/18/17 around 2 AM, via EMS. Patient apparently with a history of epilepsy, normally compliant with medications. Patient was reported to have been conversing with roommates through a doorway per 3 hours prior to EMS arrival, they were speaking with him but no one had seen him. He apparently became unresponsive and EMS was notified. Patient was then found on the floor with altered mental status, some question of post ictal state. Was prepared for transfer to ER when he became asystolic, ACLS protocol initiated by EMS, patient received about 12 minutes of CPR, CPR continued into the ED and shortly after had ROSC. * In the ED patient started on Levophed drip, bicarbonate drip and glucose 50 received D50, he became pulseless 2 more times each lasting about 2-3 minutes. Initial EKG indicated ST elevations, STEMI alert activated. Bedside transthoracic ultrasound indicated normal cardiac activity. Ischemic injury pattern not consistent with typical occlusive coronary process. No evidence of cardiomyopathy on bedside ultrasound. Patient was also noted to have edema and induration of the left lower extremity at the calf. He was checked for compartment pressures. He was also noted to be hypothermic. Jernigan cultures obtained, started on cefepime, Vanco. Treated for hyperkalemia 6.9. Creatinine was 3.5. + Cocaine. He was admitted to critical care, ICU for further evaluation and management. Orthopedic surgery also consulted. * Cardiology consulted at arrival notes no emergent need for cardiac catheter, continue supportive care, repeat echocardiogram pending.\\ * Orthopedics consulted for left leg edema/possible compartment syndrome. Dr Randhawa notes patient does likely have compartment syndrome of left leg he may even already have necrotic muscle of the calf and at this point fasciotomy is not likely to be of benefit as much of the muscle may already be ischemic. Patient is currently extremely unstable and not safe for any operative procedures. Opening leg at this time would increase risk of infection amputation. Recommends continue nonoperative treatment due to patient's clinical condition, will continue to evaluate clinical progress. * Neurology consulted, adjustments made to Dilantin. Patient with myoclonic jerks could consider Depakote but liver enzymes elevated, instead initiated on Keppra. Dilantin level pending. Continue supportive treatment. Likely anoxic encephalopathy. CT head unremarkable.EEG=severely attenuated electrographic activity with a burst suppression pattern consistent with severe encephalopathic state * Patient noted to have large amounts of melena, NG tube was small amount of dark gastric secretions. GI plans for EGD if patient remains stable, continue supportive treatments * 02/19 left calf tightness, pressure increasing. Worsening renal failure, likely secondary to rhabdomyolysis secondary to left calf injury. Timing Machine Operator discussed with orthopedic surgery, plan was made to proceed with possible fasciotomy, this was deemed medically necessary no family had yet been identified or contacted. Patient to the OR and underwent 4 compartment fasciotomy left leg, debridement nonviable muscle left calf, application wound VAC. * 02/19nephrology consulted for worsening renal failure; CLAUDIA likely due to induced ATN resulting from rhabdomyolysis. Electrolyte disturbances could become life threatening. Will require renal replacement therapy. Orders UA. Will attempt hemodialysis if unable to tolerate will consider CT scan our RT. * 02/19 Patient later with large amount of bleeding (despite pressure dressings, tourniquet) and muscle to left lower leg, appeared to be going into DIC. Orthopedics, supervisor pleating discussed with vascular surgery. Vascular surgery recommends above-knee amputation to save patient life. Received multiple blood products: 10 units of packed red blood cells, 5 units of platelets 2 units of FFP, 2 units of cryoprecipitate over the last 24 hours * developed A. fib RVR overnight likely secondary to hemodynamic instability. EF noted 45%. Cardiology notes if further episodes would consider Lopressor IV or digoxin if still requiring pressors. No further GI bleeding episodes reporting, GI recommends continue supportive management plan for endoscopic evaluation if has further evidence of bleeding. Has began hemodialysis. * 02/21 patient is nonresponsive, off of sedatives since 02/19. Extension posturing noted on neurological exam. Repeat EEG ordered for assessment of subclinical seizures versus anoxic encephalopathy. Receiving tube feeding. Family has been located, spoken to by critical care. Palliative care consulted to assist with clarification of goals of treatment. * On 02/22 some emesis of bilious material. NG-tube to low wall suction. Adjustments to Reglan by GI, continuing Protonix. Lactulose added. Patient reported to have moderate amounts of liquid stool. Hepatitis C Ab (+), but this is most likely combination of shocked liver and rhabdomyolysis. Patient seen in room no visitors present. He is for the most part non- responsive to exam. No signs of distress. Discussed with primary nurse at bedside. Patient mother has been in communication, following exam call placed to mother, voicemail left. Review of Systems ROS Limitations: Clinical Condition, Intubated, Unresponsive (unresponsive since admission, unable to provide ROS) Past Family Social History Coded Allergies: Tylenol (Verified Allergy, Severe, mouth swelling/dryness, 06/01/16) Nonsteroidal Anti-Inflammatory Agts (Verified Allergy, Intermediate, mouth sores, 06/01/16) *MDRO Multi-Drug Resistant Organism (Verified Adverse Reaction, Unknown, MRSA, 02/22/17) MRSA PCR (nares) POSITIVE - 02/18/17 Past Medical History Unable to obtain from patient? Epilepsy Per EMR review 2015 ED visit: Hepatitis C Chronic back and shoulder pain Possible seizure while at the [facility] 2015 Past Surgical History Unable to obtain- none per EMR records . Reported Medications Prior medications reported during 2016 ED visit: Percocet 5-325 mg (Oxycodone/Acetaminophen) 1 Tab 1 Tab PO Q8HR PRN Lidocaine Hcl 2% Viscous 100ML (Lidocaine HCl) 100 Ml Soln 15 Ml PO ONCE 7 Days Triamcinolone Dental (Triamcinolone Acetonide (Mouth) 0.1 % Pst 0.1 % MT BID 7 Days Flexeril (Cyclobenzaprine HCl) 10 Mg Tab 10 Mg PO TID PRN Percocet 5-325 mg (Oxycodone/Acetaminophen) Oxycodone 5/325 Acetaminophen Tab 1 Tab PO Q6H PRN don't take while driving Current Medications Medications (Trade) Dose Ordered Sig/Abdoulaye Route Start Time Stop Time Status Last Admin (Tylenol) 650 mg Q6H PRN PO 02/18/17 04:30 (Morphine Inj) 2 mg Q2H PRN IV 02/18/17 04:30 (Ativan Inj) 1 mg Q1H PRN IV 02/18/17 04:30 02/18/17 14:14 (Tears Naturale Opth Soln) 1 drop TID EACH EYE 02/18/17 09:00 02/22/17 12:04 (Zofran Inj) 4 mg Q6H PRN IV 02/18/17 04:30 Docusate Sodium 100 mg 100 mg Q12H G-TUBE 02/18/17 09:00 02/22/17 09:05 Vasopressin 40 units/Dextrose 100 ml @ 0 mls/hr TITRATE IV 02/18/17 07:00 02/22/17 08:12 Pharmacy Profile Note 0 ml @ 0 mls/hr UNSCH OTHER 02/18/17 07:15 (Maxipime Inj/NS Inj) 100 ml @ 200 mls/hr Q8H IV 02/18/17 12:00 02/22/17 11:44 Miscellaneous Information 1 Q361D XX 02/18/17 07:15 02/18/17 07:15 (Chlorhexidine 2% Cloth) 3 pack Taper DAILY@04 TOP 02/19/17 04:00 02/15/18 03:59 02/21/17 04:00 (Chlorhexidine 2% Cloth) 3 pack UNSCH PRN TOP 02/18/17 07:15 Phenytoin Sodium 100 mg 100 mg Q8HR IV 02/18/17 14:00 02/22/17 05:16 (Protonix Inj/NS Inj) 100 ml @ 10 mls/hr Q10H IV 02/18/17 11:00 02/21/17 21:01 (Bactroban Nasal 2% Oint) 1 applic BID EACH NARE 02/18/17 21:00 02/22/17 09:04 (SoluCORTEF INJ) 100 mg Q8H IV PUSH 02/19/17 04:00 02/22/17 11:45 (D50w (Vial) Inj) 25 ml UNSCH PRN IV PUSH 02/19/17 09:30 Glucagon 1 mg 1 mg UNSCH PRN OTHER 02/19/17 09:30 (NS 1000 ml Inj) 1,000 ml @ 0 mls/hr Q0M PRN IV 02/19/17 10:59 Heparin Sodium (Porcine) 8000 units 8,000 units UNSCH PRN IVF 02/19/17 11:00 Sodium Chloride 1,000 ml @ 200 mls/hr Q5H PRN IV 02/19/17 10:59 Hold (NS 1000 ml Inj) 1,000 ml @ 0 mls/hr Q0M PRN IV 02/19/17 10:59 (Mannitol Inj) 12.5 gm UNSCH PRN IV 02/19/17 11:00 02/21/17 15:05 (Albumin 25% Inj) 25 gm UNSCH PRN IV 02/19/17 11:00 (NS Flush) 5 ml UNSCH PRN IV FLUSH 02/19/17 11:00 02/21/17 21:01 (Heparin Inj) UNSCH PRN .XX 02/19/17 11:00 02/21/17 17:48 (Gentamicin (Dialysis) Inj) 20 mg UNSCH PRN IV 02/19/17 11:00 02/21/17 17:47 (Zofran Inj) 4 mg UNSCH PRN IV 02/19/17 11:00 (Tylenol) 650 mg UNSCH PRN PO 02/19/17 11:00 (Benadryl) 25 mg UNSCH PRN PO 02/19/17 11:00 (Nitrostat Sl) 0.4 mg UNSCH PRN SL 02/19/17 11:00 (Catapres) 0.1 mg UNSCH PRN PO 02/19/17 11:00 (Gelfoam 12 Mm/7 Mm Top) 1 foam UNSCH PRN TOP 02/19/17 11:00 (NS Flush) 2 ml UNSCH PRN IVF 02/19/17 17:00 IV Flush 2 ml 2 ml BID IVF 02/19/17 21:00 02/22/17 09:05 (Keppra 1000 Mg Inj) 100 ml @ 400 mls/hr Q12HR IV 02/19/17 21:00 02/22/17 09:05 (Phoslo) 667 mg TID PO 02/21/17 13:00 02/22/17 12:04 (Rocaltrol) 0.5 mcg DAILY PO 02/21/17 15:15 02/22/17 09:05 (Vitamin D3) 5,000 units DAILY PO 02/21/17 15:15 02/22/17 09:05 (Reglan Inj) 5 mg Q8HR IV PUSH 02/22/17 13:00 (Lactulose Liq) 30 ml DAILY PO 02/23/17 09:00 Family History Unable to obtain-patient unresponsive no family present Substance Use Tobacco: Per EMR smokes 4-5 cigarettes a day Alcohol: Per EMR/prior visits history of alcoholism Prescription med abuse: None reported per EMR Illicits: Per EMR history of IV drug abuse him of this admission positive cocaine Psychosocial History Not known, pending discussion with family Spiritual/Cultural Factors Reported CatholicPriest has been in Living Will: Never completed Health Care Surrogate: Never completed Durable Power of Road Production General Manager: Never completed Ethical and Legal Issues Patient is currently unable to participate in decision-making. Does not appear this time that he will regain ability to participate he is reported to be supported by a mother, sister, aunt. No significant other or spouse reported. Per [place] statutes his mother would be legal decision maker should she wish to serve as such. Physical Exam Vital Signs Date Time Temp Pulse Resp B/P Pulse Ox O2 Delivery O2 Flow Rate FiO2 02/22/17 10:00 96 02/22/17 09:36 100 50 02/22/17 08:00 92 02/22/17 08:00 50 02/22/17 08:00 98.6 92 18 132/82 100 02/22/17 07:00 100 Mechanical Ventilator 50 02/22/17 06:00 120/79 134/79 02/22/17 06:00 99 02/22/17 04:00 93 02/22/17 04:00 98.6 104 16 136/70 100 02/22/17 04:00 50 02/22/17 03:17 100 50 02/22/17 02:00 93 02/22/17 01:04 100 50 02/22/17 00:00 50 02/22/17 00:00 98.2 92 16 131/64 100 02/22/17 00:00 99 02/21/17 22:00 99 02/21/17 20:57 100 50 02/21/17 20:00 94 02/21/17 20:00 50 02/21/17 20:00 Mechanical Ventilator 50 02/21/17 20:00 98.6 98 16 128/62 100 02/21/17 18:00 106 124/70 128/95 02/21/17 18:00 106 02/21/17 17:07 100 50 02/21/17 16:00 101 02/21/17 16:00 99.0 98 19 122/62 100 02/21/17 16:00 50 02/21/17 14:00 103 02/21/17 02/22/17 19:00 07:00 Intake Total 1051 ml 1005 ml Output Total 4675.0 ml 635 ml Balance -3624.0 ml 370 ml Intake IV Total 540 ml 724 ml Tube Feeding 70 ml Platelets 381 ml 281 ml Tube Irrigant 60 ml Output Urine Total 75 ml 95 ml Stool Total 0 ml 20 ml Gastric Drainage Total 50 ml 500 ml Tube Feeding Residual Discard 50.0 ml Drainage Total 0 ml 20 ml Hemodialysis 4500 ml Exam CONSTITUTIONAL/GENERAL: This is an adequately nourished patient, in no apparent distress, minimally responsive on mechanical vent TUBES/LINES/DRAINS: Left IJ dialysis access, right IJ central line, right radial arterial line, right upper extremity peripheral IV, Mccarthy catheter, rectal tube, ET tube, OG tube, footdrop boots SKIN: Slight jaundice, no rashes, or lesions. Left AKA dressing clean and dry. Skin temperature warm. HEAD: Atraumatic. Normocephalic. EYES: No eye opening to exam. When eyes held open continuing gaze left-to- right but do not appear to track. Pupils are 2 mm, with questionable reaction to light. No scleral icterus. No injection or drainage. Fundi not examined. ENT: Nose without bleeding or purulent drainage. Unable visualize oropharynx due to ET tube, OG tube NECK: Trachea midline. Supple, nontender. CARDIOVASCULAR: Regular rate and rhythm without murmurs, sinus rhythm via bedside monitor. No JVD. Peripheral pulses symmetric. RESPIRATORY/CHEST: Symmetric, unlabored respirations. Clear to auscultation. Breath sounds equal bilaterally. No wheezes, rales, or rhonchi. GASTROINTESTINAL: Abdomen slightly firm, unable to determine tenderness. No palpable masses. Bowel sounds absent to my exam. OG tube to wall suction moderate amount of yellow-green drainage. GENITOURINARY: Without palpable bladder distension. Mccarthy catheter in place scant amount of dark concentrated urine.+ Significant scrotal edema. MUSCULOSKELETAL: Extremities without clubbing, cyanosis. Trace generalized edema to upper extremities. No mottling or clubbing. NEUROLOGICAL: Not on sedation. No eye opening. Slight eye flutter/blinking to sternal pain stimuli. No withdrawal of upper extremities to pain. Slight flexion of right toe to pain stimuli but no withdrawal. PSYCHIATRIC: No obvious anxiety/depression--limited assessment due to clinical condition. Diagnostic Tests Laboratory Laboratory Tests Test 02/19/17 02/19/17 02/19/17 02/19/17 13:20 13:52 15:04 16:00 Blood Gas Puncture Site ARTLINE OKAY Blood Gas Patient Temperature 98.6 98.6 Blood Gas HCO3 20 mmol/L 15 mmol/L (22-26) (22-26) Blood Gas Base Excess -4.6 mmol/L -11.6 mmol/L (-2-2) (-2-2) Blood Gas Oxygen Saturation 98 % (90-100) 97 % (90-100) Arterial Blood pH 7.34 7.18 (7.380-7.420) (7.380-7.420) Arterial Blood Partial 38 mmHg (38-42) 42 mmHg (38-42) Pressure CO2 Arterial Blood Partial 504 mmHg 387 mmHg Pressure O2 (61-120) (61-120) Arterial Blood Oxygen Content 9.1 Vol % 8.8 Vol % (12.0-20.0) (12.0-20.0) Arterial Blood 1.3 % (0-4) 1.4 % (0-4) Carboxyhemoglobin Arterial Blood Methemoglobin 1.2 % (0-2) 1.3 % (0-2) Blood Gas Hemoglobin 5.6 G/DL 5.7 G/DL (12.0-16.0) (12.0-16.0) Oxygen Delivery Device VENT VENT Blood Gas Ventilator Setting OR PEEP 5, Blood Gas Inspired Oxygen 100 % Crossmatch Leukocyte-Reduced Leukocyte-Reduced Red Blood Red Blood Cells Cells Blood Bank Comment Blood Type A POSITIVE White Blood Count 7.8 TH/MM3 (4.0-11.0) Red Blood Count 1.64 MIL/MM3 (4.50-5.90) Hemoglobin 5.1 GM/DL (13.0-17.0) Hematocrit 15.7 % (39.0-51.0) Mean Corpuscular Volume 95.5 FL (80.0-100.0) Mean Corpuscular Hemoglobin 31.3 PG (27.0-34.0) Mean Corpuscular Hemoglobin 32.8 % Concent (32.0-36.0) Red Cell Distribution Width 26.5 % (11.6-17.2) Platelet Count 99 TH/MM3 (150-450) Mean Platelet Volume 9.0 FL (7.0-11.0) Neutrophils (%) (Auto) 77.7 % (16.0-70.0) Lymphocytes (%) (Auto) 12.6 % (9.0-44.0) Monocytes (%) (Auto) 9.1 % (0.0-8.0) Eosinophils (%) (Auto) 0.3 % (0.0-4.0) Basophils (%) (Auto) 0.3 % (0.0-2.0) Neutrophils # (Auto) 6.0 TH/MM3 (1.8-7.7) Lymphocytes # (Auto) 1.0 TH/MM3 (1.0-4.8) Monocytes # (Auto) 0.7 TH/MM3 (0-0.9) Eosinophils # (Auto) 0.0 TH/MM3 (0-0.4) Basophils # (Auto) 0.0 TH/MM3 (0-0.2) CBC Comment AUTO DIFF Differential Total Cells 100 Counted Neutrophils % (Manual) 37 % (16-70) Band Neutrophils % 38 % (0-6) Lymphocytes % 10 % (9-44) Monocytes % 2 % (0-8) Neutrophils # (Manual) 6.9 TH/MM3 (1.8-7.7) Metamyelocytes 9 % (0-1) Myelocytes 4 % (0-0) Differential Comment FINAL DIFF MANUAL Toxic Granulation 1+ (NORMAL) Platelet Estimate LOW (NORMAL) Platelet Morphology Comment NORMAL (NORMAL) Ovalocytes 1+ (NORMAL) Prothrombin Time 23.2 SEC (9.8-11.6) Prothromb Time International 2.0 RATIO Ratio Activated Partial 69.9 SEC Thromboplast Time (24.3-30.1) Test 02/19/17 02/19/17 02/19/17 02/19/17 16:21 17:05 17:07 17:12 Crossmatch Leukocyte-Reduced Leukocyte-Reduced Leukocyte-Reduced Red Blood Red Blood Red Blood Cells Cells Cells Blood Bank Comment Blood Gas Puncture Site RASHAD Blood Gas Patient Temperature 98.6 Blood Gas HCO3 14 mmol/L (22-26) Blood Gas Base Excess -14.4 mmol/L (-2-2) Blood Gas Oxygen Saturation 96 % (90-100) Arterial Blood pH 7.06 (7.380-7.420) Arterial Blood Partial 52 mmHg (38-42) Pressure CO2 Arterial Blood Partial 209 mmHg Pressure O2 (61-120) Arterial Blood Oxygen Content 10.7 Vol % (12.0-20.0) Arterial Blood 1.7 % (0-4) Carboxyhemoglobin Arterial Blood Methemoglobin 1.3 % (0-2) Blood Gas Hemoglobin 7.6 G/DL (12.0-16.0) Oxygen Delivery Device VENT Blood Gas Ventilator Setting PEEP 5 Blood Gas Inspired Oxygen 50 % Test 02/19/17 02/19/17 02/20/17 02/20/17 22:00 23:20 03:40 05:14 White Blood Count 7.5 TH/MM3 8.0 TH/MM3 (4.0-11.0) (4.0-11.0) Red Blood Count 4.15 MIL/MM3 3.97 MIL/MM3 (4.50-5.90) (4.50-5.90) Hemoglobin 12.0 GM/DL 11.5 GM/DL (13.0-17.0) (13.0-17.0) Hematocrit 35.9 % 34.1 % (39.0-51.0) (39.0-51.0) Mean Corpuscular Volume 86.5 FL 85.8 FL (80.0-100.0) (80.0-100.0) Mean Corpuscular Hemoglobin 28.9 PG 29.0 PG (27.0-34.0) (27.0-34.0) Mean Corpuscular Hemoglobin 33.4 % 33.8 % Concent (32.0-36.0) (32.0-36.0) Red Cell Distribution Width 16.6 % 17.5 % (11.6-17.2) (11.6-17.2) Platelet Count 91 TH/MM3 76 TH/MM3 (150-450) (150-450) Mean Platelet Volume 8.4 FL 8.6 FL (7.0-11.0) (7.0-11.0) Prothrombin Time 16.8 SEC 19.4 SEC (9.8-11.6) (9.8-11.6) Prothromb Time International 1.5 RATIO 1.7 RATIO Ratio Activated Partial 42.2 SEC 45.2 SEC Thromboplast Time (24.3-30.1) (24.3-30.1) Fibrinogen 222 mg/dL 219 mg/dL (181-393) (181-393) Sodium Level 146 MEQ/L 145 MEQ/L (136-145) (136-145) Potassium Level 4.7 MEQ/L 4.9 MEQ/L (3.5-5.1) (3.5-5.1) Chloride Level 106 MEQ/L 105 MEQ/L (98-107) (98-107) Carbon Dioxide Level 24.9 MEQ/L 26.4 MEQ/L (21.0-32.0) (21.0-32.0) Anion Gap 15 MEQ/L (5-15) 14 MEQ/L (5-15) Blood Urea Nitrogen 34 MG/DL (7-18) 39 MG/DL (7-18) Creatinine 2.72 MG/DL 3.05 MG/DL (0.60-1.30) (0.60-1.30) Estimat Glomerular Filtration 20 ML/MIN (>89) 18 ML/MIN (>89) Rate Random Glucose 153 MG/DL 220 MG/DL (74-106) (74-106) Calcium Level 5.4 MG/DL 5.2 MG/DL (8.5-10.1) (8.5-10.1) Protein Corrected Calcium 6.9 MG/DL 6.8 MG/DL (8.5-10.1) (8.5-10.1) Total Protein 3.7 GM/DL 3.5 GM/DL (6.4-8.2) (6.4-8.2) Hepatitis A IgM Antibody NEGATIVE (NEGATIVE) Hepatitis B Surface Antigen NEGATIVE (NEGATIVE) Hepatitis B Core IgM Antibody NEGATIVE (NEGATIVE) Hepatitis C Antibody REACTIVE (NEGATIVE) Neutrophils (%) (Auto) 81.2 % (16.0-70.0) Lymphocytes (%) (Auto) 12.1 % (9.0-44.0) Monocytes (%) (Auto) 6.0 % (0.0-8.0) Eosinophils (%) (Auto) 0.4 % (0.0-4.0) Basophils (%) (Auto) 0.3 % (0.0-2.0) Neutrophils # (Auto) 6.5 TH/MM3 (1.8-7.7) Lymphocytes # (Auto) 1.0 TH/MM3 (1.0-4.8) Monocytes # (Auto) 0.5 TH/MM3 (0-0.9) Eosinophils # (Auto) 0.0 TH/MM3 (0-0.4) Basophils # (Auto) 0.0 TH/MM3 (0-0.2) CBC Comment AUTO DIFF Differential Total Cells 100 Counted Neutrophils % (Manual) 39 % (16-70) Band Neutrophils % 47 % (0-6) Lymphocytes % 9 % (9-44) Neutrophils # (Manual) 7.3 TH/MM3 (1.8-7.7) Metamyelocytes 5 % (0-1) Differential Comment FINAL DIFF MANUAL Platelet Estimate LOW (NORMAL) Platelet Morphology Comment NORMAL (NORMAL) Lactic Acid Level 8.2 mmol/L (0.4-2.0) Total Bilirubin 6.7 MG/DL (0.2-1.0) Aspartate Amino Transf 2104 U/L (AST/SGOT) (15-37) Alanine Aminotransferase 781 U/L (12-78) (ALT/SGPT) Alkaline Phosphatase 52 U/L (45-117) Lactate Dehydrogenase 1816 U/L (87-241) Total Creatine Kinase 75316 U/L (39-308) Creatine Kinase MB 136.4 NG/ML (0.5-3.6) Creatine Kinase MB % 0.7 % (0.0-4.0) Albumin 1.6 GM/DL (3.4-5.0) Phenytoin (Dilantin) Level 10.0 MCG/ML (10.0-20.0) Blood Gas Puncture Site ART LINE Blood Gas Patient Temperature 98.6 Blood Gas HCO3 25 mmol/L (22-26) Blood Gas Base Excess 0.8 mmol/L (-2-2) Blood Gas Oxygen Saturation 97 % (90-100) Arterial Blood pH 7.40 (7.380-7.420) Arterial Blood Partial 41 mmHg (38-42) Pressure CO2 Arterial Blood Partial 132 mmHg Pressure O2 (61-120) Arterial Blood Oxygen Content 16.2 Vol % (12.0-20.0) Arterial Blood 1.0 % (0-4) Carboxyhemoglobin Arterial Blood Methemoglobin 1.2 % (0-2) Blood Gas Hemoglobin 11.8 G/DL (12.0-16.0) Oxygen Delivery Device VENTILATOR Blood Gas Ventilator Setting [facility]/ Blood Gas Inspired Oxygen 60 % Test 02/20/17 02/20/17 02/21/17 02/21/17 12:15 19:40 00:30 02:50 White Blood Count 9.8 TH/MM3 10.1 TH/MM3 9.4 TH/MM3 (4.0-11.0) (4.0-11.0) (4.0-11.0) Red Blood Count 3.95 MIL/MM3 4.03 MIL/MM3 3.96 MIL/MM3 (4.50-5.90) (4.50-5.90) (4.50-5.90) Hemoglobin 11.5 GM/DL 11.8 GM/DL 11.8 GM/DL (13.0-17.0) (13.0-17.0) (13.0-17.0) Hematocrit 33.1 % 33.7 % 33.4 % (39.0-51.0) (39.0-51.0) (39.0-51.0) Mean Corpuscular Volume 84.0 FL 83.7 FL 84.5 FL (80.0-100.0) (80.0-100.0) (80.0-100.0) Mean Corpuscular Hemoglobin 29.2 PG 29.3 PG 29.7 PG (27.0-34.0) (27.0-34.0) (27.0-34.0) Mean Corpuscular Hemoglobin 34.8 % 35.1 % 35.2 % Concent (32.0-36.0) (32.0-36.0) (32.0-36.0) Red Cell Distribution Width 16.8 % 17.5 % 17.5 % (11.6-17.2) (11.6-17.2) (11.6-17.2) Platelet Count 67 TH/MM3 62 TH/MM3 56 TH/MM3 (150-450) (150-450) (150-450) Mean Platelet Volume 8.7 FL 8.8 FL 8.6 FL (7.0-11.0) (7.0-11.0) (7.0-11.0) Prothrombin Time 18.6 SEC 17.0 SEC 16.6 SEC (9.8-11.6) (9.8-11.6) (9.8-11.6) Prothromb Time International 1.6 RATIO 1.5 RATIO 1.5 RATIO Ratio Activated Partial 41.1 SEC 40.7 SEC 40.8 SEC Thromboplast Time (24.3-30.1) (24.3-30.1) (24.3-30.1) Fibrinogen 237 mg/dL 250 mg/dL 255 mg/dL (227-377) (227-377) (227-377) Random Vancomycin Level 17.4 COMMENT Sodium Level 144 MEQ/L (136-145) Potassium Level 4.3 MEQ/L (3.5-5.1) Chloride Level 103 MEQ/L (98-107) Carbon Dioxide Level 31.8 MEQ/L (21.0-32.0) Anion Gap 9 MEQ/L (5-15) Blood Urea Nitrogen 43 MG/DL (7-18) Creatinine 3.23 MG/DL (0.60-1.30) Estimat Glomerular Filtration 20 ML/MIN (>89) Rate Random Glucose 148 MG/DL (74-106) Calcium Level 5.9 MG/DL (8.5-10.1) Protein Corrected Calcium 7.3 MG/DL (8.5-10.1) Total Protein 4.1 GM/DL (6.4-8.2) Urine Color DARK-BROWN (YELLW/STRAW) Urine Turbidity HAZY (CLEAR) Urine pH 7.5 (5.0-8.5) Urine Specific [place] 1.016 (1.002-1.035) Urine Protein 30 mg/dL (NEG-TRACE) Urine Glucose (UA) 150 mg/dL (NEG) Urine Ketones NEG mg/dL (NEG) Urine Occult Blood LARGE (NEG) Urine Nitrite NEG (NEG) Urine Bilirubin NEG (NEG) Urine Urobilinogen LESS THAN 2.0 MG/DL (LESS THAN 2.0) Urine Leukocyte Esterase NEG (NEG) Urine RBC 12 /hpf (0-3) Urine WBC 22 /hpf (0-5) Urine WBC Clumps FEW (NONE) Urine Squamous Epithelial <1 /hpf (0-5) Cells Urine Renal Epithelial Cells 4 /hpf (NONE) Urine Amorphous Sediment RARE Urine Bacteria RARE /hpf (NONE) Urine Hyaline Casts 1 /lpf (RARE) Microscopic Urinalysis Comment CULTURE INDICATED Test 02/21/17 02/21/17 02/21/17 02/21/17 06:05 10:40 11:16 11:30 White Blood Count 8.4 TH/MM3 (4.0-11.0) Red Blood Count 3.92 MIL/MM3 (4.50-5.90) Hemoglobin 11.3 GM/DL (13.0-17.0) Hematocrit 33.4 % (39.0-51.0) Mean Corpuscular Volume 85.3 FL (80.0-100.0) Mean Corpuscular Hemoglobin 28.8 PG (27.0-34.0) Mean Corpuscular Hemoglobin 33.8 % Concent (32.0-36.0) Red Cell Distribution Width 17.6 % (11.6-17.2) Platelet Count 47 TH/MM3 (150-450) Mean Platelet Volume 9.0 FL (7.0-11.0) Sodium Level 142 MEQ/L (136-145) Potassium Level 4.4 MEQ/L (3.5-5.1) Chloride Level 103 MEQ/L (98-107) Carbon Dioxide Level 28.7 MEQ/L (21.0-32.0) Anion Gap 10 MEQ/L (5-15) Blood Urea Nitrogen 58 MG/DL (7-18) Creatinine 4.08 MG/DL (0.60-1.30) Estimat Glomerular Filtration 15 ML/MIN (>89) Rate Random Glucose 191 MG/DL (74-106) Calcium Level 5.9 MG/DL (8.5-10.1) Phosphorus Level 5.7 MG/DL (2.5-4.9) Lactate Dehydrogenase 1686 U/L (87-241) Albumin 1.5 GM/DL (3.4-5.0) Total Creatine Kinase 38414 U/L (39-308) Creatine Kinase MB 50.4 NG/ML (0.5-3.6) Creatine Kinase MB % 0.5 % (0.0-4.0) 25-Hydroxy Vitamin D Total 9.9 ng/ML (30-100) Parathyroid Hormone (Intact) 390.3 PG/ML (12.4-76.8) Blood Bank Comment Blood Gas Puncture Site ART LINE Blood Gas Patient Temperature 98.6 Blood Gas HCO3 27 mmol/L (22-26) Blood Gas Base Excess 3.8 mmol/L (-2-2) Blood Gas Oxygen Saturation 97 % (90-100) Arterial Blood pH 7.51 (7.380-7.420) Arterial Blood Partial 34 mmHg (38-42) Pressure CO2 Arterial Blood Partial 159 mmHg Pressure O2 (61-120) Arterial Blood Oxygen Content 16.0 Vol % (12.0-20.0) Arterial Blood 1.1 % (0-4) Carboxyhemoglobin Arterial Blood Methemoglobin 1.0 % (0-2) Blood Gas Hemoglobin 11.5 G/DL (12.0-16.0) Oxygen Delivery Device VENTILATOR Blood Gas Ventilator Setting AC16/500/PEEP5 Blood Gas Inspired Oxygen 50 % Test 02/21/17 02/21/17 02/22/17 02/22/17 11:50 19:10 00:15 06:05 White Blood Count 8.5 TH/MM3 10.5 TH/MM3 9.0 TH/MM3 8.5 TH/MM3 (4.0-11.0) (4.0-11.0) (4.0-11.0) (4.0-11.0) Red Blood Count 3.96 MIL/MM3 4.20 MIL/MM3 3.83 MIL/MM3 3.67 MIL/MM3 (4.50-5.90) (4.50-5.90) (4.50-5.90) (4.50-5.90) Hemoglobin 11.7 GM/DL 12.0 GM/DL 11.1 GM/DL 11.1 GM/DL (13.0-17.0) (13.0-17.0) (13.0-17.0) (13.0-17.0) Hematocrit 33.8 % 36.2 % 33.3 % 31.7 % (39.0-51.0) (39.0-51.0) (39.0-51.0) (39.0-51.0) Mean Corpuscular Volume 85.2 FL 86.3 FL 87.0 FL 86.4 FL (80.0-100.0) (80.0-100.0) (80.0-100.0) (80.0-100.0) Mean Corpuscular Hemoglobin 29.6 PG 28.5 PG 29.1 PG 30.1 PG (27.0-34.0) (27.0-34.0) (27.0-34.0) (27.0-34.0) Mean Corpuscular Hemoglobin 34.7 % 33.0 % 33.5 % 34.9 % Concent (32.0-36.0) (32.0-36.0) (32.0-36.0) (32.0-36.0) Red Cell Distribution Width 17.5 % 18.0 % 18.0 % 18.0 % (11.6-17.2) (11.6-17.2) (11.6-17.2) (11.6-17.2) Platelet Count 54 TH/MM3 91 TH/MM3 84 TH/MM3 69 TH/MM3 (150-450) (150-450) (150-450) (150-450) Mean Platelet Volume 9.3 FL 8.5 FL 8.9 FL 8.8 FL (7.0-11.0) (7.0-11.0) (7.0-11.0) (7.0-11.0) Prothrombin Time 16.7 SEC (9.8-11.6) Prothromb Time International 1.5 RATIO Ratio Sodium Level 143 MEQ/L (136-145) Potassium Level 4.8 MEQ/L (3.5-5.1) Chloride Level 104 MEQ/L (98-107) Carbon Dioxide Level 28.4 MEQ/L (21.0-32.0) Anion Gap 11 MEQ/L (5-15) Blood Urea Nitrogen 79 MG/DL (7-18) Creatinine 4.55 MG/DL (0.60-1.30) Estimat Glomerular Filtration 13 ML/MIN (>89) Rate Random Glucose 205 MG/DL (74-106) Calcium Level 6.8 MG/DL (8.5-10.1) Protein Corrected Calcium 8.1 MG/DL (8.5-10.1) Phosphorus Level 5.6 MG/DL (2.5-4.9) Magnesium Level 2.3 MG/DL (1.5-2.5) Total Bilirubin 5.1 MG/DL (0.2-1.0) Aspartate Amino Transf 1288 U/L (AST/SGOT) (15-37) Alanine Aminotransferase 127 U/L (12-78) (ALT/SGPT) Alkaline Phosphatase 88 U/L (45-117) Lactate Dehydrogenase 1147 U/L (87-241) Total Creatine Kinase 4370 U/L (39-308) Creatine Kinase MB 27.9 NG/ML (0.5-3.6) Creatine Kinase MB % 0.6 % (0.0-4.0) Total Protein 4.7 GM/DL (6.4-8.2) Albumin 1.6 GM/DL (3.4-5.0) Random Vancomycin Level 23.4 COMMENT Test 02/22/17 02/22/17 06:39 11:55 Blood Gas Puncture Site ART LINE Blood Gas Patient Temperature 98.6 Blood Gas HCO3 27 mmol/L (22-26) Blood Gas Base Excess 3.2 mmol/L (-2-2) Blood Gas Oxygen Saturation 97 % (90-100) Arterial Blood pH 7.49 (7.380-7.420) Arterial Blood Partial 35 mmHg (38-42) Pressure CO2 Arterial Blood Partial 191 mmHg Pressure O2 (61-120) Arterial Blood Oxygen Content 16.5 Vol % (12.0-20.0) Arterial Blood 1.2 % (0-4) Carboxyhemoglobin Arterial Blood Methemoglobin 1.1 % (0-2) Blood Gas Hemoglobin 11.8 G/DL (12.0-16.0) Oxygen Delivery Device VENTILATOR Blood Gas Ventilator Setting PRVC/AC Blood Gas Inspired Oxygen 50 % White Blood Count 8.1 TH/MM3 (4.0-11.0) Red Blood Count 3.80 MIL/MM3 (4.50-5.90) Hemoglobin 11.0 GM/DL (13.0-17.0) Hematocrit 33.4 % (39.0-51.0) Mean Corpuscular Volume 87.9 FL (80.0-100.0) Mean Corpuscular Hemoglobin 28.9 PG (27.0-34.0) Mean Corpuscular Hemoglobin 32.9 % Concent (32.0-36.0) Red Cell Distribution Width 17.9 % (11.6-17.2) Platelet Count 62 TH/MM3 (150-450) Mean Platelet Volume 8.8 FL (7.0-11.0) Result Diagram: 02/22/17 1155 02/22/17 0605 Microbiology Microbiology Date/Time Procedure Status Source Growth 02/20/17 12:15 Urine Culture - Final Complete Urine Catheterized Urine NO GROWTH IN 48 HOURS. 02/21/17 02:50 Urine Culture - Preliminary Resulted Urine Clean Catch NO GROWTH IN 24 HOURS. Imaging Last Impressions Chest X-Ray 02/22/17 0600 Signed Impressions: Service Date/Time: Wednesday, February 22, 2017 03:42 - CONCLUSION: No significant change. Hima Bright MD Abdomen X-Ray 02/21/17 0000 Signed Impressions: Service Date/Time: January 09:42 - CONCLUSION: Limited single view exam demonstrating nasogastric tube in place with the tip projected over the distal stomach.. Dayo Christopher MD Head CT 02/18/17 0241 Signed Impressions: Service Date/Time: Saturday, February 18, 2017 04:27 - CONCLUSION: Unremarkable CT scan of the brain.. Toby Constantino MD Procedures 02/19/17 : 4 compartment fasciotomy left leg, debridement nonviable muscle left calf, application wound VAC 02/19/17: Later underwent left AKA Patient/Family Conference Issues Discussed: * Palliative care role, purpose, approach * Additional medical, psychosocial, and spiritual history * Patients general health, functional status, and cognitive changes in the months leading up to the current hospitalization * Patient/family understanding of the current medical problems * Patient/family understanding of prognosis * Patients goals of care as best understood from advance directives and/or conversations and/or values * Current medical treatment options and benefits/burdens of those options * Likely scenarios comparing ongoing aggressive care with a transition to comfort measures only * Questions answered to the best of my ability * Palliative care contact information provided Assessment and Plan Disease Oriented Problem List: (1) Compartment syndrome (2) Renal failure (3) Rhabdomyolysis (4) NSTEMI (non-ST elevated myocardial infarction) (5) Cardiopulmonary arrest with successful resuscitation (6) Seizure disorder (7) Encephalopathy (8) Transaminitis (9) Acute kidney injury (10) Elevated liver enzymes (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 Symptom Scale: (1) Dyspnea (2) Malnutrition (3) Pain Pertinent Non-Medical Issues Psychosocial: Spiritual: Reported Catholiccreases been in. Legal:Patient is currently unable to participate in decision-making. Does not appear this time that he will regain ability to participate. he is reported to be supported by a mother, sister, aunt. No significant other or spouse reported. Per [place] statutes his mother would be legal decision maker should she wish to serve as such. Ethical issues impacting care: Important Contacts Mother, Naa/ Griselda [phone] PROXY Sister Tamika Lemon [phone] aunt Annabel [phone] . Prognosis Prognosis guarded. This patient came in suffering acute cardiac arrest. He has subsequently developed compartment syndrome rhabdomyolysis, multiorgan failure. Poor neuro outlook, poor neuro exam. High risk for further complications, decline and . If he does survive will not likely regain full cognitive/functional status. Code Status: Full Code Plan * Legal decision maker:Patient is currently unable to participate in decision- making. Does not appear this time that he will regain ability to participate. he is reported to be supported by a mother, sister, aunt. No significant other or spouse reported. Per [place] statutes his mother would be legal decision maker should she wish to serve as such. * Goals: TBD, VM left for mother. * CODE STATUS:full * SYMPTOMS: --encephalopathy- status post cardiac arrest, EEG indicative of severe encephalopathy, likely anoxic encephalopathy --pain-currently with no signs or symptoms of pain however potential sources would include recent CPR, recent invasive procedures, recent operative procedures left lower extremity along bedbound status. Currently on no sedatives to maximize neuro assessment, will continue to evaluate --dyspnea-intubated for airway protection, remains on mechanical vent noted tachypnea or dyspnea reported --malnutrition-currently with OG tube to suction, had been receiving trickle feeds however has continued to have issues not tolerating/+ emesis episode,+ liquid bowel movement * Palliative care will continue to follow during hospital course as condition evolves, to assist patient/decision-maker with understanding of medical conditions, weighing benefits/burdens of treatment options, for clarification of goals of treatment. Additionally will assist with any symptoms of palliative concern Time Spent Total Floor Time (mins): 45 Thank you for the opportunity to participate in the care of Mr. Fox. Attestation To help prompt me to consider important information that might be impacting today's encounter and assessment, information from prior notes written by myself or my colleagues may have been "brought forward" into today's note. My signature on this note, however, is an attestation that I personally performed the exam, history, and/or decision-making noted today, and, unless otherwise indicated, the interactions with patient, family, and staff as well as the review of records all occurred today. I also attest that the listed assessment and stated plan reflect my best clinical judgment today based on the combination of historical information, prior notes, and today's exam/ interactions. When time spent is documented, it refers only to time spent today by the signer, or if indicated, combined time spent today by collaborating physician/nurse practitioner. Dorothy Gaston Feb 22, 2017 13:48 Dorothy Gaston Feb 22, 2017 13:48
--- NOTE | 2017-02-22 15:47 | MG ---
cc: MAKSIM ALDRIDGE Lab No: [id number] Date: 02/21/17 Age: 61 Sex: M Race: TECHNIQUE 17 channel EEG. DESCRIPTION The background rhythm reveals generalized slowing in the delta frequency at 3-4 Hz. Amplitude is roughly 2 to 5 microvolts. Occasionally, there is activity which is higher amplitude at about 20-30 microvolts but still in the delta frequency and symmetric. Occasional sharp activity is seen. It is not truly epileptiform bilaterally. There is some muscle artifact as well. INTERPRETATION Abnormal study consistent with a diffuse encephalopathy. Occasional sharp activity is identified diffusely but mainly over the right hemisphere which is fairly nonspecific but might represent an underlying epileptogenic focus. MD JUDD Hastings/PHILIP /3:25 PM /3:34 PM
--- NOTE | 2017-02-22 18:36 | HHI.PR ---
Review/Management Diagnosis 1. Breakthrough seizures status post cardiac arrest/asystole. 2. Encephalopathy, likely anoxic/metabolic encephalopathy.Given the myoclonus, nonverbal comatose, s/p cardiac arrest. 3. Respiratory arrest secondary to cardiac arrest. 4. Acute kidney injury/rhabdomyolysis. 5. Severe metabolic acidosis. 6. Melena. 7. Thrombocytopenia. 8. Elevated liver enzymes. 9.Compartment syndrome left LE, s/p amputation on - Guarded prognosis, critically ill patient Plan 1. Neuro checks hourly. 2. Dilantin IV Dilantin 100 mg three times daily. 3. Keppra 1gm twice daily IV. 4. Obtain Dilantin level. 5. Seizure precautions. 6. Management of electrolyte derangements and medical problems by the attending team. 7. DVT prophylaxis, SCDs. 8. Load with 1gm Dilantin iv Diagnosis/Plan: Subjective Subjective Comments No change in neurologic status Vented not sedated Noted right facial twitches No gaze deviation EEG 02/22, revealed right sided sharp discharges, encephalopathic ? ictal Levetiracetam and Dilantin levels are therapeutic Active Medications Current Medications Medications (Trade) Dose Ordered Sig/Abdoulaye Route Start Time Stop Time Status Last Admin (Tylenol) 650 mg Q6H PRN PO 02/18/17 04:30 (Morphine Inj) 2 mg Q2H PRN IV 02/18/17 04:30 (Ativan Inj) 1 mg Q1H PRN IV 02/18/17 04:30 02/18/17 14:14 (Tears Naturale Opth Soln) 1 drop TID EACH EYE 02/18/17 09:00 02/22/17 17:30 (Zofran Inj) 4 mg Q6H PRN IV 02/18/17 04:30 Docusate Sodium 100 mg 100 mg Q12H G-TUBE 02/18/17 09:00 02/22/17 09:05 Vasopressin 40 units/Dextrose 100 ml @ 0 mls/hr TITRATE IV 02/18/17 07:00 02/22/17 08:12 (Vancomycin Consult Pharmacy) 0 ml @ 0 mls/hr UNSCH OTHER 02/18/17 07:15 Miscellaneous Information 1 Q361D XX 02/18/17 07:15 02/18/17 07:15 (Chlorhexidine 2% Cloth) 3 pack Taper DAILY@04 [facility] 02/19/17 04:00 02/15/18 03:59 02/21/17 04:00 (Chlorhexidine 2% Cloth) 3 pack UNSCH PRN TOP 02/18/17 07:15 Phenytoin Sodium 100 mg 100 mg Q8HR IV 02/18/17 14:00 02/22/17 13:25 (Protonix Inj/NS Inj) 100 ml @ 10 mls/hr Q10H IV 02/18/17 11:00 02/22/17 15:52 (Bactroban Nasal 2% Oint) 1 applic BID EACH NARE 02/18/17 21:00 02/22/17 09:04 (SoluCORTEF INJ) 100 mg Q8H IV PUSH 02/19/17 04:00 02/22/17 11:45 (D50w (Vial) Inj) 25 ml UNSCH PRN IV PUSH 02/19/17 09:30 Glucagon 1 mg 1 mg UNSCH PRN OTHER 02/19/17 09:30 (NS 1000 ml Inj) 1,000 ml @ 0 mls/hr Q0M PRN IV 02/19/17 10:59 Heparin Sodium (Porcine) 8000 units 8,000 units UNSCH PRN IVF 02/19/17 11:00 Sodium Chloride 1,000 ml @ 200 mls/hr Q5H PRN IV 02/19/17 10:59 Hold (NS 1000 ml Inj) 1,000 ml @ 0 mls/hr Q0M PRN IV 02/19/17 10:59 (Mannitol Inj) 12.5 gm UNSCH PRN IV 02/19/17 11:00 02/21/17 15:05 (Albumin 25% Inj) 25 gm UNSCH PRN IV 02/19/17 11:00 (NS Flush) 5 ml UNSCH PRN IV FLUSH 02/19/17 11:00 02/21/17 21:01 (Heparin Inj) UNSCH PRN .XX 02/19/17 11:00 02/21/17 17:48 (Gentamicin (Dialysis) Inj) 20 mg UNSCH PRN IV 02/19/17 11:00 02/21/17 17:47 (Zofran Inj) 4 mg UNSCH PRN IV 02/19/17 11:00 (Tylenol) 650 mg UNSCH PRN PO 02/19/17 11:00 (Benadryl) 25 mg UNSCH PRN PO 02/19/17 11:00 (Nitrostat Sl) 0.4 mg UNSCH PRN SL 02/19/17 11:00 (Catapres) 0.1 mg UNSCH PRN PO 02/19/17 11:00 (Gelfoam 12 Mm/7 Mm Top) 1 foam UNSCH PRN TOP 02/19/17 11:00 (NS Flush) 2 ml UNSCH PRN IVF 02/19/17 17:00 IV Flush 2 ml 2 ml BID IVF 02/19/17 21:00 02/22/17 09:05 (Keppra 1000 Mg Inj) 100 ml @ 400 mls/hr Q12HR IV 02/19/17 21:00 02/22/17 09:05 (Phoslo) 667 mg TID PO 02/21/17 13:00 02/22/17 17:30 (Rocaltrol) 0.5 mcg DAILY PO 02/21/17 15:15 02/22/17 09:05 (Vitamin D3) 5,000 units DAILY PO 02/21/17 15:15 02/22/17 09:05 (Reglan Inj) 5 mg Q8HR IV PUSH 02/22/17 13:00 02/22/17 13:25 Lactulose 30 ml 30 ml DAILY PO 02/23/17 09:00 (Maxipime Inj/NS Inj) 100 ml @ 200 mls/hr Q24H IV 02/23/17 12:00 Allergies Allergies Coded Allergies Tylenol (Verified Allergy, Severe, mouth swelling/dryness, 06/01/16) Nonsteroidal Anti-Inflammatory Agts (Verified Allergy, Intermediate, mouth sores, 06/01/16) *MDRO Multi-Drug Resistant Organism (Verified Adverse Reaction, Unknown, MRSA , 02/22/17) Exam I&O / VS 02/21/17 02/21/17 02/22/17 15:00 23:00 07:00 Intake Total 1051 ml 653 ml 352 ml Output Total 175.0 ml 4790 ml 345 ml Balance 876.0 ml -4137 ml 7 ml Intake IV Total 540 ml 372 ml 352 ml Tube Feeding 70 ml Platelets 381 ml 281 ml Tube Irrigant 60 ml Output Urine Total 75 ml 20 ml 75 ml Stool Total 0 ml 20 ml Gastric Drainage Total 50 ml 250 ml 250 ml Tube Feeding Residual Discard 50.0 ml Drainage Total 0 ml 20 ml Hemodialysis 4500 ml Vital Signs Date Time Temp Pulse Resp B/P Pulse Ox O2 Delivery O2 Flow Rate FiO2 02/22/17 18:00 99 128/66 144/80 02/22/17 18:00 99 02/22/17 16:35 100 40 02/22/17 16:00 100 02/22/17 16:00 50 02/22/17 16:00 98.2 100 18 144/80 100 128/64 02/22/17 14:00 102 02/22/17 13:00 100 40 02/22/17 12:00 50 02/22/17 12:00 90 02/22/17 12:00 98.6 90 21 136/83 100 02/22/17 10:00 96 02/22/17 09:36 100 50 02/22/17 08:00 92 02/22/17 08:00 50 02/22/17 08:00 98.6 92 18 132/82 100 02/22/17 07:00 100 Mechanical Ventilator 50 02/22/17 06:00 120/79 134/79 02/22/17 06:00 99 02/22/17 04:00 93 02/22/17 04:00 98.6 104 16 136/70 100 02/22/17 04:00 50 02/22/17 03:17 100 50 02/22/17 02:00 93 02/22/17 01:04 100 50 02/22/17 00:00 50 02/22/17 00:00 98.2 92 16 131/64 100 02/22/17 00:00 99 02/21/17 22:00 99 02/21/17 20:57 100 50 02/21/17 20:00 94 02/21/17 20:00 50 02/21/17 20:00 Mechanical Ventilator 50 02/21/17 20:00 98.6 98 16 128/62 100 Exam Comments GENERAL: Intubated, not sedated, no myoclonic movements. HEENT: Pale, earthy complexion. Atraumatic, normocephalic. NECK: Supple.Trachea in the midline. No JVD. CARDIOVASCULAR: Regular rate and rhythm. RESPIRATORY: Equal breath sounds. GASTROINTESTINAL: Soft abdomen, not distended. Positive for GI bleeding. MUSCULOSKELETAL: Left lower extremity s/p amputation. NEUROLOGIC: Ventilated. not sedated, decerebrate posturing to painful stimuli, Nonverbal. Pupils 2-mm, sluggishly reacting. No gaze deviation. roving eye movements, Reflexes 1+ bilateral, symmetrical. Objective Radiology Results Last 72 hours Impressions Chest X-Ray 02/22/17 0600 Signed Impressions: Service Date/Time: Wednesday, February 22, 2017 03:42 - CONCLUSION: No significant change. Hima Bright MD Chest X-Ray 02/21/17 0000 Signed Impressions: Service Date/Time: January 11:39 - CONCLUSION: Abnormal left basilar opacity could represent atelectasis, consolidation, and/or effusion. Hima Richards MD Abdomen X-Ray 02/21/17 0000 Signed Impressions: Service Date/Time: January 09:42 - CONCLUSION: Limited single view exam demonstrating nasogastric tube in place with the tip projected over the distal stomach.. Dayo Christopher MD Chest X-Ray 02/20/17 0600 Signed Impressions: Service Date/Time: Monday, February 20, 2017 03:50 - CONCLUSION: Mild increase in interstitial markings bilaterally suggestive of some pulmonary edema. Otherwise, no other significant changes. Toby Constantino MD Micro and Labs Laboratory Tests Test 02/21/17 02/22/17 02/22/17 02/22/17 19:10 00:15 06:05 06:39 White Blood Count 10.5 9.0 8.5 Red Blood Count 4.20 3.83 3.67 Hemoglobin 12.0 11.1 11.1 Hematocrit 36.2 33.3 31.7 Mean Corpuscular Volume 86.3 87.0 86.4 Mean Corpuscular Hemoglobin 28.5 29.1 30.1 Mean Corpuscular Hemoglobin 33.0 33.5 34.9 Concent Red Cell Distribution Width 18.0 18.0 18.0 Platelet Count 91 84 69 Mean Platelet Volume 8.5 8.9 8.8 Prothrombin Time 16.7 Prothromb Time International 1.5 Ratio Sodium Level 143 Potassium Level 4.8 Chloride Level 104 Carbon Dioxide Level 28.4 Anion Gap 11 Blood Urea Nitrogen 79 Creatinine 4.55 Estimat Glomerular Filtration 13 Rate Random Glucose 205 Calcium Level 6.8 Protein Corrected Calcium 8.1 Phosphorus Level 5.6 Magnesium Level 2.3 Total Bilirubin 5.1 Aspartate Amino Transf 1288 (AST/SGOT) Alanine Aminotransferase 127 (ALT/SGPT) Alkaline Phosphatase 88 Lactate Dehydrogenase 1147 Total Creatine Kinase 4370 Creatine Kinase MB 27.9 Creatine Kinase MB % 0.6 Total Protein 4.7 Albumin 1.6 Random Vancomycin Level 23.4 Blood Gas Puncture Site ART LINE Blood Gas Patient Temperature 98.6 Blood Gas HCO3 27 Blood Gas Base Excess 3.2 Blood Gas Oxygen Saturation 97 Arterial Blood pH 7.49 Arterial Blood Partial 35 Pressure CO2 Arterial Blood Partial 191 Pressure O2 Arterial Blood Oxygen Content 16.5 Arterial Blood 1.2 Carboxyhemoglobin Arterial Blood Methemoglobin 1.1 Blood Gas Hemoglobin 11.8 Oxygen Delivery Device VENTILATOR Blood Gas Ventilator Setting PRVC/AC Blood Gas Inspired Oxygen 50 Test 02/22/17 02/22/17 11:55 13:30 White Blood Count 8.1 Red Blood Count 3.80 Hemoglobin 11.0 Hematocrit 33.4 Mean Corpuscular Volume 87.9 Mean Corpuscular Hemoglobin 28.9 Mean Corpuscular Hemoglobin 32.9 Concent Red Cell Distribution Width 17.9 Platelet Count 62 Mean Platelet Volume 8.8 Lactic Acid Level 2.9 Date/Time Procedure Status Source Growth 02/21/17 02:50 Urine Culture - Preliminary Resulted Urine Clean Catch NO GROWTH IN 24 HOURS. 02/20/17 12:15 Urine Culture - Final Complete Urine Catheterized Urine NO GROWTH IN 48 HOURS. 02/18/17 03:25 Aerobic Blood Culture - Preliminary Resulted Blood Peripheral NO GROWTH IN 4 DAYS 02/18/17 03:25 Anaerobic Blood Culture - Preliminary Resulted Blood Peripheral NO GROWTH IN 4 DAYS Shellie Suggs MD Feb 22, 2017 18:36
[2017-02-22] MEDS ORDERED: PHENYTOIN INJ 1,000 MG in SODIUM CHLORIDE 0.9% INJ 100 ML IV ONE (18:45)
[2017-02-22] MEDS: SODIUM CHLORIDE 0.9% FLUSH 10 ML FLUSH IV FLUSH PRN (20:29)
[2017-02-22 21:45] LABS: HEMATOCRIT 33.4 % (39.0-51.0); MEAN CELL VOLUME 86.9 FL (80.0-100.0); MEAN CORPUSCULAR HEMOGLOBIN 29.8 PG (27.0-34.0); MEAN CORPUSCULAR HGB CONC 34.3 % (32.0-36.0); PLATELET COUNT 50 TH/MM3 (150-450); RED BLOOD COUNT 3.85 MIL/MM3 (4.50-5.90); RED CELL DISTRIBUTION WIDTH 17.9 % (11.6-17.2); WHITE BLOOD COUNT 9.5 TH/MM3 (4.0-11.0)
[2017-02-22 21:48] LABS: REVIEW FLAG FINAL
[2017-02-23] VITALS (15 sets, daily range): BP systolic 93–135; BP diastolic 60–78; PULSE 96–122; RESP 16–26; TEMP 97.8–99.9; O2SAT 98–100
[2017-02-23] MEDS: PANTOPRAZOLE INJ 80 MG in SODIUM CHLORIDE 0.9% INJ 100 ML IV SCH ×4 (00:24→23:07)
[2017-02-23] MEDS: PHENYTOIN INJ 100 MG/2 ML VIAL IV SCH ×4 (00:25→21:29)
[2017-02-23] MEDS: CHLORHEXIDINE GLUCONATE 2 % 1 PACK (2 CLOTHS) TOP SCH (04:00)
[2017-02-23 05:15] LABS: BLOOD GAS BASE EXCESS 0.6 mmol/L (-2-2); BLOOD GAS CARBOXYHEMOGLOBIN 1.3 % (0-4); BLOOD GAS HCO3 24 mmol/L (22-26); BLOOD GAS METHEMOGLOBIN 1.1 % (0-2); BLOOD GAS O2 HGB SATURATION 97 % (90-100); BLOOD GAS OXYGEN CONTENT 15.5 Vol % (12.0-20.0); BLOOD GAS PCO2 33 mmHg (38-42); BLOOD GAS PO2 148 mmHg (61-120); BLOOD GAS TOTAL HGB 11.2 G/DL (12.0-16.0); CRITICAL VALUE NO; DRAW SITE ALINE; FIO2 40 %; OXYGEN DEVICE VENTILATOR; STAT NO; TEMP CORR TO 98.6; ULNAR PULSE PRESENT; VENT SETTINGS AC16/500/+5/0.9
[2017-02-23] MEDS: HYDROCORTISONE SOD SUCCINATE 100 MG VIAL IV PUSH SCH ×3 (05:31→22:55)
[2017-02-23] MEDS: METOCLOPRAMIDE HCL 10 MG/2 ML VIAL IV PUSH SCH ×3 (05:31→21:28)
[2017-02-23 05:57] LABS: HEMATOCRIT 33.7 % (39.0-51.0); MEAN CELL VOLUME 88.4 FL (80.0-100.0); MEAN CORPUSCULAR HEMOGLOBIN 29.2 PG (27.0-34.0); PLATELET COUNT 45 TH/MM3 (150-450); RED BLOOD COUNT 3.81 MIL/MM3 (4.50-5.90); RED CELL DISTRIBUTION WIDTH 18.9 % (11.6-17.2)
[2017-02-23 06:02] LABS: REVIEW FLAG FINAL
[2017-02-23 06:48] LABS: POTASSIUM 5.4 MEQ/L (3.5-5.1); TOTAL BILIRUBIN ADULT 4.4 MG/DL (0.2-1.0)
--- NOTE | 2017-02-23 07:02 | RADRPT ---
EXAM DATE/TIME: 02/23/2017 05:55 [facility] COMPARISON: CHEST SINGLE AP, February 22, 2017, 3:42. INDICATIONS : Shortness of breath. MEDICAL HISTORY : None. SURGICAL HISTORY : None. ENCOUNTER: Subsequent ACUITY: 4 - 6 days PAIN SCORE: Non-responsive. LOCATION: Bilateral chest FINDINGS: No infiltrate, pneumothorax or significant effusion demonstrated. Heart size stable, within normal li mits. Endotracheal tube tip is about 2 cm above the nicola. Nasogastric tube courses into the stomach. Righ t internal jugular central venous and left internal jugular Cordis catheters are again present, tips in the superior vena cava. CONCLUSION: No significant change. Lungs remain reasonably clear. Hima Bright MD on February 23, 2017 at 7:00 Board Certified Radiologist. This report was verified electronically.
[2017-02-23 07:06] LABS: CKMB 18.4 NG/ML (0.5-3.6)
[2017-02-23 07:38] LABS: CALCIUM-PROTEIN CORRECTED 8.1 MG/DL (8.5-10.1)
[2017-02-23] MEDS: CHOLECALCIFEROL (VIT D3) 5000 UNIT CAP PO SCH (09:00)
[2017-02-23] MEDS ORDERED: LACTULOSE SYRUP 20 GM/30 ML CUP PO SCH (09:00)
[2017-02-23] MEDS: CALCITRIOL 0.25 MCG CAP PO SCH (09:00)
[2017-02-23] MEDS: levETIRAcetam 1000 MG INJ 100 ML IV SCH ×2 (09:15→21:33)
[2017-02-23] MEDS: CALCIUM ACETATE 667 MG CAP PO SCH ×3 (09:15→16:19)
[2017-02-23] MEDS: MUPIROCIN 2% OINT 1 APPLIC/GM SYR EACH NARE SCH ×2 (09:15→21:00)
[2017-02-23] MEDS: DOCUSATE SODIUM 100 MG/10 ML UDC G-TUBE SCH ×2 (09:15→21:28)
[2017-02-23] MEDS: ARTIFICIAL TEARS OPTH SOLN 15 ML BTL EACH EYE SCH ×3 (09:15→16:19)
[2017-02-23] MEDS: SODIUM CHLORIDE 0.9% FLUSH 5 ML FLUSH IVF SCH (09:15)
[2017-02-23] MEDS: INSULIN ASPART SUPPLEMENTAL SCALE SQ SCH ×4 (11:00→22:54)
[2017-02-23] MEDS: CEFEPIME INJ 2,000 MG in SODIUM CHLORIDE 0.9% INJ 100 ML IV SCH (11:37)
--- NOTE | 2017-02-23 11:45 | HHI.NPPN ---
Subjective General Problems: Edema Renal Failure: Acute Interval History patient was seen and examined. He is unresponsive. Remains on the ventilator. Review of Systems General General Remarks unable to evaluate Objective Data Data 02/22/17 02/23/17 19:00 07:00 Intake Total 486 ml 646 ml Output Total 195 ml 385 ml Balance 291 ml 261 ml Intake IV Total 426 ml 526 ml Tube Irrigant 60 ml 120 ml Output Urine Total 45 ml 85 ml Stool Total 0 ml 0 ml Gastric Drainage Total 150 ml 300 ml Vital Signs Date Time Temp Pulse Resp B/P Pulse Ox O2 Delivery O2 Flow Rate FiO2 02/23/17 08:00 98.6 98 23 122/60 100 02/23/17 08:00 50 02/23/17 07:00 Mechanical Ventilator 02/23/17 06:00 99 02/23/17 04:00 99 02/23/17 04:00 50 02/23/17 04:00 99.0 99 16 124/66 100 02/23/17 03:38 100 40 02/23/17 02:00 103 02/23/17 01:05 100 40 02/23/17 00:00 50 02/23/17 00:00 98.6 103 18 100 120/62 02/23/17 00:00 103 02/22/17 22:00 97 02/22/17 20:00 98 02/22/17 20:00 98.8 93 18 100 139/68 02/22/17 20:00 50 02/22/17 19:47 100 40 02/22/17 19:00 100 Mechanical Ventilator 50 02/22/17 18:00 99 128/66 144/80 02/22/17 18:00 99 02/22/17 16:35 100 40 02/22/17 16:00 100 02/22/17 16:00 50 02/22/17 16:00 98.2 100 18 144/80 100 128/64 02/22/17 14:00 102 02/22/17 13:00 100 40 02/22/17 12:00 50 02/22/17 12:00 90 02/22/17 12:00 98.6 90 21 136/83 100 -: 02/23/17 0530 02/23/17 0530 Tubes & Lines: Vas-Cath, Mccarthy Tubes & Lines Comment a line, rectal tube, TLC Drip Comment vasopressin Physical Exam General Appearance: No Acute Distress, Comfortable, Malnourished Throat Throat Exam: Oral Mucosa Boyce & Moist Pulmonary Resp Exam: Breath Sounds Equal, No Distress, Crackles Cardiology CV Exam: Regular, Normal Sinus Rhythm, Good Perfusion Gastrointestinal/Abdomen GI Exam: Soft, Non-Tender, Bowel Sounds Present Musculoskeletal MS Exam: Joints Intact, Unable to Ambulate Integumentary Skin Exam: Warm, Dry Extremeties Extremities Exam: Pedal Pulses Palpable Neurologic Neuro Exam: Unresponsive, Sedated, Comatose Assessment/Plan Assessment Summary: CLAUDIA/Acute Renal Failure, Acute Tubular Necrosis, Fluid/ Volume Overload, Hypotension Electrolyte Assessment: Hypocalcemia Problem List: (1) Acute kidney injury Plan: oliguric renal failure, ATN from cardiac arrest and rhabdomyolysis HD initiated 02/19 , had dialysis , Sat, . Dialysis again today. Very little urine output. Avoid nephrotoxic agents. Monitor urine output and renal function. (2) Rhabdomyolysis Plan: due to fall with unknown down time also cocaine positive on admission follow CPK, levels are improving (3) Secondary hyperparathyroidism Plan: with severe vitamin D deficiency continue calcitriol and vitamin D calcium replacement ordered (4) Compartment syndrome Plan: s/p AKA Dr. Purdy (ortho) following, appreciate recommendations (5) Transaminitis Plan: GI following. tube feeding resumed (6) Encephalopathy Plan: Prognosis is poor. EEG reviewed Neurology following. he is not requiring sedation and is not following commands recent posturing awaiting family decision about goals of care (7) Seizure disorder Plan: History of seizure disorder. Unclear if he was compliant with medications. Neurology following. he is on Keppra, Dilantin, and propofol here, no witnessed seizure activity reported (8) Hyperkalemia Plan: corrected with dialysis, monitor for recurrence (9) Thrombocytopenia Plan: Thrombocytopenia persists. Etiology? DIC? No schistocytes on the peripheral smear. Problem Qualifiers (1) Compartment syndrome: Qualified Code: T79.A22A - Traumatic compartment syndrome of left lower extremity, initial encounter Jose Hernandez MD Feb 23, 2017 11:45
--- NOTE | 2017-02-23 12:08 | HHI.CCPN ---
Subjective Remarks/Hospital Course 61 years old male brought as a status post cardiac arrest. The history is obtained from medical chart. The patient has history of epilepsy. He is normally compliant with his antiepileptic agents. The patient had been conversing with roommates through a doorway about 3 hours prior to EMS arrival. He had become unresponsive and EMS was activated. They found the patient on the floor. His mental status was altered apparently postictal nonverbal. The patient was prepared for transport to the ER and on the way to the ambulance he became asystolic. ACLS protocol was initiated. The patient was intubated and chest compressions were started. About 12 minutes of chest compressions were performed. He received 1 dose of epinephrine. On arrival to the ER chest compressions were continued and shortly thereafter he was found to have a pulse. Levophed drip started. In the ER the patient received multiple rounds of epinephrine and bicarbonate as he lost pulses twice more initially each episode lasting about 2-3 minutes. EKG obtained shortly after the patient' s arrival revealed ST elevations in precordial leads V1 through V5 as well as II , III and aVF. STEMI alert was activated. Gyro Mechanic Dr. Keane evaluated the patient at the bedside. A repeat EKG was performed revealing no ST elevation OH. The patient was found to have some swelling and induration of the left lower extremity at the calf. A [place] needle was employed to check compartment pressures of the anterior compartment in the superficial posterior compartment with measurements of 47 and 45 respectively. Finally the patient was found to be somewhat hypothermic and blood cultures were drawn and antibiotics initiated , cefepime and vancomycin. The patient also has hyperkalemia at 6.9 and insulin dextrose, calcium and bicarbonate were given. The creatinine is also about 3.5. Subjective 02/18/17 Upon entering patient's room at 0600 hrs., The patient was noted to have tonic-clonic jerking, completely unresponsive has not been on sedation since admission to the hospital. The patient has a known history of a seizure disorder. Keppra and Dilantin levels were obtained and pending. The patient was loaded with 1 g Dilantin IV, and placed on Dilantin 100 mg every 8 hours. The patient was noted to be on maximum doses of Levophed,20 mcgs, a central line was placed and the patient was placed on a second vasopressor, vasopressin@ 0.04. Neurology was consulted , a stat EEG was ordered. The patient's sodium bicarbonate infusion was increased to 150 cc/hr. the patient was noted to be oliguric in the setting of rhabdomyolysis the patient was bolused an additional liter of normal saline, and NS infusion at 150cc/hr. BMP pending. 02/19/17 Tmax 100.8. Over the last 24 hours the patient continues to be hemodynamically unstable, requiring 2 vasopressors for maintenance of a map ranging from 69-77. The patient was placed on a low dose propofol infusion secondary to continue tonic-clonic movements status post administration of Keppra and Dilantin. An EEG was performed showing a severe encephalopathic state. No intervention was performed yesterday to the left leg with compartment syndrome secondary to time sensitivity of intervention had passed, most likely prior to admission to the hospital. Demarcation of the left lower extremity has begun with mottling, edema, and blistering. Also cause necrosis continues with severe electrolyte abnormalities throughout the night to include hyperkalemia requiring continuous doses of calcium gluconate, Kayexalate now additionally adding D50 and insulin. The patient is noted to have continued elevations in hepatic enzymes most likely secondary to rhabdomyolysis. The patient continues to have hyperkalemia hyperphosphatemia due to muscle necrosis and hypocalcemia with challenging management. Steroids have been added to medication related regimen, electrolytes continued to be closely monitored. Nephrology has been consulted, appreciate recommendations. Discussion with Dr. Purdy, last evening the severe metabolic derangements, secondary to continued rhabdomyolysis with significant muscle necrosis of left lower extremity and continued SIRS response. Aggressive measures have been initiated since admission with case management to it and attempts to identify patient, and locate family thus far has been unsuccessful. The patient continues to be hemodynamically unstable with with continued elevation in vasopressor requirements. After this extensive discussion plans for emergent surgical intervention for left lower extremity today. 02/21/16 TMax 99.0. Yesterday the patient underwent a wide excision fasciotomy of the left lower extremity, and upon return from the OR, the patient's wound VAC was noted to be continuously flowing with blood, blood loss approximated to 2 L in the ICU, and worsening hemodynamic instability requiring vasopressor Levophed 20 mcgs in addition to vasopressin 0.04 mcgs. The patient emergently returned to the OR, and underwent left above knee amputation. The patient received multiple blood products to include 10 units of packed red blood cells, 5 units of platelets 2 units of FFP, 2 units of cryoprecipitate over the last 24 hours, now stabilized. Immediately on return from the OR the patient underwent dialysis, with 1.5 L removed, and potassium level normalized. The patient was noted to be an atrial fibrillation with RVR, heart rate in the 150s upon return from the OR. The patient received digoxin 0.5 mg, and subsequently 2 L over 12 hours and converted to sinus tachycardia at 0500. The patient now is currently on low-dose Levophed currently at 2 mcgs. The patient remains off sedation since 5 PM yesterday, currently nonresponsive. Creatinine kinase levels trending down. 02/21: The patient underwent hemodialysis yesterday with removal of 2 L. All sedating agents have been discontinued since 02/19/17 at 1700, the patient remains unresponsive, now extension posturing noted on neurological exam . Plan for repeat EEG, for assessment of subclinical seizures versus anoxic encephalopathy. Patient not tolerating trickle tube feeds, 10 cc an hour. Discontinued this a.m.. KUB obtained no obstruction. Family contacted discussed and updated mother who lives in [place] on patient's medical status. Plans for palliative care consult. 02/22 Tmax 98.6. No change in patient's neurological status also off all sedative medications since 02/19/17. Repeat EEG performed yesterday awaiting formal report. The patient was noted not to tolerate trickle feeds yesterday, KUB was ordered OGT in place. Patient was previously on metoclopramide when necessary, will initiate scheduled dosing. The patient appears to be normotensive vasopressor currently being weaned off. 02/23: The patient has been off of vasopressin since 12 noon on 02/22, remains hemodynamically stable. Change in neuro status since admission to hospital, repeat EEG showed diffuse encephalopathy with possible epileptogenic foci in bifrontal area. MRI ordered today. We'll reinitiate trickle tube feeds today. Objective Vital Signs Date Time Temp Pulse Resp B/P Pulse Ox O2 Delivery O2 Flow Rate FiO2 02/23/17 08:00 98.6 98 23 122/60 100 02/23/17 08:00 50 02/23/17 07:00 Mechanical Ventilator Intake and Output 02/22/17 02/22/17 02/23/17 08:00 16:00 00:00 Intake Total 352 ml 486 ml 492 ml Output Total 345 ml 195 ml 45 ml Balance 7 ml 291 ml 447 ml Result Diagram: 02/23/17 0530 02/23/17 0530 Other Results Microbiology Date/Time Procedure Status Source Growth 02/20/17 12:15 Urine Culture - Final Complete Urine Catheterized Urine NO GROWTH IN 48 HOURS. 02/21/17 02:50 Urine Culture - Final Complete Urine Clean Catch NO GROWTH IN 48 HOURS. Laboratory Tests Test 02/23/17 05:05 Blood Gas Puncture Site RASHAD Blood Gas Patient Temperature 98.6 Blood Gas HCO3 24 mmol/L (22-26) Blood Gas Base Excess 0.6 mmol/L (-2-2) Blood Gas Oxygen Saturation 97 % (90-100) Arterial Blood pH 7.48 (7.380-7.420) Arterial Blood Partial 33 mmHg (38-42) Pressure CO2 Arterial Blood Partial 148 mmHg Pressure O2 (61-120) Arterial Blood Oxygen Content 15.5 Vol % (12.0-20.0) Arterial Blood 1.3 % (0-4) Carboxyhemoglobin Arterial Blood Methemoglobin 1.1 % (0-2) Blood Gas Hemoglobin 11.2 G/DL (12.0-16.0) Oxygen Delivery Device VENTILATOR Blood Gas Ventilator Setting AC16/500/+5/0.9 Blood Gas Inspired Oxygen 40 % Imaging Last Impressions Chest X-Ray 02/22/17 0600 Signed Impressions: Service Date/Time: Wednesday, February 22, 2017 03:42 - CONCLUSION: No significant change. Hima Bright MD Abdomen X-Ray 02/21/17 0000 Signed Impressions: Service Date/Time: January 09:42 - CONCLUSION: Limited single view exam demonstrating nasogastric tube in place with the tip projected over the distal stomach.. Dayo Christopher MD Head CT 02/18/17 0241 Signed Impressions: Service Date/Time: Saturday, February 18, 2017 04:27 - CONCLUSION: Unremarkable CT scan of the brain.. Toby Constantino MD Last Impressions Chest X-Ray 02/21/17 0000 Signed Impressions: Service Date/Time: January 11:39 - CONCLUSION: Abnormal left basilar opacity could represent atelectasis, consolidation, and/or effusion. Hima Richards MD Abdomen X-Ray 02/21/17 0000 Signed Impressions: Service Date/Time: January 09:42 - CONCLUSION: Limited single view exam demonstrating nasogastric tube in place with the tip projected over the distal stomach.. Dayo Christopher MD Head CT 02/18/17 024 Signed Impressions: Service Date/Time: Saturday, February 18, 2017 04:27 - CONCLUSION: Unremarkable CT scan of the brain.. Toby Constantino MD Last Impressions Chest X-Ray 02/20/17 0600 Signed Impressions: Service Date/Time: Monday, February 20, 2017 03:50 - CONCLUSION: Mild increase in interstitial markings bilaterally suggestive of some pulmonary edema. Otherwise, no other significant changes. Toby Constantino MD Head CT 02/18/17 024 Signed Impressions: Service Date/Time: Saturday, February 18, 2017 04:27 - CONCLUSION: Unremarkable CT scan of the brain.. Toby Constantino MD Last 24 hours Impressions Chest X-Ray 02/18/17 024 Signed Impressions: Service Date/Time: Saturday, February 18, 2017 02:45 - CONCLUSION: 1. No focal or acute intrathoracic disease. 2. NG tube tip in distal esophagus. Recommend advancing another 10 cm. Toby Constantino MD Objective Remarks BP 119/61 P 98 100% O2 saturation GENERAL: Well-nourished, well-developed critically ill male intubated no sedation, continued extensor posturing noted SKIN: Warm and dry. HEAD: Normocephalic. EYES: No scleral icterus. No injection or drainage. Scleral edema mild. Pupils equal and round NECK: Supple, trachea midline. No JVD or lymphadenopathy. Orotracheally intubated CARDIOVASCULAR: Regular rate and rhythm without murmurs, gallops, or rubs. RESPIRATORY: Mechanical ventilation, overbreathing the ventilator. Breath sounds equal bilaterally. No accessory muscle use. GASTROINTESTINAL: Abdomen soft, non-tender, nondistended. OGT to low suction minimal output MUSCULOSKELETAL: No cyanosis, left AKA, dressing C/D/I EXTREMITIES: No clubbing, cyanosis or 1+ peripheral edema Urinary Catheter: Yes Mccarthy insert reason: Measure Accurate Output Date of Insertion: Feb 18, 2017 Date of Insertion: Feb 18, 2017 Line: Central Venous Catheter Side: Right Location: Internal, Jugular A/P Assessment and Plan Neurologic: Seizure disorder Metabolic encephalopathy Possible anoxic encephalopathy Neurochecks per ICU protocol Off sedation since 02/19 at 1700, extensor posturing noted 02/21 Repeat EEG-diffuse encephalopathy with epileptogenic foci bifrontal region Continue Dilantin 100 mg every 8 hours, and Keppra, monitor levels, upon hospital admission noted Dilantin level subtherapeutic, Keppra level 6.5, subtherapeutic Neurology following-Dr. Suggs 02/18 EEG-severely attenuated electrographic activity with a burst suppression pattern consistent with severe encephalopathic state 02/18CT brain unremarkable 02/19-sedation off 02/23-MRI [id number] results Respiratory: Respiratory arrest secondary to cardiac arrest Possible aspiration Pulmonary edema Maintain O2 sat greater than 92%, wean FiO2 as tolerated Mechanical vent settings AC/PC 18/500/+5/50 ABG-7.51/33/159/26/3.8 Ventilator bundle Maintain head of bed greater than 30 Bronchodilators every 6 hours schedule every 2 hours when necessary Empiric antibiotics continued 02/21 chest x-rayleft mid left lower lung opacity, atelectatic right lung base Continue ARDS protocol, minimal FiO2, with permissive hypercapnea Cardiovascular: Asystolic cardiac arrest 2 Hypotension secondary to multisystem organ failure New onset A. fib with RVR-resolved Initial 12-lead EKG 02/18 ST elevations V1V5 and II, III aVF, with resolution Status post CPR with ROSC x 3 rounds of CPR Cardiology on board, Dr. Bragg no interventions at this time 02/19-ECHO -EF 45%, no RWMA Currently vasopressor support the Levophed off (02/21), Vasopressin 0.04 mcgs- off (02/22) Wean as tolerated maintain MAP greater than 60 mmHg 02/19 A. fib RVR converted with digoxin 0.51 dose Renal: Severe metabolic acidosis secondary to rhabdomyolysis Acute kidney injury secondary to rhabdomyolysis Oliguria Acute renal failure 02/19 D5W NaHCO3 infusion at 75 cc /hr 02/19 Vas-Cath placement-left IJ UOP 75cc for last 24 hours, CK level 2653 Nephrology following-Dr. Hernandez 02/19 IHD 3L off 02/20 IHD- 2L off, 02/21 IHD 4L off -- Strict I/Os 02/23 Potassium level 5.4 FEN/GI: Hyperkalemia-resolved Hyperphosphatemia Hypocalcemia Melena Transaminitis Hepatitis C Ileus Maintain NPO status-OGT to LIWS Replete electrolytes [place] [address]-> [address]->11,176-> 4370->2653 today LDH 2010-> 1816 -> 1686->1147 Calcium gluconate 2 g IV now, protein corrected calcium 7.6 Continue Protonix infusion Gastroenterology following-Dr. Molina-reinitiation of tube feeds today Metoclopramide 5 mg 3 times a day Heme/ID: Sepsis Leukocytosis-resolved Persistent Thrombocytopenia DIC-hypofibrinogenemia (resolved) Coagulopathy secondary to hepatic injury Bandemia Continue Cefepime, Gentamycin and vancomycin, day 3, Monitor serial CBC. WBC 12.7 INR 1.5-continue to monitor Fibrinogen level 255, stable Serial lactate levels-3.2 not clearing, will order liver ultrasound 02/18 blood cultures-negative growth to date 02/19 Hydrocortisone 50 mg every 6 hours added to medication regimen 02/19 transfusion PRBCs 10 units, cryoprecipitate 2 units, FFP 2 units, platelets 5 units 02/21 platelet count 45, will transfuse 2 units of platelets. Will continue to transfuse for platelet count less than 50,000 02/23-obtain B12 level, begin B12 daily Obtain liver ultrasound Endocrine: Diabetes mellitus 2 Hypoglycemia-resolved Glucose monitoring per ICU protocol, low-dose regimen -- SSI Msk: Rhabdomyolysis S/P wide excision fasciotomy 02/19 Left above-knee amputation-POD#4 Orthopedics following-Dr. Purdy- plan for dressing change on Saturday, and normal drainage Continue monitor serial electrolytes, and hepatic panels Monitor LDH 1000 Prophylaxis: GI Prophylaxis Protonix infusion, we'll consult GI regarding transition to Protonix twice a day , melena resolved DVT Prophylaxis -- SCD right leg, no pharmacological DVT prophylaxis in the setting of acute bleeding and coagulopathic state Lines: PIV's x 2 .RI J Central line 02/18, right radial a line 02/18, left vascular catheter 02/19 Dispo: Discussed with MILK BOTTLING MACHINE OPERATOR at bedside. The patient's prognosis is extremely guarded at this time. Patient's neurological status has not improved, repeat EEG to be obtained to rule out subclinical epileptiform activity versus anoxic encephalopathy. Palliative care consult initiated. Family requests aggressive treatment at this time. This patient remains critically ill with one or more organ systems which are or may become a threat to life. I have spent in excess of 49 minutes discontinuously in the care and management of this patient. This time is exclusive of procedures, and includes, but is not limited to, evaluation of the patient, review of the medical record, discussions with family, consultants, nursing staff, or respiratory therapy, and documentation in the medical record. Physician Aileen Beasley MD Feb 23, 2017 12:08
--- NOTE | 2017-02-23 13:18 | RADRPT ---
EXAM DATE/TIME: 02/23/2017 13:00 This report includes an Addendum and supersedes previous reports for this exam. [facility] COMPARISON: No previous studies available for comparison. INDICATIONS : Hepatitis C. MEDICAL HISTORY : Methicillin-resistant Staphylococcus aureus. Hepatitis C. Seizures. SURGICAL HISTORY : Unable to obtain. ENCOUNTER: Initial ACUITY: 1 day PAIN SCORE: Nonresponsive. LOCATION: Bilateral upper quadrant MEASUREMENTS: LIVER: 18.7 cm length COMMON DUCT: 3 mm RIGHT KIDNEY: 11.8 x 5.8 x 7.0 cm SPLEEN: 9.9 cm length FINDINGS: LIVER: Increased echotexture without focal lesion or ductal dilatation. COMMON DUCT: No intraluminal mass or stone visualized. GALLBLADDER: No stones. Mild wall thickening up to 5 mm. The gallbladder is filled with sludge. PANCREAS: The visualized portions are within normal limits. RIGHT KIDNEY: No hydronephrosis, stone or mass. SPLEEN: No focal lesion. CONCLUSION: 1. Hepatomegaly and echogenic liver parenchyma can be seen with hepatic steatosis or hepatocellular d isease. 2. Main portal vein is patent with hepatopedal flow. 3. Ascites. 4. Sludge filled gallbladder with mild wall thickening. Nelson Kaplan MD on February 23, 2017 at 13:15 Board Certified Radiologist. This report was verified electronically. ADDENDUM: The gallbladder is completely filled with sludge. Nelson Kaplan MD on February 25, 2017 at 9:39 Board Certified Radiologist. This report was verified electronically.
[2017-02-23] MEDS: ALBUMIN HUMAN 25% 25 GM/100 ML BAGP IV PRN (14:24)
[2017-02-23] MEDS: MANNITOL 12.5 GM/50 ML VIAL IV PRN (15:35)
[2017-02-23 15:42] LABS: MEAN CELL VOLUME 87.5 FL (80.0-100.0); MEAN CORPUSCULAR HEMOGLOBIN 29.8 PG (27.0-34.0); MEAN CORPUSCULAR HGB CONC 34.1 % (32.0-36.0); PLATELET COUNT 55 TH/MM3 (150-450); RED BLOOD COUNT 4.57 MIL/MM3 (4.50-5.90); RED CELL DISTRIBUTION WIDTH 18.5 % (11.6-17.2); WHITE BLOOD COUNT 14.6 TH/MM3 (4.0-11.0)
[2017-02-23 15:45] LABS: REVIEW FLAG FINAL
[2017-02-23] MEDS: GENTAMICIN SULFATE (DIALYSIS USE ONLY) 20 MG/2 ML VIAL IV PRN (16:56)
[2017-02-23] MEDS: HEPARIN SODIUM - IV 10,000 UNITS/10 ML VIAL PRN (16:57)
[2017-02-23] MEDS: LACTULOSE SYRUP 20 GM/30 ML CUP PO SCH (21:28)
[2017-02-23] MEDS: SODIUM CHLORIDE 0.9% FLUSH 10 ML FLUSH IV FLUSH PRN ×2 (21:33→22:55)
[2017-02-23 21:54] LABS: HEMATOCRIT 32.5 % (39.0-51.0); MEAN CELL VOLUME 87.6 FL (80.0-100.0); MEAN CORPUSCULAR HEMOGLOBIN 29.4 PG (27.0-34.0); MEAN CORPUSCULAR HGB CONC 33.5 % (32.0-36.0); PLATELET COUNT 38 TH/MM3 (150-450); RED BLOOD COUNT 3.71 MIL/MM3 (4.50-5.90); RED CELL DISTRIBUTION WIDTH 18.3 % (11.6-17.2); WHITE BLOOD COUNT 16.2 TH/MM3 (4.0-11.0)
[2017-02-23 21:58] LABS: REVIEW FLAG FINAL
[2017-02-24] VITALS (18 sets, daily range): BP systolic 97–130; BP diastolic 56–78; PULSE 98–114; RESP 19–24; TEMP 97.9–99.5; O2SAT 97–100
[2017-02-24 07:18] LABS: BICARBONATE 25.3 MEQ/L (21.0-32.0); CALCIUM-PROTEIN CORRECTED 8.1 MG/DL (8.5-10.1); INDIRECT BILIRUBIN 1.4 MG/DL (0.0-0.8); POTASSIUM 5.7 MEQ/L (3.5-5.1)
[2017-02-24] MEDS: METOCLOPRAMIDE HCL 10 MG/2 ML VIAL IV PUSH SCH ×3 (07:18→21:09)
[2017-02-24] MEDS: PHENYTOIN INJ 100 MG/2 ML VIAL IV SCH ×3 (07:18→21:10)
[2017-02-24] MEDS: PANTOPRAZOLE INJ 80 MG in SODIUM CHLORIDE 0.9% INJ 100 ML IV SCH ×2 (07:32→16:18)
[2017-02-24] MEDS: INSULIN ASPART SUPPLEMENTAL SCALE SQ SCH ×4 (07:32→22:48)
[2017-02-24 07:56] LABS: CKMB 17.2 NG/ML (0.5-3.6)
[2017-02-24] MEDS: MUPIROCIN 2% OINT 1 APPLIC/GM SYR EACH NARE SCH ×2 (08:14→21:08)
[2017-02-24] MEDS: levETIRAcetam 1000 MG INJ 100 ML IV SCH ×2 (08:14→21:08)
[2017-02-24] MEDS: DOCUSATE SODIUM 100 MG/10 ML UDC G-TUBE SCH ×2 (08:14→21:09)
[2017-02-24] MEDS: CYANOCOBALAMIN 1,000 MCG TAB PO SCH (08:14)
[2017-02-24] MEDS: LACTULOSE SYRUP 20 GM/30 ML CUP PO SCH ×2 (08:14→21:08)
[2017-02-24] MEDS: CHOLECALCIFEROL (VIT D3) 5000 UNIT CAP PO SCH (08:15)
[2017-02-24] MEDS: SODIUM CHLORIDE 0.9% FLUSH 5 ML FLUSH IVF SCH (08:15)
[2017-02-24] MEDS: ARTIFICIAL TEARS OPTH SOLN 15 ML BTL EACH EYE SCH ×3 (08:15→17:04)
[2017-02-24] MEDS: CALCIUM ACETATE 667 MG CAP PO SCH ×3 (08:15→17:05)
[2017-02-24] MEDS: CALCITRIOL 0.25 MCG CAP PO SCH (08:15)
--- NOTE | 2017-02-24 09:36 | HHI.NPPN ---
Subjective General Problems: Edema Renal Failure: Acute Interval History Oliguric, dialyzed yesterday, but he continues to have hyperkalemia. Review of Systems General General Remarks unable to evaluate Objective Data Data 02/23/17 02/24/17 19:00 07:00 Intake Total 224 ml 444 ml Output Total 3350 ml 260 ml Balance -3126 ml 184 ml Intake IV Total 224 ml 394 ml Other 50 ml Output Urine Total 50 ml 60 ml Stool Total 300 ml 50 ml Gastric Drainage Total 500 ml 150 ml Hemodialysis 2500 ml Vital Signs Date Time Temp Pulse Resp B/P Pulse Ox O2 Delivery O2 Flow Rate FiO2 02/24/17 08:00 100 02/24/17 08:00 40 02/24/17 08:00 99.5 100 20 126/74 100 Arterial Line 02/24/17 07:00 100 Mechanical Ventilator 40 02/24/17 04:22 100 40 02/24/17 04:00 99.3 102 19 130/78 100 02/24/17 04:00 50 02/24/17 04:00 102 02/24/17 02:00 100 02/24/17 00:30 100 40 02/24/17 00:00 102 02/24/17 00:00 50 02/24/17 00:00 98.8 102 19 123/76 100 02/23/17 23:00 97.8 96 22 118/74 100 02/23/17 22:00 97.8 96 22 118/74 100 02/23/17 22:00 102 02/23/17 21:25 100 40 02/23/17 21:00 97.8 96 22 118/74 100 02/23/17 20:00 100 Mechanical Ventilator 40 02/23/17 20:00 96 02/23/17 20:00 97.8 96 22 118/74 100 02/23/17 20:00 50 02/23/17 16:00 99.9 122 22 93/65 98 02/23/17 16:00 50 02/23/17 12:42 100 40 02/23/17 12:00 50 02/23/17 12:00 99.7 102 26 135/78 100 -: 02/23/17 2135 02/24/17 0610 Tubes & Lines: Vas-Cath, Mccarthy Tubes & Lines Comment a line, rectal tube, TLC Drip Comment vasopressin Physical Exam General Appearance: No Acute Distress, Comfortable, Malnourished Pulmonary Resp Exam: Breath Sounds Equal, No Distress, Crackles Cardiology CV Exam: Regular, Normal Sinus Rhythm, Good Perfusion Gastrointestinal/Abdomen GI Exam: Soft, Non-Tender, Bowel Sounds Present Musculoskeletal MS Exam: Joints Intact, Unable to Ambulate Integumentary Skin Exam: Warm, Dry Extremeties Extremities Exam: Pedal Pulses Palpable Neurologic Neuro Exam: Unresponsive, Sedated, Comatose Assessment/Plan Assessment Summary: CLAUDIA/Acute Renal Failure, Acute Tubular Necrosis, Fluid/ Volume Overload, Hypotension Electrolyte Assessment: Hypocalcemia Problem List: (1) Acute kidney injury Plan: oliguric renal failure, ATN from cardiac arrest and rhabdomyolysis HD initiated 02/19 , high waste products, has hyperkalemia, needs dialysis again today. Avoid nephrotoxic agents. Monitor urine output and renal function. Very poor prognosis. (2) Rhabdomyolysis Plan: due to fall with unknown down time also cocaine positive on admission follow CPK, levels are improving (3) Secondary hyperparathyroidism Plan: with severe vitamin D deficiency continue calcitriol and vitamin D calcium replacement ordered (4) Compartment syndrome Plan: s/p AKA Dr. Purdy (ortho) following, appreciate recommendations (5) Transaminitis Plan: Improved, GI has signed off. (6) Encephalopathy Plan: Prognosis is poor. EEG reviewed Neurology following. he is not requiring sedation and is not following commands recent posturing awaiting family decision about goals of care (7) Seizure disorder Plan: History of seizure disorder. Unclear if he was compliant with medications. Neurology following. he is on Keppra, Dilantin, and propofol here, no witnessed seizure activity reported (8) Hyperkalemia Plan: corrected with dialysis, monitor for recurrence (9) Thrombocytopenia Plan: Thrombocytopenia persists. Etiology? DIC? No schistocytes on the peripheral smear. Problem Qualifiers (1) Compartment syndrome: Qualified Code: T79.A22A - Traumatic compartment syndrome of left lower extremity, initial encounter Jose Hernandez MD Feb 24, 2017 09:36
[2017-02-24] MEDS: HYDROCORTISONE SOD SUCCINATE 100 MG VIAL IV PUSH SCH ×2 (11:00→21:09)
[2017-02-24] MEDS: CEFEPIME INJ 2,000 MG in SODIUM CHLORIDE 0.9% INJ 100 ML IV SCH (12:17)
--- NOTE | 2017-02-24 12:19 | RADRPT ---
EXAM DATE/TIME: 02/24/2017 11:16 [facility] COMPARISON: CT BRAIN W/O CONTRAST, February 18, 2017, 4:27. INDICATIONS : Anoxic brain injury. MEDICAL HISTORY : Seizures. SURGICAL HISTORY : Inguinal hernia repair. Left AKA ENCOUNTER: Initial ACUITY: 1 day PAIN SCORE: 0/10 LOCATION: cranial TECHNIQUE: Multiplanar, multisequence MRI of the brain was performed without contrast. FINDINGS: CEREBRUM: The ventricles are normal for age. No evidence of midline shift, mass lesion, hemorrhage. No extraa xial fluid collections are seen. The pituitary gland and suprasellar cistern are normal in configura tion. POSTERIOR FOSSA: The cerebellum and brainstem are intact. The 4th ventricle is midline. The cerebellopontine angle is unremarkable. The cerebellar tonsils are normal in position. DIFFUSION IMAGINmm focus of restricted diffusion in the subcortical left frontal white matter. EXTRACRANIAL: The visualized portions of the orbits and paranasal sinuses are unremarkable. CONCLUSION: Small acute infarct in the left frontal white matter. Otherwise within normal limits. Dez Rene MD on February 24, 2017 at 12:13 Board Certified Radiologist. This report was verified electronically.
[2017-02-24] MEDS ORDERED: VANCOMYCIN INJ 1,250 MG in SODIUM CHLOR 0.9% 250 ML INJ 250 ML IV ONE (13:00)
[2017-02-24 13:08] LABS: HEMATOCRIT 29.4 % (39.0-51.0); MEAN CELL VOLUME 88.9 FL (80.0-100.0); MEAN CORPUSCULAR HEMOGLOBIN 29.7 PG (27.0-34.0); MEAN CORPUSCULAR HGB CONC 33.4 % (32.0-36.0); PLATELET COUNT 74 TH/MM3 (150-450); RED BLOOD COUNT 3.31 MIL/MM3 (4.50-5.90); RED CELL DISTRIBUTION WIDTH 19.1 % (11.6-17.2); WHITE BLOOD COUNT 18.8 TH/MM3 (4.0-11.0)
[2017-02-24 13:19] LABS: REVIEW FLAG FINAL
[2017-02-24] MEDS: GENTAMICIN SULFATE (DIALYSIS USE ONLY) 20 MG/2 ML VIAL IV PRN (14:15)
[2017-02-24] MEDS: HEPARIN SODIUM - IV 10,000 UNITS/10 ML VIAL PRN (14:15)
[2017-02-24] MEDS: MANNITOL 12.5 GM/50 ML VIAL IV PRN (14:16)
[2017-02-24] MEDS: ALBUMIN HUMAN 25% 25 GM/100 ML BAGP IV PRN (14:16)
--- NOTE | 2017-02-24 17:11 | HHI.CCPN ---
Subjective Remarks/Hospital Course 61 years old male brought as a status post cardiac arrest. The history is obtained from medical chart. The patient has history of epilepsy. He is normally compliant with his antiepileptic agents. The patient had been conversing with roommates through a doorway about 3 hours prior to EMS arrival. He had become unresponsive and EMS was activated. They found the patient on the floor. His mental status was altered apparently postictal nonverbal. The patient was prepared for transport to the ER and on the way to the ambulance he became asystolic. ACLS protocol was initiated. The patient was intubated and chest compressions were started. About 12 minutes of chest compressions were performed. He received 1 dose of epinephrine. On arrival to the ER chest compressions were continued and shortly thereafter he was found to have a pulse. Levophed drip started. In the ER the patient received multiple rounds of epinephrine and bicarbonate as he lost pulses twice more initially each episode lasting about 2-3 minutes. EKG obtained shortly after the patient' s arrival revealed ST elevations in precordial leads V1 through V5 as well as II , III and aVF. STEMI alert was activated. [employer] Feeder Dr. Keane evaluated the patient at the bedside. A repeat EKG was performed revealing no ST elevation MA. The patient was found to have some swelling and induration of the left lower extremity at the calf. A Harshaw needle was employed to check compartment pressures of the anterior compartment in the superficial posterior compartment with measurements of 47 and 45 respectively. Finally the patient was found to be somewhat hypothermic and blood cultures were drawn and antibiotics initiated , cefepime and vancomycin. The patient also has hyperkalemia at 6.9 and insulin dextrose, calcium and bicarbonate were given. The creatinine is also about 3.5. Subjective 02/18/17 Upon entering patient's room at 0600 hrs., The patient was noted to have tonic-clonic jerking, completely unresponsive has not been on sedation since admission to the hospital. The patient has a known history of a seizure disorder. Keppra and Dilantin levels were obtained and pending. The patient was loaded with 1 g Dilantin IV, and placed on Dilantin 100 mg every 8 hours. The patient was noted to be on maximum doses of Levophed,20 mcgs, a central line was placed and the patient was placed on a second vasopressor, vasopressin@ 0.04. Neurology was consulted , a stat EEG was ordered. The patient's sodium bicarbonate infusion was increased to 150 cc/hr. the patient was noted to be oliguric in the setting of rhabdomyolysis the patient was bolused an additional liter of normal saline, and NS infusion at 150cc/hr. BMP pending. 02/19/17 Tmax 100.8. Over the last 24 hours the patient continues to be hemodynamically unstable, requiring 2 vasopressors for maintenance of a map ranging from 69-77. The patient was placed on a low dose propofol infusion secondary to continue tonic-clonic movements status post administration of Keppra and Dilantin. An EEG was performed showing a severe encephalopathic state. No intervention was performed yesterday to the left leg with compartment syndrome secondary to time sensitivity of intervention had passed, most likely prior to admission to the hospital. Demarcation of the left lower extremity has begun with mottling, edema, and blistering. Also cause necrosis continues with severe electrolyte abnormalities throughout the night to include hyperkalemia requiring continuous doses of calcium gluconate, Kayexalate now additionally adding D50 and insulin. The patient is noted to have continued elevations in hepatic enzymes most likely secondary to rhabdomyolysis. The patient continues to have hyperkalemia hyperphosphatemia due to muscle necrosis and hypocalcemia with challenging management. Steroids have been added to medication related regimen, electrolytes continued to be closely monitored. Nephrology has been consulted, appreciate recommendations. Discussion with Dr. Purdy, last evening the severe metabolic derangements, secondary to continued rhabdomyolysis with significant muscle necrosis of left lower extremity and continued SIRS response. Aggressive measures have been initiated since admission with case management to it and attempts to identify patient, and locate family thus far has been unsuccessful. The patient continues to be hemodynamically unstable with with continued elevation in vasopressor requirements. After this extensive discussion plans for emergent surgical intervention for left lower extremity today. 02/21/16 TMax 99.0. Yesterday the patient underwent a wide excision fasciotomy of the left lower extremity, and upon return from the OR, the patient's wound VAC was noted to be continuously flowing with blood, blood loss approximated to 2 L in the ICU, and worsening hemodynamic instability requiring vasopressor Levophed 20 mcgs in addition to vasopressin 0.04 mcgs. The patient emergently returned to the OR, and underwent left above knee amputation. The patient received multiple blood products to include 10 units of packed red blood cells, 5 units of platelets 2 units of FFP, 2 units of cryoprecipitate over the last 24 hours, now stabilized. Immediately on return from the OR the patient underwent dialysis, with 1.5 L removed, and potassium level normalized. The patient was noted to be an atrial fibrillation with RVR, heart rate in the 150s upon return from the OR. The patient received digoxin 0.5 mg, and subsequently 2 L over 12 hours and converted to sinus tachycardia at 0500. The patient now is currently on low-dose Levophed currently at 2 mcgs. The patient remains off sedation since 5 PM yesterday, currently nonresponsive. Creatinine kinase levels trending down. 02/21: The patient underwent hemodialysis yesterday with removal of 2 L. All sedating agents have been discontinued since 02/19/17 at 1700, the patient remains unresponsive, now extension posturing noted on neurological exam . Plan for repeat EEG, for assessment of subclinical seizures versus anoxic encephalopathy. Patient not tolerating trickle tube feeds, 10 cc an hour. Discontinued this a.m.. KUB obtained no obstruction. Family contacted discussed and updated mother who lives in [place] on patient's medical status. Plans for palliative care consult. 02/22 Tmax 98.6. No change in patient's neurological status also off all sedative medications since 02/19/17. Repeat EEG performed yesterday awaiting formal report. The patient was noted not to tolerate trickle feeds yesterday, KUB was ordered OGT in place. Patient was previously on metoclopramide when necessary, will initiate scheduled dosing. The patient appears to be normotensive vasopressor currently being weaned off. 02/23: The patient has been off of vasopressin since 12 noon on 02/22, remains hemodynamically stable. Change in neuro status since admission to hospital, repeat EEG showed diffuse encephalopathy with possible epileptogenic foci in bifrontal area. MRI ordered today. Will reinitiate trickle tube feeds today. 02/24 Tmax 99.5. MRI reveals small acute infarct left frontal lobe, otherwise normal. The neurological status has been unchanged for the past 5 days off sedation. The patient is requiring IHD, secondary to hyperkalemia today potassium 5.4. Liver ultrasound revealed ascites and a sludge filled gallbladder, possibly WBC count is elevated. Objective Vital Signs Date Time Temp Pulse Resp B/P Pulse Ox O2 Delivery O2 Flow Rate FiO2 02/24/17 16:49 97 40 02/24/17 12:00 99.3 102 22 121/74 02/24/17 07:00 Mechanical Ventilator Intake and Output 02/23/17 02/23/17 02/24/17 08:00 16:00 00:00 Intake Total 154 ml 224 ml 309 ml Output Total 340 ml 850 ml 2640 ml Balance -186 ml -626 ml -2331 ml Result Diagram: 02/24/17 1225 02/24/17 0610 Imaging Last Impressions Chest X-Ray 02/22/17 0600 Signed Impressions: Service Date/Time: Wednesday, February 22, 2017 03:42 - CONCLUSION: No significant change. Hima Bright MD Abdomen X-Ray 02/21/17 0000 Signed Impressions: Service Date/Time: January 09:42 - CONCLUSION: Limited single view exam demonstrating nasogastric tube in place with the tip projected over the distal stomach.. Dayo Christopher MD Head CT 02/18/17 0241 Signed Impressions: Service Date/Time: Saturday, February 18, 2017 04:27 - CONCLUSION: Unremarkable CT scan of the brain.. Toby Constantino MD Last Impressions Chest X-Ray 02/21/17 0000 Signed Impressions: Service Date/Time: January 11:39 - CONCLUSION: Abnormal left basilar opacity could represent atelectasis, consolidation, and/or effusion. Hima Richards MD Abdomen X-Ray 02/21/17 0000 Signed Impressions: Service Date/Time: January 09:42 - CONCLUSION: Limited single view exam demonstrating nasogastric tube in place with the tip projected over the distal stomach.. Dayo Christopher MD Head CT 02/18/17 0241 Signed Impressions: Service Date/Time: Saturday, February 18, 2017 04:27 - CONCLUSION: Unremarkable CT scan of the brain.. Toby Constantino MD Last Impressions Chest X-Ray 02/20/17 0600 Signed Impressions: Service Date/Time: Monday, February 20, 2017 03:50 - CONCLUSION: Mild increase in interstitial markings bilaterally suggestive of some pulmonary edema. Otherwise, no other significant changes. Toby Constantino MD Head CT 02/18/17240 Signed Impressions: Service Date/Time: Saturday, February 18, 2017 04:27 - CONCLUSION: Unremarkable CT scan of the brain.. Toby Constantino MD Last 24 hours Impressions Chest X-Ray 02/18/17240 Signed Impressions: Service Date/Time: Saturday, February 18, 2017 02:45 - CONCLUSION: 1. No focal or acute intrathoracic disease. 2. NG tube tip in distal esophagus. Recommend advancing another 10 cm. Toby Constantino MD Objective Remarks BP 122/74 P 98 100% O2 saturation GENERAL: Well-nourished, well-developed critically ill male intubated no sedation, continued extensor posturing SKIN: Warm and dry. HEAD: Normocephalic. EYES: No scleral icterus. No injection or drainage. Scleral edema mild. Pupils equal and round NECK: Supple, trachea midline. No JVD or lymphadenopathy. Orotracheally intubated CARDIOVASCULAR: Regular rate and rhythm without murmurs, gallops, or rubs. RESPIRATORY: Mechanical ventilation, overbreathing the ventilator. Breath sounds equal bilaterally. No accessory muscle use. GASTROINTESTINAL: Abdomen soft, non-tender, nondistended. OGT tube feeds infusing MUSCULOSKELETAL: No cyanosis, left AKA, dressing C/D/I EXTREMITIES: No clubbing, cyanosis or 1+ peripheral edema Mccarthy insert reason: Measure Accurate Output Date of Insertion: Feb 18, 2017 Date of Insertion: Feb 18, 2017 Line: Central Venous Catheter Side: Right Location: Internal, Jugular A/P Assessment and Plan Neurologic: Seizure disorder Metabolic encephalopathy Possible anoxic encephalopathy Neurochecks per ICU protocol Off sedation since 02/19 at 1700, extensor posturing noted 02/21 Repeat EEG-diffuse encephalopathy with epileptogenic foci bifrontal region Continue Dilantin 100 mg every 8 hours, and Keppra, monitor levels, upon hospital admission noted Dilantin level subtherapeutic, Keppra level 6.5, subtherapeutic Neurology following-Dr. Suggs 02/18 EEG-severely attenuated electrographic activity with a burst suppression pattern consistent with severe encephalopathic state 02/18CT brain unremarkable 02/19-sedation off 02/23-MRI small infarct left frontal lobe , otherwise normal Respiratory: Respiratory arrest secondary to cardiac arrest Possible aspiration Pulmonary edema Maintain O2 sat greater than 92%, wean FiO2 as tolerated Mechanical vent settings AC/PC 18/500/+5/50 ABG-7.51/33/159/26/3.8 Ventilator bundle Maintain head of bed greater than 30 Bronchodilators every 6 hours schedule every 2 hours when necessary Empiric antibiotics cefepime, Levaquin added 02/21 chest x-rayleft mid left lower lung opacity, atelectatic right lung base Continue ARDS protocol, minimal FiO2, with permissive hypercapnea Cardiovascular: Asystolic cardiac arrest 2 Hypotension secondary to multisystem organ failure New onset A. fib with RVR-resolved Initial 12-lead EKG 02/18 ST elevations V1V5 and II, III aVF, with resolution Status post CPR with ROSC x 3 rounds of CPR Cardiology on board, Dr. Bragg no interventions at this time 02/19-ECHO -EF 45%, no RWMA Currently vasopressor support the Levophed off (02/21), Vasopressin 0.04 mcgs- off (02/22) Wean as tolerated maintain MAP greater than 60 mmHg 02/19 A. fib RVR converted with digoxin 0.51 dose Renal: Severe metabolic acidosis secondary to rhabdomyolysis Acute kidney injury secondary to rhabdomyolysis Oliguria Acute renal failure 02/19 D5W NaHCO3 infusion at 75 cc /hr 02/19 Vas-Cath placement-left IJ UOP 75cc for last 24 hours, CK level 2653 Nephrology following-Dr. Hernandez 02/19 IHD 3L off 02/20 IHD- 2L off, 02/21 IHD 4L off -- Strict I/Os 02/24 Potassium level 5.4 FEN/GI: Hyperkalemia-resolved Hyperphosphatemia Hypocalcemia Melena Transaminitis Hepatitis C Ileus Ascites Maintain NPO status-OGT to LIWS Replete electrolytes [place] [address]-> [address]->11,176-> 4370->2653 today LDH 2010-> 1816 -> 1686->1147 Calcium gluconate 2 g IV now, protein corrected calcium 7.6 Continue Protonix infusion Gastroenterology following-Dr. Molina-reinitiation of tube feeds today Metoclopramide 5 mg 3 times a day 02/23 liver ultrasound sludge-filled gallbladder, mild wall thickening, ascites Heme/ID: Sepsis Leukocytosis-resolved Persistent Thrombocytopenia DIC-hypofibrinogenemia (resolved) Coagulopathy secondary to hepatic injury Bandemia Continue Cefepime, Gentamycin and vancomycin, day 3, Monitor serial CBC. WBC 12.7 INR 1.5-continue to monitor Fibrinogen level 255, stable Serial lactate levels-3.2 not clearing, will order liver ultrasound 02/18 blood cultures-negative growth to date 02/19 Hydrocortisone 50 mg every 6 hours added to medication regimen 02/19 transfusion PRBCs 10 units, cryoprecipitate 2 units, FFP 2 units, platelets 5 units 02/21 platelet count 45, will transfuse 2 units of platelets. Will continue to transfuse for platelet count less than 50,000 02/23-obtain B12 level, begin B12 daily Obtain liver ultrasound Endocrine: Diabetes mellitus 2 Hypoglycemia-resolved Glucose monitoring per ICU protocol, low-dose regimen -- SSI Msk: Rhabdomyolysis S/P wide excision fasciotomy 02/19 Left above-knee amputation-POD#4 Orthopedics following-Dr. Purdy- plan for dressing change on Saturday, and normal drainage Continue monitor serial electrolytes, and hepatic panels Monitor LDH 1000 Prophylaxis: GI Prophylaxis Protonix infusion, we'll consult GI regarding transition to Protonix twice a day , melena resolved DVT Prophylaxis -- SCD right leg, no pharmacological DVT prophylaxis in the setting of acute bleeding and coagulopathic state Lines: PIV's x 2 .RI J Central line 02/18, right radial a line 02/18, left vascular catheter 02/19 Dispo: Discussed with [facility] at bedside. The patient's prognosis is extremely poor at this time. Patient's neurological status has not improved, repeat EEG to be obtained to rule out subclinical epileptiform activity versus anoxic encephalopathy. Palliative care consult initiated. Family requests aggressive treatment at this time. This patient remains critically ill with one or more organ systems which are or may become a threat to life. I have spent in excess of 37 minutes discontinuously in the care and management of this patient. This time is exclusive of procedures, and includes, but is not limited to, evaluation of the patient, review of the medical record, discussions with family, consultants, nursing staff, or respiratory therapy, and documentation in the medical record. Physician Aileen Beasley MD Feb 24, 2017 17:11
[2017-02-24] MEDS ORDERED: Vancomycin Consult Pharmacy 1 EA OTHER SCH (17:15)
[2017-02-24] MEDS ORDERED: LEVOFLOXACIN 500 MG PREMIX INJ 100 ML IV ONE (18:00)
[2017-02-24 18:04] LABS: INTERNATIONAL NORMALIZED RATIO 1.5 RATIO; PROTHROMBIN TIME - PATIENT 17.1 SEC (9.8-11.6)
[2017-02-24] MEDS: SODIUM CHLORIDE 0.9% FLUSH 10 ML FLUSH IV FLUSH PRN (21:08)
[2017-02-25] VITALS (17 sets, daily range): BP systolic 100–127; BP diastolic 60–74; PULSE 80–120; RESP 16–23; TEMP 99.3–101.1; O2SAT 97–100
[2017-02-25] MEDS: PANTOPRAZOLE INJ 80 MG in SODIUM CHLORIDE 0.9% INJ 100 ML IV SCH ×3 (03:00→22:22)
[2017-02-25] MEDS: CHLORHEXIDINE GLUCONATE 2 % 1 PACK (2 CLOTHS) TOP SCH (04:00)
[2017-02-25] MEDS: METOCLOPRAMIDE HCL 10 MG/2 ML VIAL IV PUSH SCH ×3 (06:25→22:23)
[2017-02-25] MEDS: PHENYTOIN INJ 100 MG/2 ML VIAL IV SCH ×3 (06:25→22:23)
[2017-02-25] MEDS: INSULIN ASPART SUPPLEMENTAL SCALE SQ SCH ×4 (06:59→20:17)
[2017-02-25 07:10] LABS: AUTOMATED NEUTROPHIL # 16.6 TH/MM3 (1.8-7.7); BASOPHIL % 0.2 % (0.0-2.0); HEMATOCRIT 27.8 % (39.0-51.0); LYMPH % 4.4 % (9.0-44.0); LYMPHOCYTE # 0.8 TH/MM3 (1.0-4.8); MEAN CELL VOLUME 90.1 FL (80.0-100.0); MEAN CORPUSCULAR HGB CONC 33.3 % (32.0-36.0); MONO % 5.6 % (0.0-8.0); NEUT % 89.8 % (16.0-70.0); PLATELET COUNT 42 TH/MM3 (150-450); RED BLOOD COUNT 3.09 MIL/MM3 (4.50-5.90); RED CELL DISTRIBUTION WIDTH 18.7 % (11.6-17.2); WHITE BLOOD COUNT 18.5 TH/MM3 (4.0-11.0)
[2017-02-25 07:16] LABS: INTERNATIONAL NORMALIZED RATIO 1.5 RATIO; PROTHROMBIN TIME - PATIENT 17.4 SEC (9.8-11.6)
[2017-02-25 07:19] LABS: HEMO FLAGS AUTO DIFF
[2017-02-25 08:01] LABS: BICARBONATE 25.3 MEQ/L (21.0-32.0); POTASSIUM 5.4 MEQ/L (3.5-5.1)
[2017-02-25 08:14] LABS: BANDS 10 % (0-6); CALCIUM-PROTEIN CORRECTED 8.3 MG/DL (8.5-10.1); CORRECTED NUCLEATED RBC 1 /100 WBC (0-0); POLYS (SEG NEUTROPHILS) 82 % (16-70); TOXIC GRANULATION 1+ (NORMAL); WBC DIFF SAMPLE 100
[2017-02-25 08:15] LABS: PLATELET ESTIMATE SMEAR LOW (NORMAL); PLATELET MORPHOLOGY NORMAL (NORMAL); SCAN/DIFF FINAL DIFF MANUAL
[2017-02-25 08:56] LABS: CKMB 12.6 NG/ML (0.5-3.6)
[2017-02-25] MEDS: DOCUSATE SODIUM 100 MG/10 ML UDC G-TUBE SCH ×2 (09:00→20:14)
[2017-02-25] MEDS: ARTIFICIAL TEARS OPTH SOLN 15 ML BTL EACH EYE SCH ×3 (09:00→17:20)
[2017-02-25] MEDS: LACTULOSE SYRUP 20 GM/30 ML CUP PO SCH ×2 (09:00→20:14)
--- NOTE | 2017-02-25 09:00 | HHI.CCPN ---
Subjective Remarks/Hospital Course 61 years old male brought as a status post cardiac arrest. The history is obtained from medical chart. The patient has history of epilepsy. He is normally compliant with his antiepileptic agents. The patient had been conversing with roommates through a doorway about 3 hours prior to EMS arrival. He had become unresponsive and EMS was activated. They found the patient on the floor. His mental status was altered apparently postictal nonverbal. The patient was prepared for transport to the ER and on the way to the ambulance he became asystolic. ACLS protocol was initiated. The patient was intubated and chest compressions were started. About 12 minutes of chest compressions were performed. He received 1 dose of epinephrine. On arrival to the ER chest compressions were continued and shortly thereafter he was found to have a pulse. Levophed drip started. In the ER the patient received multiple rounds of epinephrine and bicarbonate as he lost pulses twice more initially each episode lasting about 2-3 minutes. EKG obtained shortly after the patient' s arrival revealed ST elevations in precordial leads V1 through V5 as well as II , III and aVF. STEMI alert was activated. Branch Service Leader Dr. Keane evaluated the patient at the bedside. A repeat EKG was performed revealing no ST elevation AL. The patient was found to have some swelling and induration of the left lower extremity at the calf. A Boring needle was employed to check compartment pressures of the anterior compartment in the superficial posterior compartment with measurements of 47 and 45 respectively. Finally the patient was found to be somewhat hypothermic and blood cultures were drawn and antibiotics initiated , cefepime and vancomycin. The patient also has hyperkalemia at 6.9 and insulin dextrose, calcium and bicarbonate were given. The creatinine is also about 3.5. Subjective 02/18/17 Upon entering patient's room at 0600 hrs., The patient was noted to have tonic-clonic jerking, completely unresponsive has not been on sedation since admission to the hospital. The patient has a known history of a seizure disorder. Keppra and Dilantin levels were obtained and pending. The patient was loaded with 1 g Dilantin IV, and placed on Dilantin 100 mg every 8 hours. The patient was noted to be on maximum doses of Levophed,20 mcgs, a central line was placed and the patient was placed on a second vasopressor, vasopressin@ 0.04. Neurology was consulted , a stat EEG was ordered. The patient's sodium bicarbonate infusion was increased to 150 cc/hr. the patient was noted to be oliguric in the setting of rhabdomyolysis the patient was bolused an additional liter of normal saline, and NS infusion at 150cc/hr. BMP pending. 02/19/17 Tmax 100.8. Over the last 24 hours the patient continues to be hemodynamically unstable, requiring 2 vasopressors for maintenance of a map ranging from 69-77. The patient was placed on a low dose propofol infusion secondary to continue tonic-clonic movements status post administration of Keppra and Dilantin. An EEG was performed showing a severe encephalopathic state. No intervention was performed yesterday to the left leg with compartment syndrome secondary to time sensitivity of intervention had passed, most likely prior to admission to the hospital. Demarcation of the left lower extremity has begun with mottling, edema, and blistering. Also cause necrosis continues with severe electrolyte abnormalities throughout the night to include hyperkalemia requiring continuous doses of calcium gluconate, Kayexalate now additionally adding D50 and insulin. The patient is noted to have continued elevations in hepatic enzymes most likely secondary to rhabdomyolysis. The patient continues to have hyperkalemia hyperphosphatemia due to muscle necrosis and hypocalcemia with challenging management. Steroids have been added to medication related regimen, electrolytes continued to be closely monitored. Nephrology has been consulted, appreciate recommendations. Discussion with Dr. Purdy, last evening the severe metabolic derangements, secondary to continued rhabdomyolysis with significant muscle necrosis of left lower extremity and continued SIRS response. Aggressive measures have been initiated since admission with case management to it and attempts to identify patient, and locate family thus far has been unsuccessful. The patient continues to be hemodynamically unstable with with continued elevation in vasopressor requirements. After this extensive discussion plans for emergent surgical intervention for left lower extremity today. 02/21/16 TMax 99.0. Yesterday the patient underwent a wide excision fasciotomy of the left lower extremity, and upon return from the OR, the patient's wound VAC was noted to be continuously flowing with blood, blood loss approximated to 2 L in the ICU, and worsening hemodynamic instability requiring vasopressor Levophed 20 mcgs in addition to vasopressin 0.04 mcgs. The patient emergently returned to the OR, and underwent left above knee amputation. The patient received multiple blood products to include 10 units of packed red blood cells, 5 units of platelets 2 units of FFP, 2 units of cryoprecipitate over the last 24 hours, now stabilized. Immediately on return from the OR the patient underwent dialysis, with 1.5 L removed, and potassium level normalized. The patient was noted to be an atrial fibrillation with RVR, heart rate in the 150s upon return from the OR. The patient received digoxin 0.5 mg, and subsequently 2 L over 12 hours and converted to sinus tachycardia at 0500. The patient now is currently on low-dose Levophed currently at 2 mcgs. The patient remains off sedation since 5 PM yesterday, currently nonresponsive. Creatinine kinase levels trending down. 02/21: The patient underwent hemodialysis yesterday with removal of 2 L. All sedating agents have been discontinued since 02/19/17 at 1700, the patient remains unresponsive, now extension posturing noted on neurological exam . Plan for repeat EEG, for assessment of subclinical seizures versus anoxic encephalopathy. Patient not tolerating trickle tube feeds, 10 cc an hour. Discontinued this a.m.. KUB obtained no obstruction. Family contacted discussed and updated mother who lives in [place] on patient's medical status. Plans for palliative care consult. 02/22 Tmax 98.6. No change in patient's neurological status also off all sedative medications since 02/19/17. Repeat EEG performed yesterday awaiting formal report. The patient was noted not to tolerate trickle feeds yesterday, KUB was ordered OGT in place. Patient was previously on metoclopramide when necessary, will initiate scheduled dosing. The patient appears to be normotensive vasopressor currently being weaned off. 02/23: The patient has been off of vasopressin since 12 noon on 02/22, remains hemodynamically stable. Change in neuro status since admission to hospital, repeat EEG showed diffuse encephalopathy with possible epileptogenic foci in bifrontal area. MRI ordered today. Will reinitiate trickle tube feeds today. 02/24 Tmax 99.5. MRI reveals small acute infarct left frontal lobe, otherwise normal. The neurological status has been unchanged for the past 5 days off sedation. The patient is requiring IHD, secondary to hyperkalemia today potassium 5.4. Liver ultrasound revealed ascites and a sludge filled gallbladder, possibly WBC count is elevated. 02/25: Persistent leukocytosis, ascites, large amount of gallbladder sludge. Plan for IR consult for percutaneous drainage Multiple attempts to contact family this weekend unsuccessful, to discuss goals of care. No change in neuro status , plan for tracheostomy and PEG, dependent on family's wishes. Objective Vital Signs Date Time Temp Pulse Resp B/P Pulse Ox O2 Delivery O2 Flow Rate FiO2 02/25/17 08:04 98 40 02/25/17 06:00 112 02/25/17 04:00 99.9 18 127/71 02/24/17 20:00 Mechanical Ventilator Intake and Output 02/24/17 02/24/17 02/25/17 08:00 16:00 00:00 Intake Total 135 ml 688 ml Output Total 120 ml 2545 ml Balance 15 ml -1857 ml Result Diagram: 02/25/1762902/25/17 0630 Imaging Last Impressions Chest X-Ray 02/22/17 0600 Signed Impressions: Service Date/Time: Wednesday, February 22, 2017 03:42 - CONCLUSION: No significant change. Hima Bright MD Abdomen X-Ray 02/21/17 0000 Signed Impressions: Service Date/Time: January 09:42 - CONCLUSION: Limited single view exam demonstrating nasogastric tube in place with the tip projected over the distal stomach.. Dayo Christopher MD Head CT 02/18/17 024 Signed Impressions: Service Date/Time: Saturday, February 18, 2017 04:27 - CONCLUSION: Unremarkable CT scan of the brain.. Toby Constantino MD Last Impressions Chest X-Ray 02/21/17 0000 Signed Impressions: Service Date/Time: January 11:39 - CONCLUSION: Abnormal left basilar opacity could represent atelectasis, consolidation, and/or effusion. Hima Richards MD Abdomen X-Ray 02/21/17 0000 Signed Impressions: Service Date/Time: January 09:42 - CONCLUSION: Limited single view exam demonstrating nasogastric tube in place with the tip projected over the distal stomach.. Dayo Christopher MD Head CT 02/18/17 0241 Signed Impressions: Service Date/Time: Saturday, February 18, 2017 04:27 - CONCLUSION: Unremarkable CT scan of the brain.. Toby Constantino MD Last Impressions Chest X-Ray 02/20/17 0600 Signed Impressions: Service Date/Time: Monday, February 20, 2017 03:50 - CONCLUSION: Mild increase in interstitial markings bilaterally suggestive of some pulmonary edema. Otherwise, no other significant changes. Toby Constantino MD Head CT 02/18/17240 Signed Impressions: Service Date/Time: Saturday, February 18, 2017 04:27 - CONCLUSION: Unremarkable CT scan of the brain.. Toby Constantino MD Last 24 hours Impressions Chest X-Ray 02/18/17240 Signed Impressions: Service Date/Time: Saturday, February 18, 2017 02:45 - CONCLUSION: 1. No focal or acute intrathoracic disease. 2. NG tube tip in distal esophagus. Recommend advancing another 10 cm. Toby Constantino MD Objective Remarks BP 122/74 P 98 100% O2 saturation GENERAL: Well-nourished, well-developed critically ill male intubated no sedation, continued extensor posturing SKIN: Warm and dry. HEAD: Normocephalic. EYES: No scleral icterus. No injection or drainage. Scleral edema mild. Pupils equal and round NECK: Supple, trachea midline. No JVD or lymphadenopathy. Orotracheally intubated CARDIOVASCULAR: Regular rate and rhythm without murmurs, gallops, or rubs. RESPIRATORY: Mechanical ventilation, overbreathing the ventilator. Breath sounds equal bilaterally. No accessory muscle use. GASTROINTESTINAL: Abdomen soft, non-tender, nondistended. OGT tube feeds infusing MUSCULOSKELETAL: No cyanosis, left AKA, dressing C/D/I EXTREMITIES: No clubbing, cyanosis or 1+ peripheral edema Urinary Catheter: Yes Assessment to: Continue Date of Insertion: Feb 18, 2017 Vascular Central Line Catheter: Yes Assessment to: Continue Date of Insertion: Feb 18, 2017 Line: Central Venous Catheter Side: Right Location: Internal, Jugular A/P Assessment and Plan Neurologic: Seizure disorder Metabolic encephalopathy Possible anoxic encephalopathy Neurochecks per ICU protocol Off sedation since 02/19 at 1700, extensor posturing noted 02/21 Repeat EEG-diffuse encephalopathy with epileptogenic foci bifrontal region Continue Dilantin 100 mg every 8 hours, and Keppra, monitor levels, upon hospital admission noted Dilantin level subtherapeutic, Keppra level 6.5, subtherapeutic Neurology following-Dr. Suggs 02/18 EEG-severely attenuated electrographic activity with a burst suppression pattern consistent with severe encephalopathic state 02/18CT brain unremarkable 02/19-sedation off-no response, extensor or posturing 02/23-MRI small infarct left frontal lobe , otherwise normal Respiratory: Respiratory arrest secondary to cardiac arrest Possible aspiration Pulmonary edema Maintain O2 sat greater than 92%, wean FiO2 as tolerated Mechanical vent settings AC/PC 18/500/+5/50 ABG-7.51/33/159/26/3.8 Ventilator bundle Maintain head of bed greater than 30 Bronchodilators every 6 hours schedule every 2 hours when necessary Empiric antibiotics cefepime, Levaquin added 02/21 chest x-rayleft mid left lower lung opacity, atelectatic right lung base Continue ARDS protocol, minimal FiO2, with permissive hypercapnea Plan for possible tracheostomy Cardiovascular: Asystolic cardiac arrest 2 Hypotension secondary to multisystem organ failure New onset A. fib with RVR-resolved Initial 12-lead EKG 02/18 ST elevations V1V5 and II, III aVF, with resolution Status post CPR with ROSC x 3 rounds of CPR Cardiology on board, Dr. Bragg no interventions at this time 02/19-ECHO -EF 45%, no RWMA Currently vasopressor support the Levophed off (02/21), Vasopressin 0.04 mcgs- off (02/22) Wean as tolerated maintain MAP greater than 60 mmHg 02/19 A. fib RVR converted with digoxin 0.51 dose Renal: Severe metabolic acidosis secondary to rhabdomyolysis Acute kidney injury secondary to rhabdomyolysis Oliguria Acute renal failure 02/19 D5W NaHCO3 infusion at 75 cc /hr 02/19 Vas-Cath placement-left IJ UOP 75cc for last 24 hours, CK level 2653 Nephrology following-Dr. Hernandez 02/19 IHD 3L off 02/20 IHD- 2L off, 02/21 IHD 4L off -- Strict I/Os FEN/GI: Hyperkalemia-resolved Hyperphosphatemia Hypocalcemia Melena Transaminitis Hepatitis C Ileus Ascites Maintain NPO status-OGT to LIWS Replete electrolytes [place] [address]-> [address]106->11,176-> 4370->2653 today LDH 2010-> 1816 -> 1686->1147 Calcium gluconate 2 g IV now, protein corrected calcium 7.6 Continue Protonix infusion Gastroenterology following-Dr. Molina-reinitiation of tube feeds today Metoclopramide 5 mg 3 times a day 02/23 liver ultrasound sludge-filled gallbladder, mild wall thickening, ascites Heme/ID: Sepsis Leukocytosis-resolved Persistent Thrombocytopenia DIC-hypofibrinogenemia (resolved) Coagulopathy secondary to hepatic injury Bandemia Continue Cefepime, Gentamycin and vancomycin, day 4, Monitor serial CBC. WBC 12.7 INR 1.5-continue to monitor F/U Fibrinogen level Serial lactate levels-3.2 not clearing, will order liver ultrasound 02/18 blood cultures-negative growth to date 02/19 Hydrocortisone 50 mg every 6 hours 02/19 transfusion PRBCs 10 units, cryoprecipitate 2 units, FFP 2 units, platelets 5 units 02/21 platelet count 45, will transfuse 2 units of platelets. Will continue to transfuse for platelet count less than 50,000 02/23-obtain B12 level, begin B12 daily, folate 1 mg/day Obtain liver ultrasound Endocrine: Diabetes mellitus 2 Hypoglycemia-resolved Glucose monitoring per ICU protocol, low-dose regimen -- SSI Msk: Rhabdomyolysis S/P wide excision fasciotomy 02/19 Left above-knee amputation-POD#4 Orthopedics following-Dr. Purdy- plan for dressing change on Saturday, and normal drainage Continue monitor serial electrolytes, and hepatic panels Prophylaxis: GI Prophylaxis Protonix infusion, we'll consult GI regarding transition to Protonix twice a day , melena resolved DVT Prophylaxis -- SCD right leg, no pharmacological DVT prophylaxis in the setting of acute bleeding and coagulopathic state Lines: PIV's x 2 .RI J Central line 02/18, right radial a line 02/18, left vascular catheter 02/19 Dispo: Discussed with [employer] at bedside. The patient's prognosis is extremely poor at this time. Patient's neurological status has not improved, repeat EEG to be obtained to rule out subclinical epileptiform activity versus anoxic encephalopathy. Palliative care consult initiated. Family requests aggressive treatment at this time, at last contact 02/21/17. This patient remains critically ill with one or more organ systems which are or may become a threat to life. I have spent in excess of 35 minutes discontinuously in the care and management of this patient. This time is exclusive of procedures, and includes, but is not limited to, evaluation of the patient, review of the medical record, discussions with family, consultants, nursing staff, or respiratory therapy, and documentation in the medical record. Physician Aileen Beasley MD February 25, 2017 09:00
--- NOTE | 2017-02-25 09:33 | MG ---
cc: MAKSIM ALDRIDGE M.D. Lab No: [id number] Date: 02/21/2017 Age: Sex: M Race: TECHNIQUE A 17 channel EEG. DESCRIPTION The background rhythm shows generalized slowing in mainly the delta frequency roughly 3-4 hertz, amplitude is about 5-10 microvolts. Occasionally there is a burst of higher amplitude delta activity every 4-5 seconds lasting a second at a time. There are no epileptiform discharges. No lateralizing features are seen. There is occasional muscle artifact. INTERPRETATION Abnormal EEG consistent with a severe encephalopathy. MD JUDD Hastings/QUIN /4:53 PM /9:32 AM
[2017-02-25] MEDS: SODIUM CHLORIDE 0.9% FLUSH 10 ML FLUSH IV FLUSH PRN (09:43)
[2017-02-25] MEDS: MUPIROCIN 2% OINT 1 APPLIC/GM SYR EACH NARE SCH ×2 (09:44→20:14)
[2017-02-25] MEDS: SODIUM CHLORIDE 0.9% FLUSH 5 ML FLUSH IVF SCH ×2 (09:44→20:16)
[2017-02-25] MEDS: CALCITRIOL 0.25 MCG CAP PO SCH (09:47)
[2017-02-25] MEDS: levETIRAcetam 1000 MG INJ 100 ML IV SCH ×2 (09:47→20:15)
[2017-02-25] MEDS: FOLIC ACID 1 MG TAB PO SCH (09:47)
[2017-02-25] MEDS: CALCIUM ACETATE 667 MG CAP PO SCH ×3 (09:47→17:18)
[2017-02-25] MEDS: CYANOCOBALAMIN 1,000 MCG TAB PO SCH (09:47)
[2017-02-25] MEDS: CHOLECALCIFEROL (VIT D3) 5000 UNIT CAP PO SCH (10:14)
[2017-02-25] MEDS: HYDROCORTISONE SOD SUCCINATE 100 MG VIAL IV PUSH SCH ×2 (10:18→22:22)
--- NOTE | 2017-02-25 11:51 | HHI.NPPN ---
Subjective General Problems: Edema Renal Failure: Acute Interval History Remains unresponsive. K 5.4. He did have dialysis yesterday. (Elma Rudolph) Review of Systems General General Remarks unable to evaluate (Elma Rudolph) Objective Data Data 02/24/17 02/25/17 19:00 07:00 Intake Total 830 ml Output Total 2500 ml 285 ml Balance -2500 ml 545 ml Intake IV Total 780 ml Other 50 ml Output Urine Total 60 ml Stool Total 100 ml Gastric Drainage Total 125 ml Hemodialysis 2500 ml Vital Signs Date Time Temp Pulse Resp B/P Pulse Ox O2 Delivery O2 Flow Rate FiO2 02/25/17 11:15 17 02/25/17 11:08 98 40 02/25/17 10:00 116 02/25/17 08:04 98 40 02/25/17 08:00 40 02/25/17 08:00 119 02/25/17 08:00 100.6 119 16 122/74 98 02/25/17 07:00 98 Mechanical Ventilator 40 02/25/17 06:00 112 02/25/17 04:00 111 02/25/17 04:00 99.9 111 18 127/71 98 02/25/17 04:00 40 02/25/17 04:00 98 40 02/25/17 02:07 100 40 02/25/17 02:00 109 02/25/17 00:00 40 02/25/17 00:00 99.5 109 22 113/71 98 02/25/17 00:00 110 02/24/17 22:00 106 02/24/17 21:01 97 40 02/24/17 20:00 40 02/24/17 20:00 97 Mechanical Ventilator 02/24/17 20:00 104 02/24/17 20:00 97.9 104 24 117/66 97 02/24/17 18:00 98 02/24/17 16:49 97 40 02/24/17 16:00 99.3 114 24 97/56 98 02/24/17 16:00 40 02/24/17 16:00 114 02/24/17 14:00 102 02/24/17 12:39 99 40 02/24/17 12:00 40 02/24/17 12:00 99.3 102 22 121/74 98 02/24/17 12:00 102 (Elma Rudolph) -: 02/25/17 0630 02/25/17 0630 Imaging Last 72 hours Impressions Brain MRI 02/24/17 0000 Signed Impressions: Service Date/Time: Friday, February 24, 2017 11:16 - CONCLUSION: Small acute infarct in the left frontal white matter. Otherwise within normal limits. Dez Rene MD Chest X-Ray 02/23/17 0600 Signed Impressions: Service Date/Time: Thursday, February 23, 2017 05:55 - CONCLUSION: No significant change. Lungs remain reasonably clear. Hima Bright MD Liver Ultrasound 02/23/17 0000 Signed Impressions: Service Date/Time: Thursday, February 23, 2017 13:00 - CONCLUSION: 1. Hepatomegaly and echogenic liver parenchyma can be seen with hepatic steatosis or hepatocellular disease. 2. Main portal vein is patent with hepatopedal flow. 3. Ascites. 4. Sludge filled gallbladder with mild wall thickening. Nelson Kaplan MD ADDENDUM: The gallbladder is completely filled with sludge. Nelson Kaplan MD Tubes & Lines: Vas-Cath, Mccarthy Tubes & Lines Comment a line, rectal tube, TLC Drip Comment protonix (Elma Rudolph) Physical Exam General Appearance: No Acute Distress, Comfortable, Malnourished Appearance Remarks intubated, eyes open/tracking (Elma Rudolph) Throat Throat Remarks ETT (Elma Rudolph) Pulmonary Resp Exam: Breath Sounds Equal, No Distress, Crackles (Elma Rudolph) Cardiology CV Exam: Regular, Normal Sinus Rhythm, Good Perfusion (Elma Rudolph) Gastrointestinal/Abdomen GI Exam: Soft, Non-Tender, Bowel Sounds Present (Elma Rudolph) Genitourinary Remarks significant scrotal edema (Elma Rudolph) Musculoskeletal MS Exam: Joints Intact, Unable to Ambulate (Elma Rudolph) Integumentary Skin Exam: Warm, Dry Skin Remarks s/p left AKA, stump is dressed, clean and dry (Elma Rudolph) Extremeties Extremities Exam: Pedal Pulses Palpable Extremeties Remarks on right (Elma Rudolph) Neurologic Neuro Exam: Unresponsive, Sedated, Comatose Neuro Remarks decerebrate posturing (Elma Rudolph) Assessment/Plan Assessment Summary: CLAUDIA/Acute Renal Failure, Acute Tubular Necrosis, Fluid/ Volume Overload, Hypotension Electrolyte Assessment: Hypocalcemia Problem List: (1) Acute kidney injury Plan: oliguric renal failure, ATN from cardiac arrest and rhabdomyolysis HD initiated 02/19 , he has high waste products with persistent hyperkalemia last HD saturday, 2500 ml UF needs HD again today oliguric, monitor for changes await renal recovery Avoid nephrotoxic agents. Very poor prognosis. (2) Rhabdomyolysis Plan: due to fall with unknown down time also cocaine positive on admission follow CPK, levels are improving (3) Secondary hyperparathyroidism Plan: with severe vitamin D deficiency continue calcitriol and vitamin D calcium replacement ordered (4) Compartment syndrome Plan: s/p AKA Dr. Purdy (ortho) following, appreciate recommendations (5) Transaminitis Plan: Improved, GI has signed off. (6) Encephalopathy Plan: Prognosis is poor. EEG reviewed Neurology following. he is not requiring sedation and is not following commands recent posturing awaiting family decision about goals of care (7) Seizure disorder Plan: History of seizure disorder. Unclear if he was compliant with medications. Neurology following. he is on Keppra, Dilantin, and propofol here, no witnessed seizure activity reported (8) Hyperkalemia Plan: corrected with dialysis, monitor for recurrence (9) Thrombocytopenia Plan: Thrombocytopenia persists, unclear Etiology? DIC? he has been transfused No schistocytes on the peripheral smear. (Elma Rudolph) Plan patient was seen and examined. He looks very ill. Dialysis today. Very poor prognosis. Agree with above assessment and plan. (Jose Hernandez MD) Problem Qualifiers (1) Compartment syndrome: Qualified Code: T79.A22A - Traumatic compartment syndrome of left lower extremity, initial encounter Elma Rudolph February 25, 2017 11:51 Jose Hernandez MD February 26, 2017 10:58
--- NOTE | 2017-02-25 12:03 | HHI.HCPN ---
Reason for visit a. To assist with evaluation and management of symptoms including: encephalopathy, dyspnea, pain, malnutrition b. To assist medical decision maker(s) with: better understanding of current medical conditions; weighing benefits/burdens of medical treatment options; making medical treatment decisions. Subjective/Interval History Pt seen today to follow up on goals with decision maker- was unable to reach at time of consultation Pt has remained in ICU, critical condition. On mech vent. WBC 18.5. Tmax 100.6. Cont to receive HD, BUN/CREATINE elevated, K+ 5. US liver = ascites and large amt gall bladder sludge.Plan for IR consult for percutaneous drainage-- liver completions manager notes unable to reach family despite multiple attempts over the weekend..MRI over weekend= reveals small acute infarct left frontal lobe, otherwise normal. Pt has been off sedation x5 days, no improvement in neuro status. EEG= severe encephalopathy To my exam patient is essentially nonresponsive. No response to painful sternal rub. Slight extension of right foot to pain. No withdrawal to pain upper extremities. Opens eyes slightly with upward gaze, and then nystagmus. Does not appear to be to stimuli.+ Spontaneous respirations on mechanical vent. No apparent distress. Dressing Lt AKA clean/dry. Following exam, call to patient mother, voicemail left. . Family/friend interactions Shortly after voicemail left, patient mother called back to unit. I spoke with patient mother and sister on the same phone line, they were apparently together, approx 25 min. Mother indicates she has poor phone service , and limited understanding and that she does not want to be first in line for decision-making and contact. Patient's only sibling, her daughter Tamika would be next in line for legal decision making, Tamika does wish to serve in this role. Further discussion included: * Palliative care role, team members, reason for consult * family understanding of current medical conditions, Hospital course, treatments, prognosis * Legal decision makers * CODE STATUS--full code * Palliative care contact information provided Family does appear to have a simple somewhat reasonable understanding of conditions and treatment course thus far. They do asked some questions pertaining to the patient's admission at the ER which I and unable to answer they asked me questions about events prior to arrival such as how did the patient come to be ill and the roommates not find him etc., they also asked me about where was the patient bleeding from when he arrived at the ER, I did advise that I was not present at his admission, but there are no assessments that document any hemorrhage at arrival and H&H/blood counts were within normal limits at presentation. Sister Tamika has concerns about [employer] events leading up to patient's current acute illness in the home setting, and indicates she has suspicions/ concerns about his roommates and what situations were going on that lead to his acute illness/unresponsiveness. She asks how she would go about looking for an investigation, I advised that she could contact local law enforcement with any concerns. She requests to speak to the ER doctor who first saw patient and asked if he may file some sort of complaint with the Police Department, I advised that I'm not aware that that is a usual procedure, but that she could contact emergency department management for further inquiry regarding his ED presentation. All questions answered, goals are aggressive at this time. They are is appreciative of the care patient has been receiving. . Advance Directives Living Will: Never completed Health Care Surrogate: Never completed Durable Power of Assistant Elementary Teacher: Never completed Objective Vital Signs Date Time Temp Pulse Resp B/P Pulse Ox O2 Delivery O2 Flow Rate FiO2 02/25/17 08:04 98 40 02/25/17 08:00 40 02/25/17 08:00 119 02/25/17 08:00 100.6 119 16 122/74 98 02/25/17 07:00 98 Mechanical Ventilator 40 02/25/17 06:00 112 02/25/17 04:00 111 02/25/17 04:00 99.9 111 18 127/71 98 02/25/17 04:00 40 02/25/17 04:00 98 40 02/25/17 02:07 100 40 02/25/17 02:00 109 02/25/17 00:00 40 02/25/17 00:00 99.5 109 22 113/71 98 02/25/17 00:00 110 02/24/17 22:00 106 02/24/17 21:01 97 40 02/24/17 20:00 40 02/24/17 20:00 97 Mechanical Ventilator 02/24/17 20:00 104 02/24/17 20:00 97.9 104 24 117/66 97 02/24/17 18:00 98 02/24/17 16:49 97 40 02/24/17 16:00 99.3 114 24 97/56 98 02/24/17 16:00 40 02/24/17 16:00 114 02/24/17 14:00 102 02/24/17 12:39 99 40 02/24/17 12:00 40 02/24/17 12:00 99.3 102 22 121/74 98 02/24/17 12:00 102 02/24/17 11:25 98 60 Intake & Output 02/25/17 02/25/17 07:00 19:00 Intake Total 830 ml Output Total 285 ml Balance 545 ml Intake IV Total 780 ml Other 50 ml Output Urine Total 60 ml Stool Total 100 ml Gastric Drainage Total 125 ml Physical Exam CONSTITUTIONAL/GENERAL: This is an adequately nourished patient, in no apparent distress, minimally responsive on mechanical vent TUBES/LINES/DRAINS: Left IJ dialysis access, right IJ central line,Mccarthy catheter, rectal tube, ET tube, OG tube, footdrop boot RLE CARDIOVASCULAR: Regular rate and rhythm without murmurs, sinus rhythm via bedside monitor. Peripheral pulses symmetric. RESPIRATORY/CHEST: Symmetric, unlabored respirations via ETT to mech vent, + spont respirations. Clear to auscultation. Breath sounds equal bilaterally. GASTROINTESTINAL: Abdomen slightly firm, unable to determine tenderness. No palpable masses. Bowel sounds absent to my exam. OG tube to wall suction + small amt greenish drainage visible GENITOURINARY: Without palpable bladder distension. Mccarthy catheter in place scant amount of dark concentrated urine.+ Significant scrotal edema. NEUROLOGICAL: Not on sedation. Slight eye opening/blinking, upward gaze, + nystagmus. No withdrawal of upper extremities to pain. Slight downward extension to pain stimuli Rt foot. (Lt AKA- unable to assess) PSYCHIATRIC: No obvious anxiety/depression--limited assessment due to clinical condition. Diagnostic Tests Laboratory Laboratory Tests Test 02/22/17 02/22/17 02/22/17 02/23/17 11:55 13:30 20:30 05:05 White Blood Count 8.1 TH/MM3 9.5 TH/MM3 (4.0-11.0) (4.0-11.0) Red Blood Count 3.80 MIL/MM3 3.85 MIL/MM3 (4.50-5.90) (4.50-5.90) Hemoglobin 11.0 GM/DL 11.5 GM/DL (13.0-17.0) (13.0-17.0) Hematocrit 33.4 % 33.4 % (39.0-51.0) (39.0-51.0) Mean Corpuscular Volume 87.9 FL 86.9 FL (80.0-100.0) (80.0-100.0) Mean Corpuscular Hemoglobin 28.9 PG 29.8 PG (27.0-34.0) (27.0-34.0) Mean Corpuscular Hemoglobin 32.9 % 34.3 % Concent (32.0-36.0) (32.0-36.0) Red Cell Distribution Width 17.9 % 17.9 % (11.6-17.2) (11.6-17.2) Platelet Count 62 TH/MM3 50 TH/MM3 (150-450) (150-450) Mean Platelet Volume 8.8 FL 9.2 FL (7.0-11.0) (7.0-11.0) Lactic Acid Level 2.9 mmol/L (0.4-2.0) Blood Gas Puncture Site RASHAD Blood Gas Patient Temperature 98.6 Blood Gas HCO3 24 mmol/L (22-26) Blood Gas Base Excess 0.6 mmol/L (-2-2) Blood Gas Oxygen Saturation 97 % (90-100) Arterial Blood pH 7.48 (7.380-7.420) Arterial Blood Partial 33 mmHg (38-42) Pressure CO2 Arterial Blood Partial 148 mmHg Pressure O2 (61-120) Arterial Blood Oxygen Content 15.5 Vol % (12.0-20.0) Arterial Blood 1.3 % (0-4) Carboxyhemoglobin Arterial Blood Methemoglobin 1.1 % (0-2) Blood Gas Hemoglobin 11.2 G/DL (12.0-16.0) Oxygen Delivery Device VENTILATOR Blood Gas Ventilator Setting AC16/500/+5/0.9 Blood Gas Inspired Oxygen 40 % Test 02/23/17 02/23/17 02/23/17 02/23/17 05:30 11:38 13:10 15:24 White Blood Count 10.0 TH/MM3 14.6 TH/MM3 (4.0-11.0) (4.0-11.0) Red Blood Count 3.81 MIL/MM3 4.57 MIL/MM3 (4.50-5.90) (4.50-5.90) Hemoglobin 11.1 GM/DL 13.6 GM/DL (13.0-17.0) (13.0-17.0) Hematocrit 33.7 % 40.0 % (39.0-51.0) (39.0-51.0) Mean Corpuscular Volume 88.4 FL 87.5 FL (80.0-100.0) (80.0-100.0) Mean Corpuscular Hemoglobin 29.2 PG 29.8 PG (27.0-34.0) (27.0-34.0) Mean Corpuscular Hemoglobin 33.0 % 34.1 % Concent (32.0-36.0) (32.0-36.0) Red Cell Distribution Width 18.9 % 18.5 % (11.6-17.2) (11.6-17.2) Platelet Count 45 TH/MM3 55 TH/MM3 (150-450) (150-450) Mean Platelet Volume 8.9 FL 9.6 FL (7.0-11.0) (7.0-11.0) Sodium Level 141 MEQ/L (136-145) Potassium Level 5.4 MEQ/L (3.5-5.1) Chloride Level 103 MEQ/L (98-107) Carbon Dioxide Level 24.0 MEQ/L (21.0-32.0) Anion Gap 14 MEQ/L (5-15) Blood Urea Nitrogen 120 MG/DL (7-18) Creatinine 6.03 MG/DL (0.60-1.30) Estimat Glomerular Filtration 10 ML/MIN (>89) Rate Random Glucose 228 MG/DL (74-106) Lactic Acid Level 3.2 mmol/L (0.4-2.0) Calcium Level 6.8 MG/DL (8.5-10.1) Protein Corrected Calcium 8.1 MG/DL (8.5-10.1) Total Bilirubin 4.4 MG/DL (0.2-1.0) Direct Bilirubin 3.4 MG/DL (0.0-0.2) Indirect Bilirubin 1.0 MG/DL (0.0-0.8) Aspartate Amino Transf 752 U/L (15-37) (AST/SGOT) Alanine Aminotransferase 57 U/L (12-78) (ALT/SGPT) Alkaline Phosphatase 88 U/L (45-117) Ammonia 40 MCMOL/L (11-32) Lactate Dehydrogenase 1000 U/L (87-241) Total Creatine Kinase 2653 U/L (39-308) Creatine Kinase MB 18.4 NG/ML (0.5-3.6) Creatine Kinase MB % 0.7 % (0.0-4.0) Total Protein 4.6 GM/DL (6.4-8.2) Albumin 1.5 GM/DL (3.4-5.0) Random Vancomycin Level 21.8 COMMENT Phenytoin (Dilantin) Level 14.8 MCG/ML (10.0-20.0) Blood Bank Comment Vitamin B12 Level GREATER THAN 2000 PG/ML (193-986) Test 02/23/17 02/24/17 02/24/17 02/24/17 21:35 06:10 08:18 12:25 White Blood Count 16.2 TH/MM3 18.8 TH/MM3 (4.0-11.0) (4.0-11.0) Red Blood Count 3.71 MIL/MM3 3.31 MIL/MM3 (4.50-5.90) (4.50-5.90) Hemoglobin 10.9 GM/DL 9.8 GM/DL (13.0-17.0) (13.0-17.0) Hematocrit 32.5 % 29.4 % (39.0-51.0) (39.0-51.0) Mean Corpuscular Volume 87.6 FL 88.9 FL (80.0-100.0) (80.0-100.0) Mean Corpuscular Hemoglobin 29.4 PG 29.7 PG (27.0-34.0) (27.0-34.0) Mean Corpuscular Hemoglobin 33.5 % 33.4 % Concent (32.0-36.0) (32.0-36.0) Red Cell Distribution Width 18.3 % 19.1 % (11.6-17.2) (11.6-17.2) Platelet Count 38 TH/MM3 74 TH/MM3 (150-450) (150-450) Mean Platelet Volume 9.3 FL 9.3 FL (7.0-11.0) (7.0-11.0) Sodium Level 142 MEQ/L (136-145) Potassium Level 5.7 MEQ/L (3.5-5.1) Chloride Level 102 MEQ/L (98-107) Carbon Dioxide Level 25.3 MEQ/L (21.0-32.0) Anion Gap 15 MEQ/L (5-15) Blood Urea Nitrogen 113 MG/DL (7-18) Creatinine 6.05 MG/DL (0.60-1.30) Estimat Glomerular Filtration 10 ML/MIN (>89) Rate Random Glucose 210 MG/DL (74-106) Lactic Acid Level 3.7 mmol/L (0.4-2.0) Calcium Level 7.0 MG/DL (8.5-10.1) Protein Corrected Calcium 8.1 MG/DL (8.5-10.1) Total Bilirubin 6.0 MG/DL (0.2-1.0) Direct Bilirubin 4.6 MG/DL (0.0-0.2) Indirect Bilirubin 1.4 MG/DL (0.0-0.8) Aspartate Amino Transf 501 U/L (15-37) (AST/SGOT) Alanine Aminotransferase 45 U/L (12-78) (ALT/SGPT) Alkaline Phosphatase 109 U/L (45-117) Lactate Dehydrogenase 984 U/L (87-241) Total Creatine Kinase 2094 U/L (39-308) Creatine Kinase MB 17.2 NG/ML (0.5-3.6) Creatine Kinase MB % 0.8 % (0.0-4.0) Total Protein 5.0 GM/DL (6.4-8.2) Albumin 1.8 GM/DL (3.4-5.0) Random Vancomycin Level 17.0 COMMENT Blood Type A POSITIVE Antibody Screen NEGATIVE Test 02/24/17 02/25/17 17:34 06:30 Prothrombin Time 17.1 SEC 17.4 SEC (9.8-11.6) (9.8-11.6) Prothromb Time International 1.5 RATIO 1.5 RATIO Ratio Fibrinogen 219 mg/dL (181-393) White Blood Count 18.5 TH/MM3 (4.0-11.0) Red Blood Count 3.09 MIL/MM3 (4.50-5.90) Hemoglobin 9.3 GM/DL (13.0-17.0) Hematocrit 27.8 % (39.0-51.0) Mean Corpuscular Volume 90.1 FL (80.0-100.0) Mean Corpuscular Hemoglobin 30.0 PG (27.0-34.0) Mean Corpuscular Hemoglobin 33.3 % Concent (32.0-36.0) Red Cell Distribution Width 18.7 % (11.6-17.2) Platelet Count 42 TH/MM3 (150-450) Mean Platelet Volume 9.5 FL (7.0-11.0) Neutrophils (%) (Auto) 89.8 % (16.0-70.0) Lymphocytes (%) (Auto) 4.4 % (9.0-44.0) Monocytes (%) (Auto) 5.6 % (0.0-8.0) Eosinophils (%) (Auto) 0.0 % (0.0-4.0) Basophils (%) (Auto) 0.2 % (0.0-2.0) Neutrophils # (Auto) 16.6 TH/MM3 (1.8-7.7) Lymphocytes # (Auto) 0.8 TH/MM3 (1.0-4.8) Monocytes # (Auto) 1.0 TH/MM3 (0-0.9) Eosinophils # (Auto) 0.0 TH/MM3 (0-0.4) Basophils # (Auto) 0.0 TH/MM3 (0-0.2) CBC Comment AUTO DIFF Differential Total Cells 100 Counted Neutrophils % (Manual) 82 % (16-70) Band Neutrophils % 10 % (0-6) Lymphocytes % 5 % (9-44) Monocytes % 3 % (0-8) Neutrophils # (Manual) 17.0 TH/MM3 (1.8-7.7) Nucleated Red Blood Cells 1 /100 WBC (0-0) Differential Comment FINAL DIFF MANUAL Toxic Granulation 1+ (NORMAL) Platelet Estimate LOW (NORMAL) Platelet Morphology Comment NORMAL (NORMAL) Sodium Level 144 MEQ/L (136-145) Potassium Level 5.4 MEQ/L (3.5-5.1) Chloride Level 103 MEQ/L (98-107) Carbon Dioxide Level 25.3 MEQ/L (21.0-32.0) Anion Gap 16 MEQ/L (5-15) Blood Urea Nitrogen 111 MG/DL (7-18) Creatinine 5.55 MG/DL (0.60-1.30) Estimat Glomerular Filtration 11 ML/MIN (>89) Rate Random Glucose 219 MG/DL (74-106) Calcium Level 7.2 MG/DL (8.5-10.1) Protein Corrected Calcium 8.3 MG/DL (8.5-10.1) Ammonia 47 MCMOL/L (11-32) Lactate Dehydrogenase 879 U/L (87-241) Total Creatine Kinase 1668 U/L (39-308) Creatine Kinase MB 12.6 NG/ML (0.5-3.6) Creatine Kinase MB % 0.8 % (0.0-4.0) Total Protein 5.1 GM/DL (6.4-8.2) Phenytoin (Dilantin) Level 10.9 MCG/ML (10.0-20.0) Result Diagram: 02/25/17 0630 02/25/17 0630 Imaging Last Impressions Brain MRI 02/24/17 0000 Signed Impressions: Service Date/Time: Friday, February 24, 2017 11:16 - CONCLUSION: Small acute infarct in the left frontal white matter. Otherwise within normal limits. Dez Rene MD Chest X-Ray 02/23/17 0600 Signed Impressions: Service Date/Time: Thursday, February 23, 2017 05:55 - CONCLUSION: No significant change. Lungs remain reasonably clear. Hima Bright MD Liver Ultrasound 02/23/17 0000 Signed Impressions: Service Date/Time: Thursday, February 23, 2017 13:00 - CONCLUSION: 1. Hepatomegaly and echogenic liver parenchyma can be seen with hepatic steatosis or hepatocellular disease. 2. Main portal vein is patent with hepatopedal flow. 3. Ascites. 4. Sludge filled gallbladder with mild wall thickening. Nelson Kaplan MD ADDENDUM: The gallbladder is completely filled with sludge. Nelson Kaplan MD Abdomen X-Ray 02/21/17 0000 Signed Impressions: Service Date/Time: January 09:42 - CONCLUSION: Limited single view exam demonstrating nasogastric tube in place with the tip projected over the distal stomach.. Dayo Christopher MD Head CT 02/18/17 0241 Signed Impressions: Service Date/Time: Saturday, February 18, 2017 04:27 - CONCLUSION: Unremarkable CT scan of the brain.. 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 Symptom Scale: (1) Dyspnea (2) Malnutrition (3) Pain Pertinent Non-Medical Issues Psychosocial: Spiritual: Reported Catholiccreases been in. Legal:Patient is currently unable to participate in decision-making. Does not appear this time that he will regain ability to participate. he is reported to be supported by a mother, sister, aunt. No significant other or spouse reported. Per [place] statutes his mother would be legal decision maker should she wish to serve as such. 02/25/17 mother elects to not be the decision-maker though she still will be in touch with daughter, patient's only sister. Per [place] statutes this sister would be appropriate next in line legal decision maker/proxy. Proxy= sister Tamika Lemon Ethical issues impacting care: Important Contacts Mother, Jeanninedcmelodie/ Griselda [phone] was PROXY -- elected to NOT participate , falls to Tamika Sister Tamika Lemon [phone] -- PROXY as mother elected to NOT make decisions 02/25/17 aunt Annabel [phone] . Prognosis Prognosis guarded. This patient came in suffering acute cardiac arrest. He has subsequently developed compartment syndrome rhabdomyolysis, multiorgan failure. Poor neuro outlook, poor neuro exam. High risk for further complications, decline and . If he does survive will not likely regain full cognitive/functional status. Code Status: Full Code Plan * Legal decision maker:Patient is currently unable to participate in decision- making. Does not appear this time that he will regain ability to participate. he is reported to be supported by a mother, sister, aunt. No significant other or spouse reported. Per [place] statutes his mother would be legal decision maker should she wish to serve as such. UPDATE 02/25/17 mother elects to not be the decision-maker though she still will be in touch with daughter, patient's only sister. Per [place] statutes this sister would be appropriate next in line legal decision maker/proxy. Proxy= sister Tamika Lemon * Goals: At this time mother, sister expressed aggressive goals including full code. I met with patient mother, sister on phone. mother has poor phone service, limited understanding and elects to not be the decision-maker though she still will be in touch with daughter, patient's only sister. Per [place] statutes this sister would be appropriate next in line legal decision maker/ proxy. * CODE STATUS: full * SYMPTOMS: --encephalopathy- status post cardiac arrest, EEG indicative of severe encephalopathy, likely anoxic encephalopathy --pain-currently with no signs or symptoms of pain however potential sources would include recent CPR, recent invasive procedures, recent operative procedures left lower extremity along bedbound status. Currently on no sedatives to maximize neuro assessment, will continue to evaluate --dyspnea-intubated for airway protection, remains on mechanical vent noted tachypnea or dyspnea reported. expected to require tracheostomy to administer ongoing aggressive care --malnutrition-currently with OG tube to suction, had been receiving trickle feeds however has continued to have issues not tolerating/+ emesis episode,+ liquid bowel movement * Palliative care will continue to follow during hospital course as condition evolves, to assist patient/decision-maker with understanding of medical conditions, weighing benefits/burdens of treatment options, for clarification of goals of treatment. Additionally will assist with any symptoms of palliative concern Time Spent >50% Counseling/Coord of Care: Yes (d/w nurse, critical care) Dorothy Gaston February 25, 2017 12:00
[2017-02-25] MEDS: MANNITOL 12.5 GM/50 ML VIAL IV PRN (15:00)
[2017-02-25] MEDS: ALBUMIN HUMAN 25% 25 GM/100 ML BAGP IV PRN (15:00)
[2017-02-25] MEDS: GENTAMICIN SULFATE (DIALYSIS USE ONLY) 20 MG/2 ML VIAL IV PRN (17:00)
[2017-02-25] MEDS: HEPARIN SODIUM - IV 10,000 UNITS/10 ML VIAL PRN (17:01)
[2017-02-25] MEDS: CEFEPIME INJ 2,000 MG in SODIUM CHLORIDE 0.9% INJ 100 ML IV SCH (17:20)
[2017-02-26] VITALS (19 sets, daily range): BP systolic 92–108; BP diastolic 55–63; PULSE 98–120; RESP 21–26; TEMP 98.4–100.6; O2SAT 97–99
[2017-02-26] MEDS: CHLORHEXIDINE GLUCONATE 2 % 1 PACK (2 CLOTHS) TOP SCH (04:00)
[2017-02-26 05:15] LABS: HEMATOCRIT 23.9 % (39.0-51.0); MEAN CELL VOLUME 90.5 FL (80.0-100.0); MEAN CORPUSCULAR HEMOGLOBIN 30.7 PG (27.0-34.0); MEAN CORPUSCULAR HGB CONC 33.9 % (32.0-36.0); PLATELET COUNT 41 TH/MM3 (150-450); RED BLOOD COUNT 2.64 MIL/MM3 (4.50-5.90); RED CELL DISTRIBUTION WIDTH 19.5 % (11.6-17.2); WHITE BLOOD COUNT 21.5 TH/MM3 (4.0-11.0)
[2017-02-26 05:30] LABS: REVIEW FLAG FINAL
[2017-02-26 05:50] LABS: ANION GAP 16 MEQ/L (5-15)
[2017-02-26 05:56] LABS: BICARBONATE 24.5 MEQ/L (21.0-32.0); BLOOD UREA NITROGEN 111 MG/DL (7-18); CHLORIDE 104 MEQ/L (98-107); CREATINE KINASE 1155 U/L (39-308); GLOMERULAR FILTRATION RATE 11 ML/MIN (>89); LDH SERUM 791 U/L (87-241); MAGNESIUM 2.6 MG/DL (1.5-2.5); POTASSIUM 5.5 MEQ/L (3.5-5.1); SODIUM (NA) 144 MEQ/L (136-145)
[2017-02-26] MEDS ORDERED: PHARMACY ORDERED LAB ONE (06:00)
[2017-02-26] MEDS: PHENYTOIN INJ 100 MG/2 ML VIAL IV SCH ×3 (06:13→21:26)
[2017-02-26] MEDS: METOCLOPRAMIDE HCL 10 MG/2 ML VIAL IV PUSH SCH ×3 (06:13→21:27)
[2017-02-26 06:14] LABS: CALCIUM-PROTEIN CORRECTED 8.2 MG/DL (8.5-10.1); CKMB 6.8 NG/ML (0.5-3.6)
[2017-02-26] MEDS: INSULIN ASPART SUPPLEMENTAL SCALE SQ SCH ×4 (06:16→21:00)
--- NOTE | 2017-02-26 06:57 | PD.ORT.PN ---
Subjective Subjective Remarks Intubated, stable Objective Vitals Vital Signs Date Time Temp Pulse Resp B/P Pulse Ox O2 Delivery O2 Flow Rate FiO2 02/26/17 06:00 108 02/26/17 04:00 116 02/26/17 04:00 100.6 116 26 107/63 99 02/26/17 04:00 40 02/26/17 03:53 99 40 02/26/17 02:00 116 02/26/17 00:28 99 40 02/26/17 00:00 98 02/26/17 00:00 100.0 108 23 108/57 98 02/26/17 00:00 40 02/25/17 22:43 97 40 02/25/17 22:00 108 02/25/17 20:00 99.3 103 23 110/60 98 02/25/17 20:00 103 02/25/17 20:00 40 02/25/17 19:00 98 Mechanical Ventilator 40 02/25/17 18:00 103 02/25/17 16:38 97 40 02/25/17 16:00 117 02/25/17 16:00 40 02/25/17 16:00 100.2 117 16 100/61 97 02/25/17 14:00 120 02/25/17 12:00 101.1 114 18 111/66 98 02/25/17 12:00 114 02/25/17 12:00 40 02/25/17 11:15 17 02/25/17 11:08 98 40 02/25/17 10:00 116 02/25/17 08:04 98 40 02/25/17 08:00 40 02/25/17 08:00 119 02/25/17 08:00 100.6 119 16 122/74 98 02/25/17 07:00 98 Mechanical Ventilator 40 I/O 02/25/17 02/25/17 02/25/17 02/26/17 02/26/17 02/26/17 07:00 15:00 23:00 07:00 15:00 23:00 Intake Total 142 ml 217 ml 309 ml 75 ml Output Total 240 ml 100 ml 2710 ml 65 ml Balance -98 ml 117 ml -2401 ml 10 ml Intake Oral 0 ml IV Total 142 ml 70 ml 309 ml 75 ml Tube Irrigant 25 ml Other 122 ml Output Urine Total 40 ml 50 ml 10 ml 15 ml Stool Total 100 ml Gastric Drainage Total 100 ml 50 ml 200 ml 50 ml Hemodialysis 2500 ml # Bowel Movements 0 1 1 Result Diagram: 02/26/17 0500 02/26/17 0500 Imaging Last 24 hours Impressions Chest X-Ray 02/19/17 0600 Signed Impressions: Service Date/Time: Sunday, February 19, 2017 04:33 - CONCLUSION: No acute pulmonary infiltrates. Stable examination compared to the prior study. Toby Constantino MD Objective Remarks LLE: Clean dry dressing left thigh. Minimal drainage. Dressings taken down.. Incision is clean dry and intact with no erythema or necrosis. He does have some blistering posterior and superior to the incision. New dressing applied Assessment & Plan Assessment and Plan 1) left above-knee amputation - POD 6 (02/19/17). Daily dressing changes with bacitracin, Xeroform, 4 x 4's, ABD and Michelet wrap. No Dayo Reyes Jr. February 26, 2017 06:57
[2017-02-26] MEDS: levETIRAcetam 1000 MG INJ 100 ML IV SCH ×2 (08:22→21:27)
[2017-02-26] MEDS: PANTOPRAZOLE INJ 80 MG in SODIUM CHLORIDE 0.9% INJ 100 ML IV SCH ×2 (08:22→19:00)
[2017-02-26] MEDS: LACTULOSE SYRUP 20 GM/30 ML CUP PO SCH ×2 (08:26→21:26)
[2017-02-26] MEDS: FOLIC ACID 1 MG TAB PO SCH (08:26)
[2017-02-26] MEDS: CALCIUM ACETATE 667 MG CAP PO SCH ×3 (08:26→18:28)
[2017-02-26] MEDS: MUPIROCIN 2% OINT 1 APPLIC/GM SYR EACH NARE SCH ×2 (08:26→21:27)
[2017-02-26] MEDS: CALCITRIOL 0.25 MCG CAP PO SCH (08:26)
[2017-02-26] MEDS: SODIUM CHLORIDE 0.9% FLUSH 10 ML FLUSH IV FLUSH PRN (08:26)
[2017-02-26] MEDS: CHOLECALCIFEROL (VIT D3) 5000 UNIT CAP PO SCH (08:26)
[2017-02-26] MEDS: CYANOCOBALAMIN 1,000 MCG TAB PO SCH (08:26)
[2017-02-26] MEDS: DOCUSATE SODIUM 100 MG/10 ML UDC G-TUBE SCH ×2 (08:27→21:26)
[2017-02-26] MEDS: SODIUM CHLORIDE 0.9% FLUSH 5 ML FLUSH IVF SCH ×2 (08:27→21:00)
[2017-02-26] MEDS: BACITRACIN TOP OINT 15 GM TUBE TOPICAL SCH (08:27)
[2017-02-26] MEDS: ARTIFICIAL TEARS OPTH SOLN 15 ML BTL EACH EYE SCH ×3 (08:27→18:00)
--- NOTE | 2017-02-26 11:15 | HHI.NPPN ---
Subjective General Problems: Edema Renal Failure: Acute Interval History Febrile, tachycardic. Unresponsive. Dialyzed yesterday. (Elma Rudolph) Review of Systems General General Remarks unable to evaluate (Elma Rudolph) Objective Data Data 02/25/17 02/26/17 19:00 07:00 Intake Total 217 ml 384 ml Output Total 2600 ml 275 ml Balance -2383 ml 109 ml Intake Oral 0 ml IV Total 70 ml 384 ml Tube Irrigant 25 ml Other 122 ml Output Urine Total 50 ml 25 ml Gastric Drainage Total 50 ml 250 ml Hemodialysis 2500 ml # Bowel Movements 0 2 Vital Signs Date Time Temp Pulse Resp B/P Pulse Ox O2 Delivery O2 Flow Rate FiO2 02/26/17 10:00 106 02/26/17 08:29 99 40 02/26/17 08:00 108 02/26/17 08:00 100.0 108 26 94/55 98 02/26/17 08:00 40 02/26/17 07:00 98 Mechanical Ventilator 40 02/26/17 06:00 108 02/26/17 04:00 116 02/26/17 04:00 100.6 116 26 107/63 99 02/26/17 04:00 40 02/26/17 03:53 99 40 02/26/17 02:00 116 02/26/17 00:28 99 40 02/26/17 00:00 98 02/26/17 00:00 100.0 108 23 108/57 98 02/26/17 00:00 40 02/25/17 22:43 97 40 02/25/17 22:00 108 02/25/17 20:00 99.3 103 23 110/60 98 02/25/17 20:00 103 02/25/17 20:00 40 02/25/17 19:00 98 Mechanical Ventilator 40 02/25/17 18:00 103 02/25/17 16:38 97 40 02/25/17 16:00 117 02/25/17 16:00 40 02/25/17 16:00 100.2 117 16 100/61 97 02/25/17 14:00 120 02/25/17 12:00 101.1 114 18 111/66 98 02/25/17 12:00 114 02/25/17 12:00 40 02/25/17 11:15 17 (Elma Rudolph) -: 02/26/17 0500 02/26/17 0500 Imaging Last 72 hours Impressions Brain MRI 02/24/17 0000 Signed Impressions: Service Date/Time: Friday, February 24, 2017 11:16 - CONCLUSION: Small acute infarct in the left frontal white matter. Otherwise within normal limits. Dez Rene MD Tubes & Lines: Vas-Cath, Mccarthy Tubes & Lines Comment a line, rectal tube, TLC Drip Comment protonix (Elma Rudolph) Physical Exam General Appearance: No Acute Distress, Comfortable, Malnourished Appearance Remarks intubated, eyes open/tracking (Elma Rudolph) Throat Throat Remarks ETT (Elma Rudolph) Pulmonary Resp Exam: Breath Sounds Equal, No Distress, Crackles (Elma Rudolph) Cardiology CV Exam: Regular, Normal Sinus Rhythm, Good Perfusion (Elma Rudolph) Gastrointestinal/Abdomen GI Exam: Soft, Non-Tender, Bowel Sounds Present (Elma Rudolph) Genitourinary Remarks significant scrotal edema (Elma Rudolph) Musculoskeletal MS Exam: Joints Intact, Unable to Ambulate (Elma Rudolph) Integumentary Skin Exam: Warm, Dry Skin Remarks s/p left AKA, stump is dressed, clean and dry (Elma Rudolph) Extremeties Extremities Exam: Pedal Pulses Palpable Extremeties Remarks on right (Elma Rudolph) Neurologic Neuro Exam: Unresponsive, Sedated, Comatose Neuro Remarks decerebrate posturing (Elma Rudolph) Assessment/Plan Assessment Summary: CLAUDIA/Acute Renal Failure, Acute Tubular Necrosis, Fluid/ Volume Overload, Hypotension Electrolyte Assessment: Hypocalcemia Problem List: (1) Acute kidney injury Plan: oliguric renal failure, ATN from cardiac arrest and rhabdomyolysis HD initiated 02/19 , he has high waste products with persistent hyperkalemia he has been dialyzed on a daily basis, had 2500 ml UF yesterday oliguric, monitor for changes, await renal recovery Avoid nephrotoxic agents. Avoid IVF Very poor prognosis. (2) Hyperkalemia Plan: K 5.5 monitor daily (3) Rhabdomyolysis Plan: due to fall with unknown down time also cocaine positive on admission follow CPK, levels are improving (4) Secondary hyperparathyroidism Plan: with severe vitamin D deficiency continue calcitriol and vitamin D calcium replacement ordered (5) Compartment syndrome Plan: s/p AKA Dr. Purdy (ortho) following, appreciate recommendations (6) Transaminitis Plan: Improved, GI has signed off. (7) Encephalopathy Plan: Prognosis is poor. EEG reviewed Neurology following. he is not requiring sedation and is not following commands recent posturing awaiting family decision about goals of care (8) Seizure disorder Plan: History of seizure disorder. Unclear if he was compliant with medications. Neurology following. he is on Keppra, Dilantin, and propofol here, no witnessed seizure activity reported (9) Thrombocytopenia Plan: Thrombocytopenia persists, unclear Etiology? DIC? he has been transfused No schistocytes on the peripheral smear. (Elma Rudolph) Plan patient was seen and examined. To have dialysis again today. Very poor prognosis. Palliative care and hospice may be appropriate. (Jose Hernandez MD) Problem Qualifiers (1) Compartment syndrome: Qualified Code: T79.A22A - Traumatic compartment syndrome of left lower extremity, initial encounter Elma Rudolph February 26, 2017 11:15 Jose Hernandez MD February 26, 2017 11:25
[2017-02-26] MEDS: CEFEPIME INJ 2,000 MG in SODIUM CHLORIDE 0.9% INJ 100 ML IV SCH (11:18)
[2017-02-26] MEDS: HYDROCORTISONE SOD SUCCINATE 100 MG VIAL IV PUSH SCH ×2 (11:18→21:26)
[2017-02-26] MEDS: HEPARIN SODIUM - IV 10,000 UNITS/10 ML VIAL PRN (16:53)
[2017-02-26] MEDS: GENTAMICIN SULFATE (DIALYSIS USE ONLY) 20 MG/2 ML VIAL IV PRN (16:53)
[2017-02-26] MEDS: ALBUMIN HUMAN 25% 25 GM/100 ML BAGP IV PRN (16:54)
[2017-02-26] MEDS ORDERED: LEVOFLOXACIN 500 MG PREMIX INJ 100 ML IV SCH (18:00)
--- NOTE | 2017-02-26 18:29 | HHI.CCPN ---
Subjective Remarks/Hospital Course 61 years old male brought as a status post cardiac arrest. The history is obtained from medical chart. The patient has history of epilepsy. He is normally compliant with his antiepileptic agents. The patient had been conversing with roommates through a doorway about 3 hours prior to EMS arrival. He had become unresponsive and EMS was activated. They found the patient on the floor. His mental status was altered apparently postictal nonverbal. The patient was prepared for transport to the ER and on the way to the ambulance he became asystolic. ACLS protocol was initiated. The patient was intubated and chest compressions were started. About 12 minutes of chest compressions were performed. He received 1 dose of epinephrine. On arrival to the ER chest compressions were continued and shortly thereafter he was found to have a pulse. Levophed drip started. In the ER the patient received multiple rounds of epinephrine and bicarbonate as he lost pulses twice more initially each episode lasting about 2-3 minutes. EKG obtained shortly after the patient' s arrival revealed ST elevations in precordial leads V1 through V5 as well as II , III and aVF. STEMI alert was activated. [employer] Compliance Specialist Dr. Keane evaluated the patient at the bedside. A repeat EKG was performed revealing no ST elevation DC. The patient was found to have some swelling and induration of the left lower extremity at the calf. A Foster needle was employed to check compartment pressures of the anterior compartment in the superficial posterior compartment with measurements of 47 and 45 respectively. Finally the patient was found to be somewhat hypothermic and blood cultures were drawn and antibiotics initiated , cefepime and vancomycin. The patient also has hyperkalemia at 6.9 and insulin dextrose, calcium and bicarbonate were given. The creatinine is also about 3.5. Subjective 02/18/17 Upon entering patient's room at 0600 hrs., The patient was noted to have tonic-clonic jerking, completely unresponsive has not been on sedation since admission to the hospital. The patient has a known history of a seizure disorder. Keppra and Dilantin levels were obtained and pending. The patient was loaded with 1 g Dilantin IV, and placed on Dilantin 100 mg every 8 hours. The patient was noted to be on maximum doses of Levophed,20 mcgs, a central line was placed and the patient was placed on a second vasopressor, vasopressin@ 0.04. Neurology was consulted , a stat EEG was ordered. The patient's sodium bicarbonate infusion was increased to 150 cc/hr. the patient was noted to be oliguric in the setting of rhabdomyolysis the patient was bolused an additional liter of normal saline, and NS infusion at 150cc/hr. BMP pending. 02/19/17 Tmax 100.8. Over the last 24 hours the patient continues to be hemodynamically unstable, requiring 2 vasopressors for maintenance of a map ranging from 69-77. The patient was placed on a low dose propofol infusion secondary to continue tonic-clonic movements status post administration of Keppra and Dilantin. An EEG was performed showing a severe encephalopathic state. No intervention was performed yesterday to the left leg with compartment syndrome secondary to time sensitivity of intervention had passed, most likely prior to admission to the hospital. Demarcation of the left lower extremity has begun with mottling, edema, and blistering. Also cause necrosis continues with severe electrolyte abnormalities throughout the night to include hyperkalemia requiring continuous doses of calcium gluconate, Kayexalate now additionally adding D50 and insulin. The patient is noted to have continued elevations in hepatic enzymes most likely secondary to rhabdomyolysis. The patient continues to have hyperkalemia hyperphosphatemia due to muscle necrosis and hypocalcemia with challenging management. Steroids have been added to medication related regimen, electrolytes continued to be closely monitored. Nephrology has been consulted, appreciate recommendations. Discussion with Dr. Purdy, last evening the severe metabolic derangements, secondary to continued rhabdomyolysis with significant muscle necrosis of left lower extremity and continued SIRS response. Aggressive measures have been initiated since admission with case management to it and attempts to identify patient, and locate family thus far has been unsuccessful. The patient continues to be hemodynamically unstable with with continued elevation in vasopressor requirements. After this extensive discussion plans for emergent surgical intervention for left lower extremity today. 02/21/16 TMax 99.0. Yesterday the patient underwent a wide excision fasciotomy of the left lower extremity, and upon return from the OR, the patient's wound VAC was noted to be continuously flowing with blood, blood loss approximated to 2 L in the ICU, and worsening hemodynamic instability requiring vasopressor Levophed 20 mcgs in addition to vasopressin 0.04 mcgs. The patient emergently returned to the OR, and underwent left above knee amputation. The patient received multiple blood products to include 10 units of packed red blood cells, 5 units of platelets 2 units of FFP, 2 units of cryoprecipitate over the last 24 hours, now stabilized. Immediately on return from the OR the patient underwent dialysis, with 1.5 L removed, and potassium level normalized. The patient was noted to be an atrial fibrillation with RVR, heart rate in the 150s upon return from the OR. The patient received digoxin 0.5 mg, and subsequently 2 L over 12 hours and converted to sinus tachycardia at 0500. The patient now is currently on low-dose Levophed currently at 2 mcgs. The patient remains off sedation since 5 PM yesterday, currently nonresponsive. Creatinine kinase levels trending down. 02/21: The patient underwent hemodialysis yesterday with removal of 2 L. All sedating agents have been discontinued since 02/19/17 at 1700, the patient remains unresponsive, now extension posturing noted on neurological exam . Plan for repeat EEG, for assessment of subclinical seizures versus anoxic encephalopathy. Patient not tolerating trickle tube feeds, 10 cc an hour. Discontinued this a.m.. KUB obtained no obstruction. Family contacted discussed and updated mother who lives in [place] on patient's medical status. Plans for palliative care consult. 02/22 Tmax 98.6. No change in patient's neurological status also off all sedative medications since 02/19/17. Repeat EEG performed yesterday awaiting formal report. The patient was noted not to tolerate trickle feeds yesterday, KUB was ordered OGT in place. Patient was previously on metoclopramide when necessary, will initiate scheduled dosing. The patient appears to be normotensive vasopressor currently being weaned off. 02/23: The patient has been off of vasopressin since 12 noon on 02/22, remains hemodynamically stable. Change in neuro status since admission to hospital, repeat EEG showed diffuse encephalopathy with possible epileptogenic foci in bifrontal area. MRI ordered today. Will reinitiate trickle tube feeds today. 02/24 Tmax 99.5. MRI reveals small acute infarct left frontal lobe, otherwise normal. The neurological status has been unchanged for the past 5 days off sedation. The patient is requiring IHD, secondary to hyperkalemia today potassium 5.4. Liver ultrasound revealed ascites and a sludge filled gallbladder, possibly WBC count is elevated. 02/25: Persistent leukocytosis, ascites, large amount of gallbladder sludge. Plan for IR consult for percutaneous drainage Multiple attempts to contact family this weekend unsuccessful, to discuss goals of care. No change in neuro status , plan for tracheostomy and PEG, dependent on family's wishes. 02/26: Still trying to sort out family for help with care plan / decisions. Devastating neurological injury. Objective Vital Signs Date Time Temp Pulse Resp B/P Pulse Ox O2 Delivery O2 Flow Rate FiO2 02/26/17 17:16 97 40 02/26/17 16:00 99.1 120 26 94/57 02/26/17 07:00 Mechanical Ventilator Intake and Output 02/25/17 02/25/17 02/26/17 08:00 16:00 00:00 Intake Total 142 ml 217 ml 309 ml Output Total 240 ml 100 ml 2710 ml Balance -98 ml 117 ml -2401 ml Result Diagram: 02/26/17 0500 02/26/17 0500 Imaging Last Impressions Chest X-Ray 02/22/17 0600 Signed Impressions: Service Date/Time: Wednesday, February 22, 2017 03:42 - CONCLUSION: No significant change. Hima Bright MD Abdomen X-Ray 02/21/17 0000 Signed Impressions: Service Date/Time: January 09:42 - CONCLUSION: Limited single view exam demonstrating nasogastric tube in place with the tip projected over the distal stomach.. Dayo Christopher MD Head CT 02/18/17 024 Signed Impressions: Service Date/Time: Saturday, February 18, 2017 04:27 - CONCLUSION: Unremarkable CT scan of the brain.. Toby Constantino MD Last Impressions Chest X-Ray 02/21/17 0000 Signed Impressions: Service Date/Time: January 11:39 - CONCLUSION: Abnormal left basilar opacity could represent atelectasis, consolidation, and/or effusion. Hima Richards MD Abdomen X-Ray 02/21/17 0000 Signed Impressions: Service Date/Time: January 09:42 - CONCLUSION: Limited single view exam demonstrating nasogastric tube in place with the tip projected over the distal stomach.. Dayo Christopher MD Head CT 02/18/17 024 Signed Impressions: Service Date/Time: Saturday, February 18, 2017 04:27 - CONCLUSION: Unremarkable CT scan of the brain.. Toby Constantino MD Last Impressions Chest X-Ray 02/20/17 0600 Signed Impressions: Service Date/Time: Monday, February 20, 2017 03:50 - CONCLUSION: Mild increase in interstitial markings bilaterally suggestive of some pulmonary edema. Otherwise, no other significant changes. Toby Constantino MD Head CT 02/18/17 0241 Signed Impressions: Service Date/Time: Saturday, February 18, 2017 04:27 - CONCLUSION: Unremarkable CT scan of the brain.. Toby Constantino MD Last 24 hours Impressions Chest X-Ray 02/18/17 0241 Signed Impressions: Service Date/Time: Saturday, February 18, 2017 02:45 - CONCLUSION: 1. No focal or acute intrathoracic disease. 2. NG tube tip in distal esophagus. Recommend advancing another 10 cm. Toby Constantino MD Objective Remarks BP 122/74 P 98 100% O2 saturation GENERAL: Well-nourished, well-developed critically ill male intubated no sedation, continued extensor posturing SKIN: Warm and dry. HEAD: Normocephalic. EYES: No scleral icterus. No injection or drainage. Scleral edema mild. Pupils equal and round NECK: Supple, trachea midline. No JVD or lymphadenopathy. Orotracheally intubated CARDIOVASCULAR: Regular rate and rhythm without murmurs, gallops, or rubs. RESPIRATORY: Mechanical ventilation, overbreathing the ventilator. Breath sounds equal bilaterally. No accessory muscle use. GASTROINTESTINAL: Abdomen soft, non-tender, nondistended. OGT tube feeds infusing MUSCULOSKELETAL: No cyanosis, left AKA, dressing C/D/I EXTREMITIES: No clubbing, cyanosis or 1+ peripheral edema Date of Insertion: Feb 18, 2017 Date of Insertion: Feb 18, 2017 Line: Central Venous Catheter Side: Right Location: Internal, Jugular A/P Assessment and Plan Neurologic: Seizure disorder Metabolic encephalopathy Possible anoxic encephalopathy Neurochecks per ICU protocol Off sedation since 02/19 at 1700, extensor posturing noted 02/21 Repeat EEG-diffuse encephalopathy with epileptogenic foci bifrontal region Continue Dilantin 100 mg every 8 hours, and Keppra, monitor levels, upon hospital admission noted Dilantin level subtherapeutic, Keppra level 6.5, subtherapeutic Neurology following-Dr. Suggs 02/18 EEG-severely attenuated electrographic activity with a burst suppression pattern consistent with severe encephalopathic state 02/18CT brain unremarkable 02/19-sedation off-no response, extensor or posturing 02/23-MRI small infarct left frontal lobe , otherwise normal Respiratory: Respiratory arrest secondary to cardiac arrest Possible aspiration Pulmonary edema Maintain O2 sat greater than 92%, wean FiO2 as tolerated Mechanical vent settings AC/PC 18/500/+5/50 ABG-7.51/33/159/26/3.8 Ventilator bundle Maintain head of bed greater than 30 Bronchodilators every 6 hours schedule every 2 hours when necessary Empiric antibiotics cefepime, Levaquin added 02/21 chest x-rayleft mid left lower lung opacity, atelectatic right lung base Continue ARDS protocol, minimal FiO2, with permissive hypercapnea Plan for possible tracheostomy unless POA appears and choses otherwise. Cardiovascular: Asystolic cardiac arrest 2 Hypotension secondary to multisystem organ failure New onset A. fib with RVR-resolved Initial 12-lead EKG 02/18 ST elevations V1V5 and II, III aVF, with resolution Status post CPR with ROSC x 3 rounds of CPR Cardiology on board, Dr. Bragg no interventions at this time 02/19-ECHO -EF 45%, no RWMA Currently vasopressor support the Levophed off (02/21), Vasopressin 0.04 mcgs- off (02/22) Wean as tolerated maintain MAP greater than 60 mmHg 02/19 A. fib RVR converted with digoxin 0.51 dose Renal: Severe metabolic acidosis secondary to rhabdomyolysis Acute kidney injury secondary to rhabdomyolysis Oliguria Acute renal failure 02/19 D5W NaHCO3 infusion at 75 cc /hr 02/19 Vas-Cath placement-left IJ UOP 75cc for last 24 hours, CK level 2653 Nephrology following-Dr. Hernandez 02/19 IHD 3L off 02/20 IHD- 2L off, 02/21 IHD 4L off -- Strict I/Os -- Kayexalate FEN/GI: Hyperkalemia-resolved Hyperphosphatemia Hypocalcemia Melena Transaminitis Hepatitis C Ileus Ascites Maintain NPO status-OGT to LIWS Replete electrolytes [place] [address]-> [address]->11,176-> 4370->2653 today LDH 2010-> 1816 -> 1686->1147 Calcium gluconate 2 g IV now, protein corrected calcium 7.6 Continue Protonix infusion Gastroenterology following-Dr. Molina-reinitiation of tube feeds today Metoclopramide 5 mg 3 times a day 02/23 liver ultrasound sludge-filled gallbladder, mild wall thickening, ascites Heme/ID: Sepsis Leukocytosis-resolved Persistent Thrombocytopenia DIC-hypofibrinogenemia (resolved) Coagulopathy secondary to hepatic injury Bandemia Continue Cefepime, Gentamycin and vancomycin, day 4, Monitor serial CBC. WBC 12.7 INR 1.5-continue to monitor F/U Fibrinogen level Serial lactate levels-3.2 not clearing, will order liver ultrasound 02/18 blood cultures-negative growth to date 02/19 Hydrocortisone 50 mg every 6 hours 02/19 transfusion PRBCs 10 units, cryoprecipitate 2 units, FFP 2 units, platelets 5 units 02/21 platelet count 45, will transfuse 2 units of platelets. Will continue to transfuse for platelet count less than 50,000 02/23-obtain B12 level, begin B12 daily, folate 1 mg/day Obtain liver ultrasound Endocrine: Diabetes mellitus 2 Hypoglycemia-resolved Glucose monitoring per ICU protocol, low-dose regimen -- SSI Msk: Rhabdomyolysis S/P wide excision fasciotomy 02/19 Left above-knee amputation-POD#4 Orthopedics following-Dr. Purdy- plan for dressing change on Saturday, and normal drainage Continue monitor serial electrolytes, and hepatic panels Prophylaxis: GI Prophylaxis Protonix infusion, we'll consult GI regarding transition to Protonix twice a day , melena resolved DVT Prophylaxis -- SCD right leg, no pharmacological DVT prophylaxis in the setting of acute bleeding and coagulopathic state Lines: PIV's x 2 .RI J Central line 02/18, right radial a line 02/18, left vascular catheter 02/19 Dispo: Discussed with FORGE HELPER at bedside. The patient's prognosis is extremely poor at this time. Patient's neurological status has not improved, repeat EEG to be obtained to rule out subclinical epileptiform activity versus anoxic encephalopathy. Palliative care consult initiated. Family requests aggressive treatment at this time, at last contact . Family input needed. Clint Geiger MD February 26, 2017 18:29
[2017-02-27] VITALS (10 sets, daily range): BP systolic 97–110; BP diastolic 49–71; PULSE 101–117; RESP 21–32; TEMP 98.6–101.5; O2SAT 98–100
[2017-02-27] MEDS: CHLORHEXIDINE GLUCONATE 2 % 1 PACK (2 CLOTHS) TOP SCH (04:00)
[2017-02-27] MEDS: PANTOPRAZOLE INJ 80 MG in SODIUM CHLORIDE 0.9% INJ 100 ML IV SCH (05:00)
[2017-02-27] MEDS: METOCLOPRAMIDE HCL 10 MG/2 ML VIAL IV PUSH SCH ×2 (05:42→13:45)
[2017-02-27] MEDS: PHENYTOIN INJ 100 MG/2 ML VIAL IV SCH ×2 (05:42→13:44)
--- NOTE | 2017-02-27 07:04 | HHI.CCPN ---
Subjective Remarks/Hospital Course 61 years old male brought as a status post cardiac arrest. The history is obtained from medical chart. The patient has history of epilepsy. He is normally compliant with his antiepileptic agents. The patient had been conversing with roommates through a doorway about 3 hours prior to EMS arrival. He had become unresponsive and EMS was activated. They found the patient on the floor. His mental status was altered apparently postictal nonverbal. The patient was prepared for transport to the ER and on the way to the ambulance he became asystolic. ACLS protocol was initiated. The patient was intubated and chest compressions were started. About 12 minutes of chest compressions were performed. He received 1 dose of epinephrine. On arrival to the ER chest compressions were continued and shortly thereafter he was found to have a pulse. Levophed drip started. In the ER the patient received multiple rounds of epinephrine and bicarbonate as he lost pulses twice more initially each episode lasting about 2-3 minutes. EKG obtained shortly after the patient' s arrival revealed ST elevations in precordial leads V1 through V5 as well as II , III and aVF. STEMI alert was activated. Supervisor Edging Dr. Keane evaluated the patient at the bedside. A repeat EKG was performed revealing no ST elevation LA. The patient was found to have some swelling and induration of the left lower extremity at the calf. A [place] needle was employed to check compartment pressures of the anterior compartment in the superficial posterior compartment with measurements of 47 and 45 respectively. Finally the patient was found to be somewhat hypothermic and blood cultures were drawn and antibiotics initiated , cefepime and vancomycin. The patient also has hyperkalemia at 6.9 and insulin dextrose, calcium and bicarbonate were given. The creatinine is also about 3.5. Subjective 02/18/17 Upon entering patient's room at 0600 hrs., The patient was noted to have tonic-clonic jerking, completely unresponsive has not been on sedation since admission to the hospital. The patient has a known history of a seizure disorder. Keppra and Dilantin levels were obtained and pending. The patient was loaded with 1 g Dilantin IV, and placed on Dilantin 100 mg every 8 hours. The patient was noted to be on maximum doses of Levophed,20 mcgs, a central line was placed and the patient was placed on a second vasopressor, vasopressin@ 0.04. Neurology was consulted , a stat EEG was ordered. The patient's sodium bicarbonate infusion was increased to 150 cc/hr. the patient was noted to be oliguric in the setting of rhabdomyolysis the patient was bolused an additional liter of normal saline, and NS infusion at 150cc/hr. BMP pending. 02/19/17 Tmax 100.8. Over the last 24 hours the patient continues to be hemodynamically unstable, requiring 2 vasopressors for maintenance of a map ranging from 69-77. The patient was placed on a low dose propofol infusion secondary to continue tonic-clonic movements status post administration of Keppra and Dilantin. An EEG was performed showing a severe encephalopathic state. No intervention was performed yesterday to the left leg with compartment syndrome secondary to time sensitivity of intervention had passed, most likely prior to admission to the hospital. Demarcation of the left lower extremity has begun with mottling, edema, and blistering. Also cause necrosis continues with severe electrolyte abnormalities throughout the night to include hyperkalemia requiring continuous doses of calcium gluconate, Kayexalate now additionally adding D50 and insulin. The patient is noted to have continued elevations in hepatic enzymes most likely secondary to rhabdomyolysis. The patient continues to have hyperkalemia hyperphosphatemia due to muscle necrosis and hypocalcemia with challenging management. Steroids have been added to medication related regimen, electrolytes continued to be closely monitored. Nephrology has been consulted, appreciate recommendations. Discussion with Dr. Purdy, last evening the severe metabolic derangements, secondary to continued rhabdomyolysis with significant muscle necrosis of left lower extremity and continued SIRS response. Aggressive measures have been initiated since admission with case management to it and attempts to identify patient, and locate family thus far has been unsuccessful. The patient continues to be hemodynamically unstable with with continued elevation in vasopressor requirements. After this extensive discussion plans for emergent surgical intervention for left lower extremity today. 02/21/16 TMax 99.0. Yesterday the patient underwent a wide excision fasciotomy of the left lower extremity, and upon return from the OR, the patient's wound VAC was noted to be continuously flowing with blood, blood loss approximated to 2 L in the ICU, and worsening hemodynamic instability requiring vasopressor Levophed 20 mcgs in addition to vasopressin 0.04 mcgs. The patient emergently returned to the OR, and underwent left above knee amputation. The patient received multiple blood products to include 10 units of packed red blood cells, 5 units of platelets 2 units of FFP, 2 units of cryoprecipitate over the last 24 hours, now stabilized. Immediately on return from the OR the patient underwent dialysis, with 1.5 L removed, and potassium level normalized. The patient was noted to be an atrial fibrillation with RVR, heart rate in the 150s upon return from the OR. The patient received digoxin 0.5 mg, and subsequently 2 L over 12 hours and converted to sinus tachycardia at 0500. The patient now is currently on low-dose Levophed currently at 2 mcgs. The patient remains off sedation since 5 PM yesterday, currently nonresponsive. Creatinine kinase levels trending down. 02/21: The patient underwent hemodialysis yesterday with removal of 2 L. All sedating agents have been discontinued since 02/19/17 at 1700, the patient remains unresponsive, now extension posturing noted on neurological exam . Plan for repeat EEG, for assessment of subclinical seizures versus anoxic encephalopathy. Patient not tolerating trickle tube feeds, 10 cc an hour. Discontinued this a.m.. KUB obtained no obstruction. Family contacted discussed and updated mother who lives in [place] on patient's medical status. Plans for palliative care consult. 02/22 Tmax 98.6. No change in patient's neurological status also off all sedative medications since 02/19/17. Repeat EEG performed yesterday awaiting formal report. The patient was noted not to tolerate trickle feeds yesterday, KUB was ordered OGT in place. Patient was previously on metoclopramide when necessary, will initiate scheduled dosing. The patient appears to be normotensive vasopressor currently being weaned off. 02/23: The patient has been off of vasopressin since 12 noon on 02/22, remains hemodynamically stable. Change in neuro status since admission to hospital, repeat EEG showed diffuse encephalopathy with possible epileptogenic foci in bifrontal area. MRI ordered today. Will reinitiate trickle tube feeds today. 02/24 Tmax 99.5. MRI reveals small acute infarct left frontal lobe, otherwise normal. The neurological status has been unchanged for the past 5 days off sedation. The patient is requiring IHD, secondary to hyperkalemia today potassium 5.4. Liver ultrasound revealed ascites and a sludge filled gallbladder, possibly WBC count is elevated. 02/25: Persistent leukocytosis, ascites, large amount of gallbladder sludge. Plan for IR consult for percutaneous drainage Multiple attempts to contact family this weekend unsuccessful, to discuss goals of care. No change in neuro status , plan for tracheostomy and PEG, dependent on family's wishes. 02/26: Still trying to sort out family for help with care plan / decisions. Devastating neurological injury. 02/27: Patient is now DNR. No neurological improvement. Coag profile acceptable. Platelets marginal. Slow LGI bleed persists. The patient has developed multi-system organ failure and will not likely survive this episode. He has shown no signs of neurological recovery following his cardiac arrest. Objective Vital Signs Date Time Temp Pulse Resp B/P Pulse Ox O2 Delivery O2 Flow Rate FiO2 02/27/17 06:00 109 02/27/17 04:00 40 02/27/17 04:00 100.0 27 110/68 98 02/26/17 19:00 Mechanical Ventilator Intake and Output 02/26/17 02/26/17 02/27/17 08:00 16:00 00:00 Intake Total 75 ml 184 ml 105 ml Output Total 65 ml 90 ml 1540 ml Balance 10 ml 94 ml -1435 ml Result Diagram: 02/26/17 0500 02/26/17 0500 Imaging Last Impressions Chest X-Ray 02/22/17 0600 Signed Impressions: Service Date/Time: Wednesday, February 22, 2017 03:42 - CONCLUSION: No significant change. Hima Bright MD Abdomen X-Ray 02/21/17 0000 Signed Impressions: Service Date/Time: January 09:42 - CONCLUSION: Limited single view exam demonstrating nasogastric tube in place with the tip projected over the distal stomach.. Dayo Christopher MD Head CT 02/18/17 0241 Signed Impressions: Service Date/Time: Saturday, February 18, 2017 04:27 - CONCLUSION: Unremarkable CT scan of the brain.. Toby Constantino MD Last Impressions Chest X-Ray 02/21/17 0000 Signed Impressions: Service Date/Time: January 11:39 - CONCLUSION: Abnormal left basilar opacity could represent atelectasis, consolidation, and/or effusion. Hima Richards MD Abdomen X-Ray 02/21/17 0000 Signed Impressions: Service Date/Time: January 09:42 - CONCLUSION: Limited single view exam demonstrating nasogastric tube in place with the tip projected over the distal stomach.. Dayo Christopher MD Head CT 02/18/17240 Signed Impressions: Service Date/Time: Saturday, February 18, 2017 04:27 - CONCLUSION: Unremarkable CT scan of the brain.. Toby Constantino MD Last Impressions Chest X-Ray 02/20/17 0600 Signed Impressions: Service Date/Time: Monday, February 20, 2017 03:50 - CONCLUSION: Mild increase in interstitial markings bilaterally suggestive of some pulmonary edema. Otherwise, no other significant changes. Toby Constantino MD Head CT 02/18/17240 Signed Impressions: Service Date/Time: Saturday, February 18, 2017 04:27 - CONCLUSION: Unremarkable CT scan of the brain.. Toby Constantino MD Last 24 hours Impressions Chest X-Ray 02/18/17240 Signed Impressions: Service Date/Time: Saturday, February 18, 2017 02:45 - CONCLUSION: 1. No focal or acute intrathoracic disease. 2. NG tube tip in distal esophagus. Recommend advancing another 10 cm. Toby Constantino MD Objective Remarks GENERAL: Critically ill male intubated no sedation, continued extensor posturing SKIN: Warm and dry. HEAD: Normocephalic. EYES: No scleral icterus. No injection or drainage. Scleral edema mild. NECK: Supple, trachea midline. Orotracheally intubated CARDIOVASCULAR: Regular rate and rhythm without murmurs, gallops, or rubs. No JVD. RESPIRATORY: Mechanical ventilation, overbreathing the ventilator. Breath sounds equal bilaterally. No accessory muscle use. GASTROINTESTINAL: Abdomen soft, non-tender, nondistended. OGT tube feeds infusing, BS active. MUSCULOSKELETAL: No cyanosis, left AKA, dressing C/D/I EXTREMITIES: No clubbing, cyanosis or 1+ peripheral edema. Poorly perfused. NEURO: Unresponsive. Date of Insertion: Feb 18, 2017 Date of Insertion: Feb 18, 2017 Line: Central Venous Catheter Side: Right Location: Internal, Jugular A/P Assessment and Plan Neurologic: Seizure disorder Metabolic encephalopathy Possible anoxic encephalopathy Neurochecks per ICU protocol Off sedation since 02/19 at 1700, extensor posturing noted 02/21 Repeat EEG-diffuse encephalopathy with epileptogenic foci bifrontal region Continue Dilantin 100 mg every 8 hours, and Keppra, monitor levels, upon hospital admission noted Dilantin level subtherapeutic, Keppra level 6.5, subtherapeutic Neurology following-Dr. Suggs 02/18 EEG-severely attenuated electrographic activity with a burst suppression pattern consistent with severe encephalopathic state 02/18CT brain unremarkable 02/19-sedation off-no response, extensor or posturing 02/23-MRI small infarct left frontal lobe , otherwise normal Respiratory: Respiratory arrest secondary to cardiac arrest Possible aspiration Pulmonary edema Maintain O2 sat greater than 92%, wean FiO2 as tolerated Mechanical vent settings AC/PC 18/500/+5/50 ABG-7.51/33/159/26/3.8 Ventilator bundle Maintain head of bed greater than 30 Bronchodilators every 6 hours schedule every 2 hours when necessary Empiric antibiotics cefepime, Levaquin added 02/21 chest x-rayleft mid left lower lung opacity, atelectatic right lung base Continue ARDS protocol, minimal FiO2, with permissive hypercapnea Plan for possible tracheostomy unless POA appears and choses otherwise. DNR with comfort measures only now per sister. Cardiovascular: Asystolic cardiac arrest 2 Hypotension secondary to multisystem organ failure New onset A. fib with RVR-resolved Initial 12-lead EKG 02/18 ST elevations V1V5 and II, III aVF, with resolution Status post CPR with ROSC x 3 rounds of CPR Cardiology on board, Dr. Bragg no interventions at this time 02/19-ECHO -EF 45%, no RWMA Currently vasopressor support the Levophed off (02/21), Vasopressin 0.04 mcgs- off (02/22) Wean as tolerated maintain MAP greater than 60 mmHg 02/19 A. fib RVR converted with digoxin 0.51 dose Renal: Severe metabolic acidosis secondary to rhabdomyolysis Acute kidney injury secondary to rhabdomyolysis Oliguria Acute renal failure 02/19 D5W NaHCO3 infusion at 75 cc /hr 02/19 Vas-Cath placement-left IJ UOP 75cc for last 24 hours, CK level 2653 Nephrology following-Dr. Hernandez 02/19 IHD 3L off 02/20 IHD- 2L off, 02/21 IHD 4L off -- Strict I/Os -- Kayexalate FEN/GI: Hyperkalemia-resolved Hyperphosphatemia Hypocalcemia Melena Transaminitis Hepatitis C Ileus Ascites Maintain NPO status-OGT to LIWS Replete electrolytes [place] [address]-> [address]->11,176-> 4370->2653 today LDH 2011-> 1816 -> 1686->1147 Calcium gluconate 2 g IV now, protein corrected calcium 7.6 Continue Protonix infusion Gastroenterology following-Dr. Molina-reinitiation of tube feeds today Metoclopramide 5 mg 3 times a day 02/23 liver ultrasound sludge-filled gallbladder, mild wall thickening, ascites Heme/ID: Sepsis Leukocytosis-resolved Persistent Thrombocytopenia DIC-hypofibrinogenemia (resolved) Coagulopathy secondary to hepatic injury Bandemia Continue Cefepime, Gentamycin and vancomycin, day 4, Monitor serial CBC. WBC 12.7 INR 1.5-continue to monitor F/U Fibrinogen level Serial lactate levels-3.2 not clearing, will order liver ultrasound 02/18 blood cultures-negative growth to date 02/19 Hydrocortisone 50 mg every 6 hours 02/19 transfusion PRBCs 10 units, cryoprecipitate 2 units, FFP 2 units, platelets 5 units 02/21 platelet count 45, will transfuse 2 units of platelets. Will continue to transfuse for platelet count less than 50,000 02/23-obtain B12 level, begin B12 daily, folate 1 mg/day Obtain liver ultrasound Endocrine: Diabetes mellitus 2 Hypoglycemia-resolved Glucose monitoring per ICU protocol, low-dose regimen -- SSI Msk: Rhabdomyolysis S/P wide excision fasciotomy 02/19 Left above-knee amputation-POD#4 Orthopedics following-Dr. Purdy- plan for dressing change on Saturday, and normal drainage Continue monitor serial electrolytes, and hepatic panels Prophylaxis: GI Prophylaxis Protonix infusion, we'll consult GI regarding transition to Protonix twice a day , melena resolved DVT Prophylaxis -- SCD right leg, no pharmacological DVT prophylaxis in the setting of acute bleeding and coagulopathic state Lines: PIV's x 2 .RI J Central line 02/18, right radial a line 02/18, left vascular catheter 02/19 Dispo: Discussed with PROCESS ARCHITECT at bedside. The patient's prognosis remains extremely poor at this time. Patient's neurological status has not improved. Palliative care consult initiated. Sister now requests comfort measures only, DNR status. Clint Geiger MD February 27, 2017 07:03
[2017-02-27] MEDS: INSULIN ASPART SUPPLEMENTAL SCALE SQ SCH ×2 (08:00→13:30)
[2017-02-27] MEDS: CYANOCOBALAMIN 1,000 MCG TAB PO SCH (08:40)
[2017-02-27] MEDS: MUPIROCIN 2% OINT 1 APPLIC/GM SYR EACH NARE SCH (08:40)
[2017-02-27] MEDS: CHOLECALCIFEROL (VIT D3) 5000 UNIT CAP PO SCH (08:40)
[2017-02-27] MEDS: CALCITRIOL 0.25 MCG CAP PO SCH (08:40)
[2017-02-27] MEDS: LACTULOSE SYRUP 20 GM/30 ML CUP PO SCH (08:40)
[2017-02-27] MEDS: FOLIC ACID 1 MG TAB PO SCH (08:40)
[2017-02-27] MEDS: CALCIUM ACETATE 667 MG CAP PO SCH ×2 (08:40→13:45)
[2017-02-27] MEDS: levETIRAcetam 1000 MG INJ 100 ML IV SCH (08:40)
[2017-02-27] MEDS: BACITRACIN TOP OINT 15 GM TUBE TOPICAL SCH (08:41)
[2017-02-27] MEDS: ARTIFICIAL TEARS OPTH SOLN 15 ML BTL EACH EYE SCH (08:41)
[2017-02-27] MEDS: DOCUSATE SODIUM 100 MG/10 ML UDC G-TUBE SCH (08:41)
--- NOTE | 2017-02-27 11:07 | HHI.NPPN ---
Subjective General Problems: Edema Renal Failure: Acute Interval History He has been made a DNR. No acute changes. Renal function is stable. (Elma Rudolph) Review of Systems General General Remarks unable to evaluate (Elma Rudolph) Objective Data Data 02/26/17 02/27/17 19:00 07:00 Intake Total 184 ml 771 ml Output Total 1590 ml 105 ml Balance -1406 ml 666 ml Intake Oral 0 ml IV Total 102 ml 571 ml Platelets 200 ml Other 82 ml Output Urine Total 40 ml 30 ml Gastric Drainage Total 50 ml 75 ml Hemodialysis 1500 ml # Bowel Movements 1 4 Vital Signs Date Time Temp Pulse Resp B/P Pulse Ox O2 Delivery O2 Flow Rate FiO2 02/27/17 09:01 99 40 02/27/17 08:00 101.5 117 32 100/49 99 02/27/17 06:00 109 02/27/17 04:00 40 02/27/17 04:00 100.0 115 27 110/68 98 02/27/17 04:00 109 02/27/17 03:51 98 40 02/27/17 02:00 110 02/27/17 00:19 100 40 02/27/17 00:00 40 02/27/17 00:00 98.6 101 21 97/71 98 02/27/17 00:00 103 02/26/17 22:00 111 02/26/17 21:25 99 40 02/26/17 20:00 40 02/26/17 20:00 98.4 104 21 96/59 98 02/26/17 20:00 103 02/26/17 19:00 98 Mechanical Ventilator 40 02/26/17 18:00 102 02/26/17 17:16 97 40 02/26/17 17:00 102 02/26/17 16:00 99.1 120 26 94/57 98 02/26/17 16:00 40 02/26/17 16:00 115 02/26/17 14:00 107 02/26/17 12:09 98 40 02/26/17 12:00 40 02/26/17 12:00 99.5 105 24 92/58 98 02/26/17 12:00 106 (Elma Rudolph) -: 02/26/17 0500 02/26/17 0500 Imaging Last Impressions Brain MRI 02/24/17 0000 Signed Impressions: Service Date/Time: Friday, February 24, 2017 11:16 - CONCLUSION: Small acute infarct in the left frontal white matter. Otherwise within normal limits. Dez Rnee MD Chest X-Ray 02/23/17 0600 Signed Impressions: Service Date/Time: Thursday, February 23, 2017 05:55 - CONCLUSION: No significant change. Lungs remain reasonably clear. Hima Bright MD Liver Ultrasound 02/23/17 0000 Signed Impressions: Service Date/Time: Thursday, February 23, 2017 13:00 - CONCLUSION: 1. Hepatomegaly and echogenic liver parenchyma can be seen with hepatic steatosis or hepatocellular disease. 2. Main portal vein is patent with hepatopedal flow. 3. Ascites. 4. Sludge filled gallbladder with mild wall thickening. Nleson Kaplan MD ADDENDUM: The gallbladder is completely filled with sludge. Nelson Kaplan MD Abdomen X-Ray 02/21/17 0000 Signed Impressions: Service Date/Time: January 09:42 - CONCLUSION: Limited single view exam demonstrating nasogastric tube in place with the tip projected over the distal stomach.. Dayo Christopher MD Head CT 02/18/17 0241 Signed Impressions: Service Date/Time: Saturday, February 18, 2017 04:27 - CONCLUSION: Unremarkable CT scan of the brain.. Toby Constantino MD Tubes & Lines: Vas-Cath, Mccarthy Tubes & Lines Comment a line, rectal tube, TLC Drip Comment protonix (Elma Rudolph) Physical Exam General Appearance: No Acute Distress, Comfortable, Malnourished Appearance Remarks intubated, eyes open/tracking (Elma Rudolph) Throat Throat Remarks ETT, bleeding from gums (Elma Rudolph) Pulmonary Resp Exam: Breath Sounds Equal, No Distress, Crackles (Elma Rudolph) Cardiology CV Exam: Regular, Normal Sinus Rhythm, Good Perfusion (Elma Rudolph) Gastrointestinal/Abdomen GI Exam: Soft, Non-Tender, Bowel Sounds Present (Elma Rudolph) Genitourinary Remarks significant scrotal edema (Elma Rudolph) Musculoskeletal MS Exam: Joints Intact, Unable to Ambulate (Elma Rudolph) Integumentary Skin Exam: Warm, Dry Skin Remarks s/p left AKA, stump is dressed, clean and dry (Elma Rudolph) Extremeties Extremities Exam: Pedal Pulses Palpable Extremeties Remarks on right (Elma Rudolph) Neurologic Neuro Exam: Unresponsive, Sedated, Comatose Neuro Remarks decerebrate posturing (Elma Rudolph) Assessment/Plan Assessment Summary: CLAUDIA/Acute Renal Failure, Acute Tubular Necrosis, Fluid/ Volume Overload, Hypotension Electrolyte Assessment: Hypocalcemia Problem List: (1) Acute kidney injury Plan: oliguric renal failure, ATN from cardiac arrest and rhabdomyolysis HD initiated 02/19 , he has high waste products with persistent hyperkalemia he has been dialyzed almost daily, 1200 ml UF yesterday his renal function is stable, not hyperkalemic hold HD today, will plan for treatment tomorrow oliguric, monitor for changes, await renal recovery Avoid nephrotoxic agents. Avoid IVF Very poor prognosis. (2) Hyperkalemia Plan: corrected with HD, monitor for recurrence (3) Rhabdomyolysis Plan: due to fall with unknown down time also cocaine positive on admission follow CPK, levels are improving (4) Secondary hyperparathyroidism Plan: with severe vitamin D deficiency continue calcitriol and vitamin D calcium replacement ordered (5) Compartment syndrome Plan: s/p AKA Dr. Purdy (ortho) following, appreciate recommendations (6) Transaminitis Plan: Improved, GI has signed off. (7) Encephalopathy Plan: Now a DNR, Prognosis is poor. EEG reviewed Neurology following. he is not requiring sedation and is not following commands he has been posturing awaiting family decision about goals of care (8) Seizure disorder Plan: History of seizure disorder. Unclear if he was compliant with medications. Neurology following. he is on Keppra, Dilantin, and propofol here, no witnessed seizure activity reported (9) Thrombocytopenia Plan: Thrombocytopenia persists, unclear Etiology? DIC? he has been transfused No schistocytes on the peripheral smear. (Elma Rudolph) Plan patient was seen and examined. Very poor prognosis. He is now a DNR. (Jose Hernandez MD) Problem Qualifiers (1) Compartment syndrome: Qualified Code: T79.A22A - Traumatic compartment syndrome of left lower extremity, initial encounter Elma Rudolph February 27, 2017 11:07 Jose Hernandez MD February 28, 2017 10:25
[2017-02-27 11:13] LABS: AUTOMATED NEUTROPHIL # 18.3 TH/MM3 (1.8-7.7); BASOPHIL # 0.1 TH/MM3 (0-0.2); BASOPHIL % 0.3 % (0.0-2.0); LYMPH % 7.1 % (9.0-44.0); LYMPHOCYTE # 1.5 TH/MM3 (1.0-4.8); MEAN CELL VOLUME 92.5 FL (80.0-100.0); MEAN CORPUSCULAR HEMOGLOBIN 30.9 PG (27.0-34.0); MEAN CORPUSCULAR HGB CONC 33.4 % (32.0-36.0); MONO % 5.6 % (0.0-8.0); PLATELET COUNT 58 TH/MM3 (150-450); RED BLOOD COUNT 2.04 MIL/MM3 (4.50-5.90); RED CELL DISTRIBUTION WIDTH 19.4 % (11.6-17.2)
[2017-02-27 11:19] LABS: HEMO FLAGS AUTO DIFF
[2017-02-27 11:24] LABS: HEMATOCRIT 18.8 % (39.0-51.0)
[2017-02-27 11:45] LABS: BANDS 4 % (0-6); NEUTROPHIL # MANUAL DIFF 19.1 TH/MM3 (1.8-7.7); PLATELET ESTIMATE SMEAR LOW (NORMAL); PLATELET MORPHOLOGY NORMAL (NORMAL); POLYS (SEG NEUTROPHILS) 87 % (16-70); SCAN/DIFF FINAL DIFF MANUAL; TOXIC GRANULATION 1+ (NORMAL); WBC DIFF SAMPLE 100
[2017-02-27 11:55] LABS: BICARBONATE 24.7 MEQ/L (21.0-32.0); CALCIUM-PROTEIN CORRECTED 8.4 MG/DL (8.5-10.1); POTASSIUM 5.1 MEQ/L (3.5-5.1); TOTAL BILIRUBIN ADULT 9.4 MG/DL (0.2-1.0)
[2017-02-27] MEDS ORDERED: MORPHINE SULFATE 8 MG/ML INJ IV PUSH PRN (12:00)
[2017-02-27] MEDS: SODIUM CHLORIDE 0.9% FLUSH 5 ML FLUSH IVF SCH (12:00)
[2017-02-27] MEDS ORDERED: LORazepam 2 MG/ML VIAL IV PUSH SCH (12:00)
[2017-02-27] MEDS: HYDROCORTISONE SOD SUCCINATE 100 MG VIAL IV PUSH SCH (13:00)
[2017-02-27] MEDS: CEFEPIME INJ 2,000 MG in SODIUM CHLORIDE 0.9% INJ 100 ML IV SCH (13:45)
[2017-02-27] MEDS ORDERED: VANCOMYCIN INJ 1,250 MG in SODIUM CHLOR 0.9% 250 ML INJ 250 ML IV ONE (21:00)
--- NOTE | 2017-02-28 09:13 | DEATH SUM ---
Summary Demographics Date Pronounced : February 27, 2017 Time Of : 1436 Pronounced By: dr geiger Preliminary Cause of : Multi Organ Failure Clint Geiger MD February 28, 2017 09:13
--- NOTE | 2017-02-28 09:20 | HHI.DS ---
Discharge Summary Admission Date Feb 18, 2017 at 03:29 Discharge Date: February 27, 2017 Admitting Diagnosis Cardiopulmonary Arrest; Renal Failure; Hyperkalemia (1) Cardiopulmonary arrest with successful resuscitation ICD Code: I46.9 Diagnosis: Principal (2) Sepsis with multi-organ dysfunction ICD Code: A41.9 Diagnosis: Principal (3) Rhabdomyolysis ICD Code: M62.82 (4) Renal failure ICD Code: N19 (5) Compartment syndrome ICD Code: T79.A0XA (6) Thrombocytopenia ICD Code: D69.6 Procedures Left AKA. Brief History 61 years old male brought as a status post cardiac arrest. The history is obtained from medical chart. The patient has history of epilepsy. He is normally compliant with his antiepileptic agents. The patient had been conversing with roommates through a doorway about 3 hours prior to EMS arrival. He had become unresponsive and EMS was activated. They found the patient on the floor. His mental status was altered apparently postictal nonverbal. The patient was prepared for transport to the ER and on the way to the ambulance he became asystolic. ACLS protocol was initiated. The patient was intubated and chest compressions were started. About 12 minutes of chest compressions were performed. He received 1 dose of epinephrine. On arrival to the ER chest compressions were continued and shortly thereafter he was found to have a pulse. Levophed drip started. In the ER the patient received multiple rounds of epinephrine and bicarbonate as he lost pulses twice more initially each episode lasting about 2-3 minutes. EKG obtained shortly after the patient' s arrival revealed ST elevations in precordial leads V1 through V5 as well as II , III and aVF. STEMI alert was activated. Microbiology Instructor Dr. Keane evaluated the patient at the bedside. A repeat EKG was performed revealing no ST elevation OK. The patient was found to have some swelling and induration of the left lower extremity at the calf. A Yousif needle was employed to check compartment pressures of the anterior compartment in the superficial posterior compartment with measurements of 47 and 45 respectively. Finally the patient was found to be somewhat hypothermic and blood cultures were drawn and antibiotics initiated , cefepime and vancomycin. The patient also has hyperkalemia at 6.9 and insulin dextrose, calcium and bicarbonate were given. The creatinine is also about 3.5. CBC/BMP: 02/27/17 1035 02/27/17 1035 Significant Findings Laboratory Tests Test 02/26/17 02/27/17 02/27/17 05:00 05:45 10:35 White Blood Count 21.5 TH/MM3 21.0 TH/MM3 (4.0-11.0) (4.0-11.0) Red Blood Count 2.64 MIL/MM3 2.04 MIL/MM3 (4.50-5.90) (4.50-5.90) Hemoglobin 8.1 GM/DL 6.3 GM/DL (13.0-17.0) (13.0-17.0) Hematocrit 23.9 % 18.8 % (39.0-51.0) (39.0-51.0) Red Cell Distribution Width 19.5 % 19.4 % (11.6-17.2) (11.6-17.2) Platelet Count 41 TH/MM3 58 TH/MM3 (150-450) (150-450) Fibrinogen 223 mg/dL (227-377) Potassium Level 5.5 MEQ/L (3.5-5.1) Anion Gap 16 MEQ/L (5-15) 17 MEQ/L (5-15) Blood Urea Nitrogen 111 MG/DL 105 MG/DL (7-18) (7-18) Creatinine 5.48 MG/DL 5.30 MG/DL (0.60-1.30) (0.60-1.30) Estimat Glomerular Filtration 11 ML/MIN (>89) 11 ML/MIN (>89) Rate Random Glucose 207 MG/DL 142 MG/DL (74-106) (74-106) Calcium Level 7.1 MG/DL 7.1 MG/DL (8.5-10.1) (8.5-10.1) Protein Corrected Calcium 8.2 MG/DL 8.4 MG/DL (8.5-10.1) (8.5-10.1) Phosphorus Level 5.6 MG/DL 6.0 MG/DL (2.5-4.9) (2.5-4.9) Magnesium Level 2.6 MG/DL (1.5-2.5) Lactate Dehydrogenase 791 U/L (87-241) Total Creatine Kinase 1155 U/L (39-308) Creatine Kinase MB 6.8 NG/ML (0.5-3.6) Total Protein 5.0 GM/DL 4.8 GM/DL (6.4-8.2) (6.4-8.2) Phenytoin (Dilantin) Level 7.3 MCG/ML (10.0-20.0) Neutrophils (%) (Auto) 87.0 % (16.0-70.0) Lymphocytes (%) (Auto) 7.1 % (9.0-44.0) Neutrophils # (Auto) 18.3 TH/MM3 (1.8-7.7) Monocytes # (Auto) 1.2 TH/MM3 (0-0.9) Neutrophils % (Manual) 87 % (16-70) Lymphocytes % 5 % (9-44) Neutrophils # (Manual) 19.1 TH/MM3 (1.8-7.7) Toxic Granulation 1+ (NORMAL) Platelet Estimate LOW (NORMAL) Sodium Level 146 MEQ/L (136-145) Total Bilirubin 9.4 MG/DL (0.2-1.0) Aspartate Amino Transf 264 U/L (15-37) (AST/SGOT) Albumin 2.3 GM/DL (3.4-5.0) PE at Discharge . Transfer Summary Found in cardiopulmonary arrest at home. Resuscitated but floridly septic with left leg compartment syndrome. 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 Succumbed to mutli-system organ failure on 02/27/1027. Hospital Course 61 years old male brought as a status post cardiac arrest. The history is obtained from medical chart. The patient has history of epilepsy. He is normally compliant with his antiepileptic agents. The patient had been conversing with roommates through a doorway about 3 hours prior to EMS arrival. He had become unresponsive and EMS was activated. They found the patient on the floor. His mental status was altered apparently postictal nonverbal. The patient was prepared for transport to the ER and on the way to the ambulance he became asystolic. ACLS protocol was initiated. The patient was intubated and chest compressions were started. About 12 minutes of chest compressions were performed. He received 1 dose of epinephrine. On arrival to the ER chest compressions were continued and shortly thereafter he was found to have a pulse. Levophed drip started. In the ER the patient received multiple rounds of epinephrine and bicarbonate as he lost pulses twice more initially each episode lasting about 2-3 minutes. EKG obtained shortly after the patient' s arrival revealed ST elevations in precordial leads V1 through V5 as well as II , III and aVF. STEMI alert was activated. Microbiology Instructor Dr. Keane evaluated the patient at the bedside. A repeat EKG was performed revealing no ST elevation OK. The patient was found to have some swelling and induration of the left lower extremity at the calf. A Yousif needle was employed to check compartment pressures of the anterior compartment in the superficial posterior compartment with measurements of 47 and 45 respectively. Finally the patient was found to be somewhat hypothermic and blood cultures were drawn and antibiotics initiated , cefepime and vancomycin. The patient also has hyperkalemia at 6.9 and insulin dextrose, calcium and bicarbonate were given. The creatinine is also about 3.5. Subjective 02/18/17 Upon entering patient's room at 0600 hrs., The patient was noted to have tonic-clonic jerking, completely unresponsive has not been on sedation since admission to the hospital. The patient has a known history of a seizure disorder. Keppra and Dilantin levels were obtained and pending. The patient was loaded with 1 g Dilantin IV, and placed on Dilantin 100 mg every 8 hours. The patient was noted to be on maximum doses of Levophed,20 mcgs, a central line was placed and the patient was placed on a second vasopressor, vasopressin@ 0.04. Neurology was consulted , a stat EEG was ordered. The patient's sodium bicarbonate infusion was increased to 150 cc/hr. the patient was noted to be oliguric in the setting of rhabdomyolysis the patient was bolused an additional liter of normal saline, and NS infusion at 150cc/hr. BMP pending. 02/19/17 Tmax 100.8. Over the last 24 hours the patient continues to be hemodynamically unstable, requiring 2 vasopressors for maintenance of a map ranging from 69-77. The patient was placed on a low dose propofol infusion secondary to continue tonic-clonic movements status post administration of Keppra and Dilantin. An EEG was performed showing a severe encephalopathic state. No intervention was performed yesterday to the left leg with compartment syndrome secondary to time sensitivity of intervention had passed, most likely prior to admission to the hospital. Demarcation of the left lower extremity has begun with mottling, edema, and blistering. Also cause necrosis continues with severe electrolyte abnormalities throughout the night to include hyperkalemia requiring continuous doses of calcium gluconate, Kayexalate now additionally adding D50 and insulin. The patient is noted to have continued elevations in hepatic enzymes most likely secondary to rhabdomyolysis. The patient continues to have hyperkalemia hyperphosphatemia due to muscle necrosis and hypocalcemia with challenging management. Steroids have been added to medication related regimen, electrolytes continued to be closely monitored. Nephrology has been consulted, appreciate recommendations. Discussion with Dr. Purdy, last evening the severe metabolic derangements, secondary to continued rhabdomyolysis with significant muscle necrosis of left lower extremity and continued SIRS response. Aggressive measures have been initiated since admission with case management to it and attempts to identify patient, and locate family thus far has been unsuccessful. The patient continues to be hemodynamically unstable with with continued elevation in vasopressor requirements. After this extensive discussion plans for emergent surgical intervention for left lower extremity today. 02/21/16 TMax 99.0. Yesterday the patient underwent a wide excision fasciotomy of the left lower extremity, and upon return from the OR, the patient's wound VAC was noted to be continuously flowing with blood, blood loss approximated to 2 L in the ICU, and worsening hemodynamic instability requiring vasopressor Levophed 20 mcgs in addition to vasopressin 0.04 mcgs. The patient emergently returned to the OR, and underwent left above knee amputation. The patient received multiple blood products to include 10 units of packed red blood cells, 5 units of platelets 2 units of FFP, 2 units of cryoprecipitate over the last 24 hours, now stabilized. Immediately on return from the OR the patient underwent dialysis, with 1.5 L removed, and potassium level normalized. The patient was noted to be an atrial fibrillation with RVR, heart rate in the 150s upon return from the OR. The patient received digoxin 0.5 mg, and subsequently 2 L over 12 hours and converted to sinus tachycardia at 0500. The patient now is currently on low-dose Levophed currently at 2 mcgs. The patient remains off sedation since 5 PM yesterday, currently nonresponsive. Creatinine kinase levels trending down. 02/21: The patient underwent hemodialysis yesterday with removal of 2 L. All sedating agents have been discontinued since 02/19/17 at 1700, the patient remains unresponsive, now extension posturing noted on neurological exam . Plan for repeat EEG, for assessment of subclinical seizures versus anoxic encephalopathy. Patient not tolerating trickle tube feeds, 10 cc an hour. Discontinued this a.m.. KUB obtained no obstruction. Family contacted discussed and updated mother who lives in [place] on patient's medical status. Plans for palliative care consult. 02/22 Tmax 98.6. No change in patient's neurological status also off all sedative medications since 02/19/17. Repeat EEG performed yesterday awaiting formal report. The patient was noted not to tolerate trickle feeds yesterday, KUB was ordered OGT in place. Patient was previously on metoclopramide when necessary, will initiate scheduled dosing. The patient appears to be normotensive vasopressor currently being weaned off. 02/23: The patient has been off of vasopressin since 12 noon on 02/22, remains hemodynamically stable. Change in neuro status since admission to hospital, repeat EEG showed diffuse encephalopathy with possible epileptogenic foci in bifrontal area. MRI ordered today. Will reinitiate trickle tube feeds today. 02/24 Tmax 99.5. MRI reveals small acute infarct left frontal lobe, otherwise normal. The neurological status has been unchanged for the past 5 days off sedation. The patient is requiring IHD, secondary to hyperkalemia today potassium 5.4. Liver ultrasound revealed ascites and a sludge filled gallbladder, possibly WBC count is elevated. 02/25: Persistent leukocytosis, ascites, large amount of gallbladder sludge. Plan for IR consult for percutaneous drainage Multiple attempts to contact family this weekend unsuccessful, to discuss goals of care. No change in neuro status , plan for tracheostomy and PEG, dependent on family's wishes. 02/26: Still trying to sort out family for help with care plan / decisions. Devastating neurological injury. 02/27: Patient is now DNR. No neurological improvement. Coag profile acceptable. Platelets marginal. Slow LGI bleed persists. The patient has developed multi-system organ failure and will not likely survive this episode. He has shown no signs of neurological recovery following his cardiac arrest. Pt Condition on Discharge: Deteriorating Clint Geiger MD February 28, 2017 09:20
== END 2017-02-27 17:29 | disposition expired | DRG 853 ==
LOC: NEPE 02:14 → MERGE 03:29 → EDBD 03:29 → NEDH 03:29 → N03B 04:43
PROVIDERS: ADMIT Internal Medicine Critical Care Medicine; ATTEND Internal Medicine Critical Care Medicine
PROC: 5A1955Z Respiratory Ventilation, Greater than 96 Consecutive Hours (ICD-10-PCS; principal; 2017-02-18)
PROC: 0BH17EZ Insertion of Endotracheal Airway into Trachea, Via Natural or Artificial Opening (ICD-10-PCS; 2017-02-18)
PROC: 0T9B70Z Drainage of Bladder with Drainage Device, Via Natural or Artificial Opening (ICD-10-PCS; 2017-02-18)
PROC: 05HM33Z Insertion of Infusion Device into Right Internal Jugular Vein, Percutaneous Approach (ICD-10-PCS; 2017-02-18)
PROC: 6A551Z2 Pheresis of Platelets, Multiple (ICD-10-PCS; 2017-02-18)
PROC: 0Y6D0Z3 Detachment at Left Upper Leg, Low, Open Approach (ICD-10-PCS; 2017-02-19)
PROC: 0KBT0ZZ Excision of Left Lower Leg Muscle, Open Approach (ICD-10-PCS; 2017-02-19)
PROC: 0KNT0ZZ Release Left Lower Leg Muscle, Open Approach (ICD-10-PCS; 2017-02-19)
PROC: 30233K1 Transfusion of Nonautologous Frozen Plasma into Peripheral Vein, Percutaneous Approach (ICD-10-PCS; 2017-02-19)
PROC: 30233N1 Transfusion of Nonautologous Red Blood Cells into Peripheral Vein, Percutaneous Approach (ICD-10-PCS; 2017-02-19)
PROC: 05HN33Z Insertion of Infusion Device into Left Internal Jugular Vein, Percutaneous Approach (ICD-10-PCS; 2017-02-19)
PROC: 5A1D60Z (ICD-10-PCS; 2017-02-19)
DX: A41.9 Sepsis, unspecified organism (principal); I21.4 Non-ST elevation (NSTEMI) myocardial infarction; I46.9 Cardiac arrest, cause unspecified; D65 Disseminated intravascular coagulation [defibrination syndrome]; J96.00 Acute respiratory failure, unspecified whether with hypoxia or hypercapnia; I63.9 Cerebral infarction, unspecified; J81.1 Chronic pulmonary edema; N17.0 Acute kidney failure with tubular necrosis; G93.41 Metabolic encephalopathy; R18.8 Other ascites; K72.00 Acute and subacute hepatic failure without coma; G93.1 Anoxic brain damage, not elsewhere classified; Z99.11 Dependence on respirator [ventilator] status; M62.82 Rhabdomyolysis; E87.2 Acidosis; T79.A22A Traumatic compartment syndrome of left lower extremity, initial encounter; K92.1 Melena; E46 Unspecified protein-calorie malnutrition; M96.830 Postprocedural hemorrhage of a musculoskeletal structure following a musculoskeletal system procedure; M35.2 Behcet's disease; K56.7 Ileus, unspecified; N25.81 Secondary hyperparathyroidism of renal origin; T68.XXXA Hypothermia, initial encounter; E87.5 Hyperkalemia; G40.909 Epilepsy, unspecified, not intractable, without status epilepticus; R00.0 Tachycardia, unspecified; M79.89 Other specified soft tissue disorders; D64.89 Other specified anemias; Z51.5 Encounter for palliative care; B19.20 Unspecified viral hepatitis C without hepatic coma; M54.9 Dorsalgia, unspecified; G89.29 Other chronic pain; M25.519 Pain in unspecified shoulder; F17.210 Nicotine dependence, cigarettes, uncomplicated; F19.10 Other psychoactive substance abuse, uncomplicated; Y83.8 Other surgical procedures as the cause of abnormal reaction of the patient, or of later complication, without mention of misadventure at the time of the procedure; Y92.239 Unspecified place in hospital as the place of occurrence of the external cause; R34 Anuria and oliguria; E11.9 Type 2 diabetes mellitus without complications; R31.9 Hematuria, unspecified; E83.39 Other disorders of phosphorus metabolism; E83.51 Hypocalcemia; I48.91 Unspecified atrial fibrillation; E87.70 Fluid overload, unspecified; W19.XXXA Unspecified fall, initial encounter; E55.9 Vitamin D deficiency, unspecified; Z66 Do not resuscitate; R11.10 Vomiting, unspecified; H55.00 Unspecified nystagmus
CPT/HCPCS: 31500; 36430; 36556; 36600; 36620; 51702; 70450; 70551; 71010; 74000; 76705; 76937; 80048; 80053; 80069; 80074; 80076; 80177; 80185; 80202; 80307; 81001; 82140; 82248; 82306; 82310; 82435; 82550; 82552; 82565; 82607; 82805; 82947; 82948; 83605; 83615; 83735; 83880; 83970; 84100; 84132; 84155; 84295; 84484; 84520; 85007; 85014; 85018; 85027; 85384; 85610; 85730; 86850; 86900; 86901; 86920; 86927; 86965; 87040; 87086; 87641; 88307; 90935; 92950; 93005; 93306; 94002; 94003; 95819; 96374; 96375; 99292; C9113; J0171; J0610; J0690; J0692; J1100; J1160; J1165; J1580; J1644; J1720; J1815; J1953; J1956; J2060; J2150; J2250; J2270; J2765; J3010; J3370; J3430; J7030; J7040; J7050; J7070; J7120; P9016; P9017; P9035; P9047